=== PATIENT | male | born 1970 | race Caucasian/White ===

== ENCOUNTER 2016-12-06 12:31 | Inpatient (IN) | payer BC, OTHER ==
[~2016-12-06] VITALS: Ht 170.2 cm; Wt 109.4 kg
[~2016-12-06 12:31] MED LIST: ALBUAER2 INH; BENICAR PO; CIPR-255 PO; HCT PO
[2016-12-06] MEDS ORDERED: KETOROLAC TROMETHAMINE 30 MG/ML VIAL IV STA (12:50)
[2016-12-06] MEDS ORDERED: SODIUM CHLORIDE 0.9% 1000ML 1,000 ML IV STA ×2 (12:52→13:27)
[2016-12-06] MEDS ORDERED: TELM1TAB11 PO (13:14)
[2016-12-06] MEDS ORDERED: IBUP-1050 PO (13:14)
[2016-12-06] MEDS ORDERED: ATOR10TA88 PO (13:14)
[2016-12-06] MEDS ORDERED: VNTHFA/IN INH (13:15)
--- NOTE | 2016-12-06 13:30 | DIAGNOSTIC IMAGING REPORT ---
ABDOMEN AND PELVIS CT WITHOUT CONTRAST CT DOSE: 1786.61 mGy.cm HISTORY: Flank pain L flank pain TECHNIQUE: Multiaxial CT images of the abdomen and pelvis were performed without the use of intravenous and oral contrast according to the standard department stone protocol. COMPARISON STUDY: None. FINDINGS: Lung bases are clear. Liver spleen and pancreas appear unremarkable. Gallbladder slightly distended. Images demonstrate several punctate nonobstructing calcifications bilaterally. There is a trace amount of perinephric infiltrative change unaltered from the prior study of 12/13/2014. Bowel pattern is remarkable for perforated acute mid sigmoid diverticulitis. There is considerable pericolonic infiltrative change throughout the bulk of the sigmoid with a moderate wall thickening of the proximal to mid sigmoid. At the level of the mid sigmoid posteriorly is a localized perforation extending to a 4 x 3 cm air/complex fluid collection and/or abscess. There are several smaller localized air contained perforations with no evidence for an associated abscess. There is considerable pericolonic infiltrative change extending into left lateral position the left iliopsoas complex. There are scattered foci of free air scattered throughout the abdomen as well as remaining components of the pelvis. No additional collection or abscess is identified. Mild small bowel reactive ileus. Small amount subdiaphragmatic free air. The colonic bowel pattern is nonobstructive. The appendix is normal. IMPRESSION: 1. Perforated sigmoid acute diverticulitis. There is extensive pericolonic and low pelvic infiltrative change. 2. posterior to the mid sigmoid colon, and posterior to the bladder dome is a 4 x 3 cm air/complex fluid collection/abscess. 3. Several additional pericolonic air bubbles are present with additional scattered free air pockets throughout the abdomen and pelvis. 4. No additional major or significant abscess is identified at this time. 5. Considerable infiltrative change extending to the left lateral pelvic sidewall and iliopsoas musculature. 6. Several punctate nonobstructing renal calcifications. 7. Mild reactive nonobstructive ileus. 8. This report was phoned to the emergency room Electronically signed by: Benja Villegas M.D. 12/06/2016 1:28 PM Dictated Date/Time: 12/06/2016 1:14 PM
[2016-12-06 13:38] LABS: BASO % 0.1 %; BASO ABS # 0.01 K/uL (0-0.2); COMPLETE YES; EOS % 0.6 %; HEMATOCRIT 42.3 % (42-52); IG% 0.2 %; LYMPH % 11.9 %; LYMPH ABS # 1.77 K/uL (1.2-3.4); MEAN CELL VOLUME 85.8 fL (80-100); MEAN CORPUSCULAR HEMOGLOBIN 29.8 pg (25-34); MEAN CORPUSCULAR HGB CONC 34.8 g/dl (32-36); MEAN PLATELET VOLUME 10.7 fL (7.4-10.4); MONO % 8.8 %; NEUT % 78.4 %; PLATELET COUNT 255 K/uL (130-400); RED BLOOD COUNT 4.93 M/uL (4.7-6.1); WHITE BLOOD COUNT 14.84 K/uL (4.8-10.8)
[2016-12-06 13:46] LABS: BUN/CREATININE RATIO 18.2 (10-20); CALCIUM 8.5 mg/dl (8.5-10.1); CREATININE 0.87 mg/dl (0.60-1.40); POTASSIUM 3.9 mmol/L (3.5-5.1)
[2016-12-06] MEDS ORDERED: ALBUTEROL HFA 8 GM INHALER INH PRN (14:15)
[2016-12-06] MEDS ORDERED: LEVALBUTEROL/IPRATROPIUM NEB INH PRN (14:15)
[2016-12-06] MEDS ORDERED: ACETAMINOPHEN IV 100 ML IV PRN (14:15)
[2016-12-06] MEDS ORDERED: MoRPHine SULFATE 2 MG/ML CARP IV PRN (14:15)
[2016-12-06] MEDS ORDERED: DiphenhydrAMINE HCL 50 MG/ML VIAL IV PRN ×2 (14:15)
[2016-12-06] MEDS ORDERED: ONDANSETRON INJ 2 MG/ML 2 ML VIAL IV PRN (14:15)
[2016-12-06] MEDS ORDERED: LEVALBUTEROL 1.25MG/0.5ML NEB INH PRN (14:45)
[2016-12-06] MEDS ORDERED: IPRATROPIUM BROMIDE NEB SOLN 0.02% 2.5 ML VIAL INH PRN (14:45)
[2016-12-06 15:00] VITALS: BP 172/101; PULSE 90; TEMP 36.6; O2SAT 96; Ht 170.2 cm; Wt 109.4 kg
[2016-12-06] MEDS: MoRPHine SULFATE 4 MG/ML 1 ML CARP\\VIAL IV PRN ×5 (15:05→23:56)
[2016-12-06 15:06] LABS: URINE APPEARANCE CLOUDY (CLEAR); URINE BILIRUBIN NEG (NEG); URINE COLOR YELLOW; URINE NITRITE NEG (NEG); URINE SPECIFIC GRAVITY 1.014 (1.000-1.030); UROBILINOGEN NEG (NEG)
[2016-12-06 15:10] VITALS: BP 153/91; PULSE 90; TEMP 36.6; O2SAT 96
[2016-12-06 15:13] LABS: MANUAL MICROSCOPIC REQUIRED? NO; REVIEW REQ? NO
[2016-12-06] MEDS ORDERED: PIPERACILL/TAZOBAC IV 4.5 GM in DEXTROSE 5% 100ML 100 ML IV ONE (15:15)
[2016-12-06] MEDS ORDERED: PIPERACILL/TAZOBAC CONSULT ACTIVE PRN (15:15)
[2016-12-06] MEDS: NSS + 20MEQ KCL 1000ML 1,000 ML IV SCH (15:28)
[2016-12-06] MEDS ORDERED: PNEUMOCOCCAL ADMINISTRATION CHARGE ONE (17:00)
[2016-12-06] MEDS ORDERED: PNEUMOCOCCAL POLYSACCHARIDES 25 MCG/0.5 ML VIAL/SYR IM. ONE (17:00)
--- NOTE | 2016-12-06 18:39 | Surgery Consultation ---
Consultation Date of Consultation: Dec 06, 2016. Attending Physician: Alexi Burkett M.D. Reason for Consultation: diverticulitis History of Present Illness 46 y/o with prior hx of about 7-8 episodes of diverticulitis, never hospitalized for it though. has had a twinge of discomfort for about 2 weeks yesterday pain became severe...he thought it was a kidney stone. CT shows diverticulitis with perf/abcess Social History Smoking Status: Never Smoker Marital Status: Housing Status: lives with family Occupation Status: employed Allergies Coded Allergies: No Known Allergies (Verified , 12/06/16) Home Medications Scheduled Atorvastatin (Lipitor), 10 MG PO HS Telmisartan-Hydrochlorothiazid (Telmisartan/Hydrochloroth 80-25 mg), 1 TAB PO QAM Scheduled PRN Albuterol Hfa (Ventolin Hfa), 2 PUFFS INH QID PRN for SOB/Wheezing Ibuprofen (Advil), 600-800 MG PO Q6H PRN for Pain or Fever Current Inpatient Medications Current Inpatient Medications Medications (Trade) Dose Ordered Sig/Margaux Route Start Time Stop Time Status Last Admin Dose Admin Pantoprazole Sodium 40 mg/ Syringe 10 ml @ 5 mls/min DAILY@11 IV 12/07/16 11:00 01/06/17 10:59 Acetaminophen 100 ml @ 400 mls/hr Q8H PRN IV 12/06/16 14:15 01/05/17 14:14 Potassium Chloride/Sodium Chloride (Nss + 20meq KCl 1000ml) 1,000 ml @ 100 mls/hr Q10H IV 12/06/16 15:15 01/05/17 15:14 12/06/16 15:28 100 MLS/HR Ondansetron HCl (Zofran Inj) 4 mg Q6H PRN IV 12/06/16 14:15 01/05/17 14:14 Diphenhydramine HCl (Benadryl Inj) 25 mg Q4H PRN IV 12/06/16 14:15 01/05/17 14:14 Albuterol 2 puffs 2 puffs QID PRN INH 12/06/16 14:15 01/05/17 14:14 Piperacillin Sod/ Tazobactam Sod/ Dextrose (Zosyn Iv/D5 100ml) 120 ml @ 28.75 mls/ hr Q8H IV 12/06/16 22:00 12/16/16 21:59 Morphine Sulfate (MoRPHine SULFATE INJ) 2 mg Q2H PRN IV 12/06/16 14:15 12/20/16 14:14 Morphine Sulfate (MoRPHine SULFATE INJ) 4 mg Q2H PRN IV 12/06/16 14:15 12/20/16 14:14 12/06/16 17:26 4 MG Ipratropium [place] (Atrovent 0.02% 0.5MG/2.5ML Neb) 0.5 mg Q2R PRN INH 12/06/16 14:45 01/05/17 14:44 Levalbuterol (Xopenex 1.25MG/ 0.5ML Neb) 1.25 mg Q2R PRN INH 12/06/16 14:45 01/05/17 14:44 Piperacillin Sod/ Tazobactam Sod (Consult) 1 ea UD PRN N/A 12/06/16 15:15 12/16/16 15:14 Review of Systems Constitutional: + fever Abdomen: + nausea, + pain Genitourinary - Male: + dysuria, + urinary frequency Physical Exam Date Time Temp Pulse Resp B/P Pulse Ox O2 Delivery O2 Flow Rate FiO2 12/06/16 15:10 36.6 90 18 153/91 96 Room Air 12/06/16 15:00 36.6 90 18 172/101 96 Room Air 12/06/16 14:51 90 20 154/84 100 12/06/16 13:55 91 144/78 97 Room Air 12/06/16 12:35 36.9 101 18 175/96 95 Room Air General Appearance: no apparent distress Head: normocephalic, atraumatic Eyes: EOMI ENT: hearing grossly normal Neck: supple, no JVD Respiratory/Chest: no respiratory distress, no accessory muscle use Cardiovascular: no edema, no JVD Abdomen/GI: + tenderness, + distended, + pertinent finding (distended. no guarding/rebound. ttp in LLQ and suprapubic region) Extremities/Musculoskelatal: no pedal edema, normal range of motion Neurologic/Psych: alert, normal mood/affect, oriented x 3 Skin: normal color, warm/dry Laboratory Results Last 24 Hours Test 12/06/16 12:43 12/06/16 14:25 White Blood Count 14.84 K/uL Red Blood Count 4.93 M/uL Hemoglobin 14.7 g/dL Hematocrit 42.3 % Mean Corpuscular Volume 85.8 fL Mean Corpuscular Hemoglobin 29.8 pg Mean Corpuscular Hemoglobin Concent 34.8 g/dl Platelet Count 255 K/uL Mean Platelet Volume 10.7 fL Neutrophils (%) (Auto) 78.4 % Lymphocytes (%) (Auto) 11.9 % Monocytes (%) (Auto) 8.8 % Eosinophils (%) (Auto) 0.6 % Basophils (%) (Auto) 0.1 % Neutrophils # (Auto) 11.63 K/uL Lymphocytes # (Auto) 1.77 K/uL Monocytes # (Auto) 1.31 K/uL Eosinophils # (Auto) 0.09 K/uL Basophils # (Auto) 0.01 K/uL RDW Standard Deviation 40.9 fL RDW Coefficient of Variation 13.0 % Immature Granulocyte % (Auto) 0.2 % Immature Granulocyte # (Auto) 0.03 K/uL Sodium Level 137 mmol/L Potassium Level 3.9 mmol/L Chloride Level 102 mmol/L Carbon Dioxide Level 23 mmol/L Anion Gap 12.0 mmol/L Blood Urea Nitrogen 16 mg/dl Creatinine 0.87 mg/dl Est Creatinine Clear Calc Drug Dose 122.5 ml/min Estimated GFR () 118.3 Estimated GFR (Non- 102.1 BUN/Creatinine Ratio 18.2 Random Glucose 106 mg/dl Calcium Level 8.5 mg/dl Total Bilirubin 0.8 mg/dl Aspartate Amino Transf (AST/SGOT) 39 U/L Alanine Aminotransferase (ALT/SGPT) 64 U/L Alkaline Phosphatase 98 U/L Total Protein 7.5 gm/dl Albumin 3.7 gm/dl Globulin 3.8 gm/dl Albumin/Globulin Ratio 1.0 Urine Color YELLOW Urine Appearance CLOUDY Urine pH 6.0 Urine Specific [place] 1.014 Urine Protein NEG Urine Glucose (UA) NEG Urine Ketones NEG Urine Occult Blood NEG Urine Nitrite NEG Urine Bilirubin NEG Urine Urobilinogen NEG Urine Leukocyte Esterase NEG Urine WBC (Auto) 1-5 /hpf Urine RBC (Auto) 0-4 /hpf Urine Hyaline Casts (Auto) 1-5 /lpf Urine Epithelial Cells (Auto) 5-10 /lpf Urine Bacteria (Auto) NEG Assessment & Plan acute diverticulitis with perforation/abcess clinically looks better than his ct scan will see how he does with conservative tx for now npo/ivf/antibiotics/symptom control if clinically worsens may need to send out for IR drain if we can get him better conservatively, will rec/discuss elective lap colon resection. pt agreeable/questions answered.
[2016-12-06 20:01] VITALS: TEMP 36.4
--- NOTE | 2016-12-06 20:36 | History and Physical ---
History & Physical Date & Time of Service: Dec 06, 2016 at 20:25 Chief Complaint: Perforated Sigmoid Colon, Pericolonic Abscess Primary Care Physician: Charly Marcano M.D. History of Present Illness Source: patient, spouse The patient is a 46-year-old male who presents emergency department with report of 2 weeks of intermittent pressure in the left lower quadrant, with the sudden development of severe pain last evening to cost him to double over. The pain persisted overnight, and thus he presents emergency department for assessment. Prior to the past few weeks, he's had no incidences of this type of discomfort, and has had no recent changes in dietary habits. He denies any nausea or vomiting, and has not had any blood in stool. Social History Smoking Status: Never Smoker Smokeless Tobacco Use: No Alcohol Use: none Drug Use: none Marital Status: Housing status: lives with family Occupational Status: employed Immunizations History of Influenza Vaccine: N/A History of Tetanus Vaccine?: Yes History of Pneumococcal: No History of Hepatitis B Vaccine: Yes Multi-Drug Resistant Organisms History of MDRO: No Allergies Coded Allergies: No Known Allergies (Verified , 12/06/16) Home Medications Scheduled Atorvastatin (Lipitor), 10 MG PO HS Telmisartan-Hydrochlorothiazid (Telmisartan/Hydrochloroth 80-25 mg), 1 TAB PO QAM Scheduled PRN Albuterol Hfa (Ventolin Hfa), 2 PUFFS INH QID PRN for SOB/Wheezing Ibuprofen (Advil), 600-800 MG PO Q6H PRN for Pain or Fever Review of Systems The patient denies chest pain, palpitations, shortness of breath, cough, lower extremity swelling, vision change, hearing change, sore throat, fevers, chills, sweats, weight change, vomiting, blood in urine or stool, dysuria, urinary frequency or urgency, lightheadedness, dizziness, headache, memory loss, rash, abnormal bruising or bleeding, imbalance, focal or generalized weakness, numbness or tingling in arms or legs, arthralgias or myalgias, back or neck pain , night sweats, or allergy symptoms. The review of systems is otherwise negative other than for that already noted above, and at least 10 systems have been reviewed. Physical Exam Vital Signs Date Time Temp Pulse Resp B/P Pulse Ox O2 Delivery O2 Flow Rate FiO2 12/06/16 20:01 36.4 12/06/16 15:10 36.6 90 18 153/91 96 Room Air 12/06/16 15:00 36.6 90 18 172/101 96 Room Air 12/06/16 14:51 90 20 154/84 100 12/06/16 13:55 91 144/78 97 Room Air 12/06/16 12:35 36.9 101 18 175/96 95 Room Air The patient is awake, well-developed and adequately nourished, alert and oriented 3, normocephalic and atraumatic, lying in bed and in no acute distress. HEENT--PERRL, EOMI, mucous membranes and oropharynx dry. Neck--supple, no JVD or bruits, thyroid normal, trachea midline, no adenopathy. Heart--normal S1 and S2, no extra beats, no murmurs, rubs or gallops. Lungs--clear bilaterally with good air movement, no respiratory distress, no accessory muscle use. Abdomen--decreased bowel sounds, soft, mildly distended, with left lower quadrant pain. Extremities--no cyanosis, clubbing or edema. There are good distal pulses b/l. Dermatologic--normal skin turgor, normal color, warm and dry, no abnormal lymph nodes, no rash. Neurologic--cranial nerves II through XII grossly intact, motor and sensory examination normal. Rheumatologic--normal range of motion, nontender, muscles and joints. Psychiatric--normal affect. Diagnostics Laboratory Results Results Past 24 Hours Test 12/06/16 12:43 12/06/16 14:25 Range/Units White Blood Count 14.84 4.8-10.8 K/uL Red Blood Count 4.93 4.7-6.1 M/uL Hemoglobin 14.7 14.0-18.0 g/dL Hematocrit 42.3 42-52 % Mean Corpuscular Volume 85.8 80-100 fL Mean Corpuscular Hemoglobin 29.8 25-34 pg Mean Corpuscular Hemoglobin Concent 34.8 32-36 g/dl Platelet Count 255 130-400 K/uL Mean Platelet Volume 10.7 7.4-10.4 fL Neutrophils (%) (Auto) 78.4 % Lymphocytes (%) (Auto) 11.9 % Monocytes (%) (Auto) 8.8 % Eosinophils (%) (Auto) 0.6 % Basophils (%) (Auto) 0.1 % Neutrophils # (Auto) 11.63 1.4-6.5 K/uL Lymphocytes # (Auto) 1.77 1.2-3.4 K/uL Monocytes # (Auto) 1.31 0.11-0.59 K/uL Eosinophils # (Auto) 0.09 0-0.5 K/uL Basophils # (Auto) 0.01 0-0.2 K/uL RDW Standard Deviation 40.9 36.4-46.3 fL RDW Coefficient of Variation 13.0 11.5-14.5 % Immature Granulocyte % (Auto) 0.2 % Immature Granulocyte # (Auto) 0.03 0.00-0.02 K/uL Sodium Level 137 136-145 mmol/L Potassium Level 3.9 3.5-5.1 mmol/L Chloride Level 102 98-107 mmol/L Carbon Dioxide Level 23 21-32 mmol/L Anion Gap 12.0 3-11 mmol/L Blood Urea Nitrogen 16 7-18 mg/dl Creatinine 0.87 0.60-1.40 mg/dl Est Creatinine Clear Calc Drug Dose 122.5 ml/min Estimated GFR () 118.3 Estimated GFR (Non- 102.1 BUN/Creatinine Ratio 18.2 10-20 Random Glucose 106 70-99 mg/dl Calcium Level 8.5 8.5-10.1 mg/dl Total Bilirubin 0.8 0.2-1 mg/dl Aspartate Amino Transf (AST/SGOT) 39 15-37 U/L Alanine Aminotransferase (ALT/SGPT) 64 12-78 U/L Alkaline Phosphatase 98 45-117 U/L Total Protein 7.5 6.4-8.2 gm/dl Albumin 3.7 3.4-5.0 gm/dl Globulin 3.8 2.5-4.0 gm/dl Albumin/Globulin Ratio 1.0 0.9-2 Urine Color YELLOW Urine Appearance CLOUDY CLEAR Urine pH 6.0 4.5-7.5 Urine Specific [place] 1.014 1.000-1.030 Urine Protein NEG NEG Urine Glucose (UA) NEG NEG Urine Ketones NEG NEG Urine Occult Blood NEG NEG Urine Nitrite NEG NEG Urine Bilirubin NEG NEG Urine Urobilinogen NEG NEG Urine Leukocyte Esterase NEG NEG Urine WBC (Auto) 1-5 0-5 /hpf Urine RBC (Auto) 0-4 0-4 /hpf Urine Hyaline Casts (Auto) 1-5 0-5 /lpf Urine Epithelial Cells (Auto) 5-10 0-5 /lpf Urine Bacteria (Auto) NEG NEG Diagnostic Radiology Patient Name: JOSE CRUZ CHEN Unit Number: [id number] Dictated: 12/06/161313 Transcribed: 12/06/161313 MS Printed Date/Time: [~ rep prt dt]/[~ rep prt tm] [~ rep ct labl] - [~ rep ct ivnm] [facility] Radiology [place] [address] Dictated: 12/06/161313 Transcribed: 12/06/161313 MS Printed Date/Time: [~ rep prt dt]/[~ rep prt tm] [~ rep ct labl] - [~ rep ct ivnm] [~ rep ct add3]] ABDOMEN AND PELVIS CT WITHOUT CONTRAST CT DOSE: 1786.61 mGy.cm HISTORY: Flank pain L flank pain TECHNIQUE: Multiaxial CT images of the abdomen and pelvis were performed without the use of intravenous and oral contrast according to the standard department stone protocol. COMPARISON STUDY: None. FINDINGS: Lung bases are clear. Liver spleen and pancreas appear unremarkable. Gallbladder slightly distended. Images demonstrate several punctate nonobstructing calcifications bilaterally. There is a trace amount of perinephric infiltrative change unaltered from the prior study of 12/13/2014. Bowel pattern is remarkable for perforated acute mid sigmoid diverticulitis. There is considerable pericolonic infiltrative change throughout the bulk of the sigmoid with a moderate wall thickening of the proximal to mid sigmoid. At the level of the mid sigmoid posteriorly is a localized perforation extending to a 4 x 3 cm air/complex fluid collection and/or abscess. There are several smaller localized air contained perforations with no evidence for an associated abscess. There is considerable pericolonic infiltrative change extending into left lateral position the left iliopsoas complex. There are scattered foci of free air scattered throughout the abdomen as well as remaining components of the pelvis. No additional collection or abscess is identified. Mild small bowel reactive ileus. Small amount subdiaphragmatic free air. The colonic bowel pattern is nonobstructive. The appendix is normal. IMPRESSION: 1. Perforated sigmoid acute diverticulitis. There is extensive pericolonic and low pelvic infiltrative change. 2. posterior to the mid sigmoid colon, and posterior to the bladder dome is a 4 x 3 cm air/complex fluid collection/abscess. 3. Several additional pericolonic air bubbles are present with additional scattered free air pockets throughout the abdomen and pelvis. 4. No additional major or significant abscess is identified at this time. 5. Considerable infiltrative change extending to the left lateral pelvic sidewall and iliopsoas musculature. 6. Several punctate nonobstructing renal calcifications. 7. Mild reactive nonobstructive ileus. 8. This report was phoned to the emergency room Electronically signed by: Benja Villegas M.D. 12/06/2016 1:28 PM Dictated Date/Time: 12/06/2016 1:14 PM The status of this report is Signed. Draft = Not yet reviewed or approved by Radiologist. Signed = Reviewed and approved by Radiologist. <AttendingPhy></AttendingPhy> <FamilyPhy>Charly Marcano M.D.</FamilyPhy > <PrimaryPhy>Charly Marcano M.D.</PrimaryPhy> <UnitNumber>[id number]</ UnitNumber> <VisitNumber>[id number]</VisitNumber> <PatientName>JOSE CRUZ CHEN</ PatientName> <DateOfBirth>1970</DateOfBirth> <Location>[facility]</Location> < ServiceDate>12/06/16</ServiceDate> <MNE>ESINDI</MNE> <OrderingPhy>Cavazos Cory D PA-C</OrderingPhy> <OrderingPhyMNE>f rep ord dr nicole</OrderingPhyMNE> < DictatingPhyMNE>f rep dict dr nicole</DictatingPhyMNE> <CCListMNE>f rep ct anthonye</ CCListMNE> <AdmittingPhyMNE>f pt admit dr nicole</AdmittingPhyMNE> <AttendingPhyMNE >f pt attend dr nicole</AttendingPhyMNE> <ConsultingPhyMNE>f pt consult dr nicole</ConsultingPhyMNE> <FamilyPhyMNE>f pt fam dr nicole</FamilyPhyMNE> <OtherPhyMNE>f pt other dr nicole</OtherPhyMNE> < PrimaryPhyMNE>f pt prim care dr nicole</PrimaryPhyMNE> <ReferringPhyMNE>f pt referring dr nicole</ReferringPhyMNE> Impression Assessment and Plan Perforated sigmoid acute diverticulitis with extensive pericolonic and low pelvic infiltrative change, with a 4 x 3 cm air/complex fluid collection/ abscess posterior to the mid sigmoid colon. There are several additional pericolonic air bubbles present with additional scattered free air pockets throughout the abdomen and pelvis. There is considerable infiltrative change extending to the left lateral pelvic sidewall and iliopsoas musculature. Mild reactive nonobstructive ileus. The patient is being admitted to the medical surgical floor. He'll be kept nothing by mouth. He'll be placed on Zosyn 3.375 mg IV every 6 hours, NSS with KCl 20 mEq at 100 mils per hour, Zofran 4 mg IV every 6 hours when necessary, and pantoprazole 40 mg IV daily. We'll follow serial CBC with differential, chemistry profile and magnesium level. Surgery been consulted and will see the patient. Hypertension--while patient is nothing by mouth, we will hold telmisartan/HCTZ, and will have available hydralazine 10 mg IV every 4 hours when necessary systolic blood pressure greater than 150. Hypercholesterolemia--hold atorvastatin 10 mg by mouth at bedtime while patient is nothing by mouth. Asthma--will continue Ventolin HFA 2 puffs 4 times a day when necessary available, and add Xopenex with Atrovent nebulizers to use every 2 hours when necessary. Level of Care Med/Surg Advanced Directives Existing Advance Directive: No Existing Living Will: No Existing Power of Emergency Response Officer: No Resuscitation Status FULL RESUSCITATION VTE Prophylaxis VTE Risk Assessment Done? Y/N: Yes Risk Level: Moderate Given or contraindicated: SCD's Social Service Consult None Apply
[2016-12-06] MEDS: PIPERACILL/TAZOBAC IV 4.5 GM in DEXTROSE 5% 100ML 100 ML IV SCH (21:30)
[2016-12-06 21:56] VITALS: BP 122/60; PULSE 102; TEMP 37.3; O2SAT 97
[2016-12-06] MEDS ORDERED: SODIUM CHLORIDE 0.9% 1000ML 1,000 ML IV ONE (22:15)
--- NOTE | 2016-12-06 23:28 | Progress Note ---
Progress Note I was paged at approximately 22:04. Nurse wanted to notify that heart rate had been steadily climbing. No fevers. was in the room and noted to nursing that she was nervous that blood cultures have not been obtained. I give the following instructions prior to my arrival: Obtain full set of vital signs and I would be up to see the patient I arrived at the to the bedside to assess the patient. By the time I arrived, patient's had gone home: SUBJECTIVE: Patient notes that the pain is stable, morphine helps control it. Currently a 3 out of 10. Abdomen has felt distended since admission, but does not feel like distention is increasing at this time. OBJECTIVE: Vital signs: Temp 37.3; BP 122/60; ; HR 102; RR 18; oxygen saturation 97% RA Gen. inspection: Patient in no apparent distress, does note some abdominal pain but stable, no evidence of respiratory distress, no evidence of diaphoresis Exam cardiac: S1 and S2 with no added sounds or murmurs Abdominal: Abdomen mildly distended, diffuse tenderness to light palpation, reduced bowel sounds, no guarding or rigidity ASSESSMENT/PLAN: 46-year-old male, presenting with perforated sigmoid diverticulum, currently being managed medically. At this time the patient appears stable from the time of admission, and does not appear to be worsening clinically. However I will continue to monitor him through the night. He is very slightly tachycardic with a heart rate of 102, and it is noticed from CBC that he has a mild leukocytosis at 14. He does currently have an intra -abdominal infection for which was started on Pipracil/Tazobactam IV. Patient will be meeting criteria at this point of sepsis, however broad spectrum IV antibiotics already been started and may interfere with culture result. As a result at this time I would hold off on obtaining blood cultures, unless the patient becomes febrile during the night. Slight tachycardia may indeed reflect the degree of dehydration for which I will do a fluid challenge of 1 L given over 2 hours (500 ml/hr), at which point I will reassess. 02:30 I went back upstairs to the patient's room to reassess. Patient was noted by nurse to be sleeping comfortably, got a dose of scheduled morphine approximately 1 hour ago, no complaints since then. Reviewed vital signs drawn at 01:50: Temp 37.4; HR 102; RR 18; BP 142/74; 95% room air At this time the patient appears stable. I suspect this time that the very low- grade tachycardia is most likely due to pain. Hemodynamically he is otherwise stable . The patient has antibiotics on board, therefore I would not draw blood cultures unless he spikes a temperature overnight. Otherwise, we'll continue with current plan of Piperacillin/Tazobactam. No further action at this time, unless patient's clinical condition changes. Otherwise, I will sign out the case the day team.
[2016-12-07] MEDS: NSS + 20MEQ KCL 1000ML 1,000 ML IV SCH ×2 (01:48→11:17)
[2016-12-07] MEDS: MoRPHine SULFATE 4 MG/ML 1 ML CARP\\VIAL IV PRN ×4 (01:48→09:21)
[2016-12-07 01:50] VITALS: BP 142/74; PULSE 102; TEMP 37.4; O2SAT 95
[2016-12-07] MEDS: PIPERACILL/TAZOBAC IV 4.5 GM in DEXTROSE 5% 100ML 100 ML IV SCH ×2 (05:38→14:00)
[2016-12-07 07:25] VITALS: BP 121/74; PULSE 91; TEMP 37; O2SAT 96
[2016-12-07 07:25] LABS: BASO % 0.1 %; BASO ABS # 0.01 K/uL (0-0.2); COMPLETE YES; EOS % 0.3 %; HEMATOCRIT 38.5 % (42-52); IG% 0.2 %; LYMPH % 11.7 %; LYMPH ABS # 1.54 K/uL (1.2-3.4); MEAN CELL VOLUME 87.1 fL (80-100); MEAN CORPUSCULAR HEMOGLOBIN 29.6 pg (25-34); MEAN PLATELET VOLUME 10.7 fL (7.4-10.4); MONO % 10.8 %; NEUT % 76.9 %; PLATELET COUNT 231 K/uL (130-400); RED BLOOD COUNT 4.42 M/uL (4.7-6.1)
[2016-12-07] MEDS ORDERED: HYDROmorphone INJ 0.5 MG/0.5 ML SYR IV STA (07:36)
[2016-12-07] MEDS ORDERED: HYDROmorphone INJ 1 MG/ML SYR IV PRN (07:45)
[2016-12-07] MEDS ORDERED: HYDROmorphone INJ 0.5 MG/0.5 ML SYR IV PRN ×2 (07:45→11:00)
--- NOTE | 2016-12-07 08:06 | Surgery Progress Note ---
Surgery Progress Note Date of Service Dec 07, 2016. Subjective having more pelvic pain and rectal spasm Objective Vital Signs: Date Time Temp Pulse Resp B/P Pulse Ox O2 Delivery O2 Flow Rate FiO2 12/07/16 07:30 Room Air 12/07/16 07:25 37.0 91 19 121/74 96 Room Air 12/07/16 01:50 37.4 102 18 142/74 95 Room Air 12/06/16 21:56 37.3 102 18 122/60 97 Room Air 12/06/16 20:01 36.4 12/06/16 19:45 Room Air 12/06/16 15:10 36.6 90 18 153/91 96 Room Air 12/06/16 15:00 36.6 90 18 172/101 96 Room Air 12/06/16 14:51 90 20 154/84 100 12/06/16 13:55 91 144/78 97 Room Air 12/06/16 12:35 36.9 101 18 175/96 95 Room Air General Appearance: + mild distress Respiratory/Chest: no respiratory distress Abdomen: + distended, + tenderness (pain is in pelvis Lt>>Rt) Laboratory Results: Results Past 24 Hours Test 12/06/16 12:43 12/06/16 14:25 12/07/16 06:36 Range/Units White Blood Count 14.84 13.20 4.8-10.8 K/uL Red Blood Count 4.93 4.42 4.7-6.1 M/uL Hemoglobin 14.7 13.1 14.0-18.0 g/dL Hematocrit 42.3 38.5 42-52 % Mean Corpuscular Volume 85.8 87.1 80-100 fL Mean Corpuscular Hemoglobin 29.8 29.6 25-34 pg Mean Corpuscular Hemoglobin Concent 34.8 34.0 32-36 g/dl Platelet Count 255 231 130-400 K/uL Mean Platelet Volume 10.7 10.7 7.4-10.4 fL Neutrophils (%) (Auto) 78.4 76.9 % Lymphocytes (%) (Auto) 11.9 11.7 % Monocytes (%) (Auto) 8.8 10.8 % Eosinophils (%) (Auto) 0.6 0.3 % Basophils (%) (Auto) 0.1 0.1 % Neutrophils # (Auto) 11.63 10.16 1.4-6.5 K/uL Lymphocytes # (Auto) 1.77 1.54 1.2-3.4 K/uL Monocytes # (Auto) 1.31 1.42 0.11-0.59 K/uL Eosinophils # (Auto) 0.09 0.04 0-0.5 K/uL Basophils # (Auto) 0.01 0.01 0-0.2 K/uL RDW Standard Deviation 40.9 42.2 36.4-46.3 fL RDW Coefficient of Variation 13.0 13.1 11.5-14.5 % Immature Granulocyte % (Auto) 0.2 0.2 % Immature Granulocyte # (Auto) 0.03 0.03 0.00-0.02 K/uL Sodium Level 137 136-145 mmol/L Potassium Level 3.9 3.5-5.1 mmol/L Chloride Level 102 98-107 mmol/L Carbon Dioxide Level 23 21-32 mmol/L Anion Gap 12.0 3-11 mmol/L Blood Urea Nitrogen 16 7-18 mg/dl Creatinine 0.87 0.60-1.40 mg/dl Est Creatinine Clear Calc Drug Dose 122.5 ml/min Estimated GFR () 118.3 Estimated GFR (Non- 102.1 BUN/Creatinine Ratio 18.2 10-20 Random Glucose 106 70-99 mg/dl Calcium Level 8.5 8.5-10.1 mg/dl Total Bilirubin 0.8 0.2-1 mg/dl Aspartate Amino Transf (AST/SGOT) 39 15-37 U/L Alanine Aminotransferase (ALT/SGPT) 64 12-78 U/L Alkaline Phosphatase 98 45-117 U/L Total Protein 7.5 6.4-8.2 gm/dl Albumin 3.7 3.4-5.0 gm/dl Globulin 3.8 2.5-4.0 gm/dl Albumin/Globulin Ratio 1.0 0.9-2 Urine Color YELLOW Urine Appearance CLOUDY CLEAR Urine pH 6.0 4.5-7.5 Urine Specific [place] 1.014 1.000-1.030 Urine Protein NEG NEG Urine Glucose (UA) NEG NEG Urine Ketones NEG NEG Urine Occult Blood NEG NEG Urine Nitrite NEG NEG Urine Bilirubin NEG NEG Urine Urobilinogen NEG NEG Urine Leukocyte Esterase NEG NEG Urine WBC (Auto) 1-5 0-5 /hpf Urine RBC (Auto) 0-4 0-4 /hpf Urine Hyaline Casts (Auto) 1-5 0-5 /lpf Urine Epithelial Cells (Auto) 5-10 0-5 /lpf Urine Bacteria (Auto) NEG NEG Assessment & Plan 12/07/16- adm with perforated diverticulitis- pelvic abscess- now with more pain To try to avoid a temporary colostomy, would be best if pt could have drain placed by IR- hopefully this could be done at [facility] or [facility]. Pt has seen Dr Bowling in past , has had no prior operation
[2016-12-07 08:09] LABS: ALKALINE PHOSPHATASE 87 U/L (45-117); ALT/SGPT 58 U/L (12-78); AST/SGOT 30 U/L (15-37); BLOOD UREA NITROGEN 9 mg/dl (7-18); BUN/CREATININE RATIO 11.4 (10-20); CALCIUM 8.2 mg/dl (8.5-10.1); CARBON DIOXIDE 24 mmol/L (21-32); CHLORIDE 101 mmol/L (98-107); GLUCOSE 85 mg/dl (70-99); MAGNESIUM 1.9 mg/dl (1.8-2.4); POTASSIUM 3.8 mmol/L (3.5-5.1); SODIUM 136 mmol/L (136-145)
--- NOTE | 2016-12-07 09:32 | DIAGNOSTIC IMAGING REPORT ---
ABDOMEN 2VIEW W/PA CHEST RTN CLINICAL HISTORY: Pericolonic abscess. Sigmoid diverticulitis. COMPARISON STUDY: CT scan dated 12/06/2016 FINDINGS: The erect chest reveals no free air. There is no focal pulmonary consolidation. Erect and supine views the abdomen reveal a borderline dilated left mid abdominal small bowel loop, possibly representing a focal ileus. There are no transition zones indicate a high-grade bowel obstruction. IMPRESSION: 1. No conventional radiographic evidence of bowel obstruction 2. No free air is visualized Electronically signed by: Branden Flores M.D. 12/07/2016 9:31 AM Dictated Date/Time: 12/07/2016 9:27 AM
[2016-12-07] MEDS ORDERED: METRONIDAZOLE / NSS 500 MG in PREMIXED NSS 100 ML IV SCH (10:00)
[2016-12-07] MEDS ORDERED: dilaudid IV (10:04)
[2016-12-07] MEDS ORDERED: ZSYI45 IV (10:04)
--- NOTE | 2016-12-07 10:05 | Discharge Instructions ---
Discharge Instructions Admission Reason for Admission: Perforated Sigmoid Colon, Pericolonic Abscess Discharge Discharge Diagnosis / Problem: intra abdominal abscess Discharge Goals Goal(s): Diagnostic testing Activity Recommendations Activity Limitations: as noted below . Current Hospital Diet Patient's current hospital diet: Discharge Diet Recommended Diet: N/A Pending Studies Studies pending at discharge: yes List of pending studies: blood cultures Medical Emergencies . Who to Call and When: Medical Emergencies: If at any time you feel your situation is an emergency, please call 911 immediately. . Non-Emergent Contact Non-Emergency issues call your: Surgeon . . "Provider Documentation" section prepared by Eze Fraah. VTE Core Measure Inpt VTE Proph given/why not?: SCD's
[2016-12-07] MEDS ORDERED: ACETAMINOPHEN IV 650 MG in EMPTY BAG 0 ML IV PRN (10:15)
[2016-12-07] MEDS ORDERED: KETOROLAC TROMETHAMINE 30 MG/ML VIAL IV ONE (10:30)
[2016-12-07] MEDS ORDERED: PANTOprazole INJ 40 MG in SYRINGE 0 ML IV SCH (11:00)
[2016-12-07] MEDS: HYDROmorphone INJ 1 MG/ML SYR IV PRN ×4 (11:32→15:23)
[2016-12-07 15:04] VITALS: BP 120/60; PULSE 95; TEMP 36.8; O2SAT 96
[2016-12-07 16:12] VITALS: BP 120/60; PULSE 95; TEMP 36.8; O2SAT 96
--- NOTE | 2016-12-08 07:20 | Progress Note ---
Subjective Date of Service: Dec 07, 2016. Objective Vital Signs Date Time Temp Pulse Resp B/P Pulse Ox O2 Delivery O2 Flow Rate FiO2 12/07/16 07:25 37.0 91 19 121/74 96 Room Air 12/07/16 01:50 37.4 102 18 142/74 95 Room Air 12/06/16 21:56 37.3 102 18 122/60 97 Room Air 12/06/16 20:01 36.4 12/06/16 19:45 Room Air 12/06/16 15:10 36.6 90 18 153/91 96 Room Air 12/06/16 15:00 36.6 90 18 172/101 96 Room Air 12/06/16 14:51 90 20 154/84 100 12/06/16 13:55 91 144/78 97 Room Air 12/06/16 12:35 36.9 101 18 175/96 95 Room Air Laboratory Results Last 24 Hours Test 12/06/16 12:43 12/06/16 14:25 12/07/16 06:36 White Blood Count 14.84 K/uL 13.20 K/uL Red Blood Count 4.93 M/uL 4.42 M/uL Hemoglobin 14.7 g/dL 13.1 g/dL Hematocrit 42.3 % 38.5 % Mean Corpuscular Volume 85.8 fL 87.1 fL Mean Corpuscular Hemoglobin 29.8 pg 29.6 pg Mean Corpuscular Hemoglobin Concent 34.8 g/dl 34.0 g/dl Platelet Count 255 K/uL 231 K/uL Mean Platelet Volume 10.7 fL 10.7 fL Neutrophils (%) (Auto) 78.4 % 76.9 % Lymphocytes (%) (Auto) 11.9 % 11.7 % Monocytes (%) (Auto) 8.8 % 10.8 % Eosinophils (%) (Auto) 0.6 % 0.3 % Basophils (%) (Auto) 0.1 % 0.1 % Neutrophils # (Auto) 11.63 K/uL 10.16 K/uL Lymphocytes # (Auto) 1.77 K/uL 1.54 K/uL Monocytes # (Auto) 1.31 K/uL 1.42 K/uL Eosinophils # (Auto) 0.09 K/uL 0.04 K/uL Basophils # (Auto) 0.01 K/uL 0.01 K/uL RDW Standard Deviation 40.9 fL 42.2 fL RDW Coefficient of Variation 13.0 % 13.1 % Immature Granulocyte % (Auto) 0.2 % 0.2 % Immature Granulocyte # (Auto) 0.03 K/uL 0.03 K/uL Sodium Level 137 mmol/L Potassium Level 3.9 mmol/L Chloride Level 102 mmol/L Carbon Dioxide Level 23 mmol/L Anion Gap 12.0 mmol/L Blood Urea Nitrogen 16 mg/dl Creatinine 0.87 mg/dl Est Creatinine Clear Calc Drug Dose 122.5 ml/min Estimated GFR () 118.3 Estimated GFR (Non- 102.1 BUN/Creatinine Ratio 18.2 Random Glucose 106 mg/dl Calcium Level 8.5 mg/dl Total Bilirubin 0.8 mg/dl Aspartate Amino Transf (AST/SGOT) 39 U/L Alanine Aminotransferase (ALT/SGPT) 64 U/L Alkaline Phosphatase 98 U/L Total Protein 7.5 gm/dl Albumin 3.7 gm/dl Globulin 3.8 gm/dl Albumin/Globulin Ratio 1.0 Urine Color YELLOW Urine Appearance CLOUDY Urine pH 6.0 Urine Specific [place] 1.014 Urine Protein NEG Urine Glucose (UA) NEG Urine Ketones NEG Urine Occult Blood NEG Urine Nitrite NEG Urine Bilirubin NEG Urine Urobilinogen NEG Urine Leukocyte Esterase NEG Urine WBC (Auto) 1-5 /hpf Urine RBC (Auto) 0-4 /hpf Urine Hyaline Casts (Auto) 1-5 /lpf Urine Epithelial Cells (Auto) 5-10 /lpf Urine Bacteria (Auto) NEG Assessment and Plan 46 M with Perforated sigmoid acute diverticulitis with extensive pericolonic and low pelvic infiltrative change, with a 4 x 3 cm air/complex fluid collection /abscess posterior to the mid sigmoid colon. Diverticulosis, perforation, surgical consult, Zosyn 3.375 mg IV every 6 hours , NSS with KCl 20 mEq at 100 mils per hour, Zofran 4 mg IV every 6 hours when necessary, and pantoprazole 40 mg IV daily. Hypertension-- hold telmisartan/HCTZ, and hydralazine 10 mg IV every 4 hours when necessary systolic blood pressure greater than 150. Hypercholesterolemia--hold atorvastatin 10 Asthma-prn inhalers
--- NOTE | 2016-12-08 07:25 | Discharge Summary ---
Discharge Summary Admission Date: Dec 06, 2016 at 14:14 Discharge Date: Dec 07, 2016 Discharge Disposition: Acute care facility Principal Diagnosis: SIGMOID DIVERTICULITIS WITH PERFORATION Immunizations: Have You Had Influenza Vaccine: N/A History of Tetanus Vaccine?: Yes History of Pneumococcal: No History of Hepatitis B Vaccine: Yes Medication Reconciliation New Medications: Piperacillin/Tazobactam Sod (Zosyn 4-0.5 gm) 4.5 Gm/20 Ml Inj 4.5 GM IV Q6, #40 DOSE [dilaudid] () 1 MG IV Q1H PRN for Pain Continued Medications: Albuterol Hfa (Ventolin Hfa) 200 Puffs/18542 Mcg Aers 2 PUFFS INH QID PRN for SOB/Wheezing, #1 INHALER Discontinued Medications: Atorvastatin (Lipitor) 10 Mg Tab 10 MG PO HS, TAB Ibuprofen (Advil) 200 Mg Tab 600-800 MG PO Q6H PRN for Pain or Fever, TAB Telmisartan-Hydrochlorothiazid (Telmisartan/Hydrochloroth 80-25 mg) 1 Tab Tab 1 TAB PO QAM Discharge Exam Review of Systems: Constitutional: No chills, No fever Respiratory: No cough, No sputum Cardiovascular: No chest pain, No orthopnea Abdomen: + pain, No nausea Musculoskeletal: No joint pain, No muscle pain Genitourinary - Male: No dysuria, No hematuria Physical Exam: General Appearance: WD/WN, + moderate distress Neck: supple, no JVD Respiratory/Chest: chest non-tender, lungs clear, normal breath sounds Cardiovascular: regular rate, rhythm, no murmur Abdomen / GI: soft, + tenderness, + guarding Extremities: no pedal edema, normal range of motion Neurologic/Psychiatric: alert, oriented x 3 Hospital Course 46 M with Perforated sigmoid acute diverticulitis with extensive pericolonic and low pelvic infiltrative change, with a 4 x 3 cm air/complex fluid collection /abscess posterior to the mid sigmoid colon. Diverticulosis, perforation, surgical consult feels this may be best approached conservatively recommended to see IR at [place], Zosyn 3.375 mg IV every 6 hours, NSS with KCl 20 mEq at 100 mils per hour, Zofran 4 mg IV every 6 hours when necessary, and pantoprazole 40 mg IV daily. I called [facility] they connected me to colorectal surgery as pt has seen them in the past, Dr Harmon accepted the patient in transfer once an abdominal xray confirmed no gross free air. Pt was transferred in the evening with fair pain control Hypertension-- hold telmisartan/HCTZ, and hydralazine 10 mg IV every 4 hours when necessary systolic blood pressure greater than 150. Hypercholesterolemia--hold atorvastatin 10 Asthma-prn inhalers Total Time Spent: Greater than 30 minutes This includes examination of the patient, discharge planning, medication reconciliation, and communication with other providers. Discharge Instructions Please refer to the electronic Patient Visit Report (Discharge Instructions) for additional information. Additional Copies To Cayetano Moore M.D.
--- NOTE | 2016-12-13 17:51 | EMERGENCY ROOM VISIT NOTE ---
ED Visit Note First contact with patient: 12:50 CHIEF COMPLAINT: Left Flank and abdominal pain HISTORY OF PRESENT ILLNESS: This 46-year-old white male patient had gradual onset of pain in the left flank and left lower quadrant of the abdomen over the last 2 weeks. It became significant worse over the last 12 hours. It started last night. He thought it might go away but it did not and persisted overnight. There is nausea but no vomiting. The patient has not noticed any blood in urine or had any increased frequency or pain with urination recently. There is a positive history of kidney stones. The pain is steady and severe. He denies any blood in stool. His accompanies him today. REVIEW OF SYSTEM: HEENT: No dizziness, visual problems, hearing loss, or tinnitus. There is no difficulty swallowing and no oral lesions are present. LYMPH: No adenopathy. PULMONARY: No cough, shortness of breath, sputum production or hemoptysis. CARDIOVASCULAR: No chest pain, palpitations, shortness of breath or peripheral edema. GASTROINTESTINAL: No diarrhea, constipation, nausea, vomiting, or abdominal pain. GENITOURINARY: No dysuria, frequency, urgency or nocturia. NEUROLOGIC: No weakness, muscle tenderness, epilepsy or history of neurological problems. MUSCULOSKELETAL: No history of joint tenderness/swelling. No history of arthritis or arthralgias. SKIN: No rashes or lesions. PSYCHIATRIC: No history of depression or mental illness. ENDOCRINE: No history of diabetes, thyroid disorders, or abnormal hair growth. PMH: Supplemental sheet was reviewed and signed. Previous surgeries: None Medical history: Significant for history of kidney stones, hypertension, and elevated lipids Current medications: Albuterol when necessary, ibuprofen, Lipitor, HCTZ Allergies: NKDA Family history: Noncontributory SOCIAL HISTORY: Patient lives at home with his family. Non-smoker, no alcohol use. 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 PHYSICAL EXAM: Vital Signs: Afebrile. Pulse 101, BP 175/96, respirations 18. General: Well-developed, well-nourished, middle-aged white male, in obvious discomfort. He is laying on the bed. Alert and oriented. The patient is restless. Skin: Warm and dry with good turgor. No rashes or lesions. No ecchymosis or erythema. The patient is not diaphoretic. No abrasions. HEART: Regular rate and rhythm without murmurs, ectopy, gallops, or rubs. Peripheral pulses are 2+. LUNGS: Clear to auscultation and breath sounds equal. No wheezes , rales, or rhonchi. Good air movement. ABDOMEN: Obese. Soft, left lower quadrant discomfort to palpation. no hepato-splenomegaly, or masses. There is no CVA tenderness. Musculoskeletal: Gross motor function of the upper and lower extremities is intact and unremarkable. NEUROLOGIC: Sensory and motor functions grossly intact. EMERGENCY DEPARTMENT COURSE: Urinalysis shows no blood, ketones, nitrites, or leukocyte esterase. Minimal epithelial cells and no bacteria. CBC and chem panel were also obtained. Elevated WBCs at 14.8. CT scan of the abdomen and pelvis without contrast shows perforated sigmoid acute diverticulitis. Extensive pericolonic and low pelvic infiltrative changes. There is a 4 cm x 3 cm complex fluid collection/abscess posterior to the bladder dome. Scattered free air pockets throughout the abdomen and pelvis. Considerable infiltrative change extending to the left lateral pelvic sidewall and iliopsoas musculature. No ureterolithiasis. The patient was given Toradol for the pain. The pain had almost disappeared by the time of discharge. DIAGNOSIS: Perforated sigmoid diverticulitis with large complex fluid collection/abscess DISCHARGE INSTRUCTIONS AND TREATMENT: The patient was educated regarding today' s findings. Conservative care measures were discussed. IV was established. Labs were obtained. He was initially given Toradol 30 mg IV and hydrated with 1 L normal sterile saline IV bolus. Pain was tolerable. He did not wish to have any additional pain medication IV. CT scan imaging was obtained and I was called by the radiologist with the report. I did speak with both general surgery and the hospitalist service. Patient will be admitted by medicine. Surgery will be consulted. Please see Dr. Burkett's dictation for final management and outcome. Patient remained stable while in the ED. Possibility of diverticulosis, diverticulitis, perforated bowel, ureterolithiasis, nephrolithiasis, and UTI were considered. Current/Historical Medications Scheduled Piperacillin/Tazobactam Sod (Zosyn 4-0.5 gm), 4.5 GM IV Q6 Scheduled PRN Albuterol Hfa (Ventolin Hfa), 2 PUFFS INH QID PRN for SOB/Wheezing [dilaudid], 1 MG IV Q1H PRN for Pain Allergies Coded Allergies: No Known Allergies (Verified , 2/19/17) Vital Signs Date Time Temp Pulse Resp B/P Pulse Ox O2 Delivery O2 Flow Rate FiO2 12/06/16 13:55 91 144/78 97 Room Air 12/06/16 12:35 36.9 101 18 175/96 95 Room Air Laboratory Results Test 12/06/16 12:43 Globulin 3.8 gm/dl (2.5-4.0) Albumin/Globulin Ratio 1.0 (0.9-2) Medications Administered Medications (Trade) Dose Ordered Sig/Margaux Route Start Time Stop Time Status Last Admin Dose Admin Ketorolac Tromethamine 30 mg 30 mg NOW STAT IV 12/06/16 12:50 12/06/16 12:51 DC 12/06/16 12:58 30 MG Sodium Chloride (Nss 1000ml) 1,000 ml @ 999 mls/hr Q1H1M STAT IV 12/06/16 12:52 12/06/16 13:52 DC 12/06/16 12:52 999 MLS/HR Departure Information Dispostion Still a Patient Condition GOOD Prescriptions [dilaudid] No Conflict Check 1 MG IV Q1H Y for Pain Prov: Eze Farah M.D. 12/07/16 Piperacillin/Tazobactam Sod (Zosyn 4-0.5 gm) 4.5 Gm/20 Ml Inj 4.5 GM IV Q6, #40 DOSE Prov: Eze Farah M.D. 12/07/16 Referrals Charly Marcano M.D. (PCP) Forms HOME CARE DOCUMENTATION FORM, IMPORTANT VISIT INFORMATION Patient Instructions [facility]
[2017-01-21] MEDS ORDERED: TELM1TAB11 PO (16:06)
[2017-01-21] MEDS ORDERED: LANS30CA12 PO (16:06)
[2017-01-21] MEDS ORDERED: ATOR10TA88 PO (16:06)
[2017-05-03] MEDS ORDERED: OXYC1TAB3 PO (11:51)
== END 2016-12-07 16:53 | disposition short-term general hospital (02) | DRG 392 ==
LOC: ENRESERVTM → ENRESERVDT → C.EDB 12:31 → C.3E 14:14
PROVIDERS: ADMIT Hospitalist; ATTEND Internal Medicine
DX: K57.20 Diverticulitis of large intestine with perforation and abscess without bleeding (principal); I10 Essential (primary) hypertension; E78.00 Pure hypercholesterolemia, unspecified; J45.909 Unspecified asthma, uncomplicated; Z79.899 Other long term (current) drug therapy

== ENCOUNTER → 2016-12-17 | Outpatient (CLI) | payer OTHER ==
[~2016-12-17] MED LIST changes: -ALBUAER2 INH; +ATOR10TA88 PO; -BENICAR PO; -CIPR-255 PO; -HCT PO; +HYDR-5688 PO; +LANS30CA12 PO; +METH4PAK PO; +OPTIRAY 320 IV PRN; +OXYC1TAB3 PO; +TELM1TAB11 PO; +VNTHFA/IN INH; +ZSYI45 IV; +dilaudid IV
--- NOTE | 2016-12-17 12:37 | DIAGNOSTIC IMAGING REPORT ---
CT OF THE ABDOMEN AND PELVIS WITH CONTRAST CLINICAL HISTORY: Follow up diverticulitis with perforation and abscess. COMPARISON STUDY: CT of the abdomen and pelvis December 06, 2016. TECHNIQUE: Approximately 10 cc of dilute Optiray was injected through the patient's left lower quadrant percutaneous drain. Due to pain during injection, no additional contrast could be administered. Following IV administration of 118 mL of Optiray-320, axial images of the abdomen and pelvis were obtained from the lung bases to the proximal femurs. Images were reviewed in the axial, sagittal, and coronal planes. IV contrast was administered without complication. Oral contrast was administered. CT DOSE: 1075.64 mGy.cm FINDINGS: Note is made of a 1.4 cm right hepatic lobe cyst. The spleen, adrenal glands and pancreas are unremarkable. There is a 1.1 cm cyst within the midpole of the right kidney. Punctate bilateral renal calculi are noted. There are no ureteral calculi. There is no hydronephrosis. There has been interval placement of a pelvic drain from a left lower quadrant approach. The drain is within the previously described diverticular abscess shown on CT of December 06, 2016. The collection has markedly decreased in size with no significant residual collection. Adjacent infiltration has significantly improved. The amount of free air has markedly diminished. There are only a few locules of extraluminal gas which extend superiorly toward the colon. Of note, there is contrast within the sigmoid colon which indicates a communication between the drain and the colon. The appendix is normal. Skeletal structures are unremarkable. IMPRESSION: Interval placement of a left lower quadrant percutaneous catheter. Catheter tip within the diverticular abscess. Marked decrease in size of the collection with no significant residual collection. Interval improvement in associated inflammation and near complete resolution of extraluminal gas. A few tiny locules of extraluminal gas which extend toward the sigmoid colon. Opacification of the sigmoid colon with contrast indicates a communication between the drain and the sigmoid colon. Electronically signed by: Adryan Lynn M.D. 12/17/2016 12:36 PM Dictated Date/Time: 12/17/2016 12:21 PM
== END | disposition home or self-care (01) ==
LOC: C.CTS 10:59
PROVIDERS: ATTEND Colon & Rectal Surgery
DX: K57.80 Diverticulitis of intestine, part unspecified, with perforation and abscess without bleeding (principal)

== ENCOUNTER → 2017-02-03 | Day surgery (SDC) | payer OTHER ==
[2017-01-21 16:24] VITALS: Ht 170.2 cm; Wt 104.5 kg
[~2017-02-03] VITALS: Ht 170.2 cm; Wt 104.5 kg
[~2017-02-03] MED LIST changes: +ATOR10TA82 PO; -ATOR10TA88 PO; +LIDOCAINE HCL 2% 2 ML VIAL (20MG/ML) ONE; +MIDAZOLAM HCL 1 MG/ML 2ML VIAL ONE; +ONDANSETRON INJ 2 MG/ML 2 ML VIAL ONE; -OPTIRAY 320 IV PRN; +PROPOFOL IV EMULSION 10 MG/ML 20 ML VIAL IV ONE; +SODIUM CHLORIDE 0.9% 500ML 500 ML IV ONE; -ZSYI45 IV; -dilaudid IV
--- NOTE | 2017-02-03 10:47 | Endo History and Physical ---
History & Physical Date of Service: Feb 03, 2017. Chief Complaint: DIVERTICULITIS Referring Physician: DR. TIMOTHY SNOWDEN History of Present Illness 46 yo CM who presents for colonoscopy secondary to diverticulitis. Past Surgical History Hx Cardiac Surgery: No Hx Internal Defibrillator: No Hx Pacemaker: No Hx Abdominal Surgery: No Hx Post-Op Nausea and Vomiting: No Hx Cancer Surgery: No Hx Thoracic Surgery: No Hx Orthopedic: Yes (LEFT ELBOW RECONSTRUCTION 11-18-07;L-UCL,ULNA NERVE REATTACHMENT "2006", ) Hx Urinary Tract Surgery: No Family History None Social History Smoking Status: Never Smoker Hx Substance Use: No Hx Alcohol Use: No (RARE) Allergies Coded Allergies: No Known Allergies (Verified , 02/03/17) Current Medications Reported Home Medications Medications Dose Route/Sig Max Daily Dose Days Date Category Prevacid (Lansoprazole) 30 Mg Capcr 30 Mg PO QAM 01/21/17 Reported Lipitor (Atorvastatin Calcium) 10 Mg Tab 10 Mg PO HS 01/21/17 Reported Telmisartan/Hydrochloroth 80-25 mg (Telmisartan-Hydrochlorothiazid) 1 Tab Tab 1 Tab PO QAM 01/21/17 Reported Ventolin Hfa (Albuterol) 200 Puffs/12059 Mcg Aers 2 Puffs INH QID PRN 12/06/16 Reported Vital Signs Weight (Kilograms): 104.55 Height (Feet): 5 Height (Inches): 7 Date Time Temp Pulse Resp B/P Pulse Ox O2 Delivery O2 Flow Rate FiO2 02/03/17 10:15 36.7 87 20 179/88 97 Room Air Physical Exam General Appearance: WD/WN, no apparent distress Respiratory/Chest: Auscultation: breath sounds normal Cardiovascular: Heart Auscultation: RRR Abdomen: Bowel Sounds: normal Inspection & Palpation: soft, non-distended, no tenderness, guarding & rebound Assessment and Plan Assessment: 46 yo CM who presents for colonoscopy secondary to diverticulitis. Plan: Proceed with colonoscopy.
--- NOTE | 2017-02-03 11:40 | GI REPORT ---
Procedure Date: 02/03/2017 11:01 AM Procedure: Colonoscopy Indications: Follow-up of diverticulitis Medicines: Monitored Anesthesia Care Complications: No immediate complications. Estimated Blood Loss: Estimated blood loss: none. Procedure: Pre-Anesthesia Assessment: - Prior to the procedure, a History and Physical was performed, and patient medications and allergies were reviewed. The patient's tolerance of previous anesthesia was also reviewed. The risks and benefits of the procedure and the sedation options and risks were discussed with the patient. All questions were answered, and informed consent was obtained. Prior Anticoagulants: The patient has taken no previous anticoagulant or antiplatelet agents. ASA Grade Assessment: II - A patient with mild systemic disease. After reviewing the risks and benefits, the patient was deemed in satisfactory condition to undergo the procedure. After I obtained informed consent, the scope was passed under direct vision. Throughout the procedure, the patient's blood pressure, pulse, and oxygen saturations were monitored continuously. The Scope was introduced through the anus and advanced to the cecum, identified by appendiceal orifice and ileocecal valve. The colonoscopy was performed without difficulty. The patient tolerated the procedure well. The quality of the bowel preparation was good. The ileocecal valve, appendiceal orifice, and rectum were photographed. Findings: Multiple small-mouthed diverticula were found in the sigmoid colon. Non-bleeding internal hemorrhoids were found during retroflexion. The hemorrhoids were small. Impression: - Diverticulosis in the sigmoid colon. - Non-bleeding internal hemorrhoids. - No specimens collected. Recommendation: - Clear liquid diet today. - Continue present medications. - Repeat colonoscopy in 10 years for surveillance. - Return to primary care physician as previously scheduled. Van Farnsworth DO 02/03/2017 11:38:46 AM This report has been signed electronically. Note Initiated On: 02/03/2017 11:01 AM I attest to the content of the Intraoperative Record and orders documented therein, exceptions below
--- NOTE | 2017-02-03 11:52 | Discharge Instructions ---
Endoscopy Patient Instructions Date / Procedure(s) Performed Feb 03, 2017. Colonoscopy Allergy Information Coded Allergies: No Known Allergies (Verified , 02/03/17) Discharge Date / Findings Feb 03, 2017. Diverticulosis Internal hemorrhoids Medication Instructions OK to resume all medications today as prescribed Reported Home Medications Medications Dose Route/Sig Max Daily Dose Days Date Category Prevacid (Lansoprazole) 30 Mg Capcr 30 Mg PO QAM 01/21/17 Reported Lipitor (Atorvastatin Calcium) 10 Mg Tab 10 Mg PO HS 01/21/17 Reported Telmisartan/Hydrochloroth 80-25 mg (Telmisartan-Hydrochlorothiazid) 1 Tab Tab 1 Tab PO QAM 01/21/17 Reported Ventolin Hfa (Albuterol) 200 Puffs/29573 Mcg Aers 2 Puffs INH QID PRN 12/06/16 Reported Provider Instructions Activity Restrictions - No exercising or heavy lifting for 24 hours. - Do not drink alcohol the day of the procedure. - Do not drive a car or operate machinery until the day after the procedure. - Do not make any important decisions or sign important papers in 24 hours after the procedure. Following Day: - Return to full activity which may include returning to work/school. Diet Start your diet with liquids and light foods (jello, soup, juice, toast). Then eat your usual diet if not nauseated. Treatment For Common After Affects For mild abdominal pain, bloating, or excessive gas: - Rest - Eat lightly - Lie on right side Follow-Up Information Follow-up with DR. TIMOTHY SNOWDEN as scheduled Anesthesia Information What You Should Know You have had a procedure that required some medicine to reduce anxiety and discomfort. This treatment is called moderate sedation. After receiving the treatment, you may be sleepy, but you will be able to breathe on your own. The effects of the treatment may last for several hours. Follow these instructions along with Activity/Diet recommendations noted above: * Do NOT do anything where dizziness or clumsiness would be dangerous. * Rest quietly at home today, then you can be up and about tomorrow. * Have a responsible person stay with you the rest of today. * You may have had an I.V. today. If so, you may take the dressing off later today. Recommendations Call your doctor if: * Trouble breathing * Continuous vomiting for more than 24 hours * Temperature above 101 degrees * Severe abdominal pain or bloating * Pain not relieved by pain medicine ordered * There is increased drainage or redness from any incision * A large amount of rectal bleeding greater than 2-3 tablespoons. (If you had a polyp/s removed or have hemorrhoids, a small amount of blood - from the rectum is to be expected.) * You have any unanswered questions or concerns. IN THE EVENT OF A SERIOUS EMERGENCY, GO TO THE NEAREST EMERGENCY ROOM Your discharge instructions were prepared by provider Van Farnsworth. Patient Instructions Signature Page Eliezer Cunningham Patient (or Guardian) Signature/Date: I have read and understand the instructions given to me by my caregivers. Caregiver/RN/Doctor Signature/Date: The above-named patient and/or guardian has received patient instructions on this date. + Original Patient Signature Page (only) stays with chart. Please make copy for patient.
[2017-02-03 12:06] VITALS: BP 167/88; PULSE 84; O2SAT 98
--- NOTE | 2017-02-03 12:48 | Anesthesiology Progress Note ---
Anesthesia Post Op Note Date & Time Feb 03, 2017 at 12:47 Vital Signs Pain Intensity: 0 Vital Signs Past 12 Hours Date Time Temp Pulse Resp B/P Pulse Ox O2 Delivery O2 Flow Rate FiO2 02/03/17 12:06 84 20 167/88 98 Room Air 02/03/17 11:55 80 18 162/100 98 Room Air 02/03/17 11:40 84 16 167/82 98 Room Air 02/03/17 10:15 36.7 87 20 179/88 97 Room Air Notes Mental Status: alert / awake / arousable, participated in evaluation Pt Amnestic to Procedure: Yes Nausea / Vomiting: adequately controlled Pain: adequately controlled Airway Patency, RR, SpO2: stable & adequate BP & HR: stable & adequate Hydration State: stable & adequate Anesthetic Complications: no major complications apparent
== END | disposition home or self-care (01) ==
LOC: C.GI 09:43
PROVIDERS: ATTEND Internal Medicine
DX: K57.30 Diverticulosis of large intestine without perforation or abscess without bleeding (principal); K64.8 Other hemorrhoids; Z87.19 Personal history of other diseases of the digestive system; Z79.899 Other long term (current) drug therapy

== ENCOUNTER 2017-02-04 05:20 | Inpatient (IN) | payer OTHER ==
[2017-01-21 16:06] VITALS: BMI 36.0
[2017-02-04] VITALS (9 sets, daily range): BP systolic 139–181; BP diastolic 77–100; PULSE 16–92; TEMP 36.3–36.5; O2SAT 95–98; Ht 170.2 cm; Wt 104.5 kg
[~2017-02-04] VITALS: Ht 170.2 cm; Wt 104.5 kg
[~2017-02-04 05:20] MED LIST changes: -HYDR-5688 PO; -LIDOCAINE HCL 2% 2 ML VIAL (20MG/ML) ONE; -METH4PAK PO; -MIDAZOLAM HCL 1 MG/ML 2ML VIAL ONE; -ONDANSETRON INJ 2 MG/ML 2 ML VIAL ONE; -OXYC1TAB3 PO; -PROPOFOL IV EMULSION 10 MG/ML 20 ML VIAL IV ONE; -SODIUM CHLORIDE 0.9% 500ML 500 ML IV ONE
[2017-02-04] MEDS ORDERED: CEFAZOLIN 2000 MG/60 ML D5W IV SCH (06:00)
[2017-02-04] MEDS ORDERED: HEPARIN SOD 5000 UNIT/0.5 ML CARP SC SCH (06:00)
[2017-02-04] MEDS: LACTATED RINGER'S 1000ML 1,000 ML IV SCH ×4 (06:19→17:43)
--- NOTE | 2017-02-04 06:29 | History & Physical Bridge Note ---
H&P Re-Evaluation Bridge Note: I have examined the patient, reviewed the History & Physical and in the interval since the performance of the History & Physical I have noted the following changes of clinical significance: No changes noted
[2017-02-04] MEDS ORDERED: FENTANYL CITRATE INJ 50 MCG/1 ML 2 ML VIAL ONE (06:43)
[2017-02-04] MEDS ORDERED: LIDOCAINE HCL 2% 2 ML VIAL (20MG/ML) ONE (06:43)
[2017-02-04] MEDS ORDERED: DEXAMETHASONE SOD INJ 4 MG/ML VIAL ONE (06:43)
[2017-02-04] MEDS ORDERED: NEOSTIGMINE METHYLSULFATE 5 MG/5 ML SYR ONE (06:43)
[2017-02-04] MEDS ORDERED: PROPOFOL IV EMULSION 10 MG/ML 20 ML VIAL IV ONE (06:43)
[2017-02-04] MEDS ORDERED: ONDANSETRON INJ 2 MG/ML 2 ML VIAL ONE ×2 (06:43→09:41)
[2017-02-04] MEDS ORDERED: GLYCOPYRROLATE INJ 0.2 MG/ML VIAL ONE (06:43)
[2017-02-04] MEDS ORDERED: MIDAZOLAM HCL 1 MG/ML 2ML VIAL ONE (06:43)
[2017-02-04] MEDS ORDERED: ROCURONIUM BROMIDE 10 MG/ML 5 ML VIAL ONE ×3 (06:43→09:41)
[2017-02-04] MEDS ORDERED: BUPIVACAINE/EPINEPHRINE 0.5% MPF 1:200,000 30 ML VIAL ONE (07:09)
[2017-02-04] MEDS ORDERED: CEFAZOLIN SOD 1 GM VIAL ONE (07:09)
[2017-02-04] MEDS ORDERED: HYDROmorphone INJ 2 MG/ML SYR/VIAL ONE (08:27)
[2017-02-04] MEDS ORDERED: ATROPINE SULFATE 0.1 MG/ML 5ML SYR IV PRN (09:45)
[2017-02-04] MEDS ORDERED: ONDANSETRON INJ 2 MG/ML 2 ML VIAL IV PRN (09:45)
[2017-02-04] MEDS ORDERED: KETOROLAC TROMETHAMINE 30 MG/ML VIAL IV. PRN (09:45)
[2017-02-04] MEDS ORDERED: LABETALOL HCL IV 5 MG/ML 20ML IV PRN (09:45)
[2017-02-04] MEDS ORDERED: LABETALOL HCL IV 5 MG/ML 20ML IV ONE (10:05)
--- NOTE | 2017-02-04 10:34 | [facility] Operative Report ---
Operative Report Operative Date Feb 04, 2017. Pre-Operative Diagnosis Perforated Diverticulitis of colon; umbilical hernia Post-Operative Diagnosis same as above Procedure(s) Performed laparoscopic sigmoid colectomy repair of umbilical hernia Surgeon Dr. Emil Edge [employer] Surgeon(s) Jamie Taylor PA-C Estimated Blood Loss 100mL Findings sigmoid phegmon/perforation small umbilical hernia Specimens A: Sigmoid colon Drains fidel into pelvis Anesthesia get Disposition Recovery Room / PACU I attest to the content of the Intraoperative Record and any orders documented therein. Any exceptions are noted below.
[2017-02-04] MEDS: HYDROmorphone INJ 2 MG/ML SYR/VIAL IV PRN ×4 (11:05→11:35)
--- NOTE | 2017-02-04 11:48 | Anesthesiology Progress Note ---
Anesthesia Post Op Note Date & Time Feb 04, 2017 at 11:47 Vital Signs Vital Signs Past 12 Hours Date Time Temp Pulse Resp B/P Pulse Ox O2 Delivery O2 Flow Rate FiO2 02/04/17 11:35 82 16 158/83 95 Nasal Cannula 2 02/04/17 11:25 82 16 152/81 94 Nasal Cannula 2 02/04/17 11:15 36.8 70 16 169/90 93 Nasal Cannula 2 02/04/17 11:05 36.8 77 16 146/91 96 Nasal Cannula 2 02/04/17 10:55 36.8 76 16 115/99 96 Mask 10 02/04/17 10:45 36.8 78 16 162/82 97 Mask 10 02/04/17 10:39 36.8 78 16 156/80 98 Mask 10 02/04/17 05:44 36.5 92 20 161/100 96 Room Air Notes Mental Status: alert / awake / arousable, participated in evaluation Pt Amnestic to Procedure: Yes Nausea / Vomiting: adequately controlled Pain: adequately controlled Airway Patency, RR, SpO2: stable & adequate BP & HR: stable & adequate Hydration State: stable & adequate Anesthetic Complications: no major complications apparent
--- NOTE | 2017-02-04 12:15 | OPERATIVE REPORT ---
DATE OF OPERATION: 02/04/2017 PREOPERATIVE DIAGNOSES: History of perforated diverticulitis with abscess and umbilical hernia. POSTOPERATIVE DIAGNOSES: Same. PROCEDURE: 1. Laparoscopic sigmoid colectomy with primary anastomosis. 2. Repair of umbilical hernia. SURGEON: Dr. Edge. LIVING MANAGER: Tayo Taylor PA-C. ESTIMATED BLOOD LOSS: Approximately 100 mL COMPLICATION: No immediate. ANESTHESIA: General. The patient tolerated the procedure well. OPERATIVE NOTE: After informed consent was obtained, the patient was taken to the operating suite and placed in supine position. After successful intubation, a Da Silva catheter was placed and the abdomen was shaved. The patient was then placed in a low lithotomy position in the [facility] and a rectal prep was performed with Betadine solution. Once this was done, we then sterilely prepped the entire peritoneum as well as the abdominal wall. We began with a periumbilical incision with an 11 blade scalpel. We carried this down through the soft tissue and opened the hernia sac. We placed 0 Vicryl sutures on the fascia and advanced a 12 mm Amina trocar. We inflated the abdomen at 20 mmHg. Laparoscope was inserted and the abdomen was examined 360 degrees. We placed a right lower quadrant 12 mm port and a right mid abdominal 5 mm port and eventually we would place an additional left mid abdominal 5 mm port. The patient was placed in the Trendelenburg position, slightly airplaned to the right. We began by examining the sigmoid colon. I should state that prior to prepping, we did remove his previous drain. We were able to see the obvious area of inflammation and phlegmon. It was tightly adherent to the left lower quadrant sidewall. Colon proximal to this area and distal to this area was redundant, floppy, soft, and normal in appearance. We began by taking down the white line of Toldt using the Harmonic scalpel proximal to the area of inflammation. We continued this down distally past the area of inflammation. I then had to use some blunt dissection with a fair amount of force to peel the area of phlegmon off the abdominal sidewall. Once we did this, then it was readily mobile. 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 Once we mobilized the entire colon down to the peritoneal reflection, I then made a small window in the mesentery of the rectosigmoid region with Harmonic scalpel. I then used the ROSA purple cartridge linear stapler to transect the colon distal to the area of inflammation. We then used a Harmonic scalpel to take down the mesentery of the left colon for several inches proximal to the area to be resected. We then picked out a nice area of normal noninflamed colon and placed a blue ry so that we could identify it once we delivered the colon out of the abdominal cavity. Once we had this fully mobilized, we then grabbed the staple line and extended the left mid abdominal trocar site with an 11 blade scalpel and carried it down through the fascia using electrocautery. We then were able to deliver the colon to be resected out of this enlarged incision. We pulled it out until we got to our marking on the colon. We placed a bowel clamp over it and excised the colon and passed it off to be sent to pathology. We then used sizers to estimate the size of the EEA stapler to be 25 mm. We then used 2-[address] a pursestring stitch around it. We placed the anvil of the 25 mm stapler into the end of the colon and secured it with the pursestring. There was good blood flow to this area of the colon. We did dunk this back down into the abdominal cavity. We then closed the fascia of this port using 0 PDS in running fashion. We then changed our gloves out to fresh clean gloves. We then reinsufflated the abdomen at 20 mmHg and took a look around. The mobilized colon reached into the pelvis nicely without any tension. We were able to use sizers come in through the rectum into the rectal stump, followed by 25 mm circular stapler. We were able to deploy the spike just above the staple line. We then connected the anvil to the handle and secured them together and fired, creating an end-to-end circular anastomosis. There appeared to be good blood flow to the proximal colon as well as to the rectal stump. We did submerge the anastomosis in water. I clamped the proximal colon and we inflated the rectum with a rigid sigmoidoscope. It was airtight with no evidence of any anastomotic leak. We thoroughly suctioned out the pelvis. We did look around the abdomen, there was adequate hemostasis and no other gross abnormalities. We placed a 10 flat Robby-Ren drain into the pelvis, brought out through one of the port sites and secured to the skin using 2-0 silk. All the trocars were then removed and the abdomen was desufflated. We primarily closed the umbilical hernia by grasping the fascia and performed interrupted [id number] suture with 0 Vicryl. We irrigated all the wounds and closed them 4-0 Monocryl. Some Marcaine was injected around them for postoperative analgesia, followed by Dermabond glue. The patient was awakened, extubated, and transferred to recovery in stable condition. I attest to the content of the Intraoperative Record and any orders documented therein. Any exceptio ns are noted below.
[2017-02-04] MEDS: ACETAMINOPHEN IV 100 ML IV PRN ×2 (12:25→20:14)
[2017-02-04] MEDS: HYDROmorphone INJ 1 MG/ML SYR IV PRN ×3 (13:25→21:26)
[2017-02-04 14:38] LABS: PARTIAL THROMBOPLASTIN RATIO 1.1; PROTHROMBIN TIME (PATIENT) 10.6 SECONDS (9.0-12.0)
[2017-02-04] MEDS: CEFAZOLIN IV 1,000 MG in DEXTROSE 5% 50ML 50 ML IV SCH (16:00)
[2017-02-04] MEDS: ENOXAPARIN 40 MG/0.4 ML SYR SQ SCH (21:01)
[2017-02-05] MEDS: CEFAZOLIN IV 1,000 MG in DEXTROSE 5% 50ML 50 ML IV SCH ×2 (00:21→08:28)
[2017-02-05] MEDS: LACTATED RINGER'S 1000ML 1,000 ML IV SCH ×3 (00:21→16:03)
[2017-02-05] MEDS: HYDROmorphone INJ 1 MG/ML SYR IV PRN ×6 (00:22→21:10)
[2017-02-05 03:31] VITALS: BP 130/80; PULSE 75; TEMP 36.5; O2SAT 94
[2017-02-05] MEDS: ACETAMINOPHEN IV 100 ML IV PRN ×3 (04:40→21:10)
[2017-02-05 06:07] LABS: BASO % 0.1 %; BASO ABS # 0.01 K/uL (0-0.2); COMPLETE YES; EOS % 0.2 %; HEMATOCRIT 41.7 % (42-52); IG% 0.2 %; LYMPH % 15.3 %; LYMPH ABS # 1.88 K/uL (1.2-3.4); MEAN CELL VOLUME 87.2 fL (80-100); MEAN CORPUSCULAR HEMOGLOBIN 28.7 pg (25-34); MEAN CORPUSCULAR HGB CONC 32.9 g/dl (32-36); MEAN PLATELET VOLUME 9.7 fL (7.4-10.4); NEUT % 74.2 %; PLATELET COUNT 327 K/uL (130-400); RED BLOOD COUNT 4.78 M/uL (4.7-6.1); WHITE BLOOD COUNT 12.25 K/uL (4.8-10.8)
[2017-02-05 06:59] VITALS: BP 143/76; PULSE 83; TEMP 36.6; O2SAT 98
[2017-02-05 07:00] LABS: BUN/CREATININE RATIO 12.7 (10-20); CALCIUM 8.5 mg/dl (8.5-10.1); CREATININE 0.79 mg/dl (0.60-1.40); POTASSIUM 3.7 mmol/L (3.5-5.1)
--- NOTE | 2017-02-05 08:05 | Anesthesiology Progress Note ---
Anesthesia Post Op Note Date & Time Feb 05, 2017 at 08:04 Vital Signs Pain Intensity: 2.0 Vital Signs Past 12 Hours Date Time Temp Pulse Resp B/P Pulse Ox O2 Delivery O2 Flow Rate FiO2 02/05/17 07:26 Room Air 02/05/17 06:59 36.6 83 16 143/76 98 Room Air 02/05/17 03:31 36.5 75 18 130/80 94 Room Air 02/05/17 00:10 Room Air 02/04/17 23:57 36.5 77 16 141/78 98 Room Air Notes Mental Status: alert / awake / arousable, participated in evaluation Pt Amnestic to Procedure: Yes Nausea / Vomiting: adequately controlled Pain: improving with treatment Airway Patency, RR, SpO2: stable & adequate BP & HR: stable & adequate Hydration State: stable & adequate Anesthetic Complications: no major complications apparent
--- NOTE | 2017-02-05 08:32 | Surgery Progress Note ---
Surgery Progress Note Date of Service Feb 05, 2017. Subjective Post OP Day: 1 + diet (ice, sips), + pain controlled (fair with dilaudid and Ofirmev), No flatus, No nausea Objective Vital Signs: Date Time Temp Pulse Resp B/P Pulse Ox O2 Delivery O2 Flow Rate FiO2 02/05/17 07:26 Room Air 02/05/17 06:59 36.6 83 16 143/76 98 Room Air 02/05/17 03:31 36.5 75 18 130/80 94 Room Air 02/05/17 00:10 Room Air 02/04/17 23:57 36.5 77 16 141/78 98 Room Air 02/04/17 19:21 156/77 02/04/17 19:19 36.4 85 16 181/90 96 Room Air 02/04/17 15:30 Room Air 02/04/17 15:27 36.3 76 16 164/78 97 Nasal Cannula 2.0 02/04/17 14:15 62 16 139/82 95 2.0 02/04/17 13:10 36.4 76 16 165/80 95 Nasal Cannula 2.0 02/04/17 12:40 16 16 156/80 97 Nasal Cannula 2.0 02/04/17 12:10 Nasal Cannula 2.0 02/04/17 12:10 36.5 75 12 160/89 95 Nasal Cannula 2.0 02/04/17 12:10 Nasal Cannula 02/04/17 11:55 37.1 67 16 173/75 94 Nasal Cannula 2 02/04/17 11:45 37.1 82 16 150/67 95 Nasal Cannula 2 02/04/17 11:35 82 16 158/83 95 Nasal Cannula 2 02/04/17 11:25 82 16 152/81 94 Nasal Cannula 2 02/04/17 11:15 36.8 70 16 169/90 93 Nasal Cannula 2 02/04/17 11:05 36.8 77 16 146/91 96 Nasal Cannula 2 02/04/17 10:55 36.8 76 16 115/99 96 Mask 10 02/04/17 10:45 36.8 78 16 162/82 97 Mask 10 02/04/17 10:39 36.8 78 16 156/80 98 Mask 10 Physical Exam: WES drainage (40/10) Abdomen: + distended (slighlty) Incision(s): clean, dry (dressing) Laboratory Results: Results Past 24 Hours Test 02/04/17 13:49 02/05/17 05:41 Range/Units Prothrombin Time 10.6 9.0-12.0 SECONDS Prothromb Time International Ratio 1.0 0.9-1.1 Activated Partial Thromboplast Time 27.9 21.0-31.0 SECONDS Partial Thromboplastin Ratio 1.1 White Blood Count 12.25 4.8-10.8 K/uL Red Blood Count 4.78 4.7-6.1 M/uL Hemoglobin 13.7 14.0-18.0 g/dL Hematocrit 41.7 42-52 % Mean Corpuscular Volume 87.2 80-100 fL Mean Corpuscular Hemoglobin 28.7 25-34 pg Mean Corpuscular Hemoglobin Concent 32.9 32-36 g/dl Platelet Count 327 130-400 K/uL Mean Platelet Volume 9.7 7.4-10.4 fL Neutrophils (%) (Auto) 74.2 % Lymphocytes (%) (Auto) 15.3 % Monocytes (%) (Auto) 10.0 % Eosinophils (%) (Auto) 0.2 % Basophils (%) (Auto) 0.1 % Neutrophils # (Auto) 9.09 1.4-6.5 K/uL Lymphocytes # (Auto) 1.88 1.2-3.4 K/uL Monocytes # (Auto) 1.22 0.11-0.59 K/uL Eosinophils # (Auto) 0.02 0-0.5 K/uL Basophils # (Auto) 0.01 0-0.2 K/uL RDW Standard Deviation 43.0 36.4-46.3 fL RDW Coefficient of Variation 13.5 11.5-14.5 % Immature Granulocyte % (Auto) 0.2 % Immature Granulocyte # (Auto) 0.03 0.00-0.02 K/uL Sodium Level 137 136-145 mmol/L Potassium Level 3.7 3.5-5.1 mmol/L Chloride Level 101 98-107 mmol/L Carbon Dioxide Level 25 21-32 mmol/L Anion Gap 11.0 3-11 mmol/L Blood Urea Nitrogen 10 7-18 mg/dl Creatinine 0.79 0.60-1.40 mg/dl Est Creatinine Clear Calc Drug Dose 131.8 ml/min Estimated GFR () 123.1 Estimated GFR (Non- 106.2 BUN/Creatinine Ratio 12.7 10-20 Random Glucose 100 70-99 mg/dl Calcium Level 8.5 8.5-10.1 mg/dl Assessment & Plan POD 1 lap sigmoid for diverticulitis/abscess keep on sips for now d/c meredith today decrease IVF keep drain until bowels moving Lovenox
[2017-02-05] MEDS ORDERED: HYDR-5688 PO (10:15)
--- NOTE | 2017-02-05 10:17 | Discharge Instructions ---
Discharge Instructions Date of Service Feb 05, 2017. Admission Reason for Admission: Diverticulitis Discharge Discharge Diagnosis / Problem: laparoscopic sigmoid colectomy Discharge Goals Goal(s): Decrease discomfort Activity Recommendations Activity Limitations: as noted below Lifting Limitations: no more than 10 pounds Shower/Bathe: no limitations . Instructions / Follow-Up Instructions / Follow-Up Dr. Edge in 1-2 weeks, call [phone] Current Hospital Diet Patient's current hospital diet: Discharge Diet Recommended Diet: Regular Diet Procedures Procedures Performed: Laparoscopic-assisted Sigmoid Colectomy; Open Umbilical Hernia Repair Pending Studies Studies pending at discharge: no Medical Emergencies . Who to Call and When: Medical Emergencies: If at any time you feel your situation is an emergency, please call 911 immediately. . Non-Emergent Contact Non-Emergency issues call your: Surgeon Call Non-Emergent contact if: you have a fever, temperature is above 101.5, your pain is not controlled, wound has increased redness . "Provider Documentation" section prepared by Jamie Taylor. . VTE Core Measure Inpt VTE Proph given/why not?: Enoxaparin (Lovenox)SQ
[2017-02-05 12:14] VITALS: BP 164/84; PULSE 86; O2SAT 94
[2017-02-05] MEDS ORDERED: NURSING VERBAL MED ORDER ONE (12:30)
[2017-02-05] MEDS: PANTOprazole SOD 40 MG TAB PO SCH (13:04)
[2017-02-05] MEDS: HYDROCHLOROTHIAZIDE 25 MG TAB PO SCH (13:04)
[2017-02-05] MEDS: TELMISARTAN 40 MG TAB PO SCH (13:04)
[2017-02-05 14:51] VITALS: BP 152/82; PULSE 85; TEMP 36.6; O2SAT 93
[2017-02-05] MEDS: ENOXAPARIN 40 MG/0.4 ML SYR SQ SCH (21:10)
[2017-02-05] MEDS: ATORVASTATIN 10 MG TAB PO SCH (21:10)
[2017-02-05 22:46] VITALS: BP 142/85; PULSE 98; TEMP 36.7; O2SAT 94
[2017-02-06] VITALS (7 sets, daily range): BP systolic 122–161; BP diastolic 78–97; PULSE 90–101; TEMP 36.5–36.9; O2SAT 91–95
[2017-02-06] MEDS: HYDROmorphone INJ 1 MG/ML SYR IV PRN (00:05)
[2017-02-06] MEDS: LACTATED RINGER'S 1000ML 1,000 ML IV SCH (01:47)
[2017-02-06] MEDS: HYDROmorphone INJ 2 MG/ML SYR/VIAL IV PRN ×2 (03:05→07:14)
[2017-02-06 05:44] LABS: BASO % 0.3 %; BASO ABS # 0.03 K/uL (0-0.2); COMPLETE YES; EOS % 0.8 %; HEMATOCRIT 42.1 % (42-52); IG% 0.3 %; MEAN CELL VOLUME 87.2 fL (80-100); MEAN CORPUSCULAR HEMOGLOBIN 29.8 pg (25-34); MEAN CORPUSCULAR HGB CONC 34.2 g/dl (32-36); NEUT % 67.6 %; PLATELET COUNT 275 K/uL (130-400); RED BLOOD COUNT 4.83 M/uL (4.7-6.1); WHITE BLOOD COUNT 10.61 K/uL (4.8-10.8)
[2017-02-06 06:07] LABS: BUN/CREATININE RATIO 11.4 (10-20); CALCIUM 8.9 mg/dl (8.5-10.1); CREATININE 0.63 mg/dl (0.60-1.40); POTASSIUM 3.5 mmol/L (3.5-5.1)
[2017-02-06] MEDS: ONDANSETRON INJ 2 MG/ML 2 ML VIAL IV PRN ×2 (07:13→19:26)
[2017-02-06] MEDS: SODIUM CHLORIDE 0.9% 1000ML 1,000 ML IV SCH (08:11)
[2017-02-06] MEDS ORDERED: NALOXONE HCL 0.4 MG/1 ML VIAL/CARP IV PRN (08:15)
[2017-02-06] MEDS: TELMISARTAN 40 MG TAB PO SCH (08:56)
[2017-02-06] MEDS: HYDROCHLOROTHIAZIDE 25 MG TAB PO SCH (08:56)
[2017-02-06] MEDS: PANTOprazole SOD 40 MG TAB PO SCH (08:56)
[2017-02-06] MEDS: HYDROmorphone HCL 0.5MG/ML 50 ML CASSETTE IV PRN ×3 (08:58→22:52)
--- NOTE | 2017-02-06 09:04 | Surgery Progress Note ---
Surgery Progress Note Date of Service Feb 06, 2017. Subjective Post OP Day: 2 + nausea pt feeling pretty miserable. nausea. bloated. abdominal pain/cramping, worse in LLQ. no emesis. iv tylenol, zofran and dilaudid do help. Objective Vital Signs: Date Time Temp Pulse Resp B/P Pulse Ox O2 Delivery O2 Flow Rate FiO2 02/06/17 08:14 Room Air 02/06/17 06:58 36.8 100 18 154/89 95 Room Air 02/05/17 23:30 Room Air 02/05/17 22:46 36.7 98 16 142/85 94 Room Air 02/05/17 16:15 Room Air 02/05/17 14:51 36.6 85 17 152/82 93 Room Air 02/05/17 12:14 86 16 164/84 94 Room Air Physical Exam: WES drainage (serous) General Appearance: + mild distress Abdomen: + distended, + pertinent finding (expected tenderness) Incision(s): clean, dry, intact Laboratory Results: Results Past 24 Hours Test 02/06/17 05:20 Range/Units White Blood Count 10.61 4.8-10.8 K/uL Red Blood Count 4.83 4.7-6.1 M/uL Hemoglobin 14.4 14.0-18.0 g/dL Hematocrit 42.1 42-52 % Mean Corpuscular Volume 87.2 80-100 fL Mean Corpuscular Hemoglobin 29.8 25-34 pg Mean Corpuscular Hemoglobin Concent 34.2 32-36 g/dl Platelet Count 275 130-400 K/uL Mean Platelet Volume 10.0 7.4-10.4 fL Neutrophils (%) (Auto) 67.6 % Lymphocytes (%) (Auto) 17.0 % Monocytes (%) (Auto) 14.0 % Eosinophils (%) (Auto) 0.8 % Basophils (%) (Auto) 0.3 % Neutrophils # (Auto) 7.17 1.4-6.5 K/uL Lymphocytes # (Auto) 1.80 1.2-3.4 K/uL Monocytes # (Auto) 1.49 0.11-0.59 K/uL Eosinophils # (Auto) 0.09 0-0.5 K/uL Basophils # (Auto) 0.03 0-0.2 K/uL RDW Standard Deviation 43.0 36.4-46.3 fL RDW Coefficient of Variation 13.5 11.5-14.5 % Immature Granulocyte % (Auto) 0.3 % Immature Granulocyte # (Auto) 0.03 0.00-0.02 K/uL Sodium Level 134 136-145 mmol/L Potassium Level 3.5 3.5-5.1 mmol/L Chloride Level 98 98-107 mmol/L Carbon Dioxide Level 29 21-32 mmol/L Anion Gap 7.0 3-11 mmol/L Blood Urea Nitrogen 7 7-18 mg/dl Creatinine 0.63 0.60-1.40 mg/dl Est Creatinine Clear Calc Drug Dose 165.3 ml/min Estimated GFR () 135.1 Estimated GFR (Non- 116.5 BUN/Creatinine Ratio 11.4 10-20 Random Glucose 100 70-99 mg/dl Calcium Level 8.9 8.5-10.1 mg/dl Assessment & Plan 02/06/17 POD 2 will add POLISHING PAD MOUNTER to try and keep up with pain will also add ) 0.5 mg of ativan for cramping/spasms cont IV tylenol/zofran. labs reviewed-look OK increase activity. try and d/c meredith today WES serous awaiting return of bowel function.
--- NOTE | 2017-02-06 10:20 | Surgery Progress Note ---
Surgery Progress Note Date of Service Feb 06, 2017. Subjective Post OP Day: 1 + feeling well F/U S/P laparoscopic assisted sigmoid colectomy, pt is stable, good control incision pain, not pass gas yet, Objective Vital Signs: Date Time Temp Pulse Resp B/P Pulse Ox O2 Delivery O2 Flow Rate FiO2 02/06/17 10:01 96 19 139/84 94 Room Air 02/06/17 09:04 94 18 146/84 93 Room Air 02/06/17 08:14 Room Air 02/06/17 06:58 36.8 100 18 154/89 95 Room Air 02/05/17 23:30 Room Air 02/05/17 22:46 36.7 98 16 142/85 94 Room Air 02/05/17 16:15 Room Air 02/05/17 14:51 36.6 85 17 152/82 93 Room Air 02/05/17 12:14 86 16 164/84 94 Room Air General Appearance: WD/WN Head: normocephalic Neck: supple, no adenopathy Respiratory/Chest: chest non-tender, lungs clear Cardiovascular: regular rate, rhythm, no edema, no gallop Abdomen: normal bowel sounds, + distended Incision(s): clean, dry, intact Extremities: normal range of motion, non-tender, normal inspection Laboratory Results: Results Past 24 Hours Test 02/06/17 05:20 Range/Units White Blood Count 10.61 4.8-10.8 K/uL Red Blood Count 4.83 4.7-6.1 M/uL Hemoglobin 14.4 14.0-18.0 g/dL Hematocrit 42.1 42-52 % Mean Corpuscular Volume 87.2 80-100 fL Mean Corpuscular Hemoglobin 29.8 25-34 pg Mean Corpuscular Hemoglobin Concent 34.2 32-36 g/dl Platelet Count 275 130-400 K/uL Mean Platelet Volume 10.0 7.4-10.4 fL Neutrophils (%) (Auto) 67.6 % Lymphocytes (%) (Auto) 17.0 % Monocytes (%) (Auto) 14.0 % Eosinophils (%) (Auto) 0.8 % Basophils (%) (Auto) 0.3 % Neutrophils # (Auto) 7.17 1.4-6.5 K/uL Lymphocytes # (Auto) 1.80 1.2-3.4 K/uL Monocytes # (Auto) 1.49 0.11-0.59 K/uL Eosinophils # (Auto) 0.09 0-0.5 K/uL Basophils # (Auto) 0.03 0-0.2 K/uL RDW Standard Deviation 43.0 36.4-46.3 fL RDW Coefficient of Variation 13.5 11.5-14.5 % Immature Granulocyte % (Auto) 0.3 % Immature Granulocyte # (Auto) 0.03 0.00-0.02 K/uL Sodium Level 134 136-145 mmol/L Potassium Level 3.5 3.5-5.1 mmol/L Chloride Level 98 98-107 mmol/L Carbon Dioxide Level 29 21-32 mmol/L Anion Gap 7.0 3-11 mmol/L Blood Urea Nitrogen 7 7-18 mg/dl Creatinine 0.63 0.60-1.40 mg/dl Est Creatinine Clear Calc Drug Dose 165.3 ml/min Estimated GFR () 135.1 Estimated GFR (Non- 116.5 BUN/Creatinine Ratio 11.4 10-20 Random Glucose 100 70-99 mg/dl Calcium Level 8.9 8.5-10.1 mg/dl Assessment & Plan IMP: S/P laparoscopic assisted sigmoid colectomy, POD 1 pt is doing fine, D/C viri today npo repeat labs in AM will F/U
[2017-02-06] MEDS: D5W AND 1/2NSS + 30MEQ KCL 1,000 ML IV SCH ×2 (10:30→21:08)
[2017-02-06] MEDS ORDERED: NURSING VERBAL MED ORDER ONE ×2 (10:30→21:30)
[2017-02-06] MEDS: LORAZEPAM INJ 0.5 MG in SYRINGE 0.75 ML IV SCH ×2 (13:16→21:10)
[2017-02-06] MEDS: ENOXAPARIN 40 MG/0.4 ML SYR SQ SCH (21:09)
[2017-02-06] MEDS: ATORVASTATIN 10 MG TAB PO SCH (21:09)
[2017-02-07] VITALS (7 sets, daily range): BP systolic 130–159; BP diastolic 86–95; PULSE 92–105; TEMP 36.5–36.8; O2SAT 93–95
[2017-02-07 05:50] LABS: BASO % 0.1 %; BASO ABS # 0.01 K/uL (0-0.2); COMPLETE YES; EOS % 0.7 %; HEMATOCRIT 45.7 % (42-52); IG% 0.4 %; LYMPH % 8.7 %; LYMPH ABS # 1.28 K/uL (1.2-3.4); MEAN CELL VOLUME 85.6 fL (80-100); MEAN PLATELET VOLUME 10.3 fL (7.4-10.4); MONO % 13.3 %; NEUT % 76.8 %; PLATELET COUNT 359 K/uL (130-400); RED BLOOD COUNT 5.34 M/uL (4.7-6.1); WHITE BLOOD COUNT 14.66 K/uL (4.8-10.8)
[2017-02-07] MEDS: LORAZEPAM INJ 0.5 MG in SYRINGE 0.75 ML IV SCH ×3 (05:58→20:03)
[2017-02-07] MEDS: ONDANSETRON INJ 2 MG/ML 2 ML VIAL IV PRN ×3 (05:58→18:25)
[2017-02-07] MEDS: D5W AND 1/2NSS + 30MEQ KCL 1,000 ML IV SCH (05:58)
[2017-02-07 06:19] LABS: BUN/CREATININE RATIO 16.3 (10-20); CREATININE 0.97 mg/dl (0.60-1.40)
[2017-02-07 06:21] LABS: ALB/GLOB RATIO 0.8 (0.9-2)
[2017-02-07] MEDS: HYDROmorphone HCL 0.5MG/ML 50 ML CASSETTE IV PRN ×4 (07:10→22:54)
[2017-02-07] MEDS: SODIUM CHLORIDE 0.9% 1000ML 1,000 ML IV SCH (08:11)
--- NOTE | 2017-02-07 08:35 | Surgery Progress Note ---
Surgery Progress Note Date of Service Feb 07, 2017. Subjective Post OP Day: 3 pt is stable, not pass gas yet, pt has no nausea, no vomiting, WES minimal. Objective Vital Signs: Date Time Temp Pulse Resp B/P Pulse Ox O2 Delivery O2 Flow Rate FiO2 02/07/17 07:47 36.6 102 18 134/93 93 Room Air 02/07/17 06:33 36.6 101 15 135/91 94 Room Air 02/07/17 03:54 36.5 105 16 143/93 94 Room Air 02/06/17 23:27 Room Air 02/06/17 19:34 36.9 97 18 154/97 95 Room Air 02/06/17 15:34 36.6 100 16 143/85 95 Room Air 02/06/17 15:30 Room Air 02/06/17 12:00 36.8 90 16 122/78 93 Room Air 02/06/17 11:14 36.5 101 18 161/90 91 Room Air 02/06/17 10:01 96 19 139/84 94 Room Air 02/06/17 09:04 94 18 146/84 93 Room Air General Appearance: WD/WN Head: normocephalic Neck: supple Respiratory/Chest: chest non-tender, lungs clear Cardiovascular: regular rate, rhythm, no edema Abdomen: normal bowel sounds, + distended, + tenderness Incision(s): dry, intact Extremities: normal range of motion, non-tender, normal inspection Laboratory Results: Results Past 24 Hours Test 02/07/17 05:20 Range/Units White Blood Count 14.66 4.8-10.8 K/uL Red Blood Count 5.34 4.7-6.1 M/uL Hemoglobin 16.0 14.0-18.0 g/dL Hematocrit 45.7 42-52 % Mean Corpuscular Volume 85.6 80-100 fL Mean Corpuscular Hemoglobin 30.0 25-34 pg Mean Corpuscular Hemoglobin Concent 35.0 32-36 g/dl Platelet Count 359 130-400 K/uL Mean Platelet Volume 10.3 7.4-10.4 fL Neutrophils (%) (Auto) 76.8 % Lymphocytes (%) (Auto) 8.7 % Monocytes (%) (Auto) 13.3 % Eosinophils (%) (Auto) 0.7 % Basophils (%) (Auto) 0.1 % Neutrophils # (Auto) 11.26 1.4-6.5 K/uL Lymphocytes # (Auto) 1.28 1.2-3.4 K/uL Monocytes # (Auto) 1.95 0.11-0.59 K/uL Eosinophils # (Auto) 0.10 0-0.5 K/uL Basophils # (Auto) 0.01 0-0.2 K/uL RDW Standard Deviation 41.2 36.4-46.3 fL RDW Coefficient of Variation 13.1 11.5-14.5 % Immature Granulocyte % (Auto) 0.4 % Immature Granulocyte # (Auto) 0.06 0.00-0.02 K/uL Sodium Level 130 136-145 mmol/L Potassium Level 4.0 3.5-5.1 mmol/L Chloride Level 95 98-107 mmol/L Carbon Dioxide Level 26 21-32 mmol/L Anion Gap 9.0 3-11 mmol/L Blood Urea Nitrogen 16 7-18 mg/dl Creatinine 0.97 0.60-1.40 mg/dl Est Creatinine Clear Calc Drug Dose 107.3 ml/min Estimated GFR () 106.6 Estimated GFR (Non- 91.9 BUN/Creatinine Ratio 16.3 10-20 Random Glucose 150 70-99 mg/dl Calcium Level 9.0 8.5-10.1 mg/dl Total Bilirubin 0.4 0.2-1 mg/dl Aspartate Amino Transf (AST/SGOT) 15 15-37 U/L Alanine Aminotransferase (ALT/SGPT) 41 12-78 U/L Alkaline Phosphatase 91 45-117 U/L Total Protein 7.9 6.4-8.2 gm/dl Albumin 3.4 3.4-5.0 gm/dl Globulin 4.5 2.5-4.0 gm/dl Albumin/Globulin Ratio 0.8 0.9-2 Assessment & Plan IMP: S/P laparoscopic assisted sigmoid colectomy, POD 3 pt is stable, not pass gas yet, WBC [id number] OOB npo repeat labs in AM will F/U IMP: S/P laparoscopic assisted sigmoid colectomy, POD 1 pt is doing fine, D/C meredith today npo repeat labs in AM will F/U
[2017-02-07] MEDS: D5NSS + 20MEQ KCL 1,000 ML IV SCH ×2 (09:15→18:25)
[2017-02-07] MEDS: TELMISARTAN 40 MG TAB PO SCH (09:15)
[2017-02-07] MEDS: PANTOprazole SOD 40 MG TAB PO SCH (09:16)
[2017-02-07] MEDS: HYDROCHLOROTHIAZIDE 25 MG TAB PO SCH (09:17)
--- NOTE | 2017-02-07 10:08 | Surgery Progress Note ---
Surgery Progress Note Date of Service Feb 07, 2017. 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 no emesis. no flatus/ bm pt very distended. Objective Vital Signs: Date Time Temp Pulse Resp B/P Pulse Ox O2 Delivery O2 Flow Rate FiO2 02/07/17 07:47 36.6 102 18 134/93 93 Room Air 02/07/17 07:45 Room Air 02/07/17 06:33 36.6 101 15 135/91 94 Room Air 02/07/17 03:54 36.5 105 16 143/93 94 Room Air 02/06/17 23:27 Room Air 02/06/17 19:34 36.9 97 18 154/97 95 Room Air 02/06/17 15:34 36.6 100 16 143/85 95 Room Air 02/06/17 15:30 Room Air 02/06/17 12:00 36.8 90 16 122/78 93 Room Air 02/06/17 11:14 36.5 101 18 161/90 91 Room Air Physical Exam: WES drainage (serous) General Appearance: + mild distress Abdomen: + distended, + pertinent finding (mild cellulitis at old drain site. no purulent drainage. ) Incision(s): findings (intact...mild erythema at old drain site. no fluid. ) Laboratory Results: Results Past 24 Hours Test 02/07/17 05:20 Range/Units White Blood Count 14.66 4.8-10.8 K/uL Red Blood Count 5.34 4.7-6.1 M/uL Hemoglobin 16.0 14.0-18.0 g/dL Hematocrit 45.7 42-52 % Mean Corpuscular Volume 85.6 80-100 fL Mean Corpuscular Hemoglobin 30.0 25-34 pg Mean Corpuscular Hemoglobin Concent 35.0 32-36 g/dl Platelet Count 359 130-400 K/uL Mean Platelet Volume 10.3 7.4-10.4 fL Neutrophils (%) (Auto) 76.8 % Lymphocytes (%) (Auto) 8.7 % Monocytes (%) (Auto) 13.3 % Eosinophils (%) (Auto) 0.7 % Basophils (%) (Auto) 0.1 % Neutrophils # (Auto) 11.26 1.4-6.5 K/uL Lymphocytes # (Auto) 1.28 1.2-3.4 K/uL Monocytes # (Auto) 1.95 0.11-0.59 K/uL Eosinophils # (Auto) 0.10 0-0.5 K/uL Basophils # (Auto) 0.01 0-0.2 K/uL RDW Standard Deviation 41.2 36.4-46.3 fL RDW Coefficient of Variation 13.1 11.5-14.5 % Immature Granulocyte % (Auto) 0.4 % Immature Granulocyte # (Auto) 0.06 0.00-0.02 K/uL Sodium Level 130 136-145 mmol/L Potassium Level 4.0 3.5-5.1 mmol/L Chloride Level 95 98-107 mmol/L Carbon Dioxide Level 26 21-32 mmol/L Anion Gap 9.0 3-11 mmol/L Blood Urea Nitrogen 16 7-18 mg/dl Creatinine 0.97 0.60-1.40 mg/dl Est Creatinine Clear Calc Drug Dose 107.3 ml/min Estimated GFR () 106.6 Estimated GFR (Non- 91.9 BUN/Creatinine Ratio 16.3 10-20 Random Glucose 150 70-99 mg/dl Calcium Level 9.0 8.5-10.1 mg/dl Total Bilirubin 0.4 0.2-1 mg/dl Aspartate Amino Transf (AST/SGOT) 15 15-37 U/L Alanine Aminotransferase (ALT/SGPT) 41 12-78 U/L Alkaline Phosphatase 91 45-117 U/L Total Protein 7.9 6.4-8.2 gm/dl Albumin 3.4 3.4-5.0 gm/dl Globulin 4.5 2.5-4.0 gm/dl Albumin/Globulin Ratio 0.8 0.9-2 Assessment & Plan 02/07/17 POD 3 post op ileus leukocytosis with shift and mild cellulitis- will start zosyn ambulate/minimize narcotics if possible pt may chew gum may need ngt if vomits awaiting bowel fx 02/06/17 POD 2 will add [employer]AK [employer]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 labs reviewed-look OK increase activity. try and d/c meredith today WES serous awaiting return of bowel function. 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 labs reviewed-look OK increase activity. try and d/c meredith today WES serous awaiting return of bowel function.
[2017-02-07] MEDS ORDERED: PIPERACILL/TAZOBAC IV 3.375 GM in DEXTROSE 5% 100ML 100 ML IV ONE (10:30)
[2017-02-07] MEDS ORDERED: PIPERACILL/TAZOBAC CONSULT ACTIVE PRN (10:30)
[2017-02-07] MEDS: PIPERACILL/TAZOBAC IV 3.375 GM in DEXTROSE 5% 100ML IV SCH ×2 (16:23→23:13)
--- NOTE | 2017-02-07 20:17 | DIAGNOSTIC IMAGING REPORT ---
KUB HISTORY: Short of breath. Abdominal distention. COMPARISON: Abdomen and pelvis CT 12/17/2016. FINDINGS: Multiple distended gas-filled loops of large and small bowel seen throughout the abdomen. The small bowel is distended up to 5 cm in diameter. The cecum is distended up to 11 cm. Small amount of gas within the rectum. There is a left-sided surgical drain. There may also be a right lower quadrant catheter. However, this is not well visualized on this study. No renal calculi. No ureteral calculi. No pneumoperitoneum or pneumatosis. IMPRESSION: Multiple distended gas-filled loops of large and small bowel seen throughout the abdomen. This favors an ileus at this time. Continued follow-up is recommended. Electronically signed by: Stewart Grey M.D. 02/07/2017 8:15 PM Dictated Date/Time: 02/07/2017 8:12 PM
--- NOTE | 2017-02-07 20:37 | Surgery Progress Note ---
Surgery Progress Note Date of Service Feb 07, 2017. Subjective + complaints I got a call from nurse who said pt has not passed any flatus yet, the abdomen is more distended, but pt denies fever, no vomiting, Objective Vital Signs: Date Time Temp Pulse Resp B/P Pulse Ox O2 Delivery O2 Flow Rate FiO2 02/07/17 18:38 36.6 96 18 159/86 94 02/07/17 15:15 36.8 92 16 136/91 94 Room Air 02/07/17 11:11 36.5 98 17 130/87 95 02/07/17 07:47 36.6 102 18 134/93 93 Room Air 02/07/17 07:45 Room Air 02/07/17 06:33 36.6 101 15 135/91 94 Room Air 02/07/17 03:54 36.5 105 16 143/93 94 Room Air 02/06/17 23:27 Room Air General Appearance: WD/WN, + mild distress Head: normocephalic Neck: supple, no JVD Respiratory/Chest: chest non-tender, lungs clear, normal breath sounds Cardiovascular: regular rate, rhythm, no edema, no gallop, no JVD Abdomen: + distended (all incisions are day, some redness just below umbilical incision, BS is negative, no rebound pain, ) Incision(s): clean, dry, intact, erythema Extremities: normal range of motion, non-tender, normal inspection Laboratory Results: Results Past 24 Hours Test 02/07/17 05:20 Range/Units White Blood Count 14.66 4.8-10.8 K/uL Red Blood Count 5.34 4.7-6.1 M/uL Hemoglobin 16.0 14.0-18.0 g/dL Hematocrit 45.7 42-52 % Mean Corpuscular Volume 85.6 80-100 fL Mean Corpuscular Hemoglobin 30.0 25-34 pg Mean Corpuscular Hemoglobin Concent 35.0 32-36 g/dl Platelet Count 359 130-400 K/uL Mean Platelet Volume 10.3 7.4-10.4 fL Neutrophils (%) (Auto) 76.8 % Lymphocytes (%) (Auto) 8.7 % Monocytes (%) (Auto) 13.3 % Eosinophils (%) (Auto) 0.7 % Basophils (%) (Auto) 0.1 % Neutrophils # (Auto) 11.26 1.4-6.5 K/uL Lymphocytes # (Auto) 1.28 1.2-3.4 K/uL Monocytes # (Auto) 1.95 0.11-0.59 K/uL Eosinophils # (Auto) 0.10 0-0.5 K/uL Basophils # (Auto) 0.01 0-0.2 K/uL RDW Standard Deviation 41.2 36.4-46.3 fL RDW Coefficient of Variation 13.1 11.5-14.5 % Immature Granulocyte % (Auto) 0.4 % Immature Granulocyte # (Auto) 0.06 0.00-0.02 K/uL Sodium Level 130 136-145 mmol/L Potassium Level 4.0 3.5-5.1 mmol/L Chloride Level 95 98-107 mmol/L Carbon Dioxide Level 26 21-32 mmol/L Anion Gap 9.0 3-11 mmol/L Blood Urea Nitrogen 16 7-18 mg/dl Creatinine 0.97 0.60-1.40 mg/dl Est Creatinine Clear Calc Drug Dose 107.3 ml/min Estimated GFR () 106.6 Estimated GFR (Non- 91.9 BUN/Creatinine Ratio 16.3 10-20 Random Glucose 150 70-99 mg/dl Calcium Level 9.0 8.5-10.1 mg/dl Total Bilirubin 0.4 0.2-1 mg/dl Aspartate Amino Transf (AST/SGOT) 15 15-37 U/L Alanine Aminotransferase (ALT/SGPT) 41 12-78 U/L Alkaline Phosphatase 91 45-117 U/L Total Protein 7.9 6.4-8.2 gm/dl Albumin 3.4 3.4-5.0 gm/dl Globulin 4.5 2.5-4.0 gm/dl Albumin/Globulin Ratio 0.8 0.9-2 Assessment & Plan IMP: S/P laparoscopic assisted sigmoid colectomy, POD 3 pt is stable, not pass gas yet, WBC [id number] OOB npo repeat labs in AM will F/U IMP: S/P laparoscopic assisted sigmoid colectomy, POD 3, possible ileus, or bowel obstruction? pt is stable, not pass gas yet, WBC [id number] OOB npo NG tube insertion, CBC, CMP, UA, lactic acid, KUB, CXR will F/U I update information to pt and pt's family member, they understood, I answered all questions,
[2017-02-07] MEDS: ATORVASTATIN 10 MG TAB PO SCH (20:48)
[2017-02-07] MEDS: ENOXAPARIN 40 MG/0.4 ML SYR SQ SCH (20:48)
[2017-02-07 21:19] LABS: BASO % 0.1 %; BASO ABS # 0.01 K/uL (0-0.2); EOS % 0.7 %; HEMATOCRIT 43.6 % (42-52); IG% 0.4 %; LYMPH % 9.3 %; LYMPH ABS # 1.45 K/uL (1.2-3.4); MEAN CELL VOLUME 84.8 fL (80-100); MEAN CORPUSCULAR HEMOGLOBIN 29.6 pg (25-34); MEAN PLATELET VOLUME 9.7 fL (7.4-10.4); MONO % 9.7 %; NEUT % 79.8 %; PLATELET COUNT 349 K/uL (130-400); RED BLOOD COUNT 5.14 M/uL (4.7-6.1)
[2017-02-07 21:40] LABS: ALB/GLOB RATIO 0.7 (0.9-2); BUN/CREATININE RATIO 18.1 (10-20); CREATININE 1.4 mg/dl (0.60-1.40)
[2017-02-07 21:53] LABS: COMPLETE YES; MEAN CORPUSCULAR HGB CONC 34.9 g/dl (32-36)
[2017-02-07 22:04] LABS: CALCIUM 8.9 mg/dl (8.5-10.1)
--- NOTE | 2017-02-07 22:05 | DIAGNOSTIC IMAGING REPORT ---
CHEST ONE VIEW PORTABLE HISTORY: Abdominal distention. Short of breath. COMPARISON: Chest 12/07/2016. FINDINGS: There are low lung volumes. Bibasilar linear densities favor atelectasis. No pneumothorax. No pleural effusions. Cervical spinal fusion hardware. The upper lung zones are clear. The heart is normal in size. Nasogastric tube is curled within the stomach. IMPRESSION: 1. Nasogastric tube terminates in the stomach. 2. Low lung volumes with bibasilar linear densities which favor subsegmental atelectasis. Electronically signed by: Stewart Grey M.D. 02/07/2017 10:03 PM Dictated Date/Time: 02/07/2017 10:02 PM
[2017-02-07] MEDS ORDERED: NURSING VERBAL MED ORDER STA (22:19)
[2017-02-07] MEDS ORDERED: CHLORASEPTIC 1.4% SOLN 180 ML BTL MT PRN ×2 (22:30)
[2017-02-07] MEDS ORDERED: METRONIDAZOLE / NSS 500 MG in PREMIXED NSS 100 ML IV SCH (22:45)
[2017-02-08] VITALS (7 sets, daily range): BP systolic 125–157; BP diastolic 80–94; PULSE 84–114; TEMP 36.4–37; O2SAT 94–97
[2017-02-08 03:30] LABS: URINE APPEARANCE CLOUDY (CLEAR); URINE BILIRUBIN NEG (NEG); URINE COLOR YELLOW; URINE EPITHELIAL CELL AUTO 20-30 /lpf (0-5); URINE NITRITE NEG (NEG); URINE PH 5.5 (4.5-7.5); URINE SPECIFIC GRAVITY 1.022 (1.000-1.030); UROBILINOGEN NEG (NEG)
[2017-02-08] MEDS: D5NSS + 20MEQ KCL 1,000 ML IV SCH ×3 (03:30→19:07)
[2017-02-08 03:31] LABS: MANUAL MICROSCOPIC REQUIRED? NO; REVIEW REQ? NO
[2017-02-08] MEDS: LORAZEPAM INJ 0.5 MG in SYRINGE 0.75 ML IV SCH ×3 (05:39→21:29)
[2017-02-08 05:44] LABS: BASO % 0.1 %; BASO ABS # 0.01 K/uL (0-0.2); COMPLETE YES; EOS % 0.7 %; HEMATOCRIT 42.9 % (42-52); IG% 0.3 %; LYMPH % 6.8 %; LYMPH ABS # 1.03 K/uL (1.2-3.4); MEAN CELL VOLUME 85.1 fL (80-100); MEAN CORPUSCULAR HEMOGLOBIN 29.4 pg (25-34); MEAN CORPUSCULAR HGB CONC 34.5 g/dl (32-36); MEAN PLATELET VOLUME 9.9 fL (7.4-10.4); MONO % 11.1 %; PLATELET COUNT 371 K/uL (130-400); RED BLOOD COUNT 5.04 M/uL (4.7-6.1); WHITE BLOOD COUNT 15.05 K/uL (4.8-10.8)
[2017-02-08 06:25] LABS: BUN/CREATININE RATIO 19.9 (10-20); CALCIUM 8.7 mg/dl (8.5-10.1); CREATININE 1.4 mg/dl (0.60-1.40); POTASSIUM 3.8 mmol/L (3.5-5.1)
[2017-02-08 06:28] LABS: ALB/GLOB RATIO 0.7 (0.9-2)
[2017-02-08] MEDS: HYDROmorphone HCL 0.5MG/ML 50 ML CASSETTE IV PRN ×3 (07:09→22:56)
[2017-02-08] MEDS: PIPERACILL/TAZOBAC IV 3.375 GM in DEXTROSE 5% 100ML IV SCH (07:38)
--- NOTE | 2017-02-08 08:21 | Surgery Progress Note ---
Surgery Progress Note Date of Service Feb 08, 2017. Subjective Post OP Day: 4 + ambulating, + bowel movement, + flatus Prior to going in to see patient, spoke with patient's nurse, Marina, who reports that patient removed his NG tube this AM- "could not stand it anymore." In to see patient- Patient reports that he is improved from yesterday, still not feeling great. Reports that abdomen is less distended. Pain is 3/10. Patient is passing gas, reports liquid BM this AM. Denies nausea or vomiting. Not feeling hungry yet. Objective Vital Signs: Date Time Temp Pulse Resp B/P Pulse Ox O2 Delivery O2 Flow Rate FiO2 02/08/17 03:30 37.0 107 14 136/94 95 Room Air 02/07/17 23:23 Room Air 02/07/17 23:02 36.6 104 14 149/95 95 Room Air 02/07/17 18:38 36.6 96 18 159/86 94 02/07/17 16:30 Room Air 02/07/17 15:15 36.8 92 16 136/91 94 Room Air 02/07/17 11:11 36.5 98 17 130/87 95 02/07/17 07:47 36.6 102 18 134/93 93 Room Air 02/07/17 07:45 Room Air Physical Exam: WES drainage (serous) Abdomen: + distended, + pertinent finding (mild abdominal tenderness) Incision(s): intact, no drainage, erythema (mild) Laboratory Results: Results Past 24 Hours Test 02/07/17 21:08 02/08/17 02:30 02/08/17 05:18 Range/Units White Blood Count 15.60 15.05 4.8-10.8 K/uL Red Blood Count 5.14 5.04 4.7-6.1 M/uL Hemoglobin 15.2 14.8 14.0-18.0 g/dL Hematocrit 43.6 42.9 42-52 % Mean Corpuscular Volume 84.8 85.1 80-100 fL Mean Corpuscular Hemoglobin 29.6 29.4 25-34 pg Mean Corpuscular Hemoglobin Concent 34.9 34.5 32-36 g/dl Platelet Count 349 371 130-400 K/uL Mean Platelet Volume 9.7 9.9 7.4-10.4 fL Neutrophils (%) (Auto) 79.8 81.0 % Lymphocytes (%) (Auto) 9.3 6.8 % Monocytes (%) (Auto) 9.7 11.1 % Eosinophils (%) (Auto) 0.7 0.7 % Basophils (%) (Auto) 0.1 0.1 % Neutrophils # (Auto) 12.44 12.19 1.4-6.5 K/uL Lymphocytes # (Auto) 1.45 1.03 1.2-3.4 K/uL Monocytes # (Auto) 1.52 1.67 0.11-0.59 K/uL Eosinophils # (Auto) 0.11 0.10 0-0.5 K/uL Basophils # (Auto) 0.01 0.01 0-0.2 K/uL RDW Standard Deviation 40.5 40.8 36.4-46.3 fL RDW Coefficient of Variation 13.0 13.2 11.5-14.5 % Immature Granulocyte % (Auto) 0.4 0.3 % Immature Granulocyte # (Auto) 0.07 0.05 0.00-0.02 K/uL Sodium Level 130 131 136-145 mmol/L Potassium Level 4.0 3.8 3.5-5.1 mmol/L Chloride Level 95 97 98-107 mmol/L Carbon Dioxide Level 24 24 21-32 mmol/L Anion Gap 11.0 10.0 3-11 mmol/L Blood Urea Nitrogen 25 28 7-18 mg/dl Creatinine 1.40 1.40 0.60-1.40 mg/dl Est Creatinine Clear Calc Drug Dose 74.4 74.4 ml/min Estimated GFR () 68.4 68.4 Estimated GFR (Non- 59.0 59.0 BUN/Creatinine Ratio 18.1 19.9 10-20 Random Glucose 169 165 70-99 mg/dl Lactic Acid Level 0.9 0.4-2.0 mmol/L Calcium Level 8.9 8.7 8.5-10.1 mg/dl Total Bilirubin 0.5 0.5 0.2-1 mg/dl Aspartate Amino Transf (AST/SGOT) 18 11 15-37 U/L Alanine Aminotransferase (ALT/SGPT) 37 36 12-78 U/L Alkaline Phosphatase 84 81 45-117 U/L Total Protein 7.5 7.5 6.4-8.2 gm/dl Albumin 3.2 3.1 3.4-5.0 gm/dl Globulin 4.3 4.4 2.5-4.0 gm/dl Albumin/Globulin Ratio 0.7 0.7 0.9-2 Urine Color YELLOW Urine Appearance CLOUDY CLEAR Urine pH 5.5 4.5-7.5 Urine Specific [place] 1.022 1.000-1.030 Urine Protein TRACE NEG Urine Glucose (UA) NEG NEG Urine Ketones TRACE NEG Urine Occult Blood NEG NEG Urine Nitrite NEG NEG Urine Bilirubin NEG NEG Urine Urobilinogen NEG NEG Urine Leukocyte Esterase NEG NEG Urine WBC (Auto) 1-5 0-5 /hpf Urine RBC (Auto) 0-4 0-4 /hpf Urine Hyaline Casts (Auto) 5-10 0-5 /lpf Urine Epithelial Cells (Auto) 20-30 0-5 /lpf Urine Bacteria (Auto) NEG NEG Assessment & Plan POD #4 s/p Laparoscopic-Assisted Sigmoid Colectomy Post-Op ileus. Dr. Edge in to see patient- Reviewed labs- Lactic acid 0.9. Will follow labs closely. Patient removed NG tube this AM. Reports that he feels better than yesterday. + Flatus +BM Pain controlled. Patient NPO, except meds.Will restart clear liquids. Currently double coverage for antibiotics- will DC Zosyn.
[2017-02-08] MEDS: SODIUM CHLORIDE 0.9% 1000ML 1,000 ML IV SCH (08:41)
[2017-02-08] MEDS: PANTOprazole SOD 40 MG TAB PO SCH (08:44)
[2017-02-08] MEDS: HYDROCHLOROTHIAZIDE 25 MG TAB PO SCH (08:45)
[2017-02-08] MEDS: TELMISARTAN 40 MG TAB PO SCH (08:45)
[2017-02-08] MEDS ORDERED: CIPROFLOXACIN / D5W 400 MG in PREMIXED IN D5W 200 ML IV SCH (09:00)
[2017-02-08] MEDS: CIPROFLOXACIN / D5W 400 MG in PREMIXED IN D5W 200 ML IV SCH ×2 (09:33→21:29)
[2017-02-08] MEDS: ONDANSETRON INJ 2 MG/ML 2 ML VIAL IV PRN (13:18)
[2017-02-08] MEDS ORDERED: NURSING VERBAL MED ORDER ONE (18:30)
[2017-02-08] MEDS ORDERED: ALUMINUM/MAGNESIUM SUSP 30 ML UDC PO PRN (19:00)
[2017-02-08] MEDS: ATORVASTATIN 10 MG TAB PO SCH (21:29)
[2017-02-08] MEDS: ENOXAPARIN 40 MG/0.4 ML SYR SQ SCH (21:29)
[2017-02-09 03:14] VITALS: BP 156/89; PULSE 97; TEMP 36.5; O2SAT 99
[2017-02-09] MEDS: D5NSS + 20MEQ KCL 1,000 ML IV SCH ×3 (04:05→10:55)
[2017-02-09] MEDS: LORAZEPAM INJ 0.5 MG in SYRINGE 0.75 ML IV SCH ×4 (05:54→22:00)
[2017-02-09 06:06] LABS: BASO % 0.1 %; BASO ABS # 0.01 K/uL (0-0.2); COMPLETE YES; EOS % 2.1 %; HEMATOCRIT 38.8 % (42-52); IG% 0.1 %; LYMPH % 20.6 %; LYMPH ABS # 1.65 K/uL (1.2-3.4); MEAN CELL VOLUME 85.3 fL (80-100); MEAN CORPUSCULAR HEMOGLOBIN 29.5 pg (25-34); MEAN CORPUSCULAR HGB CONC 34.5 g/dl (32-36); MEAN PLATELET VOLUME 9.7 fL (7.4-10.4); MONO % 17.1 %; PLATELET COUNT 292 K/uL (130-400); RED BLOOD COUNT 4.55 M/uL (4.7-6.1)
[2017-02-09] MEDS: HYDROmorphone HCL 0.5MG/ML 50 ML CASSETTE IV PRN (06:55)
[2017-02-09] MEDS: SODIUM CHLORIDE 0.9% 1000ML 1,000 ML IV SCH (08:05)
[2017-02-09] MEDS: PANTOprazole SOD 40 MG TAB PO SCH (08:41)
[2017-02-09] MEDS: HYDROCHLOROTHIAZIDE 25 MG TAB PO SCH (08:42)
[2017-02-09] MEDS: TELMISARTAN 40 MG TAB PO SCH (08:42)
--- NOTE | 2017-02-09 10:29 | Surgery Progress Note ---
Surgery Progress Note Date of Service Feb 09, 2017. Subjective Post OP Day: 5 improving, BM x2 this AM, tolerating clears Objective Vital Signs: Date Time Temp Pulse Resp B/P Pulse Ox O2 Delivery O2 Flow Rate FiO2 02/09/17 08:00 Room Air 02/09/17 03:14 36.5 97 18 156/89 99 Room Air 02/08/17 23:52 36.5 86 16 125/85 94 Room Air 02/08/17 23:15 Room Air 02/08/17 18:55 36.5 84 18 132/86 97 Room Air 02/08/17 15:15 Room Air 02/08/17 15:08 36.8 86 16 157/88 96 Room Air 02/08/17 11:09 36.6 96 16 155/80 97 Room Air Abdomen: soft, + distended (minial) Incision(s): clean, dry, no erythema Laboratory Results: Results Past 24 Hours Test 02/09/17 05:35 Range/Units White Blood Count 8.00 4.8-10.8 K/uL Red Blood Count 4.55 4.7-6.1 M/uL Hemoglobin 13.4 14.0-18.0 g/dL Hematocrit 38.8 42-52 % Mean Corpuscular Volume 85.3 80-100 fL Mean Corpuscular Hemoglobin 29.5 25-34 pg Mean Corpuscular Hemoglobin Concent 34.5 32-36 g/dl Platelet Count 292 130-400 K/uL Mean Platelet Volume 9.7 7.4-10.4 fL Neutrophils (%) (Auto) 60.0 % Lymphocytes (%) (Auto) 20.6 % Monocytes (%) (Auto) 17.1 % Eosinophils (%) (Auto) 2.1 % Basophils (%) (Auto) 0.1 % Neutrophils # (Auto) 4.79 1.4-6.5 K/uL Lymphocytes # (Auto) 1.65 1.2-3.4 K/uL Monocytes # (Auto) 1.37 0.11-0.59 K/uL Eosinophils # (Auto) 0.17 0-0.5 K/uL Basophils # (Auto) 0.01 0-0.2 K/uL RDW Standard Deviation 40.2 36.4-46.3 fL RDW Coefficient of Variation 13.0 11.5-14.5 % Immature Granulocyte % (Auto) 0.1 % Immature Granulocyte # (Auto) 0.01 0.00-0.02 K/uL Assessment & Plan lap sigmoid for diverticulitis/abscess ileus resolving wants to try full liquids will d/c 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
[2017-02-09] MEDS ORDERED: HYDROmorphone INJ 0.5 MG/0.5 ML SYR IV PRN (10:30)
[2017-02-09] MEDS ORDERED: OXYCODONE/ACETAMINOPHEN 5-325 TAB PO PRN (14:00)
[2017-02-09 16:03] VITALS: BP 133/80; PULSE 88; TEMP 36.4; O2SAT 95
[2017-02-09] MEDS: HYDROmorphone INJ 1 MG/ML SYR IV PRN (17:10)
[2017-02-09] MEDS: ENOXAPARIN 40 MG/0.4 ML SYR SQ SCH (21:07)
[2017-02-09] MEDS: OXYCODONE/ACETAMINOPHEN 5-325 TAB PO PRN (21:07)
[2017-02-09] MEDS: ATORVASTATIN 10 MG TAB PO SCH (21:08)
[2017-02-09 22:49] VITALS: BP 147/75; PULSE 84; TEMP 36.6; O2SAT 97
[2017-02-10] MEDS: D5NSS + 20MEQ KCL 1,000 ML IV SCH (00:02)
[2017-02-10] MEDS: OXYCODONE/ACETAMINOPHEN 5-325 TAB PO PRN (03:06)
[2017-02-10 05:33] LABS: HEMATOCRIT 39.1 % (42-52); MEAN CELL VOLUME 85.2 fL (80-100); MEAN CORPUSCULAR HEMOGLOBIN 29.4 pg (25-34); MEAN CORPUSCULAR HGB CONC 34.5 g/dl (32-36); MEAN PLATELET VOLUME 9.5 fL (7.4-10.4); PLATELET COUNT 305 K/uL (130-400); RED BLOOD COUNT 4.59 M/uL (4.7-6.1); WHITE BLOOD COUNT 8.52 K/uL (4.8-10.8)
[2017-02-10] MEDS: LORAZEPAM INJ 0.5 MG in SYRINGE 0.75 ML IV SCH (05:33)
[2017-02-10 06:18] LABS: CREATININE 0.88 mg/dl (0.60-1.40)
[2017-02-10 06:54] VITALS: BP 144/83; PULSE 76; TEMP 36.5; O2SAT 97
[2017-02-10] MEDS: TELMISARTAN 40 MG TAB PO SCH (08:51)
[2017-02-10] MEDS: HYDROCHLOROTHIAZIDE 25 MG TAB PO SCH (08:51)
[2017-02-10] MEDS: PANTOprazole SOD 40 MG TAB PO SCH (08:51)
[2017-02-10 09:55] VITALS: BP 144/83; PULSE 76; TEMP 36.5; O2SAT 97
--- NOTE | 2017-02-11 08:07 | EDITING REQUIRED CODING QUERY ---
Dr. Edge, Your help is needed for correct coding of this account; please clarify if the patients post-operative Ileus was: ( X ) expected out of the surgery ( ) unexpected complication from the surgery ( ) other please specify Also, please clarify if the finding of cellulitis was: ( ) postoperative complication (infection) ( ) not a postoperative complication ( X ) other, please explain: area of prior drain/fistula. Not unexpected. Location of cellulitis: LLQ abdominal wall Thank you for your time, BHUPINDER Eagle, [employer] WORK[employer]
--- NOTE | 2017-02-12 08:55 | DISCHARGE SUMMARY ---
PRIMARY DISCHARGE DIAGNOSES: 1. Complicated diverticulitis. 2. Umbilical hernia. 3. Postoperative ileus. SECONDARY DISCHARGE DIAGNOSES: 1. Hypertension. 2. Hyperlipidemia. 3. Asthma. PROCEDURES PERFORMED: Laparoscopic sigmoid colectomy with primary anastomosis and repair of umbilical hernia. HOSPITAL COURSE: The patient is a 46-year-old male with a history of perforated diverticulitis and abscess now admitted through same day and taken to the operating room for laparoscopic sigmoid resection. The procedure was well tolerated. He was transferred to the surgical floor. A Dilaudid ICU NURSE and Ofirmev were used for postoperative analgesia. Perioperative Ancef was continued and Lovenox along with SCDs used for DVT prophylaxis. He began getting bloated, having nausea on postoperative day 2. This increased over day 3, he had not had any returning bowel function. Nasogastric tube was placed that evening. He had also been started back on Zosyn for white count 14,000 and some mild erythema around the drain site. By day 4, he was passing flatus and beginning to have bowel movements. The nasogastric tube was removed. He was started on clear liquids. By day 5, he had multiple bowel movements. His diet was advanced. By day 6, he was tolerating a low fat diet. WES drain was removed from the pelvis. His white count had normalized and the skin erythema had resolved. His pain was managed with oral analgesics. He was stable for discharge. DISCHARGE INSTRUCTIONS: Discharge home. Follow up with Dr. Edge in 1 week. DISCHARGE MEDICATIONS: [place] 1-2 tablets every 4 hours as needed. Resume home medications albuterol HFA 2 puffs 4 times daily as needed, Lipitor 10 mg daily, Prevacid 30 mg daily, Micardis 80 mg daily.
[2017-05-03] MEDS ORDERED: OXYC1TAB3 PO (11:51)
== END 2017-02-10 11:00 | disposition home or self-care (01) | DRG 330 ==
LOC: ENRESERVTM → ENRESERVDT → C.ACU 05:20 → C.3E 10:47
PROVIDERS: ADMIT Surgery; ATTEND Surgery
PROC: 0WQF0ZZ Repair Abdominal Wall, Open Approach (ICD-10-PCS; principal; 2017-02-04 07:15)
PROC: 0DBN4ZZ Excision of Sigmoid Colon, Percutaneous Endoscopic Approach (ICD-10-PCS; principal; 2017-02-04 07:15)
DX: K57.20 Diverticulitis of large intestine with perforation and abscess without bleeding (principal); K63.2 Fistula of intestine; K56.7 Ileus, unspecified; L03.311 Cellulitis of abdominal wall; K42.9 Umbilical hernia without obstruction or gangrene; J45.909 Unspecified asthma, uncomplicated; I10 Essential (primary) hypertension; E78.5 Hyperlipidemia, unspecified; K21.9 Gastro-esophageal reflux disease without esophagitis; E66.9 Obesity, unspecified; Z68.36 Body mass index [BMI] 36.0-36.9, adult

== ENCOUNTER 2017-05-01 13:37 | Emergency (ER) | payer OTHER ==
[~2017-05-01] VITALS: Ht 170.2 cm; Wt 103.0 kg
[~2017-05-01 13:37] MED LIST changes: -ATOR10TA82 PO; +ATOR10TA88 PO; +HYDR-5688 PO
[2017-05-01 13:41] VITALS: TEMP 36.6; Ht 170.2 cm; Wt 103.0 kg
[2017-05-01] MEDS ORDERED: KETOROLAC TROMETHAMINE 30 MG/ML VIAL IV STA (13:58)
[2017-05-01 14:30] LABS: BASO % 0.2 %; BASO ABS # 0.02 K/uL (0-0.2); COMPLETE YES; EOS % 0.6 %; HEMATOCRIT 43.8 % (42-52); IG% 0.2 %; LYMPH ABS # 1.42 K/uL (1.2-3.4); MEAN CELL VOLUME 86.1 fL (80-100); MEAN CORPUSCULAR HEMOGLOBIN 29.5 pg (25-34); MEAN CORPUSCULAR HGB CONC 34.2 g/dl (32-36); MONO % 6.7 %; NEUT % 77.3 %; PLATELET COUNT 271 K/uL (130-400); RED BLOOD COUNT 5.09 M/uL (4.7-6.1); WHITE BLOOD COUNT 9.47 K/uL (4.8-10.8)
[2017-05-01] MEDS ORDERED: HYDROmorphone INJ 0.5 MG/0.5 ML SYR ONE (14:39)
[2017-05-01] MEDS ORDERED: NURSING VERBAL MED ORDER ONE (14:45)
[2017-05-01 14:51] LABS: CALCIUM 9.1 mg/dl (8.5-10.1); CREATININE 1.1 mg/dl (0.60-1.40); POTASSIUM 4.3 mmol/L (3.5-5.1)
--- NOTE | 2017-05-01 15:20 | DIAGNOSTIC IMAGING REPORT ---
CERVICAL WITHOUT CONTRAST HISTORY: Pain. Neuropathy. right arm numbness eval for spinal cord injury TECHNIQUE: Multiplanar multisequence MRI of the cervical spine was performed without the use of contrast. COMPARISON STUDY: None FINDINGS: Moderate motion artifact throughout. Findings of an anterior fusion at C6-C7. Posterior disc herniation C5-C6. No bone marrow replacing process. Signal characteristics of the cervical cord are unremarkable. C2-C3: No significant central canal or neural foraminal narrowing. C3-C4: No significant central canal or neural foraminal narrowing. C4-C5: No significant central canal or neural foraminal narrowing. C5-C6: Moderate broad-based disc herniation with a some more prominent right lateral component. Moderate to rather significant narrowing right neuroforamina minimal narrowing left neuroforamina. No impact upon the cervical cord. C6-C7: Anterior fusion. C7-T1: No significant central canal or neural foraminal narrowing. IMPRESSION: 1. Broad-based disc herniation C5-C6 with a significant right lateral component. 2. This shows moderate to significant narrowing of the right neuroforamina with minimal narrowing of the left 3. Operative changes consistent with an anterior fusion at C6-C7. The above report was generated using voice recognition software. It may contain grammatical, syntax or spelling errors. Electronically signed by: Benja Villegas M.D. 05/01/2017 3:19 PM Dictated Date/Time: 05/01/2017 3:15 PM
[2017-05-01 15:29] VITALS: BP 190/128; PULSE 102; O2SAT 96
[2017-05-01] MEDS ORDERED: OXYC1TAB3 PO (15:43)
[2017-05-01] MEDS ORDERED: METH4PAK PO (15:43)
--- NOTE | 2017-05-01 17:24 | EMERGENCY ROOM VISIT NOTE ---
History Report prepared by Joyce: Kenya Waite Under the Supervision of: Dr. Eze Mckeon M.D. First contact with patient: 13:47 Chief Complaint: NECK PAIN Stated Complaint: HERNIATED DISC IN NECK History of Present Illness The patient is a 46 year old male who presents to the Emergency Room with complaints of intermittent neck pain that began three months ago, but worsened this morning. He currently rates his discomfort as a 7/10 in severity. The patient states that he has a history of a herniated disc in his lower back. He states that he has been having intermittent neck pain over the last few months, but states today he developed right arm heaviness, right arm weakness, and right thumb and 1st finger numbness. The patient states that he never had pain radiate down his arm in the past. He denies any abnormal heavy lifting. He does, however, weight lift regularly and has been doing some work at home. The patient denies any fall or injury. He denies any fever, shortness of breath, chest pain, vomiting, abdominal pain, diarrhea, or urinary or bowel incontinence. Source of History: patient Onset: three months ago Position: neck Symptom Intensity: 7/10 Timing: intermittent Associated Symptoms: + weakness (right arm), + numbness (right thumb and 1st finger), No fevers, No chest pain, No SOB, No vomiting, No abdominal pain, No diarrhea Note: Associated symptoms: right arm heaviness. Review of Systems See HPI for pertinent positives & negatives. A total of 10 systems reviewed and were otherwise negative. Past Medical & Surgical Medical Problems: (1) Perforated sigmoid colon (2) Pericolonic abscess due to diverticulitis Family History Patient reports no known family medical history. Social History Smoking Status: Never Smoker Drug Use: none Marital Status: Housing Status: lives with family Occupation Status: employed Current/Historical Medications Scheduled Atorvastatin (Lipitor), 10 MG PO HS Lansoprazole (Prevacid), 30 MG PO QAM Methylprednisolone (Medrol Dosepak), 1 PKT PO UD Telmisartan-Hydrochlorothiazid (Telmisartan/Hydrochloroth 80-25 mg), 1 TAB PO QAM Scheduled PRN Albuterol Hfa (Ventolin Hfa), 2 PUFFS INH QID PRN for SOB/Wheezing Oxycodone Ir (Roxicodone Ir), 5 MG PO Q4H PRN for Pain Allergies Coded Allergies: No Known Allergies (Verified , 02/04/17) Physical Exam Vital Signs Date Time Temp Pulse Resp B/P (MAP) Pulse Ox O2 Delivery O2 Flow Rate FiO2 05/01/17 15:29 102 22 190/128 96 Room Air 05/01/17 13:41 36.6 105 20 189/101 95 Room Air Physical Exam Constitutional: Vital signs reviewed. Eyes: Pupils are equal round reactive to light. Conjunctiva are noninjected. ENT: Pharynx is clear without erythema or exudate. Mucous membranes are moist. Neck supple without meningeal signs. Respiratory: Clear to auscultation bilaterally. Breath sounds are equal bilaterally. Cardiovascular: Regular rate and rhythm. No rubs or gallops. GI: Soft, nondistended and nontender. Bowel sounds are present. Musculoskeletal: No midline tenderness to the cervical, thoracic, or lumbosacral spine. No peripheral edema. Integumentary: No cyanosis. Neurological: The patient is awake and alert. Diminished sensation to the right hand and forearm over the radial aspect. No loss of strength in the right upper extremity. Psychiatric: Normal affect. Medical Decision & Procedures ER Provider Diagnostic Interpretation: Radiology results as stated below per my review and the radiologist's interpretation: CERVICAL WITHOUT CONTRAST HISTORY: Pain. Neuropathy. right arm numbness eval for spinal cord injury TECHNIQUE: Multiplanar multisequence MRI of the cervical spine was performed without the use of contrast. COMPARISON STUDY: None FINDINGS: Moderate motion artifact throughout. Findings of an anterior fusion at C6-C7. Posterior disc herniation C5-C6. No bone marrow replacing process. Signal characteristics of the cervical cord are unremarkable. C2-C3: No significant central canal or neural foraminal narrowing. C3-C4: No significant central canal or neural foraminal narrowing. C4-C5: No significant central canal or neural foraminal narrowing. C5-C6: Moderate broad-based disc herniation with a some more prominent right lateral component. Moderate to rather significant narrowing right neuroforamina minimal narrowing left neuroforamina. No impact upon the cervical cord. C6-C7: Anterior fusion. C7-T1: No significant central canal or neural foraminal narrowing. IMPRESSION: 1. Broad-based disc herniation C5-C6 with a significant right lateral component. 2. This shows moderate to significant narrowing of the right neuroforamina with minimal narrowing of the left 3. Operative changes consistent with an anterior fusion at C6-C7. The above report was generated using voice recognition software. It may contain grammatical, syntax or spelling errors. Electronically signed by: Benja Villegas M.D. 05/01/2017 3:19 PM Dictated Date/Time: 05/01/2017 3:15 PM Laboratory Results 05/01/17 14:10 Red Blood Count 5.09, Mean Corpuscular Volume 86.1, Mean Corpuscular Hemoglobin 29.5, Mean Corpuscular Hemoglobin Concent 34.2, Mean Platelet Volume 10.0, Neutrophils (%) (Auto) 77.3, Lymphocytes (%) (Auto) 15.0, Monocytes (%) (Auto) 6.7, Eosinophils (%) (Auto) 0.6, Basophils (%) (Auto) 0.2, Neutrophils # (Auto) 7.32, Lymphocytes # (Auto) 1.42, Monocytes # (Auto) 0.63, Eosinophils # (Auto) 0.06, Basophils # (Auto) 0.02 05/01/17 14:10 Test 05/01/17 14:10 White Blood Count 9.47 K/uL (4.8-10.8) Red Blood Count 5.09 M/uL (4.7-6.1) Hemoglobin 15.0 g/dL (14.0-18.0) Hematocrit 43.8 % (42-52) Mean Corpuscular Volume 86.1 fL (80-100) Mean Corpuscular Hemoglobin 29.5 pg (25-34) Mean Corpuscular Hemoglobin Concent 34.2 g/dl (32-36) Platelet Count 271 K/uL (130-400) Mean Platelet Volume 10.0 fL (7.4-10.4) Neutrophils (%) (Auto) 77.3 % Lymphocytes (%) (Auto) 15.0 % Monocytes (%) (Auto) 6.7 % Eosinophils (%) (Auto) 0.6 % Basophils (%) (Auto) 0.2 % Neutrophils # (Auto) 7.32 K/uL (1.4-6.5) Lymphocytes # (Auto) 1.42 K/uL (1.2-3.4) Monocytes # (Auto) 0.63 K/uL (0.11-0.59) Eosinophils # (Auto) 0.06 K/uL (0-0.5) Basophils # (Auto) 0.02 K/uL (0-0.2) RDW Standard Deviation 42.8 fL (36.4-46.3) RDW Coefficient of Variation 13.5 % (11.5-14.5) Immature Granulocyte % (Auto) 0.2 % Immature Granulocyte # (Auto) 0.02 K/uL (0.00-0.02) Anion Gap 6.0 mmol/L (3-11) Est Creatinine Clear Calc Drug Dose 93.9 ml/min Estimated GFR () 91.5 Estimated GFR (Non- 79.0 BUN/Creatinine Ratio 21.0 (10-20) Calcium Level 9.1 mg/dl (8.5-10.1) Chemistry Specimen Hemolysis Laboratory results as reviewed by me. Medications Administered Medications (Trade) Dose Ordered Sig/Margaux Route Start Time Stop Time Status Last Admin Dose Admin Ketorolac Tromethamine (Toradol Inj) 30 mg NOW STAT IV 05/01/17 13:58 05/01/17 14:00 DC 05/01/17 14:06 30 MG Hydromorphone HCl (Dilaudid Inj) 0.5 mg STK-MED ONCE .ROUTE 05/01/17 14:39 05/01/17 14:40 DC 05/01/17 14:43 0.5 MG ECG Indication: other (neck pain) Rate (beats per minute): 99 Rhythm: normal sinus Findings: no acute ischemic change, no ectopy ED Course 1352: The patient was evaluated in room C4. A complete history and physical exam was performed. 1358: Ordered Toradol Inj 30 mg IV. 1439: Ordered Dilaudid Inj 0.5 mg .route. 1540: I reevaluated the patient and I discussed the test results with him. I discussed the treatment plan with him and he verbalized complete understanding and agreement. he states that he gave himself a shot of Depo Medrol this morning. I attempted to get in touch with Dr. Morel, but he was not available. The patient is ready to go home. Medical Decision This is a 46-year-old male presents with neck pain radiating down his arm with numbness. Differential diagnosis includes cervical disc disease, radiculopathy , pathologic fracture, tumor, strain. I did perform a limited focused review of portions of the patient's old chart on the electronic medical record. The patient has had no recent pertinent visits to this hospital. Blood Pressure Screening: Patient was found to have an elevated blood pressure and was referred to their primary doctor for recheck and further treatment. Medication Reconciliation: I attest that I have personally reviewed the patient' s current medication list. I did evaluate the patient as noted above. The patient is presenting with neck pain rating down his right arm with some focal deficits. His symptoms are consistent with radicular pain. IV access was established. I did treat the patient with Toradol IV. Initially did not wish to have narcotics but he could not lay still for the MRI and so was given Dilaudid 0.5 mg IV. I did order and review the patient's blood work as noted in the electronic medical record. I did order an MRI of the cervical spine. I did review the images myself as well as the radiology report as described above. The patient does have a disc herniation at C5-C6 consistent with his symptoms. I did discuss the test results with the patient and his . He is feeling better but still has pain. He did state that he took steroids this morning and that steroids generally have help for him in the past. I did attempt to call his orthopedic doctor, Dr. Morel, but he was unavailable. He will try to make an appointment with him on Wednesday. He was discharged with a prescription for OxyIR and given precautions regarding this medication. He was also given a prescription for a Medrol Dosepak. [place] Drug Monitoring Program Search Results: patient reviewed within database, no issues identified Impression Primary Impression: Cervical disc herniation Scribe Attestation The scribe's documentation has been prepared under my direct and personally reviewed by me in its entirety. I confirm that the note above accurately reflects all work, treatment, procedures, and medical decision making performed by me. Departure Information Dispostion Home / Self-Care Prescriptions Methylprednisolone (MEDROL DOSEPAK) 4 Mg Ravindra 1 PKT PO UD for 6 Days, #1 PKT Prov: Eze Mckeon M.D. 05/01/17 Oxycodone Ir (Roxicodone Ir) 5 Mg Tab 5 MG PO Q4H Y for Pain, #25 TAB Prov: Eze Mckeon M.D. 05/01/17 Referrals Cahrly Marcano M.D. (PCP) Forms HOME CARE DOCUMENTATION FORM, IMPORTANT VISIT INFORMATION, WORK / SCHOOL INSTRUCTIONS Patient Instructions My [facility] Additional Instructions You have been examined and treated today on an emergency basis only. This is not a substitute for, or an effort to provide, complete comprehensive medical care. It is impossible to recognize and treat all injuries or illnesses in a single emergency department visit. It is therefore important that you follow up closely with Dr. Morel. Call as soon as possible for an appointment. Return for worsening symptoms or if you develop fever, vomiting, loss of control of your bowel or bladder, new numbness or weakness to your arms or legs, numbness to your private area, difficulty urinating, or any other concerning symptoms.
[2017-05-03] MEDS ORDERED: OXYC1TAB3 PO (11:51)
== END 2017-05-01 15:55 | disposition home or self-care (01) ==
LOC: C.EDB 13:39 → C.EDC 15:55
DX: M50.222 Other cervical disc displacement at C5-C6 level (principal); K57.32 Diverticulitis of large intestine without perforation or abscess without bleeding; Z79.899 Other long term (current) drug therapy

== ENCOUNTER 2017-05-02 15:08 | Observation (INO) | payer OTHER ==
[~2017-05-02] VITALS: Ht 170.2 cm; Wt 104.5 kg
[~2017-05-02 15:08] MED LIST changes: -HYDR-5688 PO; +METH4PAK PO; +OXYC1TAB3 PO
[2017-05-02 15:30] VITALS: BP 191/99; PULSE 97; TEMP 36.9; O2SAT 95; Ht 170.2 cm; Wt 104.5 kg
[2017-05-02] MEDS ORDERED: SODIUM CHLORIDE 0.9% 1000ML 1,000 ML IV SCH (15:50)
[2017-05-02] MEDS ORDERED: NALOXONE HCL 0.4 MG/1 ML VIAL/CARP IV PRN (16:00)
[2017-05-02] MEDS ORDERED: ONDANSETRON INJ 2 MG/ML 2 ML VIAL IV PRN (16:00)
[2017-05-02] MEDS ORDERED: ACETAMINOPHEN 325 MG TAB PO PRN (16:00)
[2017-05-02] MEDS ORDERED: CYCLOBENZAPRINE HCL 10 MG TAB PO PRN (16:00)
[2017-05-02] MEDS ORDERED: ALBUTEROL HFA 8 GM INHALER INH PRN (16:00)
[2017-05-02] MEDS ORDERED: LORAZEPAM 1 MG TAB PO PRN (16:00)
[2017-05-02] MEDS ORDERED: LORAZEPAM INJ 1 MG in SYRINGE 0.5 ML IV PRN (16:00)
[2017-05-02] MEDS ORDERED: OXYCODONE/ACETAMINOPHEN 5-325 TAB PO PRN (16:00)
--- NOTE | 2017-05-02 16:09 | History and Physical ---
History & Physical Date May 02, 2017. Chief Complaint Neck and right arm pain with weakness History of Present Illness The patient is a 46 year old male with complaints of significant right upper from the pain is began Wednesday. He noted approximately 2 months of cervical pain out of the ordinary. He woke Wednesday with the onset of severe right arm pain he was seen in emergency room obtained an MRI. MRI demonstrates evidence of a massive disc herniation C5 6 on the right side with neural foraminal occlusion on the right. The cord appears to be healthy. He is a fusion at the 67 levels. He is noting weakness in her extremity and marked limitations with inability to use his right arm secondary to pain. Oral pain medications are not controlling his pain. Oral steroids are not controlling his pain. Past Medical/Surgical History Medical Problems: (1) Perforated sigmoid colon (2) Pericolonic abscess due to diverticulitis Additional History Hepatic Disease: No Endocrine Disorder: No Kidney Disease: No Hypertension: Yes Heart Disease: No Bleeding Tendencies: No Infectious Diseases: No Allergies Coded Allergies: No Known Allergies (Verified , 02/04/17) Home Medications Scheduled Atorvastatin (Lipitor), 10 MG PO HS Lansoprazole (Prevacid), 30 MG PO QAM Methylprednisolone (Medrol Dosepak), 1 PKT PO UD Telmisartan-Hydrochlorothiazid (Telmisartan/Hydrochloroth 80-25 mg), 1 TAB PO QAM Scheduled PRN Albuterol Hfa (Ventolin Hfa), 2 PUFFS INH QID PRN for SOB/Wheezing Oxycodone Ir (Roxicodone Ir), 5 MG PO Q4H PRN for Pain Physical Examination Skin: warm/dry, no rash Eyes: normal inspection, EOMI, sclerae normal ENT: normal ENT inspection, pharynx normal Head: normocephalic, atraumatic Neck: supple, no adenopathy, trachea midline Respiratory/Chest: lungs clear, normal breath sounds, no respiratory distress Cardiovascular: regular rate, rhythm, no edema, no murmur Abdomen / GI: normal bowel sounds, non tender Back: normal inspection Extremities: normal inspection, normal range of motion, + pertinent finding Neurologic/Psych: no motor/sensory deficits, alert, normal reflexes, oriented x 3 Addiitonal Comments: Patient exhibits +5 over 5 bilateral finger intrinsics biceps deltoids triceps. His significant weakness to the right wrist extensors compared to 5 over 5 on the left. He exhibits marked sensory deficits to the right forearm compared to the left. He exhibits a significantly positive Spurling sign with any cervical extension affecting the right upper extremity. He's holding himself in a classic shoulder abduction sign position. He is in obvious distress throughout exam. Diagnosis Herniated nucleus pulposus C56 with cervical radiculopathy and neural deficits. Plan of Treatment Plan this time patient is in significant distress with development of weakness in severe pain. He would like to pursue surgical intervention. It would require an anterior cervical discectomy and fusion C5 6. Would also include removal of instrumentation at C6 7. Risks benefits pros cons and alternatives were outlined in detail. Risk include but not limited to from anesthesia upon a stroke paralysis nerve damage blood loss chronic transfusion infection requiring reoperation dysphonia and dysphagia benefits of hopefully marked improvement of his radicular pain.
[2017-05-02] MEDS ORDERED: PATIENT'S HEIGHT AND/OR WEIGHT NEEDED SCH (16:15)
[2017-05-02] MEDS ORDERED: IV FLUIDS COMPLETED PRN (16:30)
[2017-05-02] MEDS: LACTATED RINGER'S 1000ML 1,000 ML IV SCH (16:46)
[2017-05-02] MEDS: HYDROmorphone HCL 0.5MG/ML 50 ML CASSETTE IV PRN ×3 (16:48→22:56)
[2017-05-02 16:50] VITALS: BP 161/91; PULSE 91; O2SAT 96
[2017-05-02] MEDS: TELMISARTAN 40 MG TAB PO SCH (17:30)
--- NOTE | 2017-05-02 17:37 | Medical Consult ---
History General Date of Service: May 02, 2017. Stated Complaint: Cervical Stenosis W/Neuro Deficit HPI The patient is a 46 year old male who presents to [facility] with complaints of Cervical Stenosis W/Neuro Deficit. The patient's primary care provider is Charly Marcano M.D..\ This patient presents with intractable neck and right arm radicular pain with her confirmed sees 5-6 posterior lateral herniated disc. Patient previously has had a C6 7 fusion by anterior approach by Dr. Morel. 2 days ago the patient is denying excessive amounts of yardwork, one day ago he awoke with intense pain radiating down his arm to his hand. The patient attempted to relieve the pain and ibuprofen this is unsuccessful he reported to the ER where he was giving a Medrol Dosepak and oxycodone. This was also unsuccessful and he contacted Dr. Morel who arranged a direct admission. Dr. Morel reviewed his neck imaging studies and feels these appropriate to proceed to decompression fusion of this at C5 6. The patient due to pain and not having his antihypertensive medications at home was unable to take any of these over the last few days subsequently he is markedly hypertensive. He however has had no other problems and has undergone a bowel resection and reanastomosis in January 2017 without any postoperative or our hospital related problems. Ex He is accompanied by his at bedside and she was updated Review of Systems ROS: well nourished well developed No double vision blurry vision No problems with speech or swallowing No palpitations, chest pain or pressure No Wheezing or breathing issues No abdominal pain nausea vomiting diarrhea changes in appetite or weight No burning urine urine frequency or changes in color Patient has posterior neck pain and pain radiating down his arm to his hand mostly on the thumb side No skin rashes or oral lesions No unusual bruising or bleeding No overt numbness or loss of strength No changes in memory or confusion Past Medical History Past Medical History: asthma, diverticulitis, diverticulosis, high cholesterol , hypertension Past Surgical History: spinal surgery (C6 7 fusion) Family History Patient reports no known family medical history. He has a family history positive for hypertension and dyslipidemia Social History Hx Tobacco Use In Past Year?: No Smoking Status: Never Smoker Alcohol: socially Drug Use: none Marital status: Housing status: lives with family Occupational Status: employed Immunizations History of Influenza Vaccine: N/A History of Tetanus Vaccine?: Yes History of Pneumococcal: No History of Hepatitis B Vaccine: Yes History of MDRO History of MDRO: No Allergies Coded Allergies: No Known Allergies (Verified , 02/04/17) Current Medications Reported Home Medications Medications Dose Route/Sig Max Daily Dose Days Date Category Medrol Dosepak (Methylprednisolone) 4 Mg Ravindra 1 Pkt PO UD 6 05/01/17 Rx Roxicodone Ir (Oxycodone HCl) 5 Mg Tab 5 Mg PO Q4H PRN 05/01/17 Rx Prevacid (Lansoprazole) 30 Mg Capcr 30 Mg PO QAM 01/21/17 Reported Lipitor (Atorvastatin Calcium) 10 Mg Tab 10 Mg PO HS 01/21/17 Reported Telmisartan/Hydrochloroth 80-25 mg (Telmisartan-Hydrochlorothiazid) 1 Tab Tab 1 Tab PO QAM 01/21/17 Reported Ventolin Hfa (Albuterol) 200 Puffs/52712 Mcg Aers 2 Puffs INH QID PRN 12/06/16 Reported Physical Physical Exam Vital Signs: Date Time Temp Pulse Resp B/P (MAP) Pulse Ox O2 Delivery O2 Flow Rate FiO2 05/02/17 16:50 91 16 161/91 (114) 96 Room Air 05/02/17 15:30 95 Room Air 05/02/17 15:30 Room Air 05/02/17 15:30 36.9 97 16 191/99 (129) 95 Room Air General Appearance: WELL-APPEARING, uncomfortable, moderate distress Head: NORMOCEPHALIC, ATRAUMATIC Eyes: PERRLA, EOMI, SCLERAE NORMAL Neck: other (patient has posterior neck tenderness muscular tenderness to touch ) Respiratory: BREATH SOUNDS NORMAL, CLEAR TO AUSCULTATION, CLEAR TO PERCUSSION, NO RESPIRATORY DISTRESS Cardiovasular: REGULAR RATE/RHYTHM, NORMAL S1S2 Abdomen: NON TENDER, NORMAL BOWEL SOUNDS, NO REBOUND, NO MASSES Back: NORMAL INSPECTION, NO CVA TENDERNESS, muscle spasm Upper Extremities: NO EDEMA, NO DEFORMITY, other (right arm range of motion is limited by pain he prefers to have his hand resting on top of his head for pain relief) Lower Extremities: NO EDEMA, NO DEFORMITY Pulses: radial (R) (2+), radial (L) (2+) Neuro: ALERT, ORIENTED x 3, NORMAL MOTOR EXAM, NORMAL SENSATION, NORMAL CEREBELLAR EXAM Psychiatric: NORMAL AFFECT, NO SUICIDAL IDEATION, CONTRACTS FOR SAFETY Diagnostics Diagnostic Radiology Review of EKG from one day prior chest x-ray from previous hospitalization show no signs of concern. despite his hypertension this is likely pain and then related Impression Assessment and Plan 38-year-old male with acute herniated cervical disc with radicular symptoms and intractable pain is His preoperative risk is low he is optimized by restarting his antihypertensive medication and as needed hydralazine. We will hold his diuretic due to concerns for intraoperative fluid losses. His asthma has not been an issue for him, he has not needed to use his inhaler for some time this will only be used if needed needed His pain control needs to be optimized we will adjust his RISK MANAGEMENT CONSULTANT dosing DVT prevention is SCDs Admit To Med/Surg Code Status Level 1 - Full Code DVT Prophylaxis T.E.D. stockings, SCDs
[2017-05-02 17:50] VITALS: BP 162/70; PULSE 83; O2SAT 95
--- NOTE | 2017-05-02 18:39 | Anesthesiology Progress Note ---
Anesthesia Progress Note Date of Service May 02, 2017. Progress Notes Patient to have ACDF tomorrow. History of HTN and mild asthma. No contraindications to having surgery tomorrow.
[2017-05-02 18:49] VITALS: BP 142/78; PULSE 87; TEMP 36.6; O2SAT 97
[2017-05-02 19:50] VITALS: BP 145/71; PULSE 85; TEMP 36.6; O2SAT 96
[2017-05-02] MEDS: ATORVASTATIN 10 MG TAB PO SCH (21:35)
[2017-05-02] MEDS: DOCUSATE SODIUM 100 MG CAP PO SCH (21:35)
[2017-05-02 23:47] VITALS: BP 151/81; PULSE 80; TEMP 36.7; O2SAT 98
[2017-05-03] VITALS (16 sets, daily range): BP systolic 140–168; BP diastolic 75–92; PULSE 62–113; TEMP 36.4–37.1; O2SAT 93–99
[2017-05-03] MEDS: LACTATED RINGER'S 1000ML 1,000 ML IV SCH ×2 (04:06→18:15)
[2017-05-03] MEDS ORDERED: CEFAZOLIN IV 1,000 MG in DEXTROSE 5% 50ML 50 ML IV SCH (06:00)
[2017-05-03] MEDS ORDERED: CEFAZOLIN 2000 MG/60 ML D5W IV SCH (06:00)
[2017-05-03] MEDS: HYDROmorphone HCL 0.5MG/ML 50 ML CASSETTE IV PRN (07:09)
[2017-05-03] MEDS ORDERED: PROPOFOL IV EMULSION 10 MG/ML 20 ML VIAL IV ONE (08:19)
[2017-05-03] MEDS ORDERED: DEXAMETHASONE SOD INJ 4 MG/ML VIAL ONE (08:19)
[2017-05-03] MEDS ORDERED: FENTANYL CITRATE INJ 50 MCG/1 ML 2 ML VIAL ONE ×2 (08:19→09:47)
[2017-05-03] MEDS ORDERED: LIDOCAINE HCL 2% 2 ML VIAL (20MG/ML) ONE (08:19)
[2017-05-03] MEDS ORDERED: ONDANSETRON INJ 2 MG/ML 2 ML VIAL ONE (08:19)
[2017-05-03] MEDS ORDERED: GLYCOPYRROLATE INJ 0.2 MG/ML VIAL ONE (08:19)
[2017-05-03] MEDS ORDERED: ROCURONIUM BROMIDE 10 MG/ML 5 ML VIAL ONE ×2 (08:19→10:25)
[2017-05-03] MEDS ORDERED: MIDAZOLAM HCL 1 MG/ML 2ML VIAL ONE (08:19)
[2017-05-03] MEDS ORDERED: NEOSTIGMINE METHYLSULFATE 1 MG/ML 10ML VIAL ONE (08:19)
[2017-05-03] MEDS ORDERED: HYDROmorphone INJ 1 MG/ML SYR IV PRN (08:30)
[2017-05-03] MEDS ORDERED: ONDANSETRON INJ 2 MG/ML 2 ML VIAL IV PRN ×2 (08:30→11:00)
[2017-05-03] MEDS ORDERED: FENTANYL CITRATE INJ 50 MCG/1 ML 2 ML VIAL IV PRN (08:30)
[2017-05-03] MEDS ORDERED: ATROPINE SULFATE 0.1 MG/ML 5ML SYR IV PRN (08:30)
[2017-05-03] MEDS ORDERED: EpHEDrine SULFATE INJ 50 MG/ML AMP IV PRN (08:30)
[2017-05-03] MEDS: PANTOprazole SOD 40 MG TAB PO SCH (08:33)
[2017-05-03] MEDS: DOCUSATE SODIUM 100 MG CAP PO SCH ×2 (08:33→21:28)
[2017-05-03] MEDS: TELMISARTAN 40 MG TAB PO SCH ×2 (08:33→13:41)
[2017-05-03] MEDS ORDERED: BACITRACIN 50000 UNIT VIAL ONE (08:50)
[2017-05-03] MEDS ORDERED: TELMISARTAN 40 MG TAB PO SCH (09:00)
[2017-05-03] MEDS ORDERED: HYDROCHLOROTHIAZIDE 25 MG TAB PO SCH (09:00)
[2017-05-03] MEDS ORDERED: HYDROmorphone INJ 2 MG/ML SYR/VIAL ONE ×2 (09:34→10:21)
[2017-05-03] MEDS ORDERED: ESMOLOL HCL 10 MG/ML 10 ML VIAL ONE (10:05)
[2017-05-03] MEDS ORDERED: SODIUM CHLORIDE 0.9% 1000ML 1,000 ML IV SCH (10:54)
[2017-05-03] MEDS ORDERED: NALOXONE HCL 0.4 MG/1 ML VIAL/CARP IV PRN (11:00)
[2017-05-03] MEDS ORDERED: ACETAMINOPHEN IV 100 ML IV PRN (11:00)
[2017-05-03] MEDS ORDERED: MAGNESIUM HYDROXIDE SUSP 30 ML UDC PO PRN (11:00)
[2017-05-03] MEDS ORDERED: RACEPINEPHRINE 2.25% NEBU SOLN 0.5 ML VIAL INH PRN (11:00)
[2017-05-03] MEDS ORDERED: LORAZEPAM INJ 0.5 MG in SYRINGE 0.75 ML IV PRN (11:00)
[2017-05-03] MEDS ORDERED: LORAZEPAM 0.5 MG TAB PO PRN (11:00)
[2017-05-03] MEDS ORDERED: DEXAMETHASONE INJ 8 MG in SYRINGE 0 ML IV PRN (11:00)
[2017-05-03] MEDS ORDERED: DO NOT ADMINISTER PNEUMOCOCCAL VACCINE PRN ×2 (11:00)
[2017-05-03] MEDS ORDERED: HYDROmorphone INJ 0.5 MG/0.5 ML SYR IV PRN (11:00)
[2017-05-03] MEDS ORDERED: OXYCODONE HCL IR 5 MG TAB (IMMEDIATE RELEASE) PO PRN (11:00)
[2017-05-03] MEDS ORDERED: DO NOT ADMINISTER FLU VACCINE PRN ×3 (11:00)
[2017-05-03] MEDS ORDERED: DiphenhydrAMINE HCL 50 MG/ML VIAL IV PRN (11:00)
[2017-05-03] MEDS ORDERED: FLOSEAL HEMOSTATIC MATRIX 5ML TOP ONE (11:03)
--- NOTE | 2017-05-03 11:03 | [facility] Operative Report ---
Operative Report Operative Date May 03, 2017. Pre-Operative Diagnosis Herniated nucleus pulposus C56 with cervical radiculopathy and neural deficits. Post-Operative Diagnosis Same as preoperative Procedure(s) Performed #1 removal of anterior cervical instrumentation C6 7. #2 expiration of fusion C6 7. #3 anterior cervical discectomy bilateral foraminotomies C5 6. #4 anterior cervical arthrodesis C5 6. #5 placement of cortical allograft 10 mm in height with Protonix C5 6. #6 application of rodríguez plate and screws across C5 6. Surgeon Dr. Xander Morel [employer] Insulation Supervisor Surgeon(s) Shamika Leon PA-C Estimated Blood Loss 25ml Findings Herniated nucleus pulposus C5 6. Specimens A.) Explanted Hardware C6-C7 Description of Procedure Patient was met with preoperatively case discussed all questions are dressed. Upon patient was taken back to the operative suite and after undergoing successful intubation was placed in supine position the Robby table head in the [place] headholder. All promises well-padded eyes inspected to ensure there is no external pressure placed upon them. Anterior cervical spine was prepped and draped in the normal fashion with the assistance of fluoroscopy identified the see 560 space. A transverse incision was placed along the right anterior aspect of cervical spine. Sharp dissection with the assistance of bipolar cautery was performed onto an exposing the anterior cervical disc at C5 6 as well as the pleaded C6 7. Then proceeded to remove the hardware C6 7 without difficulty. Explored the fusion mass noted to be intact. Then performed a complete discectomy of C5 6 out to the uncovertebral joints bilaterally. [place] distracting pins were utilized to assist us no visualization. The remove all posterior inner fibrous longitudinal ligament identified mess months of disc material in the right neural foramen. After complete decompression endplates were burred to subcortical bleeding bone and a 10 mm cortical R graft filled with Protonix tapped in position. Distracting apparatus was removed the rodríguez plate and screws applied with assistance of fluoroscopy. Incision was in copious irrigated explored to ensure there is no damage fronting structures remaining bleeding 10 round WES drain inserted and incision closed with 2 Vicryl in the fascia for Monocryl for final skin closure. Sterile dressing sterile was placed patient awakened taken to PACU stable condition. Please note Shamika Funez was present throughout the entire procedure involved in patient positioning complicated portions of the procedure and final skin closure. I attest to the content of the Intraoperative Record and any orders documented therein. Any exceptions are noted below.
[2017-05-03] MEDS ORDERED: NALOXONE HCL 0.4 MG/1 ML VIAL/CARP ONE (11:21)
--- NOTE | 2017-05-03 11:30 | DIAGNOSTIC IMAGING REPORT ---
INTRAOPERATIVE CERVICAL SPINE 2 VIEWS CLINICAL HISTORY: C5-C6 discectomy COMPARISON STUDY: No previous studies for comparison. FINDINGS: 11 seconds of fluoroscopic time was utilized. 2 intraoperative fluoroscopic spot images are provided for interpretation. There are postsurgical changes of an anterior cervical discectomy and interbody fusion at the C5-6 level. There is interbody bone graft present. There is an anterior metallic plate with screws. IMPRESSION: Postsurgical changes the C5-6 level. Electronically signed by: Branden Flores M.D. 05/03/2017 11:28 AM Dictated Date/Time: 05/03/2017 11:27 AM
[2017-05-03] MEDS ORDERED: LABETALOL HCL IV 5 MG/ML 20ML IV ONE (11:33)
[2017-05-03] MEDS ORDERED: NURSING VERBAL MED ORDER ONE (11:45)
[2017-05-03] MEDS ORDERED: OXYC1TAB3 PO (11:51)
--- NOTE | 2017-05-03 11:52 | Discharge Instructions ---
Discharge Instructions Date of Service May 03, 2017. Admission Reason for Admission: Cervical Stenosis W/Neuro Deficit Discharge Discharge Diagnosis / Problem: cervical stenosis Discharge Goals Goal(s): Improve function Activity Recommendations Activity Limitations: per Instructions/Follow-up section . Instructions / Follow-Up Instructions / Follow-Up ACTIVITY RECOMMENDATIONS: SELF CARE INSTRUCTIONS AFTER CERVICAL FUSIONS 1. No smoking. Smoking drastically decreases the chance of a solid fusion. 2. No bending, lifting more than 5 pounds, or twisting (roll like a log when turning in bed). 3. You may shower 3 days after surgery. Thoroughly dry wound. Do not soak in the tub. 4. Cervical collar: Must be worn at all times including sleeping. You may remove the brace only to bath, eat and if you are sitting in a recliner. 5. Please walk as much as you can for exercise. Gradually increase the distance that you walk as your endurance increases. SPECIAL CARE INSTRUCTIONS: VERY IMPORTANT TO READ AND REVIEW A. Do not take any anti-inflammatory medications (i.e. Indocin, Advil, Aspirin, Naprosyn, Aleve, Motrin, etc.) as these may inhibit the chance of a solid fusion. Tylenol is okay to take. B. Your surgical incision has been closed with a cosmetic suture under the skin that will dissolve in about 6 weeks. In 14 days, you can use a pair of clean scissors and cut the suture that is left outside of the skin at the ends of your incision. C. Complications are uncommon, but please contact us if you have any signs or symptoms of: 1. wound infection (fever higher than 102.5 degrees F, redness, separation of wound, drainage, or increasing pain from the incision) 2. blood clots in legs (pain, swelling, redness and warmth in legs) 3. urinary tract infection (fever higher than 102.5 degrees, burning upon urination or increased frequency of urination) 4. nerve problems (inability to walk on your toes or heels, numbness, loss of bowel or bladder control) 5. any other symptoms that concern you. D. Please call the office at if you have any concerns or questions about your operation or recovery. MANAGING PAIN AFTER SPINAL SURGERY 1. Narcotic medication is intended for short-term use and will be provided for surgical pain. Surgical pain usually lasts for a period of 4-6 weeks. Narcotic medication includes Percocet, Vicodin, Darvocet, Tylenol #3 or Lortab. 2. Longer-term pain is more appropriately treated with non-narcotic medication such as Tylenol ES. 3. Muscle spasm is not appropriately treated with narcotics. Muscle relaxers such as Soma, Flexeril or Skelaxin can be used along with Tylenol ES. 4. Remember that we all live with some "aches and pains". This is not unusual or uncommon after an injury or as we get older. 5. We will provide appropriate medication within the normal guidelines of their prescribed use. We will also be very cautious and aware of potential abuse and extended duration of patients' medication needs. 6. Please allow 2-3 days to process refills. Prescriptions will not be mailed but must be picked up at the office. FOLLOW UP VISIT: Keep your scheduled follow-up appointment. Any questions, please call the office at . Current Hospital Diet Patient's current hospital diet: Clear Liquid Diet Discharge Diet Recommended Diet: Regular Diet Procedures Procedures Performed: #1 removal of anterior cervical instrumentation C6 7. #2 expiration of fusion C6 7. #3 anterior cervical discectomy bilateral foraminotomies C5 6. #4 anterior cervical arthrodesis C5 6. #5 placement of cortical allograft 10 mm in height with Protonix C5 6. #6 application of rodríguez plate and screws across C5 6. Pending Studies Studies pending at discharge: no Medical Emergencies . Who to Call and When: Medical Emergencies: If at any time you feel your situation is an emergency, please call 911 immediately. . Non-Emergent Contact Non-Emergency issues call your: Primary Care Provider . "Provider Documentation" section prepared by Xander Morel. . VTE Core Measure Inpt VTE Proph given/why not?: Osorio Evans, SCD's
[2017-05-03] MEDS: HydrALAZINE HCL 20 MG/ML VIAL IV PRN ×2 (11:55→17:48)
--- NOTE | 2017-05-03 12:16 | Anesthesiology Progress Note ---
Anesthesia Post Op Note Date & Time May 03, 2017 at 12:16 Vital Signs Pain Intensity: 0 Vital Signs Past 12 Hours Date Time Temp Pulse Resp B/P (MAP) Pulse Ox O2 Delivery O2 Flow Rate FiO2 05/03/17 12:09 36.4 89 16 143/74 (88) 99 Nasal Cannula 2 05/03/17 11:58 66 8 99 05/03/17 11:58 65 8 05/03/17 11:57 173/118 05/03/17 11:55 149/105 05/03/17 11:53 72 7 05/03/17 11:53 76 7 99 05/03/17 11:52 143/92 05/03/17 11:50 77 13 98 05/03/17 11:50 73 13 05/03/17 11:47 169/104 05/03/17 11:45 65 13 05/03/17 11:45 66 13 98 05/03/17 11:44 165/91 05/03/17 11:43 67 7 05/03/17 11:43 67 7 98 05/03/17 11:42 176/105 05/03/17 11:38 65 6 05/03/17 11:38 65 6 99 05/03/17 11:37 171/108 05/03/17 11:35 83 11 99 05/03/17 11:35 83 11 05/03/17 11:32 181/108 05/03/17 11:30 70 9 99 05/03/17 11:30 36.2 78 16 197/98 (131) 100 Mask 10 05/03/17 11:30 70 9 05/03/17 11:29 189/104 05/03/17 11:26 175/115 05/03/17 11:25 74 10 05/03/17 11:25 74 10 99 05/03/17 11:23 207/103 05/03/17 11:22 179/101 05/03/17 11:20 78 13 100 05/03/17 11:20 79 13 05/03/17 11:16 197/98 05/03/17 11:15 84 05/03/17 11:15 85 99 05/03/17 08:30 36.6 85 16 138/84 (102) 96 Room Air 05/03/17 07:35 36.6 62 16 151/85 (107) 95 Room Air 05/03/17 07:30 Room Air 05/03/17 04:00 36.6 90 16 147/88 (107) 96 Room Air Notes Mental Status: alert / awake / arousable, participated in evaluation Pt Amnestic to Procedure: Yes Nausea / Vomiting: adequately controlled Pain: adequately controlled Airway Patency, RR, SpO2: stable & adequate BP & HR: stable & adequate Hydration State: stable & adequate Anesthetic Complications: no major complications apparent
--- NOTE | 2017-05-03 12:24 | Hospitalist Progress Note ---
Hospitalist Progress Note Date of Service May 03, 2017. (Aleyda Steele ., PA-C) Subjective Pt evaluation today including: conversation w/ patient, physical exam, chart review, lab review, review of inpatient medication list Voiding: no voiding problems, no incontinence Feeling well postop. Sitting up at side of the bed. Ate without any complications. No N/V. Denies any current pain or radicular symptoms. HTN: Patient has not taken BP medications over the last 4 days because he did not get his prescription filled. Is normally compliant with medication. Check BPs regularly at home. SBP normally in the 130s. Patient denies any fever, chills, sweats, lightheadedness, dizziness, vision changes, CP, palpitations, edema, SOB, wheezing, cough, abdominal pain, nausea, vomiting, diarrhea, urinary symptoms, melena, numbness/tingling, weakness, muscle/joint pain, anxiety/depression, active bleeding, or new skin discoloration/changes. (Aleyda Steele ., PA-C) Medications Current Inpatient Medications Medications (Trade) Dose Ordered Sig/Margaux Route Start Time Stop Time Status Last Admin Dose Admin Lactated Ringer's 1,000 ml @ 75 mls/hr [id number] IV 05/02/17 15:50 06/01/17 15:49 05/03/17 04:06 75 MLS/HR Acetaminophen (Tylenol Tab) 650 mg Q6H PRN PO 05/02/17 16:00 06/01/17 15:59 Cyclobenzaprine HCl (Flexeril Tab) 10 mg Q8H PRN PO 05/02/17 16:00 06/01/17 15:59 05/03/17 00:50 10 MG Albuterol (Ventolin Hfa Inhaler) 2 puffs QID PRN INH 05/02/17 16:00 06/01/17 15:59 Atorvastatin Calcium (Lipitor Tab) 10 mg HS PO 05/02/17 21:00 06/01/17 20:59 05/02/17 21:35 10 MG Pantoprazole Sodium (Protonix Tab) 40 mg QAM PO 05/03/17 09:00 06/02/17 08:59 Cefazolin Sodium 60 ml @ 100 mls/hr PREOP IV 05/03/17 06:00 05/03/17 18:00 Miscellaneous (Iv Fluids Completed) 1 ea PRN PRN N/A 05/02/17 16:30 05/02/18 16:29 Telmisartan (Micardis Tab) 80 mg QAM PO 05/02/17 17:13 06/02/17 08:59 05/03/17 13:41 80 MG Hydralazine HCl (HydrALAZINE INJ) 10 mg Q4H PRN IV 05/02/17 17:15 06/01/17 17:14 05/03/17 11:55 10 MG Racepinephrine (Raccemic Epinephrine 2.25% 0.5ML Neb) 0.5 ml ONE PRN INH 05/03/17 11:00 06/02/17 10:59 Acetaminophen 100 ml @ 400 mls/hr Q8H PRN IV 05/03/17 11:00 06/02/17 10:59 Hydromorphone HCl (Dilaudid Inj) 0.5 mg Q3H PRN IV 05/03/17 11:00 05/17/17 10:59 Magnesium Hydroxide (Milk Of Magnesia Susp) 30 ml DAILY PRN PO 05/03/17 11:00 06/02/17 10:59 Docusate Sodium (coLACE CAP) 100 mg BID PO 05/03/17 21:00 06/02/17 20:59 Ondansetron HCl (Zofran Inj) 4 mg Q6 PRN IV 05/03/17 11:00 06/02/17 10:59 Scopolamine (Transderm-Scop Patch) 1.5 mg Q3D@0900 TD 05/03/17 13:00 06/02/17 12:59 Cefazolin Sodium 2000 mg/Dextrose 60 ml @ 100 mls/hr Q8H IV 05/03/17 16:00 05/04/17 08:35 Lorazepam (Ativan Tab) 0.5 mg Q8H PRN PO 05/03/17 11:00 06/02/17 10:59 Lorazepam 0.5 mg/ Syringe 1 ml @ 1 mls/min Q8H PRN IV 05/03/17 11:00 06/02/17 10:59 Diphenhydramine HCl (Benadryl Inj) 25 mg Q6H PRN IV 05/03/17 11:00 06/02/17 10:59 Dexamethasone Sodium Phosphate 6 mg/Syringe 1.5 ml @ 1 mls/min Q8H IV 05/03/17 16:00 05/04/17 08:02 Pneumococcal Polysaccharide Vaccine 1 ea PRN PRN N/A 05/03/17 11:00 06/02/17 10:59 Influenza Virus Vacc Triv Types A&B 1 ea PRN PRN N/A 05/03/17 11:00 06/02/17 10:59 Oxycodone HCl (Roxicodone Immediate Rel Tab) 5mg for pain scale 4-6 1... Q4H PRN PO 05/03/17 11:00 05/17/17 10:59 Polyethylene (Miralax Powder Packet) 17 gm DAILY PO 05/05/17 09:00 06/04/17 08:59 Bisacodyl (Dulcolax Tab) 5 mg DAILY PRN PO 05/05/17 06:00 06/04/17 05:59 Bisacodyl (Dulcolax Supp) 10 mg DAILY PRN IA 05/05/17 06:00 06/04/17 05:59 Dexamethasone Sodium Phosphate 8 mg/Syringe 2 ml @ 1 mls/min ONE PRN IV 05/03/17 11:00 06/02/17 10:59 Naloxone HCl (Narcan Inj) 0.1 mg Q5M PRN IV 05/03/17 11:00 06/02/17 10:59 Miscellaneous (Remove Transderm-Scop Patch) 1 ea Q3D@0859 N/A 05/06/17 08:59 06/05/17 08:58 Miscellaneous Information (Check Scopolamine Patch Placement) 1 ea QS N/A 05/03/17 16:00 06/02/17 15:59 Miscellaneous (Iv Fluids Completed) 1 ea PRN PRN N/A 05/03/17 12:30 05/03/18 12:29 Hydromorphone HCl (Dilaudid Inj) 1 mg Q3H PRN IV 05/03/17 13:00 05/17/17 12:59 (Aleyda Steele, JUJUC) Objective Vital Signs Date Time Temp Pulse Resp B/P (MAP) Pulse Ox O2 Delivery O2 Flow Rate FiO2 05/03/17 11:58 66 8 99 05/03/17 11:58 65 8 05/03/17 11:57 173/118 05/03/17 11:55 149/105 05/03/17 11:53 72 7 05/03/17 11:53 76 7 99 05/03/17 11:52 143/92 05/03/17 11:50 77 13 98 05/03/17 11:50 73 13 05/03/17 11:47 169/104 05/03/17 11:45 65 13 05/03/17 11:45 66 13 98 05/03/17 11:44 165/91 05/03/17 11:43 67 7 05/03/17 11:43 67 7 98 05/03/17 11:42 176/105 05/03/17 11:38 65 6 05/03/17 11:38 65 6 99 05/03/17 11:37 171/108 05/03/17 11:35 83 11 99 05/03/17 11:35 83 11 05/03/17 11:32 181/108 05/03/17 11:30 70 9 99 05/03/17 11:30 36.2 78 16 197/98 (131) 100 Mask 10 05/03/17 11:30 70 9 05/03/17 11:29 189/104 05/03/17 11:26 175/115 05/03/17 11:25 74 10 05/03/17 11:25 74 10 99 05/03/17 11:23 207/103 05/03/17 11:22 179/101 05/03/17 11:20 78 13 100 05/03/17 11:20 79 13 05/03/17 11:16 197/98 05/03/17 11:15 84 05/03/17 11:15 85 99 05/03/17 08:30 36.6 85 16 138/84 (102) 96 Room Air 05/03/17 07:35 36.6 62 16 151/85 (107) 95 Room Air 05/03/17 07:30 Room Air 05/03/17 04:00 36.6 90 16 147/88 (107) 96 Room Air 05/03/17 00:15 Room Air 05/02/17 23:47 36.7 80 16 151/81 (104) 98 Room Air 7/16/17 19:50 36.6 85 16 145/71 (95) 96 Room Air 05/02/17 18:49 36.6 87 16 142/78 (99) 97 Room Air 05/02/17 17:50 83 16 162/70 (100) 95 Room Air 05/02/17 16:50 91 16 161/91 (114) 96 Room Air 05/02/17 15:30 95 Room Air 05/02/17 15:30 Room Air 05/02/17 15:30 36.9 97 16 191/99 (129) 95 Room Air (Aleyda Steele ., PA-C) Physical Exam General Appearance: no apparent distress, + pertinent finding (4L O2 NC ) Eyes: normal inspection, PERRL ENT: hearing grossly normal Neck: supple Respiratory/Chest: lungs clear, no respiratory distress, no accessory muscle use Cardiovascular: regular rate, rhythm Abdomen: normal bowel sounds, non tender, soft Extremities: normal range of motion, no pedal edema, no calf tenderness Neurologic/Psychiatric: no motor/sensory deficits, alert, normal mood/affect, oriented x 3 Skin: normal color, warm/dry, no rash (Aleyda Steele ., PA-C) Assessment and Plan 38-year-old male with acute herniated cervical disc with radicular symptoms and intractable pain. Herniated disc C5-6 s/p anterior cervical discectomy + fusion and removal of C6- [address] Morel on 05/03: - Admitted to med/surg - Surgical management, pain management, DVT Prophylaxis, and PT/OT per primary team -- IV Tylenol, Dilaudid, Roxicodone PRN, and Flexeril 10 mg q8 hrs PRN -- IV Dexamethasone x3 bags -- IV Ativan PRN anxiety -- MiraLAX daily, Colace BID, and Dulcolax PRN -- IV Ancef postop x3 doses - Follow routine postop labs HTN- UNCONTROLLED: - IV Hydralazine PRN SBP >180 or DBP >95 - Telmisartan/HCTZ 1 tab daily- HCTZ held pending postop volume status - IV Labetalol 5 mg x1 given postop due to hypertension Dyslipidemia: Lipitor 10 mg HS Asthma: Continue Albuterol inhaler PRN s/p bowel resection w/ reanastomosis in January 2017- noted GI Prophylaxis: Protonix daily DVT Prophylaxis: Per primary team Dispo: Discharge as per primary team (Aleyda Steele ., PA-C) Attending Attestation: Pt seen/examined, chart reviewed, care plan d/w TAYLOR Steele. I agree w/ the lopez components of her documentation. I saw the patient post-op on the ortho floor. 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 Denied cp or sob. VSS, mildly tachy o2 sats acceptable gen - nad neck - dressing in place anteriorly, minimal swelling anterior neck heart - tachy, s1, s2, 1/6 jermain LSB lungs - CTA b/l abd - soft, NT ext - no edema A/P: C5-C6 herniated disc with severe radicular symptoms on right - s/p diskectomy, removal of old hardware, etc. Radicular sx's much better post-op. HTN - resume home meds. BMP, CBC in am. Bowel regimen. Will follow. Tone Diamond MD (Tone Diamond MD)
[2017-05-03] MEDS ORDERED: IV FLUIDS COMPLETED PRN (12:30)
[2017-05-03] MEDS ORDERED: SCOPOLAMINE 1.5 MG TDSY TD SCH (13:00)
[2017-05-03] MEDS: DEXAMETHASONE INJ 6 MG in SYRINGE 0 ML IV SCH ×2 (15:38→23:30)
[2017-05-03] MEDS: CEFAZOLIN IV 2,000 MG in DEXTROSE 5% 50ML 50 ML IV SCH ×2 (15:42→23:30)
[2017-05-03] MEDS: CHECK SCOPOLAMINE PATCH PLACEMENT SCH ×2 (15:46→23:30)
[2017-05-03] MEDS: HYDROmorphone INJ 1 MG/ML SYR IV PRN ×2 (19:21→22:35)
[2017-05-03] MEDS: ATORVASTATIN 10 MG TAB PO SCH (21:28)
[2017-05-04] VITALS (9 sets, daily range): BP systolic 138–162; BP diastolic 79–90; PULSE 72–92; TEMP 36.3–36.6; O2SAT 94–97
[2017-05-04 06:33] LABS: HEMATOCRIT 43.1 % (42-52); MEAN CELL VOLUME 88.3 fL (80-100); MEAN CORPUSCULAR HEMOGLOBIN 29.5 pg (25-34); MEAN CORPUSCULAR HGB CONC 33.4 g/dl (32-36); MEAN PLATELET VOLUME 10.7 fL (7.4-10.4); PLATELET COUNT 280 K/uL (130-400); RED BLOOD COUNT 4.88 M/uL (4.7-6.1); WHITE BLOOD COUNT 9.39 K/uL (4.8-10.8)
[2017-05-04 07:01] LABS: BUN/CREATININE RATIO 21.9 (10-20); CALCIUM 8.7 mg/dl (8.5-10.1); CREATININE 0.73 mg/dl (0.60-1.40); POTASSIUM 3.8 mmol/L (3.5-5.1)
[2017-05-04] MEDS: CHECK SCOPOLAMINE PATCH PLACEMENT SCH (07:31)
[2017-05-04] MEDS: DEXAMETHASONE INJ 6 MG in SYRINGE 0 ML IV SCH (07:33)
[2017-05-04] MEDS: CEFAZOLIN IV 2,000 MG in DEXTROSE 5% 50ML 50 ML IV SCH (07:33)
[2017-05-04] MEDS ORDERED: NURSING VERBAL MED ORDER ONE (07:45)
--- NOTE | 2017-05-04 08:01 | Discharge Summary ---
Orthopedic Discharge Summary Admission Date/Reason May 02, 2017 at 15:08 Cervical Stenosis W/Neuro Deficit. Discharge Date/Disposition May 04, 2017 Home Diagnosis Principal Diagnosis: Cervical herniated nucleus pulposus Admission Physical Exam As per Admitting History & Physical. Hospital Course Patient was admitted with severe pain underwent decompression fusion the following a.m. Tolerated this well. He has no hoarseness nausea vomiting or changes in his voice. Arm symptoms markedly improved. Subsequently discharged home. Discharge Instructions Please refer to the electronic Patient Visit Report (Discharge Instructions) for additional information.
--- NOTE | 2017-05-04 08:26 | Anesthesiology Progress Note ---
Anesthesia Post Op Note Date & Time May 04, 2017 at 08:26 Vital Signs Pain Intensity: 2.0 Vital Signs Past 12 Hours Date Time Temp Pulse Resp B/P (MAP) Pulse Ox O2 Delivery O2 Flow Rate FiO2 05/04/17 07:06 92 16 96 Room Air 05/04/17 05:31 36.6 78 16 138/79 94 Room Air 05/04/17 03:30 79 14 97 Room Air 05/04/17 03:29 36.3 87 16 162/82 96 Room Air 05/04/17 03:29 36.3 87 16 162/82 (108) 96 Room Air 05/04/17 01:33 36.5 72 16 156/84 96 Room Air 05/04/17 01:33 36.5 72 16 156/84 (108) 96 Room Air 05/03/17 23:34 Room Air 05/03/17 23:34 36.6 82 16 150/75 (103) 93 Room Air 05/03/17 23:28 36.6 82 16 150/75 (100) 93 Room Air 05/03/17 23:10 102 14 97 Room Air 05/03/17 21:30 36.5 101 16 157/85 95 Room Air Notes Mental Status: alert / awake / arousable, participated in evaluation Pt Amnestic to Procedure: Yes Nausea / Vomiting: adequately controlled Pain: adequately controlled Airway Patency, RR, SpO2: stable & adequate BP & HR: stable & adequate Hydration State: stable & adequate Anesthetic Complications: no major complications apparent
[2017-05-04] MEDS: DOCUSATE SODIUM 100 MG CAP PO SCH (09:00)
[2017-05-04] MEDS: PANTOprazole SOD 40 MG TAB PO SCH (09:24)
[2017-05-04] MEDS: TELMISARTAN 40 MG TAB PO SCH (09:24)
[2017-05-05] MEDS ORDERED: BISACODYL 5 MG TABEC PO PRN (06:00)
[2017-05-05] MEDS ORDERED: BISACODYL 10 MG SUPP PR PRN (06:00)
[2017-05-05] MEDS ORDERED: POLYETHYLENE (MIRALAX) 17 GM PACK PO SCH (09:00)
== END 2017-05-04 10:29 | disposition home or self-care (01) ==
LOC: C.3E 15:08 → INTOOBSV 15:08 → C.3E 05-03 12:34
PROVIDERS: ADMIT Orthopaedic Surgery Orthopaedic Surgery of the Spine; ATTEND Orthopaedic Surgery Orthopaedic Surgery of the Spine
DX: M50.122 Cervical disc disorder at C5-C6 level with radiculopathy (principal); Z79.899 Other long term (current) drug therapy

== ENCOUNTER 2019-01-31 22:19 | Inpatient (IN) ==
[2019-01-31] MEDS ORDERED: HYDROmorphone INJ 1 MG/ML SYRINGE IV STA (22:44)
[2019-01-31 23:17] LABS: Basophils # (auto) 0.02 K/uL (0-0.2); Basophils % (auto) 0.2 %; Eosinophils # (auto) 0.35 K/uL (0-0.5); Hematocrit (blood only) 43.7 % (42-52); Hemoglobin 15.5 g/dL (14.0-18.0); Immature Granulocytes # (auto) 0.02 K/uL (0.00-0.02); Immature Granulocytes % (auto) 0.2 %; Lymphocytes # (auto) 2.81 K/uL (1.2-3.4); Lymphocytes % (auto) 32.2 %; Mean Corpuscular Hgb Conc 35.5 g/dL (32-36); Mean Corpuscular Volume 88.8 fL (80-100); Mean Platelet Volume 10.3 fL (7.4-10.4); Monocytes # (auto) 0.88 K/uL (0.11-0.59); Monocytes % (auto) 10.1 %; Neutrophils # (auto) 4.66 K/uL (1.4-6.5); Neutrophils % (auto) 53.3 %; Platelet Count 245 K/uL (130-400); RDW Coefficient of Variation 12.8 % (11.5-14.5); RDW Standard Deviation 41.2 fL (36.4-46.3); Red Blood Count 4.92 M/uL (4.7-6.1); White Blood Count 8.74 K/uL (4.8-10.8)
[2019-01-31 23:36] LABS: Albumin Level 3.8 gm/dl (3.4-5.0); BUN Creatinine Ratio 22.7 (10-20); Calcium 8.9 mg/dl (8.5-10.1); Est GFR (Non-African American) 96.6; Potassium 4.1 mmol/L (3.5-5.1)
[2019-01-31 23:39] LABS: Bilirubin,Total 0.2 mg/dl (0.2-1); Globulin 3.9 gm/dl (2.5-4.0); Total Protein 7.7 gm/dl (6.4-8.2)
--- NOTE | 2019-02-01 00:28 | Emergency Department Note ---
History of Present Illness General Chief complaint: Back Injury/Pain Stated complaint: LOWER BACK PAIN,LEGS FEELING NUMB Time Seen by Provider: 01/31/19 22:35 History of Present Illness Maximum Pain Intensity: 8 This is a 48-year-old male that presents to the emergency department via private vehicle with complaints of "lower back pain, legs feeling numb". The patient notes that he has been experiencing low back pain for some time and notes that this evening he was walking to the bathroom, was feeling okay and then turned and then felt an odd sensation in his back. He subsequently has had tremendous amounts of pain in the back and left leg since that time. He notes his leg feels partially numb. He also notes some weakness in the lower extremities but denies any bowel or bladder incontinence or numbness or tingling in genital region. He had Advil prior to arrival with minimal relief. He rates the pain numerically currently as a 9/10. No abdominal pain. No fevers or chills. No chest pain or shortness of breath. Home Medications Home Medications Medication Instructions Recorded Confirmed Type albuterol sulfate 2 puff INHALATION Q6H PRN 02/01/19 02/01/19 History amlodipine 5 mg PO DAILY 02/01/19 02/01/19 History atorvastatin 40 mg PO HS 02/01/19 02/01/19 History dextroamphetamine-amphetamine 20 mg PO DAILY PRN 02/01/19 02/01/19 History lansoprazole [Prevacid] 30 mg PO DAILY 02/01/19 02/01/19 History telmisartan-hydrochlorothiazid 1 tab PO DAILY 02/01/19 02/01/19 History Allergies Allergy/AdvReac Type Severity Reaction Status Date / Time No Known Allergies Allergy Unknown Verified 02/01/19 02:04 Past Med/Surg History Medical History Chronic back pain Diverticular disease Surgical History Fusion of spine Social History Preferred Language: Croatian Communication Ability: Effective 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 Beliefs That Will Affect Care: None Current Living Situation: Spouse Other Information That Helps Us Care for You: No Feels Safe at Home: Yes Safety Concerns: Feels Safe At This Time Smoking Status: Never smoker Hx Alcohol Use: Yes Hx Substance Use: No Review of Systems A total of 10 systems reviewed and were otherwise negative Physical Exam Vital Signs Vital Signs - 24 hr 01/31/19 22:21 02/01/19 00:15 02/01/19 01:14 Temperature 36.8 C Temperature Source Oral Sepsis Recent Fever Within 48 Hours No Sepsis Action Taken by Nursing No Action Required Pulse Rate 112 H Pulse Rate [Finger] 93 H 94 H Pulse Rhythm [Finger] Pulse Strength [Finger] Respiratory Rate 20 16 16 Respiratory Effort / Characteristics Non-Labored Spontaneous Non-Labored Spontaneous Non-Labored Respiratory Depth Normal Normal Normal Respiratory Pattern Blood Pressure 208/115 H Blood Pressure [Left Arm] 166/88 H 139/88 Blood Pressure Mean 146 Blood Pressure Mean [Left Arm] 114 105 Blood Pressure Position Sitting Blood Pressure Position [Left Arm] Pulse Oximetry 97 94 96 Oxygen Delivery Method Room Air Room Air Room Air 02/01/19 03:10 02/01/19 03:51 Temperature 36.5 C Temperature Source Oral Sepsis Recent Fever Within 48 Hours Sepsis Action Taken by Nursing Pulse Rate Pulse Rate [Finger] 88 88 Pulse Rhythm [Finger] Regular Pulse Strength [Finger] Normal Respiratory Rate 16 18 Respiratory Effort / Characteristics Non-Labored Spontaneous Respiratory Depth Normal Respiratory Pattern Regular Blood Pressure Blood Pressure [Left Arm] 186/97 H 158/90 H Blood Pressure Mean Blood Pressure Mean [Left Arm] 126 112 Blood Pressure Position Blood Pressure Position [Left Arm] Lying Pulse Oximetry 96 95 Oxygen Delivery Method Room Air Room Air VITAL SIGNS - Vital signs and nursing notes were reviewed. Stable. GENERAL - 48-year-old male appearing his stated age who is in no acute distress but appears to be in pain and uncomfortable. Communicates well with provider and answers questions appropriately. SKIN - Without rashes. HEAD - NC/AT. EYES - PERRL with EOMI bilaterally. Sclera anicteric. EARS - No deformities of external structures noted on gross examination bilaterally. NOSE - Midline and without cyanosis. No epistaxis or purulent drainage noted. MOUTH/OROPHARYNX - Without perioral cyanosis. NECK - Neck with FROM. No nuchal rigidity. LUNGS - Chest wall symmetric without accessory muscle use, intercostals retractions, or central cyanosis. Normal vesicular breath sounds CTA B/L. No wheezes, rales, or rhonchi appreciated. CARDIAC - RRR with S1/S2. No murmur, rubs, or gallops appreciated. ABDOMEN - Abdominal contour normal without pulsations or visible masses. BS normoactive all four quadrants. No tenderness, palpable masses, hepatos plenomegaly, or ascites noted. EXTREMITIES - No clubbing or peripheral cyanosis. No pretibial edema present. +5/5 strength noted in UE/LE bilaterally. MUSCULOSKELETAL: The patient is able to extend the left and right legs at the location of the hip with strength being within normal limits on the right and slightly decreased on the left. Patellar reflexes are unable to be elicited. NEUROLOGIC - Cranial nerves II through XII grossly intact. Sensory intact to light touch throughout. PSYCH - A&O, and cooperates fully with examiner. Pt is very pleasant and interacts well with examiner. Course Administered Medications Hydromorphone HCl (Dilaudid) 1 mg IV Q3H PRN PRN Reason: Severe Pain Stop: 02/15/19 04:01 Last Admin: 02/01/19 05:00 Dose: 1 mg Documented by: [id number] Potassium Chloride/Sodium Chloride (Normal Saline W/20 Meq Kcl) 20 meq in 1,000 mls @ 100 mls/hr IV .Q10H CODEY Stop: 03/03/19 03:29 Last Admin: 02/01/19 04:05 Dose: 100 mls/hr Documented by: [id number] Discontinued Medications Dexamethasone Sodium Phosphate (Decadron Pf) Confirm Administered Dose 10 mg .ROUTE .STK-MED ONE Stop: 02/01/19 02:57 Last Admin: 02/01/19 03:03 Dose: 10 mg Documented by: [id number] Hydromorphone HCl (Dilaudid) 1 mg IV NOW STA Stop: 01/31/19 22:45 Last Admin: 01/31/19 23:03 Dose: 1 mg Documented by: [id number] Hydromorphone HCl (Dilaudid) 0.5 mg IV NOW STA Stop: 02/01/19 01:46 Last Admin: 02/01/19 01:54 Dose: 0.5 mg Documented by: [id number] Dexamethasone Sodium Phosphate (10 mg/ Syringe) 2.5 mls @ 1 mls/min IV ONCE ONE Stop: 02/01/19 03:02 Last Admin: 02/01/19 03:03 Dose: Not Given Documented by: [id number] Medical Decision Making Laboratory Data Result diagrams: 01/31/19 23:04 01/31/19 23:04 Lab Results 01/31/19 01/31/19 02/01/19 Range/Units 23:04 23:04 06:00 WBC 8.74 (4.8-10.8) K/uL RBC 4.92 (4.7-6.1) M/uL Hgb 15.5 (14.0-18.0) g/dL Hct 43.7 (42-52) % MCV 88.8 (80-100) fL MCH 31.5 (25-34) pg MCHC 35.5 (32-36) g/dL RDW Std Deviation 41.2 (36.4-46.3) fL RDW Coeff of Erich 12.8 (11.5-14.5) % Plt Count 245 (130-400) K/uL MPV 10.3 (7.4-10.4) fL Immature Gran % (Auto) 0.2 % Neut % (Auto) 53.3 % Lymph % (Auto) 32.2 % Garvin % (Auto) 10.1 % Eos % (Auto) 4.0 % Baso % (Auto) 0.2 % Immature Gran # (Auto) 0.02 (0.00-0.02) K/uL Neut # (Auto) 4.66 (1.4-6.5) K/uL Lymph # (Auto) 2.81 (1.2-3.4) K/uL Garvin # (Auto) 0.88 H (0.11-0.59) K/uL Eos # (Auto) 0.35 (0-0.5) K/uL Baso # (Auto) 0.02 (0-0.2) K/uL Sodium 135 L (136-145) mmol/L Potassium 4.1 (3.5-5.1) mmol/L Chloride 106 (98-107) mmol/L Carbon Dioxide 21 (21-32) mmol/L Anion Gap 8.0 (3-11) BUN 21 H (7-18) mg/dl Creatinine 0.92 (0.6-1.4) mg/dl Est Cr Clr Drug Dosing 112.0 ml/min Est GFR ( Amer) 112.0 Est GFR (Non-Af Amer) 96.6 BUN/Creatinine Ratio 22.7 H (10-20) Glucose 144 H (70-99) mg/dl POC Glucose 127 H (70-99) Calcium 8.9 (8.5-10.1) mg/dl Total Bilirubin 0.2 (0.2-1) mg/dl AST 47 H (15-37) U/L ALT 89 H (12-78) U/L Alkaline Phosphatase 92 (45-117) U/L Total Protein 7.7 (6.4-8.2) gm/dl Albumin 3.8 (3.4-5.0) gm/dl Globulin 3.9 (2.5-4.0) gm/dl Albumin/Globulin Ratio 1.0 (0.9-2) Imaging Data Radiologist's Impression: MRI L SPINE : Compared to CT 12/17/16. Multilevel degenerative changes and disc protrusions with caudal migration at L4-5 and associated severe central canal stenosis. Neuroforaminal stenosis is most prominent at L5-S1. Bone marrow edema noted at the L3-4 level. Vertebral body heights are maintained. Radiologist: Mala James M.D. Study ready at 00:11 and initial results transmitted at 00:34 Critical Value Communications Clear Time Type Notes 02/01/19 00:41 Verify Receipt Verified receipt with [employer] Hawley on 02/01 00:41 (-04:00) MDM Narrative Patient was seen and evaluated as above in room B05. Review was performed of nursing notes and vital signs. After obtaining a thorough history and physical examination the above work up was performed. He presents to us today with low back pain. He appears to be in a tremendous amount of pain. IV access was established. He was given Dilaudid for pain. This helped the pain but certainly did not fully alleviate and he still appear to be quite uncomfortable. MRI was obtained secondary to inability to elicit patellar reflexes and his level of pain. Results as above. There are abnormal findings. Patient has an established spine surgeon for his neck previously which is Dr. Morel. Attempts were made to reach out to the physician assistant prosecuting attorney signal constructor. Unfortunately there was no reply and after 2 hours decision was made to attempt to contact Dr. Morel. I was able to speak with him directly and the patient will be admitted to the medicine service for intractable pain and Dr. Morel notes his team will see the patient in the morning hours. I believe this is reasonable. Decadron will also be added in addition to the Dilaudid. Patient was happy with plan of care. Case discussed with hospitalist who came to evaluate the patient. Please refer to further documentation regarding his stay. I will note there was no evidence of cauda equina syndrome. Case was discussed with the attending physician. I attest that I have personally reviewed the patient medication list. I attest that I have reviewed the patient's blood pressure and it was found to be elevated likely secondary to presentation. GCS: 15 In the evaluation and treatment of this patient the following differential diagnosis entertained: Fracture, dislocation, subluxation, cauda equina syndrome, AAA, diverticulitis, appendicitis, torsion, osteomyelitis, piriformis syndrome, strain, sprain, among others. Impression & Plan Intractable low back pain, Acute left lumbar radiculopathy, Neuroforaminal stenosis of lumbar spine, Bone marrow edema, Central stenosis of spinal canal Discharge Plan Visit Data *Final* Discharge Date/Time: 02/01/19 03:58 Chief Complaint: Back Injury/Pain Stated Complaint: LOWER BACK PAIN,LEGS FEELING NUMB ED Provider: Geoff Carballo ED Midlevel Provider: Jovon Hawley Discharge Problem: Intractable low back pain, Acute left lumbar radiculopathy, Neuroforaminal stenosis of lumbar spine, Bone marrow edema, Central stenosis of spinal canal Patient Disposition: Admitted As Inpatient Condition: Good Discharge Instructions Interventions: ED Discharge Assessment Last Done: 02/01/19 03:38
[2019-02-01] MEDS ORDERED: HYDROmorphone INJ 0.5 MG/0.5 ML SYR IV STA (01:45)
[2019-02-01] MEDS ORDERED: DEXAMETHASONE **PF** INJ 10 MG/ML VIAL ONE (02:56)
[2019-02-01] MEDS ORDERED: DEXAMETHASONE SOD PHOSPHATE 10 MG in SYRINGE 0 ML IV ONE (03:00)
[2019-02-01] MEDS ORDERED: HydrALAZINE HCL 20 MG/ML VIAL IV PRN (03:12)
--- NOTE | 2019-02-01 03:16 | History & Physical Report ---
Date of Service February 01, 2019 Assessment & Plan (1) Spinal stenosis of lumbar region with radiculopathy: MRI with severe central canal stenosis, especially at L4-5/neuroforaminal stenosis L5-S1/bone marrow edema at L3-4/intractable low back pain with declining left leg functioning-- Admit to medical surgical floor. N.p.o. except medications after midnight. Give Decadron 10 mg IV now then 6 mg IV every 6 hours. Acetaminophen 1 g IV every 8 hours as needed mild pain or temperature. Dilaudid 1 mg IV every 3 hours as needed for severe pain. Zofran 4 mg IV every 6 hours as needed NSS + KCl 20 mEq at 100 mils per hour. Consult orthopedic spine surgery Dr. Morel. Present on Admission?: Yes (2) Intractable low back pain: As above. Present on Admission?: Yes (3) Hypertension: Can continue amlodipine 5 mg p.o. daily and telmisartan 80/12.5 p.o. daily while taking p.o. Hydralazine 10 mg IV every 4 hours as needed systolic blood pressure greater than 160. Present on Admission?: Yes (4) Hyperlipidemia: Can continue atorvastatin 40 mg p.o. bedtime as long as taking p.o. Present on Admission?: Yes (5) GERD (gastroesophageal reflux disease): Continue Prevacid 30 mg p.o. daily. Convert to Pepcid 20 mg IV every 12 hours when becomes n.p.o. Present on Admission?: Yes History of Present Illness Chief Complaint: The patient presents to the emergency department with acute worsening of low back pain, now with worsening numbness and decreased motor strength of left lower extremity. Primary Care Provider: Charly Marcano MD The patient is a 48-year-old male with a past medical history including hypertension, hyperlipidemia, GERD and severe lumbar degenerative disc disease, who developed acute worsening of lumbar pain, and decreased strength and sen sation of left lower extremity. Allergies Allergy/AdvReac Type Severity Reaction Status Date / Time No Known Allergies Allergy Unknown Verified 02/01/19 02:04 Home Medications Home Medications Medication Instructions Recorded Confirmed Type albuterol sulfate 2 puff INHALATION Q6H PRN 02/01/19 02/01/19 History amlodipine 5 mg PO DAILY 02/01/19 02/01/19 History atorvastatin 40 mg PO HS 02/01/19 02/01/19 History dextroamphetamine-amphetamine 20 mg PO DAILY PRN 02/01/19 02/01/19 History lansoprazole [Prevacid] 30 mg PO DAILY 02/01/19 02/01/19 History telmisartan-hydrochlorothiazid 1 tab PO DAILY 02/01/19 02/01/19 History Past Med/Surg History Social History Preferred Language: Burkinan Feels Safe at Home: Yes Smoking Status: Never smoker Review of Systems The patient denies chest pain, palpitations, shortness of breath, dyspnea on exertion, cough, lower extremity swelling, sore throat, fevers, chills, sweats, weight change, fatigue, nausea, vomiting, diarrhea , constipation, abdominal pain, pelvic pain, blood in urine or stool, dysuria, urinary frequency or urgency, lightheadedness, dizziness, headache, memory loss, loss of consciousness, rash, abnormal bruising or bleeding, generalized weakness, numbness or tingling in arms or right leg, generalized arthralgias or myalgias, neck pain, or night sweats. The review of systems is otherwise negative other than for that already noted above, and at least 10 systems have been reviewed. Physical Exam Vital Signs (Past 24 Hours): Last Vital Signs Temp 36.8 C 01/31/19 22:21 Pulse 94 H 02/01/19 01:14 Resp 16 02/01/19 01:14 BP 139/88 02/01/19 01:14 Pulse Ox 96 02/01/19 01:14 Physical Exam: The patient is awake, alert and oriented 3, well developed and well nourished, normocephalic and atraumatic, lying in bed and in no acute distress after pain medication. HEENT--PERRL, EOMI, mucous membranes and oropharynx normal. Neck--supple. No JVD. No bruits. Thyroid normal, trachea midline, no adenopathy. Heart--normal S1 and S2. No murmurs, rubs or gallops. Lungs--clear bilaterally, no respiratory distress, no accessory muscle use. Abdomen--normal bowel sounds and soft. Nontender. Nondistended, no hernias or masses, no organomegaly. Extremities--no cyanosis or clubbing. No edema. There are good distal pulses b/l. Dermatologic--normal skin turgor, normal color, no abnormal lymph nodes, no rash. Neurologic--cranial nerves II through XII grossly intact. Rheumatologic--exam limited due to pain. Left lower extremity muscle atrophy, with decreased ability to dorsiflex. Psychiatric--normal affect. Results & Data Laboratory Results Laboratory Results WBC 8.74 K/uL (4.8-10.8) 01/31/19 23:04 RBC 4.92 M/uL (4.7-6.1) 01/31/19 23:04 Hgb 15.5 g/dL (14.0-18.0) 01/31/19 23:04 Hct 43.7 % (42-52) 01/31/19 23:04 MCV 88.8 fL (80-100) 01/31/19 23:04 MCH 31.5 pg (25-34) 01/31/19 23:04 MCHC 35.5 g/dL (32-36) 01/31/19 23:04 RDW Std Deviation 41.2 fL (36.4-46.3) 01/31/19 23:04 RDW Coeff of Erich 12.8 % (11.5-14.5) 01/31/19 23:04 Plt Count 245 K/uL (130-400) 01/31/19 23:04 MPV 10.3 fL (7.4-10.4) 01/31/19 23:04 Immature Gran % (Auto) 0.2 % 01/31/19 23:04 Neut % (Auto) 53.3 % 01/31/19 23:04 Lymph % (Auto) 32.2 % 01/31/19 23:04 Curry % (Auto) 10.1 % 01/31/19 23:04 Eos % (Auto) 4.0 % 01/31/19 23:04 Baso % (Auto) 0.2 % 01/31/19 23:04 Immature Gran # (Auto) 0.02 K/uL (0.00-0.02) 01/31/19 23:04 Neut # (Auto) 4.66 K/uL (1.4-6.5) 01/31/19 23:04 Lymph # (Auto) 2.81 K/uL (1.2-3.4) 01/31/19 23:04 Curry # (Auto) 0.88 K/uL (0.11-0.59) H 01/31/19 23:04 Eos # (Auto) 0.35 K/uL (0-0.5) 01/31/19 23:04 Baso # (Auto) 0.02 K/uL (0-0.2) 01/31/19 23:04 Sodium 135 mmol/L (136-145) L 01/31/19 23:04 Potassium 4.1 mmol/L (3.5-5.1) 01/31/19 23:04 Chloride 106 mmol/L (98-107) 01/31/19 23:04 Carbon Dioxide 21 mmol/L (21-32) 01/31/19 23:04 Anion Gap 8.0 (3-11) 01/31/19 23:04 BUN 21 mg/dl (7-18) H 01/31/19 23:04 Creatinine 0.92 mg/dl (0.6-1.4) 01/31/19 23:04 Est Cr Clr Drug Dosing 112.0 ml/min 01/31/19 23:04 Est GFR ( Amer) 112.0 01/31/19 23:04 Est GFR (Non-Af Amer) 96.6 01/31/19 23:04 BUN/Creatinine Ratio 22.7 (10-20) H 01/31/19 23:04 Glucose 144 mg/dl (70-99) H 01/31/19 23:04 Calcium 8.9 mg/dl (8.5-10.1) 01/31/19 23:04 Total Bilirubin 0.2 mg/dl (0.2-1) 01/31/19 23:04 AST 47 U/L (15-37) H 01/31/19 23:04 ALT 89 U/L (12-78) H 01/31/19 23:04 Alkaline Phosphatase 92 U/L (45-117) 01/31/19 23:04 Total Protein 7.7 gm/dl (6.4-8.2) 01/31/19 23:04 Albumin 3.8 gm/dl (3.4-5.0) 01/31/19 23:04 Globulin 3.9 gm/dl (2.5-4.0) 01/31/19 23:04 Albumin/Globulin Ratio 1.0 (0.9-2) 01/31/19 23:04 Code Status & VTE Plan Code Status Full code VTE Prophylaxis Plan VTE Prophylaxis will be ordered: Yes
[2019-02-01] MEDS ORDERED: DEXTROSE 50% 50 ML SYRINGE IV PRN (04:02)
[2019-02-01] MEDS ORDERED: GLUCOSE 10 TABS/TUBE PO PRN (04:02)
[2019-02-01] MEDS ORDERED: ONDANSETRON INJ 2 MG/ML 2 ML VIAL IV PRN ×3 (04:02→17:15)
[2019-02-01] MEDS ORDERED: GLUCOSE 40% GEL 15 GM TUBE PO PRN (04:02)
[2019-02-01] MEDS ORDERED: ACETAMINOPHEN 1,000 MG/100 ML VIAL IV PRN (04:02)
[2019-02-01] MEDS ORDERED: CARBOHYDRATES FOR HYPOGLYCEMIA PO PRN (04:02)
[2019-02-01] MEDS ORDERED: GLUCAGON FOR INJ 1 MG VIAL SQ PRN (04:02)
[2019-02-01] MEDS: NSS + 20MEQ KCL 20 MEQ/1,000 ML BAG IV SCH ×2 (04:05→13:01)
[2019-02-01] MEDS: HYDROmorphone INJ 1 MG/ML SYRINGE IV PRN ×3 (05:00→12:24)
[2019-02-01] MEDS ORDERED: PNEUMOCOCCAL ADMINISTRATION CHARGE ONE (06:00)
[2019-02-01] MEDS ORDERED: PNEUMOCOCCAL POLYSACCHARIDES 25 MCG/0.5 ML VIAL/SYR IM ONE (06:00)
[2019-02-01] MEDS: INSULIN ASPART 100 UNITS/ML 3 ML PEN SC SCH ×2 (06:11→13:00)
--- NOTE | 2019-02-01 06:45 | Magnetic Resonance Report ---
MR lumbar spine wo con CLINICAL HISTORY: Low back pain with left leg radiculopathy. Foot numbness. TECHNIQUE: Sagittal and axial T1, T2 and STIR images were obtained. COMPARISON STUDY: No previous studies for comparison. OBSERVATIONS: The vertebral bodies and posterior elements appear intact. There is no abnormal bony signal present t o suggest a marrow replacement process. L1-2: No disc protrusions or extrusions. No evidence of spinal canal or neural foraminal compromise. L2-3: There is a circumferential disc bulge. There is mild spinal stenosis. There is no significant f oraminal narrowing. L3-4: There is a moderate central disc protrusion. There is moderate spinal canal narrowing. There is mild bilateral foraminal narrowing L4-5: There is a central disc extrusion. Disc material extends skilled nursing down the L5 vertebra. Disc mat erial is slightly eccentric to the left, and comes in close continuity with the left L4 nerve root. T here is secondary spinal canal narrowing with mass effect on the thecal sac. L5-S1: There is a circumferential disc bulge.. There is no significant spinal stenosis. There is bila teral foraminal narrowing. The conus medullaris and cauda equina appear normal. IMPRESSION: 1. Multilevel spondylitic changes. 2. Moderate extruded disc at the L4-5 level with secondary spinal canal narrowing, and thecal sac def ormity. The disc comes in close continuity with the left L4 nerve root. 3. L3-4 central disc protrusion with moderate spinal stenosis 4. L2-3 disc bulge with mild spinal stenosis 5. L5-S1 disc bulge. Bilateral L5-S1 foraminal narrowing Electronically signed by: Branden Flores M.D. 02/01/2019 6:43 AM
[2019-02-01] MEDS ORDERED: INSULIN ASPART 100 UNITS/ML 3 ML PEN SC SCH (07:30)
[2019-02-01 07:39] LABS: Appearance Urine Clear (Clear); Bilirubin Urine Negative (Negative); Blood Urine Negative (Negative); Color Urine Yellow; Glucose Urine UA Negative (Negative); Ketones Urine Negative (Negative); Leukocyte Esterase Urine Negative (Negative); Nitrite Urine Negative (Negative); Protein Urine Negative (Negative); Specific Gravity Urine 1.028 (1.000-1.030); Urobilinogen Urine Negative (Negative)
--- NOTE | 2019-02-01 08:40 | Hospitalist Progress Note ---
Date of Service February 01, 2019 Assessment & Plan (1) Spinal stenosis of lumbar region with radiculopathy: MRI with severe central canal stenosis, especially at L4-5/neuroforaminal stenosis L5-S1/bone marrow edema at L3-4/intractable low back pain with declining left leg functioning-- Admitting team initiated Decadron 10 mg IV now then 6 mg IV every 6 hours. Acetaminophen 1 g IV every 8 hours as needed mild pain or temperature. Dilaudid 1 mg IV every 3 hours as needed for severe pain. Zofran 4 mg IV every 6 hours as needed Consult orthopedic spine surgery Dr. Morel. Evaluate the patient to the patient to the operating room on 02/01 (2) Intractable low back pain: As above. (3) Hypertension: Can continue amlodipine 5 mg p.o. daily and telmisartan 80/12.5 p.o. daily while taking p.o. Hydralazine 10 mg IV every 4 hours as needed systolic blood pressure greater than 160. (4) Hyperlipidemia: Can continue atorvastatin 40 mg p.o. bedtime as long as taking p.o. (5) GERD (gastroesophageal reflux disease): Continue Prevacid 30 mg p.o. daily. Convert to Pepcid 20 mg IV every 12 hours when becomes n.p.o. Subjective Review of Systems ROS: well nourished well developed. No double vision blurry vision No problems with speech or swallowing No palpitations, chest pain or pressure has had no recent dyspnea on exertion or orthopnea No Wheezing or breathing issues No abdominal pain nausea vomiting diarrhea changes in appetite or weight Clinically he has no urinary retention or incontinence Focal back pain with left leg radiation No skin rashes or oral lesions No unusual bruising or bleeding No focused back pain or numbness or loss of strength No changes in memory or confusion Patient had acute onset of radicular leg and back pain with marked leg weakness 1 day prior to admission was confirmed to have a significant L4-5 L5-S1 neural impingement on imaging is slated for urgent orthospine surgery today. His medical risks are few he does have pre-surgical hypertension taking amlodipine and telmisartan hydrochlorothiazide which will be continued and dyslipidemia Physical Exam Vital Signs (Past 24 Hours): Last Vital Signs Temp 36.9 C 02/01/19 07:10 Pulse 89 02/01/19 07:47 Resp 18 02/01/19 07:10 BP 164/84 H 02/01/19 07:47 Pulse Ox 97 02/01/19 07:10 The patient appeared well nourished and normally developed. Vital signs as documented. Head exam is unremarkable. normocephalic, atraumatic Neck is without jugular venous distension, thyromegaly, or lymphademopathy Lungs are clear to auscultation and percussion. Cardiac exam reveals Rhythm is regular. First and second heart sounds normal. Psychologically seems neither anxious or depressed Skin is warm Dry without bruises or lesions
[2019-02-01] MEDS ORDERED: FAMOTIDINE 20 MG in SYRINGE 3 ML IV SCH (09:00)
[2019-02-01] MEDS: DEXAMETHASONE SOD PHOSPHATE 6 MG in SYRINGE 0 ML IV SCH ×2 (09:13→17:41)
--- NOTE | 2019-02-01 09:31 | Orthopedic Consultation ---
Date of Consultation February 01, 2019 Assessment & Plan (1) Acute left lumbar radiculopathy: I long discussion with this patient reviewing his clinical presentation and MRI findings. He does have evidence of at least moderate spinal stenosis L3-4 massive disc herniation L4-5 with caudal migration favoring the left side with significant neural compression. Has evidence of disc space collapse neural foraminal disease at 5 1 on the left. At this time he is markedly uncomfortable with neurologic decline pain being controlled with IV Dilaudid on a every hour basis. We did discuss many options would like to pursue surgery. We would require a lumbar laminotomy at L4-5 on the left to excise the herniated free fragment. We will do acknowledged the adjacent level disease but feel the majority of symptom complex is clearly from the L4-5 level. Risk benefits pros cons and alternatives were outlined in detail. Try to pursue surgery as soon as possible secondary to patient's neurologic decline and severe pain. Present on Admission?: Yes History of Present Illness Reason for Consultation: Severe left leg pain Attending Physician: Eze Farah MD History of Present Illness This is a 48-year-old male well-known to me that presents to the ER last evening with severe left leg pain and inability to ambulate. He states the symptoms began a day ago. He did have a prodrome of approximate 1 week of axial back pain. He denies any specific trauma fall or event. He does note some numbness in the right lower extremity. He is noting significant weakness and inability to ambulate with the left lower extremity secondary to the pain. He does have a history of herniated was pulposis L5-S1 many years ago and is undergone cervical spine decompression fusions in the past. 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 Allergies Allergy/AdvReac Type Severity Reaction Status Date / Time No Known Allergies Allergy Unknown Verified 02/01/19 02:04 Home Medications Home Medications Medication Instructions Recorded Confirmed Type albuterol sulfate 2 puff INHALATION Q6H PRN 02/01/19 02/01/19 History amlodipine 5 mg PO DAILY 02/01/19 02/01/19 History atorvastatin 40 mg PO HS 02/01/19 02/01/19 History dextroamphetamine-amphetamine 20 mg PO DAILY PRN 02/01/19 02/01/19 History lansoprazole [Prevacid] 30 mg PO DAILY 02/01/19 02/01/19 History telmisartan-hydrochlorothiazid 1 tab PO DAILY 02/01/19 02/01/19 History Patient History Medical History Chronic back pain Diverticular disease Surgical History Fusion of spine Social History Smoking Status: Never smoker Physical Exam Vital Signs (Past 24 Hours): Last Vital Signs Temp 36.9 C 02/01/19 07:10 Pulse 89 02/01/19 07:47 Resp 18 02/01/19 07:10 BP 164/84 H 02/01/19 07:47 Pulse Ox 97 02/01/19 07:10 Physical Exam: On physical exam patient is in obvious distress. He is marked tension signs with straight leg raising bilaterally. He has 4/5 left extensor hallux longus and dorsiflexion compared to 5/5 on the right. Quadriceps are intact. Sensory is diminished and he has hyper esthesia to touch over the dorsum of his left foot.
[2019-02-01] MEDS ORDERED: HYDROmorphone INJ 1 MG/ML SYRINGE IV PRN ×3 (09:56→17:15)
[2019-02-01] MEDS ORDERED: hydroCHLOROthiazide 25 MG TAB PO SCH (11:00)
[2019-02-01] MEDS: TELMISARTAN 40 MG TAB PO SCH (11:36)
[2019-02-01] MEDS: AMLODIPINE BESYLATE 5 MG TAB PO SCH (11:40)
[2019-02-01] MEDS: PANTOprazole 40 MG TAB PO SCH (11:40)
[2019-02-01] MEDS ORDERED: ROCURONIUM BROMIDE 10 MG/ML 5 ML VIAL ONE (14:12)
[2019-02-01] MEDS ORDERED: LIDOCAINE HCL 2% 2 ML VIAL/AMP(20MG/ML) INFIL ONE (14:12)
[2019-02-01] MEDS ORDERED: PROPOFOL IV EMULSION 10 MG/ML 20 ML VIAL IV ONE (14:12)
[2019-02-01] MEDS ORDERED: ONDANSETRON INJ 2 MG/ML 2 ML VIAL ONE (14:12)
[2019-02-01] MEDS ORDERED: fentaNYL citrate 100 MCG/2 ML VIAL ONE ×2 (14:13)
[2019-02-01] MEDS ORDERED: MIDAZOLAM HCL 1 MG/ML 2ML VIAL ONE (14:13)
[2019-02-01] MEDS ORDERED: BACITRACIN INJ 50,000 UNIT VIAL ONE (14:24)
[2019-02-01] MEDS ORDERED: BUPIVACAINE/EPINEPHRINE 0.5% MPF 1:200,000 30 ML VIAL ONE (14:24)
[2019-02-01] MEDS ORDERED: CEFAZOLIN 2000MG 2,000 MG/15 ML SYR IV ONE (14:43)
--- NOTE | 2019-02-01 14:46 | Anesthesiology Consultation ---
Date of Service February 01, 2019 Assessment & Plan (1) Encounter for pre-operative examination: Chart Review Chart Review: Acceptable Risk for Surgery and Patient NOT seen in Pre Admission Testing Consults Requested none NPO Date Last Intake of Fluids: 01/31/19 Time Last Intake of Fluids: 23:55 Date Last Intake of Solids: 01/31/19 Time Last Intake of Solids: 09:15 History Surgery Operation Date: 02/01/19 07:00 Proposed Procedures p L4-L5 Left Laminectomy - Xander Morel DO Height/Weight Height: 5 ft 7 in Weight: 105.7 kg Allergies Allergy/AdvReac Type Severity Reaction Status Date / Time No Known Allergies Allergy Unknown Verified 02/01/19 02:04 Medications Home Medications Medication Instructions Recorded Confirmed Last Taken albuterol sulfate 2 puff INHALATION Q6H PRN 02/01/19 02/01/19 Unknown amlodipine 5 mg PO DAILY 02/01/19 02/01/19 Unknown atorvastatin 40 mg PO HS 02/01/19 02/01/19 Unknown dextroamphetamine-amphetamine 20 mg PO DAILY PRN 02/01/19 02/01/19 Unknown lansoprazole [Prevacid] 30 mg PO DAILY 02/01/19 02/01/19 Unknown telmisartan-hydrochlorothiazid 1 tab PO DAILY 02/01/19 02/01/19 Unknown Active Medications Generic Name Dose Route Start Last Admin Trade Name Freq PRN Reason Stop Dose Admin Amlodipine Besylate 5 mg 02/01/19 11:00 02/01/19 11:40 Norvasc PO 03/03/19 10:59 5 mg DAILY CODEY Administration Hydralazine HCl 10 mg 02/01/19 03:12 02/01/19 07:20 Hydralazine Hcl IV 03/03/19 03:11 10 mg Q4H PRN Administration Blood Pressure - High Hydrochlorothiazide 25 mg 02/01/19 11:00 02/01/19 11:36 Hctz PO 03/03/19 10:59 25 mg DAILY CODEY Administration Hydromorphone HCl 1 mg 02/01/19 04:02 02/01/19 12:24 Dilaudid IV 02/15/19 04:01 1 mg Q3H PRN Administration Severe Pain Potassium Chloride/Sodium Chloride 20 meq in 1,000 mls @ 100 mls/hr 02/01/19 03:30 02/01/19 13:01 Normal Saline W/20 Meq Kcl IV 03/03/19 03:29 100 mls/hr .Q10H CODEY Administration Famotidine 20 mg/ Syringe 5 mls @ 2.5 mls/min 02/01/19 09:00 02/01/19 09:13 IV 03/03/19 08:59 2.5 mls/min BID CODEY Administration Acetaminophen 1,000 mg in 100 mls @ 400 mls/hr 02/01/19 04:02 02/01/19 07:02 Ofirmev IV 03/03/19 04:01 400 mls/hr Q8H PRN Administration Pain or Fever Dexamethasone Sodium Phosphate 1.5 mls @ 1 mls/min 02/01/19 09:00 02/01/19 09 :13 6 mg/ Syringe IV 03/03/19 08:59 1 mls/min Q6H CODEY Administration Insulin Aspart 0 units 02/01/19 06:00 02/01/19 13:00 Novolog Flexpen SC 03/03/19 05:59 Not Given Q6 CODEY Pantoprazole Sodium 40 mg 02/01/19 11:00 02/01/19 11:40 Protonix PO 03/03/19 10:59 40 mg DAILY CODEY Administration Telmisartan 80 mg 02/01/19 11:00 02/01/19 11:36 Micardis PO 03/03/19 10:59 80 mg DAILY CODEY Administration Past Medical History Medical History Asthma Chronic back pain Diverticular disease Dyslipidemia GERD (gastroesophageal reflux disease) HTN (hypertension) Past Surgical History Surgical History Fusion of spine Hx of elbow surgery Social History Smoking Status: Never smoker Hx Alcohol Use: Yes Alcohol type: hard liquor alcohol intake frequency: 0-2 drinks per day Hx Substance Use: No Physical Exam Vital Signs Last Vital Signs Temp 36.6 C 02/01/19 10:50 Pulse 101 H 02/01/19 10:50 Resp 18 02/01/19 10:50 BP 182/99 H 02/01/19 14:28 Pulse Ox 96 02/01/19 10:50 Testing Electrocardiogram Date: 02/01/19 Findings: + NSR @ (87) Laboratory Results 01/31/19 23:04 01/31/19 23:04 Urine Color Yellow 02/01/19 07:30 Urine Appearance Clear (Clear) 02/01/19 07:30 Urine pH 6.0 (4.5-7.5) 02/01/19 07:30 Ur Specific [place] 1.028 (1.000-1.030) 02/01/19 07:30 Urine Protein Negative (Negative) 02/01/19 07:30 Urine Glucose (UA) Negative (Negative) 02/01/19 07:30 Urine Ketones Negative (Negative) 02/01/19 07:30 Urine Nitrite Negative (Negative) 02/01/19 07:30 Ur Leukocyte Esterase Negative (Negative) 02/01/19 07:30 02/01/19 02/01/19 02/01/19 12:11 08:15 06:00 POC Glucose 144 H 159 H 127 H
[2019-02-01] MEDS ORDERED: MEPERIDINE HCL 25 MG/ML CARP IV PRN (14:48)
[2019-02-01] MEDS ORDERED: ePHEDrine sulfate 50 MG/ML AMP IV PRN (14:48)
[2019-02-01] MEDS ORDERED: fentaNYL citrate 100 MCG/2 ML VIAL IV PRN (14:48)
[2019-02-01] MEDS: CEFAZOLIN 2,000 MG/15 ML IV PUSH IV ONE ×2 (14:48→17:39)
[2019-02-01] MEDS ORDERED: LABETALOL HCL IV 5 MG/ML 20ML IV PRN (14:48)
[2019-02-01] MEDS ORDERED: ATROPINE SULFATE 0.1 MG/ML 10ML SYR IV PRN (14:48)
[2019-02-01] MEDS ORDERED: PHENYLEPHRINE 100MCG/ML 5ML SYR IV PRN (14:48)
[2019-02-01] MEDS ORDERED: ESMOLOL HCL INJ 10 MG/ML 10ML VIAL IV ONE (14:58)
[2019-02-01] MEDS ORDERED: DEXAMETHASONE SOD INJ 4 MG/ML VIAL ONE (15:00)
[2019-02-01] MEDS ORDERED: LABETALOL HCL IV 5 MG/ML 20ML IV ONE (15:21)
[2019-02-01] MEDS ORDERED: FLOSEAL HEMOSTATIC MATRIX 10ML TOP ONE (15:40)
[2019-02-01] MEDS ORDERED: NEOSTIGMINE METHYLSULFATE 1 MG/ML 10ML VIAL ONE (15:41)
[2019-02-01] MEDS ORDERED: GLYCOPYRROLATE 0.2 MG/ML VIAL ONE (15:41)
--- NOTE | 2019-02-01 15:43 | Operative Report ---
Post Operative Report Pre & Post Diagnosis Operation Date: 02/01/19 07:00 Pre-Op Diagnosis: INTRACTABLE BACK PAIN, LEFT LOWER EXTREMITIY RADICULOPATHY Post-Op Diagnosis: INTRACTABLE BACK PAIN, LEFT LOWER EXTREMITIY RADICULOPATHY Procedure Operation Date: 02/01/19 07:00 Actual Procedures Laminotomy L4-5 on the left with excision of herniated free fragment from L4-5. Surgeon Xander Morel, Small Parts Shaper Operator Shamika Funez Estimated Blood Loss 10 Findings Consistent with Post-Op Diagnosis Specimens None Description of Procedure Patient was met with preoperatively case discussed all questions addressed. After informed consent obtained patient was taken to the operative suite underwent intubation placed in a prone position on the Robby table on top of the Yoni frame. All bony prominences well-padded eyes inspected to ensure no external pressure placed upon but this point the lumbar spine was prepped and draped in normal sterile fashion. The assistance of fluoroscopy identified L4-5 disc space. A midline incision was created overlying this region. Sharp dissection with the assistance of Bovie cautery was performed down to and exposing the intralaminar space at L4-5 on the left. Self-retaining retractor was placed. Then performed a small laminotomy excising the lateral portion of the ligamentum flavum in the medial aspect of the facet as well as a sub-portion of the superior border of L5 to adequately expose the traversing L5 nerve root. Severe compression was noted. The root was able to mobilize medially and several massive fragments of disc material including components of endplate cartilage identified and removed pretty significant decompression of the root. There was explored several times to ensure all loose fragments were addressed. Was then copious irrigated and closed with 1 Vicryl in the fascia 2-0 Vicryl subtenons in 4 Monocryl for final skin closure. Steri-Strip sterile dressings placed. Patient will continue to PACU stable disc. Please note Shamika Funez present throughout the entire procedure involved in patient positioning complex portions of the surgery and final skin closure. I attest to the content of the Intraoperative Record and any orders documented therein. Any exceptions are noted below.
--- NOTE | 2019-02-01 15:58 | Fluoroscopy Report ---
FL spine 1V any level HISTORY: Laminectomy. FLUOROSCOPY TIME: 4 seconds. FINDINGS: Intraoperative fluoroscopy was provided for the lumbar spine. 2 fluoroscopic spot images we re obtained. IMPRESSION: Fluoroscopy provided for a L5 laminectomy.. The above report was generated using voice recognition software. It may contain grammatical, syntax or spelling errors. Electronically signed by: Benja Villegas M.D. 02/01/2019 3:57 PM
[2019-02-01] MEDS ORDERED: METOPROLOL TARTRATE 1 MG/ML VIAL IV STA (16:33)
[2019-02-01] MEDS ORDERED: METOPROLOL TARTRATE 1 MG/ML VIAL IV ONE (16:35)
[2019-02-01] MEDS ORDERED: LORazepam 1 MG/2 ML VIAL IV PRN (17:15)
[2019-02-01] MEDS ORDERED: LORazepam 1 MG TAB PO PRN (17:15)
[2019-02-01] MEDS ORDERED: DO NOT ADMINISTER PNEUMOCOCCAL VACCINE PRN (17:15)
[2019-02-01] MEDS ORDERED: KETOROLAC 30 MG/ML VIAL IV PRN (17:15)
[2019-02-01] MEDS ORDERED: ACETAMINOPHEN 325 MG TAB PO PRN (17:15)
[2019-02-01] MEDS ORDERED: DO NOT ADMINISTER FLU VACCINE PRN (17:15)
[2019-02-01] MEDS ORDERED: MAGNESIUM HYDROXIDE SUSP 30 ML UDC PO PRN (17:15)
[2019-02-01] MEDS ORDERED: OXYCODONE HCL IR 5 MG TAB (IMMEDIATE RELEASE) PO PRN (17:15)
--- NOTE | 2019-02-01 17:15 | Anesthesiology Progress Note ---
Date of Service February 01, 2019 Anesthesia Post Procedure Vital Signs Vital Signs: Temp Pulse Pulse Pulse Resp BP BP 02/01/19 16:50 95 H 18 131/83 02/01/19 16:40 97 H 18 136/88 02/01/19 16:37 105 H 136/88 02/01/19 16:30 100 H 19 122/79 02/01/19 16:20 100 H 22 154/93 H 02/01/19 16:10 101 H 18 136/82 02/01/19 16:00 36.5 C 103 H 17 179/100 H 02/01/19 14:28 182/99 H 02/01/19 10:50 36.6 C 101 H 18 188/105 H 02/01/19 07:47 89 164/84 H 02/01/19 07:10 36.9 C 87 18 190/100 H 02/01/19 03:51 36.5 C 88 18 158/90 H 02/01/19 03:10 88 16 186/97 H 02/01/19 01:14 94 H 16 139/88 02/01/19 00:15 93 H 16 166/88 H 01/31/19 22:21 36.8 C 112 H 20 208/115 H Pulse Ox 02/01/19 16:50 94 02/01/19 16:40 94 02/01/19 16:37 02/01/19 16:30 93 02/01/19 16:20 96 02/01/19 16:10 98 02/01/19 16:00 97 02/01/19 14:28 02/01/19 10:50 96 02/01/19 07:47 02/01/19 07:10 97 02/01/19 03:51 95 02/01/19 03:10 96 02/01/19 01:14 96 02/01/19 00:15 94 01/31/19 22:21 97 Pain Intensity Back: Pain Intensity: 0 Left Leg: Pain Intensity: 9 Notes Mental Status: alert / awake / arousable Patient Amnestic to Procedure: Yes Nausea / Vomiting: adequately controlled Pain: adequately controlled Airway Patency, RR, SpO2: stable & adequate BP & HR: stable & adequate Hydration State: stable & adequate Anesthetic Complications: no major complications apparent
[2019-02-01] MEDS: DOCUSATE SODIUM 100 MG CAP PO SCH (20:41)
[2019-02-02] MEDS ORDERED: LACTATED RINGER'S 1,000 ML IV SCH
[2019-02-02] MEDS: CEFAZOLIN 2000MG 2,000 MG/15 ML SYR IV SCH ×2 (00:11→08:55)
[2019-02-02 07:44] LABS: Basophils # (auto) 0.01 K/uL (0-0.2); Basophils % (auto) 0.1 %; Hematocrit (blood only) 44.1 % (42-52); Hemoglobin 15.7 g/dL (14.0-18.0); Immature Granulocytes # (auto) 0.07 K/uL (0.00-0.02); Immature Granulocytes % (auto) 0.4 %; Lymphocytes # (auto) 1.25 K/uL (1.2-3.4); Mean Corpuscular Hgb Conc 35.6 g/dL (32-36); Mean Corpuscular Volume 87.8 fL (80-100); Mean Platelet Volume 10.3 fL (7.4-10.4); Monocytes # (auto) 1.29 K/uL (0.11-0.59); Monocytes % (auto) 8.3 %; Neutrophils # (auto) 12.95 K/uL (1.4-6.5); Neutrophils % (auto) 83.2 %; Platelet Count 274 K/uL (130-400); RDW Standard Deviation 41.6 fL (36.4-46.3); Red Blood Count 5.02 M/uL (4.7-6.1); White Blood Count 15.57 K/uL (4.8-10.8)
[2019-02-02 08:03] LABS: BUN Creatinine Ratio 27.7 (10-20); Calcium 9.3 mg/dl (8.5-10.1); Creatinine Clr Calc Pharmacy 115.1 ml/min; Est GFR (African American) 115.6; Est GFR (Non-African American) 99.7
--- NOTE | 2019-02-02 08:24 | Orthopedic Progress Note ---
Date of Service February 02, 2019 Assessment & Plan (1) Acute left lumbar radiculopathy: Patient status post lumbar laminotomy doing quite well and will be discharged today. Present on Admission?: Yes Subjective Patient's leg pain is markedly improved. Taking no pain medication. Physical Exam Physical Exam: On exam his implant in the halls. Still has evidence of a foot drop left lower extremity. He is quite comfortable. Results & Data Vital Signs (Past 12 Hours) Vital Signs Temp Pulse Resp BP Pulse Ox 02/02/19 06:57 36.6 C 88 16 136/81 91 02/02/19 03:11 36.5 C 99 H 16 109/66 95 02/01/19 22:53 36.5 C 104 H 16 131/80 95
[2019-02-02] MEDS: DOCUSATE SODIUM 100 MG CAP PO SCH (08:56)
[2019-02-02] MEDS: AMLODIPINE BESYLATE 5 MG TAB PO SCH (08:56)
[2019-02-02] MEDS: PANTOprazole 40 MG TAB PO SCH (08:56)
[2019-02-02] MEDS: TELMISARTAN 40 MG TAB PO SCH (08:57)
[2019-02-02] MEDS ORDERED: TELMISARTAN HYDROCHLOROTHIAZID PO SCH (09:00)
--- NOTE | 2019-02-02 19:16 | Discharge Summary ---
Date of Service February 02, 2019 Admission HPI Per Admitting Provider The patient is a 48-year-old male with a past medical history including hypertension, hyperlipidemia, GERD and severe lumbar degenerative disc disease, who developed acute worsening of lumbar pain, and decreased strength and sensation of left lower extremity. Principal Diagnosis herniated lumbar disc with neuropathy s/p lumbar laminetomy Discharge Exam Constitutional well developed and average body habitus Eyes no conjunctival abnormality and no scleral abnormality Neck normal visual inspection and trachea midline Respiratory normal respiratory effort; no respiratory distress Auscultation: lungs clear to auscultation bilaterally Cardiovascular RRR, no murmur, no edema Gastrointestinal (Abdomen) normal bowel sounds, soft, nontender, no hepatosplenomegaly Discharge Data Allergies Allergy/AdvReac Type Severity Reaction Status Date / Time No Known Allergies Allergy Unknown Verified 02/01/19 02:04 Consultations 02/01/19 02:56 ED Decision to Admit Stat 02/01/19 04:02 Consult Case Management - Discharge Planning Routine 02/01/19 05:39 Consult Orthopedic Surgery Routine Procedures Performed Operation Date: 02/01/19 07:00 Actual Procedures p L4-L5 Left Laminectomy(Not Applicable) - Xander Morel, Ordered Studies 01/31/19 22:44 MR lumbar spine wo con Urgent 02/01/19 FL fluoroscopy <1hr Routine FL spine 1V any level Routine Hospital Course (1) Spinal stenosis of lumbar region with radiculopathy: MRI with severe central canal stenosis, especially at L4-5/neuroforaminal stenosis L5-S1/bone marrow edema at L3-4/intractable low back pain with declining left leg functioning-- Consult orthopedic spine surgery Dr. Morel. Evaluate the patient to the patient to the operating room on 02/01, pt has had great improvement with resolved pain and only minor residual foot drop (2) Intractable low back pain: As above. (3) Hypertension: Can continue amlodipine 5 mg p.o. daily and telmisartan 80/12.5 p.o. daily while taking p.o. Hydralazine 10 mg IV every 4 hours as needed systolic blood pressure greater than 160. (4) Hyperlipidemia: Can continue atorvastatin 40 mg p.o. bedtime as long as taking p.o. (5) GERD (gastroesophageal reflux disease): Continue Prevacid 30 mg p.o. daily. Convert to Pepcid 20 mg IV every 12 hours when becomes n.p.o. Total Time Total Time Spent Total Time Spent (In Minutes): greater than 30 minutes were required to prepare discharge Discharge Plan Discharge Items Patient Disposition: Home - Self-Care Reason For Visit: INTRACTABLE BACK PAIN, LLE RADICULOPATHY Discharge Diagnosis: lumbar radiculopathy from HNP s/p lumbar spine surgery Condition: Good Discharge Goals: Decrease discomfort and Improve disease control Activity: As commented below Activity Comment: please limit lifting and turning until you are released by Dr Morel Non-emergency contact: Primary Care Provider and Surgeon Call non-emergency contact if: you have any medication questions Follow-up/Referrals: Percy Marcano MD [Primary Care Provider] - Diet: Regular Addtl Provider Instructions: no submersion bathing no lifting please walk for rehab follow up with Dr Morel Prescriptions: Continued atorvastatin 40 mg tablet 40 mg PO HS RF: 0 amlodipine 5 mg tablet 5 mg PO DAILY RF: 0 dextroamphetamine-amphetamine 20 mg capsule,extended release 24hr 20 mg PO DAILY PRN (Reason: Unknown) RF: 0 lansoprazole [Prevacid] 30 mg Capsule,Delayed Release(Dr/Ec) 30 mg PO DAILY RF: 0 albuterol sulfate 90 mcg/actuation Hfa Aerosol Inhaler 2 puff INHALATION Q6H PRN (Reason: Shortness Of Breath Or Wheezing) RF: 0 telmisartan-hydrochlorothiazid 80-25 mg tablet 1 tab PO DAILY RF: 0 Stand-Alone Forms: [facility]Other Patient Handouts: Surgery Prevent DVT After Discharge Orders: Discharge Order (Routine); Ordered 02/02/19 Ordered By: Eze Farah Admission Data Admit Date/Time: 02/01/19 03:11 Attending Provider: Eze Farah Admit Provider: Alexi Burkett Primary Care Provider: Percy Marcano Other Providers: Alexi Burkett ; Xander Morel Service: Medical Other Interventions: Discharge Summary Assessment (RN) Last Done: 02/02/19 09:23 DC Date/Time DO NOT enter until pt leaves facility: 02/02/19 10:19
[2019-02-03] MEDS ORDERED: BISACODYL 5 MG TABEC PO PRN (06:00)
[2019-02-03] MEDS ORDERED: POLYETHYLENE (MIRALAX) 17 GM PACK PO SCH (09:00)
== END 2019-02-02 10:19 | disposition home or self-care (01) | DRG 520 ==
LOC: ED 22:19 → SUATTDRO 02-01 03:11 → 3E 02-01 03:11

== ENCOUNTER 2020-04-16 10:18 | Inpatient (IN) ==
--- NOTE | 2020-04-12 16:08 | Anesthesiology Consultation ---
Date of Service April 12, 2020 Assessment & Plan (1) Encounter for pre-operative examination: Chart Review Chart Review: Acceptable Risk for Surgery and Patient NOT seen in Pre Admission Testing Per nursing assessment 04/10/20, no recent travel. Pt did test Covid positive on 01/10/20- recovered well. Tested positive for Covid antibodies in January 2020. No current Covid related symtpoms or known Covid contacts. Plans to get Covid test pre operatively. Covid test 04/11/20= negative L4-L5 laminectomy 02/01/19= Done under [place]- Grade 2 view with MAC #3. No anesthesia issues noted History Surgery Operation Date: 04/16/20 12:05 Proposed Procedures p L5-S1 Decompression and Fusion, Spinal Cord Monitoring - Xander Morel DO Height/Weight Height: 5 ft 7 in Weight: 108.862 kg Allergies Allergy/AdvReac Type Severity Reaction Status Date / Time No Known Allergies Allergy Unknown Verified 04/10/20 10:45 Medications Home Medications Medication Instructions Recorded Confirmed Last Taken albuterol sulfate 2 puff INHALATION Q6H PRN 02/01/19 04/10/20 Unknown atorvastatin 40 mg PO QAM 02/01/19 04/10/20 Unknown lansoprazole [Prevacid] 30 mg PO QAM 02/01/19 04/10/20 Unknown amlodipine 5 mg PO QAM 04/10/20 04/10/20 Unknown dextroamphetamine-amphetamine 20 mg PO QAM 04/10/20 04/10/20 Unknown ibuprofen 600 mg PO BID PRN 04/10/20 04/10/20 Unknown tadalafil 5 mg PO QAM 04/10/20 04/10/20 Unknown telmisartan-hydrochlorothiazid 1 tab PO QAM 04/10/20 04/10/20 Unknown Past Medical History Medical History Asthma well controlled rare inh use Attention deficit disorder (ADD) BPH (benign prostatic hyperplasia) Chronic back pain Colon perforation hx Dyslipidemia GERD (gastroesophageal reflux disease) HTN (hypertension) Osteoarthritis Spinal stenosis Past Surgical History Surgical History Fusion of spine c5 c6 c7> rom WNL History of colonoscopy x2 History of partial colectomy History of tooth extraction Hx of elbow surgery left Hx of vasectomy Social History Smoking Status: Never smoker Do You Dip or Chew Tobacco: No Hx Alcohol Use: Yes Alcohol type: beer, wine and hard liquor alcohol intake frequency: a few times a week Hx Substance Use: No substance use type: does not use Testing Laboratory Results Laboratory Tests 04/11/20 04/11/20 04/11/20 08:50 08:50 08:50 WBC 5.49 Hgb 16.2 Hct 45.3 Plt Count 179 PT 10.8 INR 1.0 Sodium 136 Potassium 3.7 Chloride 105 Carbon Dioxide 22 BUN 24 H Creatinine 0.95 Glucose 117 H Electrocardiogram Date: 04/15/20 Sinus tachycardia with premature supraventricular complexes at 113 bpm. Compared to EKG from February 01, 2019, premature supraventricular complexes are now present, otherwise no significant change per cardio. Chest X-Ray Date: 04/15/20 Findings: + NAD
[~2020-04-16 10:18] MED LIST changes: +ACETAMINOPHEN 500 MG TAB PO SCH; -ATOR10TA88 PO; +CEFAZOLIN 2000MG 2,000 MG/15 ML SYR IV SCH; +CeleBREX 200 MG CAP PO SCH; +GABAPENTIN 900 MG DOSE PO SCH; -LANS30CA12 PO; +LR 15ML/HR IV SCH; -METH4PAK PO; -OXYC1TAB3 PO; -TELM1TAB11 PO; -VNTHFA/IN INH
[2020-04-16] MEDS ORDERED: fentaNYL citrate 100 MCG/2 ML VIAL ONE ×2 (11:54)
[2020-04-16] MEDS ORDERED: MIDAZOLAM HCL 1 MG/ML 2ML VIAL ONE (11:54)
[2020-04-16] MEDS ORDERED: HYDROmorphone INJ 2 MG/ML SYR/VIAL ONE (11:54)
[2020-04-16] MEDS ORDERED: ATROPINE SULFATE 0.1 MG/ML 10ML SYR IV PRN (12:25)
[2020-04-16] MEDS ORDERED: LABETALOL HCL IV 5 MG/ML 20ML IV PRN (12:25)
[2020-04-16] MEDS ORDERED: ONDANSETRON INJ 2 MG/ML 2 ML VIAL IV PRN ×2 (12:25→18:54)
--- NOTE | 2020-04-16 13:44 | History & Physical Bridge Note ---
Date of Service April 16, 2020 History & Physical Bridge Note I have examined the patient, reviewed the History & Physical and in the interval since the performance of the History & Physical I have noted the following changes of clinical significance: no changes noted
--- NOTE | 2020-04-16 13:44 | History & Physical Report ---
Date of Service April 16, 2020 Assessment & Plan (1) Neuroforaminal stenosis of lumbar spine: L5-S1 decompression fusion Present on Admission?: Yes History of Present Illness Chief Complaint: Back and right leg pain Primary Care Provider: Charly Marcano MD This is a 49-year-old male known to me the presents with chronic persistent back and right leg pain. After failing extensive course of nonoperative care is here for surgical intervention. Allergies Allergy/AdvReac Type Severity Reaction Status Date / Time No Known Allergies Allergy Unknown Verified 04/16/20 10:46 Home Medications Home Medications Medication Instructions Recorded Confirmed Type albuterol sulfate 2 puff INHALATION Q6H PRN 02/01/19 04/16/20 History atorvastatin 40 mg PO QAM 02/01/19 04/16/20 History lansoprazole [Prevacid] 30 mg PO QAM 02/01/19 04/16/20 History amlodipine 5 mg PO QAM 04/10/20 04/16/20 History dextroamphetamine-amphetamine 20 mg PO QAM 04/10/20 04/16/20 History ibuprofen 600 mg PO BID PRN 04/10/20 04/16/20 History tadalafil 5 mg PO QAM 04/10/20 04/16/20 History telmisartan-hydrochlorothiazid 1 tab PO QAM 04/10/20 04/16/20 History Past Med/Surg History Medical History Asthma well controlled rare inh use Attention deficit disorder (ADD) BPH (benign prostatic hyperplasia) Chronic back pain Colon perforation hx Dyslipidemia GERD (gastroesophageal reflux disease) HTN (hypertension) Osteoarthritis Spinal stenosis Surgical History Fusion of spine c5 c6 c7> rom WNL History of colonoscopy x2 History of partial colectomy History of tooth extraction Hx of elbow surgery left Hx of vasectomy Social History Preferred Language: Upper Sorbian Communication Ability: Effective [employer] Teacher Required: No Beliefs That Will Affect Care: None Current Living Situation: Spouse Other Information That Helps Us Care for You: No Feels Safe at Home: Yes Safety Concerns: Feels Safe At This Time Smoking Status: Never smoker Do You Dip or Chew Tobacco: No ; Second Hand Exposure: No ; Tobacco Cessation Education Requested by Patient: No Hx Alcohol Use: Yes Alcohol type: hard liquor Hx Substance Use: No Physical Exam Physical Exam: Patient is alert and oriented neurologically intact. Heart regular rate and rhythm. Lungs clear to auscultation. Results & Data Vital Signs (Past 12 Hours) Vital Signs Temp Pulse Resp BP Pulse Ox 04/16/20 11:09 36.6 C 109 H 20 175/97 H 94
[2020-04-16] MEDS ORDERED: BUPIVACAINE/EPINEPHRINE 0.25% 1:200,000 30 ML VIAL ONE (13:59)
[2020-04-16] MEDS ORDERED: BACITRACIN INJ 50,000 UNIT VIAL ONE (13:59)
[2020-04-16] MEDS ORDERED: ROCURONIUM BROMIDE 10 MG/ML 5 ML VIAL IV ONE (15:34)
[2020-04-16] MEDS ORDERED: NEOSTIGMINE METHYLSULFATE 1 MG/ML 10ML VIAL ONE (15:34)
[2020-04-16] MEDS ORDERED: GLYCOPYRROLATE 0.2 MG/ML VIAL ONE (15:34)
[2020-04-16] MEDS ORDERED: LIDOCAINE HCL 2% 2 ML VIAL/AMP(20MG/ML) INFIL ONE (15:34)
[2020-04-16] MEDS ORDERED: PROPOFOL IV EMULSION 10 MG/ML 20 ML VIAL IV ONE (15:34)
[2020-04-16] MEDS ORDERED: ONDANSETRON INJ 2 MG/ML 2 ML VIAL ONE ×2 (15:34)
[2020-04-16] MEDS ORDERED: DEXAMETHASONE SOD INJ 4 MG/ML VIAL ONE (15:34)
[2020-04-16] MEDS ORDERED: LARYING-O-JET KIT (LTA) ONE (15:34)
[2020-04-16] MEDS ORDERED: LABETALOL HCL IV 5 MG/ML 20ML IV ONE (15:42)
[2020-04-16] MEDS ORDERED: FLOSEAL HEMOSTATIC MATRIX 10ML TOP ONE (15:50)
--- NOTE | 2020-04-16 15:53 | Operative Report ---
Post Operative Report Pre & Post Diagnosis Operation Date: 04/16/20 12:05 Pre-Op Diagnosis: Lumbar spinal stenosis with radiculopathy Post-Op Diagnosis: Same I identified the patient and participated in the time-out.: Yes Procedure Operation Date: 04/16/20 12:05 Actual Procedures #1 lumbar decompression with bilateral medial facetectomies and foraminotomies L5-S1. #2 posterior spinal fusion L5-S1. #3 placement posterior instrumentation L5-S1 per #4 interbody fusion L5-S1. #5 placement peek cage 10 x 26 mm L5-S1. #6 placement locally harvested morselized autograft in the posterior gutters. #7 placement infuse collagen sponge and master graft in the posterior gutters and ostial amp interbody space. Surgeon Xander Morel, Prosthetic Aides Teacher Shamika Funez Estimated Blood Loss 100 Findings Consistent with Post-Op Diagnosis Specimens None Indications This is a 49-year-old male known to the presents with above-mentioned diagnosis after failing extensive course of nonoperative care is here for the above- mentioned procedure. Description of Procedure Patient was met with identified informed consent obtained. Patient was then taken to the operative suite underwent an patient placed in a prone position the Robby table on top Yoni frame. All bony prominences well-padded eyes inspected to ensure no external pressure placed upon them. This point the lumbar spine is prepped and draped in normal sterile fashion. Sharp dissection with the assistance of Bovie cautery was performed down to and exposing the lamina and transverse processes of L5 and the sacral ala bilaterally. From a caudal cephalad fashion complete laminectomy of L5 was performed including bilateral medial facetectomies and foraminotomies addressing severe spinal stenosis. Pedicle screws were then placed in L5 and S1 levels bilaterally with assistance of fluoroscopy and appropriate size kylie placed. By way a transforaminal approach on the right complete discectomy of L5-S1 was performed endplates curetted to subcortical bleeding bone and a 10 x 26 mm peek cage filled with osteo-bone graft tapped in position. The rods were then locked into final position bilaterally. The transverse processes of L5 and the sacral ala burred to subcortical bleeding bone. Infuse collagen sponge master graft local autograft was then placed in the posterior lateral gutters. 15 round WES inserted. Incision was then closed with 1 Vicryl in the fascia 2-0 Vicryl subcutaneously and 4 Monocryl for final skin closure. Steri-Strip sterile dressing placed. Patient will continue PACU stable initially please note spinal cord monitoring was utilized of the procedure no changes noted. Lastly Shamika Funez was present at the entire procedure involved the patient positioning complex portions of the surgery and fascial closure. I attest to the content of the Intraoperative Record and any orders documented therein. Any exceptions are noted below.
--- NOTE | 2020-04-16 16:27 | Fluoroscopy Report ---
LUMBAR SPINE, INTRAOPERATIVE FLUOROSCOPY HISTORY: L5-S1 decompression and fusion. FLUOROSCOPY TIME: 20 seconds. FINDINGS: Intraoperative fluoroscopy was provided for the lumbar spine. 2 fluoroscopic spot images we re obtained. Posterior decompression fusion at L5-S1 with pedicle screws and rods. The hardware appea rs intact. IMPRESSION: Fluoroscopy provided for a L5-S1 posterior decompression and fusion. ACT 112: Negative or not required by law. Electronically signed by: Stewart Grey M.D. 04/16/2020 4:25 PM
--- NOTE | 2020-04-16 16:40 | Anesthesiology Progress Note ---
Date of Service April 16, 2020 Anesthesia Post Procedure Vital Signs Vital Signs: Temp Pulse Pulse Resp BP BP Pulse Ox 04/16/20 16:35 87 14 144/86 H 95 04/16/20 16:25 84 13 127/91 96 04/16/20 16:15 88 14 148/85 H 96 04/16/20 16:08 36.4 C L 97 H 12 163/96 H 94 04/16/20 11:09 36.6 C 109 H 20 175/97 H 94 Pain Intensity Right Hip: Pain Intensity: 3 Transfer of Care Handoff Completed per policy Notes Mental Status: alert / awake / arousable and participated in evaluation Patient Amnestic to Procedure: Yes Nausea / Vomiting: adequately controlled Pain: adequately controlled Airway Patency, RR, SpO2: stable & adequate BP & HR: stable & adequate Hydration State: stable & adequate Anesthetic Complications: no major complications apparent and Pt Satisfied with anesthetic care
[2020-04-16] MEDS: HYDROmorphone INJ 1 MG/ML SYRINGE IV PRN ×2 (17:22→17:35)
[2020-04-16] MEDS ORDERED: PROMETHAZINE HCL 12.5 MG in SODIUM CHLORIDE 0.9% 50 ML IV PRN (18:54)
[2020-04-16] MEDS ORDERED: DO NOT ADMINISTER PNEUMOCOCCAL VACCINE PRN (18:54)
[2020-04-16] MEDS ORDERED: SOD PHOSPHATE/SOD BIPHOSPHATE ENEMA 132 ML BTL PR PRN (18:54)
[2020-04-16] MEDS ORDERED: HYDROmorphone INJ 0.5 MG/0.5 ML SYR IV PRN (18:54)
[2020-04-16] MEDS ORDERED: bisacodyL 10 MG SUPP PR PRN (18:54)
[2020-04-16] MEDS ORDERED: ONDANSETRON 4 MG OD TAB PO PRN (18:54)
[2020-04-16] MEDS ORDERED: ACETAMINOPHEN 1,000 MG/100 ML VIAL IV PRN (18:54)
[2020-04-16] MEDS ORDERED: LORazepam 0.5 MG/1 ML VIAL IV PRN (18:54)
[2020-04-16] MEDS ORDERED: ALUMINUM/MAGNESIUM SUSP 30 ML UDC PO PRN (18:54)
[2020-04-16] MEDS ORDERED: NALOXONE HCL 0.4 MG/1 ML VIAL/CARP IV PRN (18:54)
[2020-04-16] MEDS ORDERED: MAGNESIUM HYDROXIDE SUSP 30 ML UDC PO PRN (18:54)
[2020-04-16] MEDS ORDERED: METOCLOPRAMIDE HCL INJ 5 MG/ML 2 ML VIAL IV PRN (18:54)
[2020-04-16] MEDS ORDERED: TRAMADOL HCL 50 MG TABLET PO PRN (18:54)
[2020-04-16] MEDS ORDERED: FAMOTIDINE 20 MG TAB PO PRN (18:54)
[2020-04-16] MEDS ORDERED: DO NOT ADMINISTER FLU VACCINE PRN (18:54)
[2020-04-16] MEDS ORDERED: HYDROmorphone INJ 1 MG/ML SYRINGE IV PRN (18:54)
[2020-04-16] MEDS ORDERED: ALBUTEROL HFA 8 GM INHALER INH PRN (18:54)
[2020-04-16] MEDS ORDERED: LACTATED RINGER'S 1,000 ML IV SCH (18:54)
[2020-04-16] MEDS ORDERED: ACETAMINOPHEN 500 MG TAB PO PRN (18:54)
[2020-04-16] MEDS: KETOROLAC 30 MG/ML VIAL IV SCH (19:55)
[2020-04-16] MEDS: DOCUSATE SODIUM/SENNA 50/8.6MG TAB PO SCH (20:42)
[2020-04-16] MEDS: CEFAZOLIN 2000MG 2,000 MG/15 ML SYR IV SCH (20:43)
[2020-04-16] MEDS: OXYCODONE HCL IR 5 MG TAB (IMMEDIATE RELEASE) PO PRN (21:47)
[2020-04-16] MEDS ORDERED: HydrALAZINE HCL 20 MG/ML VIAL IV STA (22:23)
[2020-04-16] MEDS ORDERED: HydrALAZINE HCL 20 MG/ML VIAL ONE (22:26)
[2020-04-16] MEDS: LORazepam 0.5 MG TAB PO PRN (22:47)
[2020-04-16] MEDS ORDERED: HydrALAZINE HCL 20 MG/ML VIAL IV PRN (23:19)
[2020-04-17] MEDS ORDERED: Nursing to Pharmacy Communication SCH (00:15)
[2020-04-17] MEDS: KETOROLAC 30 MG/ML VIAL IV SCH ×3 (02:26→14:16)
[2020-04-17] MEDS: CEFAZOLIN 2000MG 2,000 MG/15 ML SYR IV SCH (06:01)
[2020-04-17] MEDS: POLYETHYLENE (MIRALAX) 17 GM PACK PO SCH ×4 (06:04→23:50)
[2020-04-17 07:13] LABS: Basophils # (auto) 0.01 K/uL (0-0.2); Basophils % (auto) 0.1 %; Hematocrit (blood only) 39.3 % (42-52); Hemoglobin 13.5 g/dL (14.0-18.0); Immature Granulocytes # (auto) 0.03 K/uL (0.00-0.02); Immature Granulocytes % (auto) 0.3 %; Lymphocytes # (auto) 0.94 K/uL (1.2-3.4); Lymphocytes % (auto) 8.2 %; Mean Corpuscular Hgb Conc 34.4 g/dL (32-36); Mean Corpuscular Volume 90.1 fL (80-100); Mean Platelet Volume 10.8 fL (7.4-10.4); Monocytes # (auto) 0.76 K/uL (0.11-0.59); Monocytes % (auto) 6.6 %; Neutrophils # (auto) 9.71 K/uL (1.4-6.5); Neutrophils % (auto) 84.8 %; Platelet Count 223 K/uL (130-400); RDW Coefficient of Variation 12.3 % (11.5-14.5); RDW Standard Deviation 40.5 fL (36.4-46.3); Red Blood Count 4.36 M/uL (4.7-6.1); White Blood Count 11.45 K/uL (4.8-10.8)
[2020-04-17 07:49] LABS: BUN Creatinine Ratio 20.9 (10-20); Calcium 8.4 mg/dl (8.5-10.1); Creatinine Clr Calc Pharmacy 110.8 ml/min; Est GFR (African American) 112.7; Est GFR (Non-African American) 97.2; Potassium 3.7 mmol/L (3.5-5.1)
--- NOTE | 2020-04-17 08:44 | Anesthesiology Progress Note ---
Date of Service April 17, 2020 Anesthesia Post Procedure Vital Signs Vital Signs: Temp Pulse Pulse Resp BP BP Pulse Ox 04/17/20 08:19 36.7 C 96 H 16 151/97 H 94 04/17/20 02:28 36.4 C L 106 H 20 134/68 20 L 04/16/20 23:52 114/69 04/16/20 23:08 36.6 C 109 H 20 206/69 H 96 04/16/20 22:07 36.5 C 103 H 20 183/96 H 94 04/16/20 20:53 36.5 C 92 H 18 156/93 H 96 04/16/20 20:00 36.4 C L 90 20 158/84 H 97 04/16/20 18:30 86 24 146/98 H 96 04/16/20 18:15 85 20 164/98 H 95 04/16/20 18:05 89 14 147/93 H 96 04/16/20 17:55 87 20 134/86 96 04/16/20 17:45 85 17 157/92 H 96 04/16/20 17:35 90 18 156/91 H 96 04/16/20 17:25 91 H 17 162/90 H 96 04/16/20 17:15 93 H 17 156/93 H 96 04/16/20 17:00 88 17 156/88 H 97 04/16/20 16:45 36.7 C 86 16 154/92 H 96 04/16/20 16:35 87 14 144/86 H 95 04/16/20 16:25 84 13 127/91 96 04/16/20 16:15 88 14 148/85 H 96 04/16/20 16:08 36.4 C L 97 H 12 163/96 H 94 04/16/20 11:09 36.6 C 109 H 20 175/97 H 94 Pain Intensity Right Hip: Pain Intensity: 3 Lower Back: Pain Intensity: 8 Notes Mental Status: alert / awake / arousable and participated in evaluation Patient Amnestic to Procedure: Yes Nausea / Vomiting: adequately controlled Pain: adequately controlled Airway Patency, RR, SpO2: stable & adequate BP & HR: stable & adequate Hydration State: stable & adequate Anesthetic Complications: no major complications apparent and Pt Satisfied with anesthetic care
[2020-04-17] MEDS: AMPHETAMINE ASP/SULF/DEXTRAMPH ER 20 MG CAP PO SCH (08:58)
[2020-04-17] MEDS: AMLODIPINE BESYLATE 5 MG TAB PO SCH (08:59)
[2020-04-17] MEDS: ATORVASTATIN 40 MG TAB PO SCH (08:59)
[2020-04-17] MEDS: PANTOprazole 40 MG TAB PO SCH (08:59)
[2020-04-17] MEDS: hydroCHLOROthiazide 25 MG TAB PO SCH (08:59)
[2020-04-17] MEDS: TELMISARTAN 40 MG TAB PO SCH (08:59)
--- NOTE | 2020-04-17 12:29 | Orthopedic Progress Note ---
Date of Service April 17, 2020 Assessment & Plan (1) Neuroforaminal stenosis of lumbar spine: This time continue physical therapy monitor his WES output anticipate discharge home tomorrow. Present on Admission?: Yes Admission and Anticipated Discharge Date Admission Date: April 16, 2020 Subjective Back pain controlled leg pain markedly improved. Physical Exam Physical Exam: On exam he is up and ambulating is eccentric to testing. Results & Data ([facility]) Vital Signs (Past 12 Hours) Vital Signs Temp Pulse Pulse Resp BP Pulse Ox 04/17/20 10:20 95 04/17/20 08:19 36.7 C 96 H 16 151/97 H 94 04/17/20 02:28 36.4 C L 106 H 20 134/68 20 L
[2020-04-17] MEDS: DOCUSATE SODIUM/SENNA 50/8.6MG TAB PO SCH (20:26)
[2020-04-17] MEDS: LORazepam 0.5 MG TAB PO PRN (22:09)
[2020-04-17] MEDS: OXYCODONE HCL IR 5 MG TAB (IMMEDIATE RELEASE) PO PRN (22:09)
[2020-04-18] MEDS: POLYETHYLENE (MIRALAX) 17 GM PACK PO SCH (05:30)
--- NOTE | 2020-04-18 08:22 | Discharge Summary ---
Date of Service April 18, 2020 Admission HPI Per Admitting Provider This is a 49-year-old male known to me the presents with chronic persistent back and right leg pain. After failing extensive course of nonoperative care is here for surgical intervention. Principal Diagnosis Lumbar spinal stenosis with radiculopathy Discharge Data Allergies Allergy/AdvReac Type Severity Reaction Status Date / Time No Known Allergies Allergy Unknown Verified 04/16/20 10:46 Consultations 04/16/20 18:54 Consult Case Management - Discharge Planning Routine Procedures Performed Operation Date: 04/16/20 12:05 Actual Procedures p L5-S1 Decompression and Fusion,cage at L5 with Spinal Cord Monitoring(Not Applicable) - Xander Morel DO Ordered Studies 04/16/20 12:05 FL fluoroscopy <1hr Routine FL lumbar spine 2-3V Routine Hospital Course (1) Spinal stenosis of lumbar region with radiculopathy: Patient underwent lumbar decompression fusion tolerated this well was taken to the orthopedic floor postoperative. Postop day 1 he was up ambulating progressed to postop day #2. WES drain decreasing probably. Excellent strength testing. Subsequently discharged home. Discharge orders and instructions from the chart for further view. 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 You may walk to your tolerance. It is good exercise for your legs and back. Expect some back and intermittent leg aches and pains. 2. You may perform "counter-top" level activities (make a sandwich, larissa with a project, etc.). 3. No bending or lifting of more than 10 pounds or back twisting of any nature (roll like a log when turning in bed). 4. You may ride in a car for 20-30 minutes at a time. No driving until after your first visit with your doctor. 5. Frequent changes of position and restricting sitting to 30 minutes at a time will help limit the amount of back spasms and stiffness you may experience. 6. You may discontinue the use of ambulatory aids (cane, crutches, etc.) once your strength and confidence allow. 7. You may head machinist the shower and let water strike your incision when you arrive home at least once daily. Do not take a tub bath, sit in a hot tub or go into a swimming pool until after your first recheck in the office. SPECIAL CARE INSTRUCTIONS: VERY IMPORTANT TO READ AND REVIEW A. Your surgical incision has been closed with a cosmetic suture under the skin that will dissolve in about 6 weeks. In 14 days, you can use a pair of clean scissors and cut the suture that is left outside of the skin at the ends of your incision. 1. The small skin tapes can be removed 7 days after surgery if they have not fallen off by that point. 2. You may keep the wound open to air as much as possible to promote healing after post-op day number 5 unless told otherwise by your doctor. 3. If you think the wound looks like it is becoming infected (redness or worsening drainage) and/or you are experiencing fever, chill or worsening back pain and muscle spasms, contact the office so that we may evaluate you as soon as possible. B. Complications are uncommon, but please contact us if you have any signs or symptoms of: 1. wound infection (fever higher than 102.5 degrees F, redness, separation of wound, drainage, or increasing pain from the incision) 2. blood clots in legs (pain, swelling, redness and warmth in legs) 3. urinary tract infection (fever higher than 102.5 degrees F, burning upon urination or increased frequency of urination) 4. nerve problems (inability to walk on your toes or heels, numbness, loss of bowel or bladder control) 5. any other symptoms that concern you C. Please call the office at if you have any concerns or questions about your operation or recovery. D. No smoking! Smoking drastically decreases the chance of a solid fusion. E. Do not take any anti-inflammatory medications (Indocin, Advil, Motrin, Aspirin, Naprosyn, etc.) as these may inhibit the chance of a solid fusion. Tylenol is okay to take for pain. MANAGING PAIN AFTER SPINAL SURGERY 1. Narcotic medication is intended for short-term use and will be provided for surgical pain. Surgical pain usually lasts for a period of 4-6 weeks. Narcotic medication includes Percocet, Vicodin, Darvocet, Tylenol #3 or Lortab. 2. Longer-term pain is more appropriately treated with non-narcotic medication such as Tylenol ES. 3. Muscle spasm is not appropriately treated with narcotics. Muscle relaxers such as Soma, Flexeril or Skelaxin can be used along with Tylenol ES. 4. Remember that we all live with some "aches and pains". This is not unusual or uncommon after an injury or as we get older. a. Back pain is expected and may include muscle spasms for 4 to 6 weeks after surgery. The pain should gradually improve. If the pain worsens for no apparent reason, please contact the office. b. Intermittent leg pain may also be experienced and should not be concerned about unless it worsens for no apparent reason. If so, please contact the office. 5. We will provide appropriate medication within the normal guidelines of their prescribed use. We will also be very cautious and aware of potential abuse and extended duration of patients' medication needs. a. Pain medications are for your comfort and to assist with sleep and rest so that the tissue can heal. They are not provided in order to return to normal activity and should not be used through the day. To do so or worsening pain at night can result from ongoing tissue damage and development of tolerance to the prescribed medicine. 6. Please allow 2-3 days to process refills. Prescriptions will not be mailed but must be picked up at the office. FOLLOW UP VISIT: Keep your scheduled follow-up appointment. Any questions, please call the office at . Pending Studies at Discharge: No Stand-Alone Forms: My [employer], Smoking Cessation Medications and DC Order Prescriptions: New tramadol 50 mg tablet 50 mg PO Q6H PRN (Reason: pain, moderate) Qty: 30 RF: 0 oxycodone 5 mg tablet 5 mg PO Q6H PRN (Reason: pain, severe) Qty: 30 RF: 0 Continued atorvastatin 40 mg tablet 40 mg PO QAM RF: 0 lansoprazole [Prevacid] 30 mg Capsule,Delayed Release(Dr/Ec) 30 mg PO QAM RF: 0 albuterol sulfate 90 mcg/actuation Hfa Aerosol Inhaler 2 puff INHALATION Q6H PRN (Reason: Shortness Of Breath Or Wheezing) RF: 0 amlodipine 5 mg tablet 5 mg PO QAM RF: 0 dextroamphetamine-amphetamine 20 mg capsule,extended release 24hr 20 mg PO QAM RF: 0 tadalafil 5 mg tablet 5 mg PO QAM RF: 0 telmisartan-hydrochlorothiazid 80-25 mg tablet 1 tab PO QAM RF: 0 Discontinued ibuprofen 600 mg Tablet 600 mg PO BID PRN (Reason: Pain) RF: 0 Discharge Orders: Discharge Order (Routine); Ordered 04/18/20 Ordered By: Xander Morel Admission Data Admit Date/Time: 04/16/20 16:30 Attending Provider: Xander Morel Admit Provider: Xander Morel Primary Care Provider: Percy Marcano
[2020-04-18] MEDS: AMPHETAMINE ASP/SULF/DEXTRAMPH ER 20 MG CAP PO SCH (08:32)
[2020-04-18] MEDS: TELMISARTAN 40 MG TAB PO SCH (08:33)
[2020-04-18] MEDS: hydroCHLOROthiazide 25 MG TAB PO SCH (08:33)
[2020-04-18] MEDS: PANTOprazole 40 MG TAB PO SCH (08:33)
[2020-04-18] MEDS: ATORVASTATIN 40 MG TAB PO SCH (08:33)
[2020-04-18] MEDS: AMLODIPINE BESYLATE 5 MG TAB PO SCH (08:33)
[2020-04-18] MEDS ORDERED: DEXAMETHASONE SOD PHOSPHATE 8 MG in SYRINGE 0 ML IV SCH (09:00)
== END 2020-04-18 11:08 | disposition home or self-care (01) | DRG 455 ==
LOC: ASU 10:18 → 3E 16:30 → 3N 19:11

== ENCOUNTER 2024-01-07 06:23 | Inpatient (IN) ==
--- NOTE | 2024-01-07 07:34 | Emergency Department Note ---
Impression & Plan Cellulitis of foot, left, Hypertension, Hyperglycemia ED Provider Note CHIEF COMPLAINT: Left foot pain, redness and swelling x 5 days HISTORY OF PRESENT ILLNESS: Patient is a 53-year-old male with past medical history significant for hypertension, GERD, dyslipidemia, lumbar spinal stenosis with peripheral neuropathy who presents to the emergency department for evaluation of left foot pain x 5 days. He states symptoms started acutely on Wednesday, without inciting incident or trauma. He states he went to get up off the couch and when he put pressure on the foot he noticed a deep, aching pain. He noticed a little bit of redness on Wednesday the following day, became suspicious he might be having a gout or pseudogout attack, despite no history of this. He had an injection of Solu-Medrol on Wednesday, then started a Medrol Dosepak. He has had 3 doses of the Medrol, but his symptoms are getting worse. In the last 24 hours he has developed fairly significant redness, warmth and increased swelling in the dorsum of the foot. He continues to note a an aching, throbbing pain at rest and with weightbearing, rated his discomfort an 8/10 in triage. He has been taking ibuprofen and Tylenol for discomfort. He now believes that he has cellulitis. He reports no skin injuries to the area. No history of cellulitis or skin infections or abscesses. He has not been on any antibiotics recently. He denies any calf or leg pain or swelling. He has checked his temperature and has not had a fever, does admit to some night sweats. REVIEW OF SYSTEMS: Review of systems as per HPI. All other systems reviewed were negative. 10 systems reviewed. PMH: External medical records are reviewed and summarized as above/below. See Problem List. SOCIAL HISTORY: Patient lives at home with family. 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 PHYSICAL EXAM: Vital Signs: Reviewed Nurse's notes. Noted to be hypertensive and mildly tachycardic. CONSTITUTIONAL: Pleasant 53-year-old male in no acute distress laying on the gurney. Noted to be hypertensive and tachycardic in triage. EYES: Pupils equal, round, reactive to light and accommodation. EOMs intact without nystagmus. Sclera are anicteric. CARDIOVASCULAR: Regular rate and rhythm. Peripheral pulses easily palpable. RESPIRATORY: Breath sounds equal and clear to auscultation. MUSCULOSKELETAL: Examination of the left foot note dorsal soft tissue swelling, with overlying erythema and increased warmth. The area is tender to palpation. No fluctuance. No pointing. No lymphangitic streaking. Left ankle is nontender to palpation. No calf tenderness or swelling. No palpable cords. INTEGUMENTARY: Left foot erythema and swelling noted, skin is otherwise intact any lesions or wounds. LYMPH: No lymphadenopathy. EMERGENCY DEPARTMENT COURSE: The patient was seen and assessed as above. External medical records were reviewed. He presents to the emergency department for evaluation of left foot pain, redness and swelling. He was initially treating himself with steroids for possible crystal arthropathy, with no improvement and worsening symptoms. IV lock was initiated and laboratory studies were collected. CBC with differential, BMP, C-reactive protein, ESR and uric acid were collected. Left foot x-rays were obtained. He was given ceftriaxone 2 g IV. Diagnostics, as interpreted by me: Laboratory studies: Mildly elevated white count 11,800 with left shift noted. ESR 79, CRP 3.79. Mild hyponatremia, sodium 130, potassium 4.6, chloride 101, carbon dioxide 17, BUN 28, creatinine 1.6. Marked hyperglycemia noted with nonfasting glucose of 510. Lactic acid is not indicative of sepsis. Uric acid is elevated at 8.8. Imaging studies: Left foot x-rays note dorsal soft tissue swelling, but no acute fracture or findings consistent with osteomyelitis. Patient history, presentation and ED workup are discussed with Dr. Sawant. Patient remained hypertensive throughout the emergency department stay, despite taking his home medications. He was given labetalol 10 mg IV, with persistently elevated blood pressures. Hyperglycemia also appears new for the patient, at least to this degree. He has had some mild hyperglycemia on labs in the past, but has not had any blood work here for several years. Borderline hemoglobin A1c several years ago as well. Certainly mild hyperglycemia could be attributed to the corticosteroid use, but suspect that this is more likely indicative of a true diabetes situation. Patient was hydrated with normal saline solution and given 10 units of insulin IV. Repeat PSG about an hour after insulin was in the 300s. All laboratory and diagnostic imaging studies were discussed with the patient at length. Given the persistent hypertension, hyperglycemia and findings that appear consistent with cellulitis of the left lower extremity, recommended admission/observation for further care in the hospital. Certainly considered gouty arthropathy, particularly given the elevated uric acid level. Patient was agreeable. Symptoms may be gout, with a superimposed cellulitis. Patient was discussed with the [facility] hospitalist service for further care and management. Differential diagnosis: Differential diagnoses considered included cellulitis, DVT, superficial thrombophlebitis, abscess, necrotizing fasciitis, gout/pseudogout, among others. Past Med/Surg History Medical History Spinal stenosis Osteoarthritis BPH (benign prostatic hyperplasia) Attention deficit disorder (ADD) Colon perforation hx Dyslipidemia GERD (gastroesophageal reflux disease) Asthma well controlled rare inh use HTN (hypertension) Chronic back pain Surgical History Hx of vasectomy History of colonoscopy x2 History of tooth extraction History of partial colectomy Hx of elbow surgery left Fusion of spine c5 c6 c7> rom WNL Social History Smoking Status: Never smoker Second Hand Exposure: No; Do You Dip or Chew Tobacco: No; Hx Alcohol Use: Yes Alcohol type: beer, wine and hard liquor Hx Substance Use: No Preferred Language: Croatian Communication Ability: Effective 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: No Beliefs That Will Affect Care: None marital status: Current Living Situation: Spouse Other Information That Helps Us Care for You: No Feels Safe at Home: No Is there a partner from a previous relationship who is making you feel unsafe now?: No Any Concerns about Your Family Situation: No Would You Like to Speak to Someone About Your Situation: No Safety Concerns: Feels Safe At This Time Assistive Devices: None Allergies Allergies Allergy/AdvReac Type Severity Reaction Status Date / Time No Known Allergies Allergy Unknown Verified 05/11/22 07:58 Home Meds Home Medications Medication Instructions Recorded Confirmed albuterol sulfate 90 mcg/actuation 2 puff inhalation Q6H PRN 02/01/19 01/07/24 aerosol inhaler Shortness Of Breath Or Wheezing amlodipine 5 mg tablet 5 mg PO DAILY 01/07/24 01/07/24 atorvastatin 40 mg tablet 40 mg PO QAM 01/07/24 01/07/24 Previous Rx's Medication Instructions Recorded tadalafil 5 mg tablet See Rx Instructions .Route 01/29/23 .COMPLEX #30 tabs pantoprazole 40 mg tablet,delayed 40 mg PO BID #180 tabs 03/10/23 release (Protonix) telmisartan 80 See Rx Instructions .Route 11/15/23 mg-hydrochlorothiazide 25 mg tablet .COMPLEX #90 tabs dextroamphetamine-amphetamine ER 20 mg PO QAM #45 caps 12/16/23 20 mg 24hr capsule,extend release methylprednisolone 4 mg tablets in 4 mg PO .COMPLEX #21 ea 01/05/24 a dose pack (Medrol (Ravindra)) Results & Data (ED) Vital Signs Vital Signs - 24 hr 01/07/24 06:23 01/07/24 06:26 01/07/24 07:06 Temperature 36.5 C Temperature Source Oral Pulse Rate 114 H Pulse Rate [Apical] 113 H Pulse Rhythm Regular Pulse Strength Normal Respiratory Rate 22 18 Respiratory Effort / Characteristics Non-Labored Non-Labored Spontaneous Respiratory Depth Normal Normal Respiratory Pattern Regular Blood Pressure 220/90 H Blood Pressure [Left Arm] 160/113 H Blood Pressure Mean 133 Blood Pressure Mean [Left Arm] 128 Blood Pressure Position Sitting Pulse Oximetry 96 98 Oxygen Delivery Method Room Air Sepsis Recent Fever Within 48 Hours No Sepsis New/Unexplained Change in Mental Status N/A Sepsis Action Taken by Nursing No Action Required 01/07/24 08:45 01/07/24 09:05 Temperature Temperature Source Pulse Rate 115 H Pulse Rate [Apical] 96 H Pulse Rhythm Pulse Strength Respiratory Rate 18 Respiratory Effort / Characteristics Respiratory Depth Respiratory Pattern Blood Pressure 198/103 H Blood Pressure [Left Arm] 198/103 H Blood Pressure Mean Blood Pressure Mean [Left Arm] 134 Blood Pressure Position Pulse Oximetry 96 Oxygen Delivery Method Sepsis Recent Fever Within 48 Hours Sepsis New/Unexplained Change in Mental Status Sepsis Action Taken by Skilled Nursing Medications Current Medication List: was personally reviewed by me Laboratory Data Attestation: I reviewed the patient's lab results. 01/07/24 07:15 01/07/24 07:15 Lab Results 01/07/24 01/07/24 Range/Units 07:15 08:55 WBC 11.84 H (4.8-10.8) K/ul RBC 3.61 L (4.70-6.10) M/uL Hgb 10.8 L (14.0-18.0) g/dl Hct 32.1 L (42.0-52.0) % MCV 88.9 (80.0-100.0) fL MCH 29.9 (25.0-34.0) pg MCHC 33.6 (32.0-36.0) g/dL RDW Std Deviation 41.4 (36.4-46.3) fL RDW Coeff of Erich 12.8 (11.5-14.5) % Plt Count 211 (130-400) K/uL MPV 10.2 (9.4-12.4) fL Immature Gran % (Auto) 0.8 % Neut % (Auto) 80.2 % Lymph % (Auto) 6.1 % [place] % (Auto) 12.8 % Eos % (Auto) 0.0 % Baso % (Auto) 0.1 % Neut # (Auto) 9.50 H (1.40-6.50) K/uL Lymph # (Auto) 0.72 L (1.20-3.40) K/uL [place] # (Auto) 1.52 H (0.11-0.59) K/uL Eos # (Auto) 0.00 (0.00-0.50) K/uL Baso # (Auto) 0.01 (0.00-0.20) K/uL Immature Gran # (Auto) 0.09 (0.01-0.20) K/uL ESR 79 H (0-20) mm/hr Sodium 130 L (136-145) mmol/L Potassium 4.6 (3.5-5.1) mmol/L Chloride 101 (98-107) mmol/L Carbon Dioxide 17 L (21-32) mmol/L Anion Gap 12 H (3-11) BUN 28 H (6-23) mg/dl Creatinine 1.16 (0.6-1.4) mg/dl Est Cr Clr Drug Dosing 80.0 ml/min Est GFR ( Amer) 81.7 ml/min Est GFR (Non-Af Amer) 70.5 ml/min BUN/Creatinine Ratio 24.1 H (10-20) Glucose 510 H* (70-99(Fasting)) mg/dl Estimat Average Glucose 177 mg/dl Hemoglobin A1c 7.8 H (4.5-5.6) % Lactate 1.6 (0.4-2.0) mmol/L Uric Acid 8.8 H (2.6-7.2) mg/dl Calcium 9.1 (8.6-10.3) mg/dl C-Reactive Protein 3.79 H (0-0.5) mg/dl Administered Medications Sodium Chloride (Nss) 500 mls @ 125 mls/hr IV .Q4H CODEY Stop: 02/06/24 08:59 Last Admin: 01/07/24 13:09 Dose: 125 mls/hr Documented By: Infusion: 01/07/24 13:09 Dose: Infused Documented By: Admin: 01/07/24 09:19 Dose: 125 mls/hr Documented By: PORTER Ketorolac Tromethamine (Ketorolac Tromethamine 15 Mg/Ml Vial) 15 mg IV Q6H PRN PRN Reason: Pain Stop: 01/12/24 12:35 Last Admin: 01/07/24 13:02 Dose: 15 mg Documented By: NEYDA Discontinued Medications Hydralazine HCl (Hydralazine Hcl 20 Mg/Ml Vial) 10 mg IV NOW STA Stop: 01/07/24 11:01 Last Admin: 01/07/24 11:21 Dose: 10 mg Documented By: CRISTINA Ceftriaxone Sodium (Rocephin) 2,000 mg in 50 mls @ 100 mls/hr IV NOW STA Stop: 01/07/24 07:54 Last Infusion: 01/07/24 08:09 Dose: Infused Documented By: Admin: 01/07/24 07:39 Dose: 100 mls/hr Documented By: PORTER Sodium Chloride (Nss) 1,000 mls @ 999 mls/hr IV .Q1H1M ONE Stop: 01/07/24 11:13 Last Infusion: 01/07/24 12:40 Dose: Infused Documented By: Admin: 01/07/24 11:28 Dose: 999 mls/hr Documented By: CRISTINA Acetaminophen (Ofirmev) 1,000 mg in 100 mls @ 400 mls/hr IV NOW STA Stop: 01/07/24 11:13 Last Infusion: 01/07/24 12:40 Dose: Infused Documented By: Admin: 01/07/24 11:21 Dose: 400 mls/hr Documented By: CRISTINA Insulin Human Regular (Novolin-R Insulin Per Unit Charge) 10 units IV NOW STA Stop: 01/07/24 08:55 Last Admin: 01/07/24 09:05 Dose: 10 units Documented By: PORTER Co-signed By: ROSEY Ketorolac Tromethamine (Ketorolac Tromethamine 15 Mg/Ml Vial) 15 mg IV NOW STA Stop: 01/07/24 11:00 Last Admin: 01/07/24 11:21 Dose: 15 mg Documented By: CRISTINA Labetalol HCl (Labetalol Hcl Iv 5 Mg/Ml 20ml) 10 mg IV NOW STA Stop: 01/07/24 08:53 Last Admin: 01/07/24 09:05 Dose: 10 mg Documented By: PORTER Co-signed By: ROSEY Imaging Data Attestation: I personally reviewed and interpreted this imaging study as follows: Radiologist's Impression: Foot X-Ray 01/07/24 07:25 XR foot LT min 3V routine CLINICAL HISTORY: Left foot cellulitis. COMPARISON: None FINDINGS: Alignment of the left foot is anatomic. Tarsometatarsal joints are intact. There is no fracture within the left foot. No bony erosion is identified. Dorsal foot soft tissue swelling is present. IMPRESSION: 1. No fractures within the left foot. No evidence for osteomyelitis. 2. Left foot dorsal soft tissue swelling. ACT 112: Negative or not required by law. Electronically signed by: Adryan Lynn M.D. 01/07/2024 7:57 AM Discharge Plan Visit Data Chief Complaint: Foot Injury/Pain Stated Complaint: LEFT FOOT SWOLLEN ED Provider: Reba Sawant ED Midlevel Provider: Starr Muller Discharge Problem: Cellulitis of foot, left, Hypertension, Hyperglycemia Patient Disposition: Being Evaluated by Hospitalist Discharge Instructions Interventions: ED Discharge Assessment Last Done: 01/07/24 11:49
[2024-01-07] MEDS: cefTRIAXone SODIUM 2,000 MG/50 ML BAG IV STA (07:39)
[2024-01-07 07:55] LABS: Basophils # (auto) 0.01 K/uL (0.00-0.20); Basophils % (auto) 0.1 %; Hematocrit (blood only) 32.1 % (42.0-52.0); Hemoglobin 10.8 g/dl (14.0-18.0); Immature Granulocytes # (auto) 0.09 K/uL (0.01-0.20); Immature Granulocytes % (auto) 0.8 %; Lymphocytes # (auto) 0.72 K/uL (1.20-3.40); Lymphocytes % (auto) 6.1 %; Mean Corpuscular Hemoglobin 29.9 pg (25.0-34.0); Mean Corpuscular Hgb Conc 33.6 g/dL (32.0-36.0); Mean Corpuscular Volume 88.9 fL (80.0-100.0); Mean Platelet Volume 10.2 fL (9.4-12.4); Monocytes # (auto) 1.52 K/uL (0.11-0.59); Monocytes % (auto) 12.8 %; Neutrophils % (auto) 80.2 %; Platelet Count 211 K/uL (130-400); RDW Coefficient of Variation 12.8 % (11.5-14.5); RDW Standard Deviation 41.4 fL (36.4-46.3); Red Blood Count 3.61 M/uL (4.70-6.10); White Blood Count 11.84 K/ul (4.8-10.8)
--- NOTE | 2024-01-07 07:58 | XRay Report ---
XR foot LT min 3V routine CLINICAL HISTORY: Left foot cellulitis. COMPARISON: None FINDINGS: Alignment of the left foot is anatomic. Tarsometatarsal joints are intact. There is no fra cture within the left foot. No bony erosion is identified. Dorsal foot soft tissue swelling is presen t. IMPRESSION: 1. No fractures within the left foot. No evidence for osteomyelitis. 2. Left foot dorsal soft tissue swelling. ACT 112: Negative or not required by law. Electronically signed by: Adryan Lynn M.D. 01/07/2024 7:57 AM
[2024-01-07 08:19] LABS: Calcium 9.1 mg/dl (8.6-10.3); Potassium 4.6 mmol/L (3.5-5.1)
[2024-01-07 08:31] LABS: BUN Creatinine Ratio 24.1 (10-20); C Reactive Protein 3.79 mg/dl (0-0.5); Est GFR (African American) 81.7 ml/min; Est GFR (Non-African American) 70.5 ml/min; Uric Acid 8.8 mg/dl (2.6-7.2)
[2024-01-07] MEDS: LABETALOL HCL IV 5 MG/ML 20ML IV STA (09:05)
[2024-01-07] MEDS: NovoLIN-R INSULIN PER UNIT CHARGE IV STA (09:05)
[2024-01-07] MEDS: SODIUM CHLORIDE 0.9% 500 ML IV SCH (09:19)
--- NOTE | 2024-01-07 10:27 | History & Physical Report ---
Date of Service January 07, 2024 Assessment & Plan (1) Cellulitis of foot, left: Plan: Area marked, comparison pictures in H&P Ceftriaxone 2g IV daily Elevate left lower extremity Follow up blood cultures MRSA nares pending however would favor holding off MRSA coverage and observation on ceftriaxone alone as despite meeting sepsis criteria appears generally well without fever (2) Sepsis: Plan: Technically meets SIRS criteria with heart rate and WBC Lactate WNL and not hypotensive therefore no need for 30cc/kg fluid bolus BUN increased and hyperglycemic therefore will give NSS 1L bolus now and encourage oral intake (3) Hyperglycemia: Plan: Steroid induced hyperglycemia, suspect with underlying undiagnosed diabetes Add HbA1C to decide on longer term treatment Novolog: --Goal BSG Range: Low 140 mg/dL, High 180 mg/dL --Correction Factor: 45 mg/dL/unit --Carbohydrate ratio = 15 g/unit --BSGs ACHS if eating, q6h if npo Pending serial POC glucose may need basal dosing (4) Hypertension: Plan: Continue amlodipine, telmisartan, HCTZ Suspect hypertensive urgency somewhat induced by steroids and stress therefore will add hydralazine 10mg as needed for sBP > 200 or dBP > 120 (5) Hyperlipidemia: Plan: Continue atorvastatin (6) GERD (gastroesophageal reflux disease): Plan: Continue pantoprazole 40mg PO BID (7) Hypertensive urgency: Plan VTE Prophylaxis - Lovenox 40mg SQ daily Diet - regular Disposition - admit to med/surg Admission and Anticipated Discharge Date Admission Date: January 07, 2024 History of Present Illness Chief Complaint: Left foot swelling Primary Care Provider: Charly Marcano MD Eliezer Cunningham is a 53 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 Symptoms started on Wednesday 5 days ago in his ankle with pain. Progressed to erythema and swelling and he felt he had gout/pseudogout therefore had a depo-medrol injection in the office on Wednesday followed by a Medrol Dosepak. His symptoms continued to get worse therefore decided to come to the ER today. No fever or chills. Allergies Allergy/AdvReac Type Severity Reaction Status Date / Time No Known Allergies Allergy Unknown Verified 05/11/22 07:58 Home Medications Medication Instructions Recorded Confirmed Type albuterol sulfate 90 mcg/actuation 2 puff inhalation Q6H PRN 02/01/19 01/07/24 History aerosol inhaler Shortness Of Breath Or Wheezing tadalafil 5 mg tablet See Rx Instructions .Route 01/29/23 01/07/24 Rx .COMPLEX #30 tabs pantoprazole 40 mg tablet,delayed 40 mg PO BID #180 tabs 03/10/23 01/07/24 Rx release (Protonix) telmisartan 80 See Rx Instructions .Route 11/15/23 01/07/24 Rx mg-hydrochlorothiazide 25 mg tablet .COMPLEX #90 tabs dextroamphetamine-amphetamine ER 20 mg PO QAM #45 caps 12/16/23 01/07/24 Rx 20 mg 24hr capsule,extend release methylprednisolone 4 mg tablets in 4 mg PO .COMPLEX #21 ea 01/05/24 01/07/24 Rx a dose pack (Medrol (Ravindra)) amlodipine 5 mg tablet 5 mg PO DAILY 01/07/24 01/07/24 History atorvastatin 40 mg tablet 40 mg PO QAM 01/07/24 01/07/24 History tirzepatide 2.5 mg/0.5 mL 2.5 mg (0.5 mL) subcut .COMPLEX #2 01/07/24 Rx subcutaneous pen injector mL (Mounjaro) Past Med/Surg History Medical History Spinal stenosis Osteoarthritis BPH (benign prostatic hyperplasia) Attention deficit disorder (ADD) Colon perforation hx Dyslipidemia GERD (gastroesophageal reflux disease) Asthma well controlled rare inh use HTN (hypertension) Chronic back pain Surgical History Hx of vasectomy History of colonoscopy x2 History of tooth extraction History of partial colectomy Hx of elbow surgery left Fusion of spine c5 c6 c7> rom WNL Social History Smoking Status: Never smoker Second Hand Exposure: No; Do You Dip or Chew Tobacco: No; Hx Alcohol Use: Yes Alcohol type: beer, wine and hard liquor Hx Substance Use: No Preferred Language: Croatian Communication Ability: Effective Sustainability Officer Required: No Beliefs That Will Affect Care: None marital status: Current Living Situation: Spouse Feels Safe at Home: No Is there a partner from a previous relationship who is making you feel unsafe now?: No Assistive Devices: None Review of Systems 2 Review of Systems: All systems reviewed & are unremarkable except as noted in HPI & below Physical Exam 2 Constitutional: WD/WN, vitals as above Eyes: + anicteric sclerae; normal pupil size ENMT: Mouth: oral mucous membranes not dry Respiratory: normal respiratory effort, lungs clear to auscultation Cardiovascular: RRR, no murmur, no edema Vessels: posterior tibial pulses present (left) and dorsalis pedis pulses present (left) Gastrointestinal (Abdomen): normal bowel sounds, soft, nontender, no hepatosplenomegaly Skin: Erythema and swelling of left lateral foot extending from ankle to toes as per picture above Neurologic: moves all extremities and awake; not confused Psychiatric: A+Ox3, euthymic affect Results & Data Results & Data Vital Signs (Past 12 Hours) Vital Signs Temp Pulse Pulse Resp BP BP Pulse Ox 01/07/24 09:05 115 H 198/103 H 01/07/24 08:45 96 H 18 198/103 H 96 01/07/24 07:06 113 H 18 160/113 H 98 01/07/24 06:26 36.5 C 114 H 22 220/90 H 96 O2 Del Method 01/07/24 09:05 01/07/24 08:45 01/07/24 07:06 01/07/24 06:26 Room Air Laboratory Results Abnormal lab results 01/07/24 01/07/24 Range/Units 07:15 10:30 WBC 11.84 H (4.8-10.8) K/ul RBC 3.61 L (4.70-6.10) M/uL Hgb 10.8 L (14.0-18.0) g/dl Hct 32.1 L (42.0-52.0) % Neut # (Auto) 9.50 H (1.40-6.50) K/uL Lymph # (Auto) 0.72 L (1.20-3.40) K/uL [place] # (Auto) 1.52 H (0.11-0.59) K/uL ESR 79 H (0-20) mm/hr Sodium 130 L (136-145) mmol/L Carbon Dioxide 17 L (21-32) mmol/L Anion Gap 12 H (3-11) BUN 28 H (6-23) mg/dl BUN/Creatinine Ratio 24.1 H (10-20) Glucose 510 H* (70-99(Fasting)) mg/dl POC Glucose 320 H* (70-99) mg/dl Uric Acid 8.8 H (2.6-7.2) mg/dl C-Reactive Protein 3.79 H (0-0.5) mg/dl Diagnostic Findings XR foot LT min 3V routine CLINICAL HISTORY: Left foot cellulitis. COMPARISON: None FINDINGS: Alignment of the left foot is anatomic. Tarsometatarsal joints are intact. There is no fracture within the left foot. No bony erosion is identified. Dorsal foot soft tissue swelling is present. IMPRESSION: 1. No fractures within the left foot. No evidence for osteomyelitis. 2. Left foot dorsal soft tissue swelling. Medications Administered ER Medications Given: Ceftriaxone 2000mg IV Labetalol 10mg IV Insulin 10 units IV Normal saline @ 125ml/hr ECG Additional Comments: pending at time of admission Code Status & VTE Plan Code Status Full VTE Prophylaxis Plan VTE Prophylaxis will be ordered: Yes PG Care Time/CCT Total # of Minutes Spent Total Time Spent with Patient: Total time spent is greater than 50% in coordination of care (as documented) at patient's floor/unit and/or counseling patient: Coding Level of Care Code 60282 INT INP/OBS CARE 375MIN Diagnoses Cellulitis of foot, left L03.116 Sepsis A41.9 Hyperglycemia R73.9 Hypertension I10 Hyperlipidemia E78.5 GERD (gastroesophageal reflux disease) K21.9 Hypertensive urgency I16.0
[2024-01-07 11:10] LABS: Estimated Average Glucose 177 mg/dl; Hemoglobin A1C 7.8 % (4.5-5.6)
[2024-01-07] MEDS: KETOROLAC TROMETHAMINE 15 MG/ML VIAL IV STA (11:21)
[2024-01-07] MEDS: hydrALAZINE HCL 20 MG/ML VIAL IV STA (11:21)
[2024-01-07] MEDS: ACETAMINOPHEN 1,000 MG/100 ML VIAL IV STA (11:21)
[2024-01-07] MEDS: SODIUM CHLORIDE 0.9% 1,000 ML IV ONE (11:28)
--- NOTE | 2024-01-07 12:11 | Electrocardiogram Report ---
Test Reason : Blood Pressure : / mmHG Vent. Rate : 098 BPM Atrial Rate : 098 BPM P-R Int : 140 ms QRS Dur : 096 ms QT Int : 344 ms P-R-T Axes : 046 049 048 degrees QTc Int : 439 ms Normal sinus rhythm Possible Left atrial enlargement Minimal voltage criteria for LVH, may be normal variant Borderline ECG When compared with ECG of 15-APR-2020 09:53, Premature supraventricular complexes are no longer Present Confirmed by Charly Reynoso ([id number]) on 01/07/2024 12:11:09 PM Referred By: Devyn Marcano Confirmed By:Devyn Reynoso
[2024-01-07] MEDS ORDERED: DEXTROSE 50% 50 ML SYRINGE IV PRN (12:36)
[2024-01-07] MEDS ORDERED: GLUCOSE 40% GEL 15 GM TUBE PO PRN (12:36)
[2024-01-07] MEDS ORDERED: CARBOHYDRATES FOR HYPOGLYCEMIA PO PRN (12:36)
[2024-01-07] MEDS ORDERED: hydrALAZINE HCL 20 MG/ML VIAL IV PRN (12:36)
[2024-01-07] MEDS ORDERED: GLUCAGON FOR INJ 1 MG VIAL SQ PRN (12:36)
[2024-01-07] MEDS ORDERED: GLUCOSE 10 TAB/TUBE PO PRN (12:36)
[2024-01-07] MEDS: KETOROLAC TROMETHAMINE 15 MG/ML VIAL IV PRN (13:02)
[2024-01-07] MEDS: INSULIN ASPART PER UNIT CHARGE SC SCH (13:44)
[2024-01-07] MEDS: LABETALOL HCL 100 MG TAB PO SCH (16:13)
[2024-01-07] MEDS: LANTUS PER UNIT CHARGE SQ ONE (17:09)
[2024-01-07] MEDS: ACETAMINOPHEN 325 MG TAB PO PRN (18:10)
[2024-01-07] MEDS: PANTOprazole 40 MG TAB PO SCH (21:05)
[2024-01-07] MEDS: ENOXAPARIN INJ 40 MG/0.4 ML SYR SQ SCH (21:05)
[2024-01-07] MEDS: oxyCODONE HCL IR 5 MG TAB (IMMEDIATE RELEASE) PO PRN (21:23)
[2024-01-08 05:56] LABS: Basophils # (auto) 0.02 K/uL (0.00-0.20); Basophils % (auto) 0.2 %; Eosinophils # (auto) 0.01 K/uL (0.00-0.50); Eosinophils % (auto) 0.1 %; Hematocrit (blood only) 31.4 % (42.0-52.0); Hemoglobin 10.5 g/dl (14.0-18.0); Immature Granulocytes # (auto) 0.08 K/uL (0.01-0.20); Immature Granulocytes % (auto) 0.8 %; Lymphocytes # (auto) 1.53 K/uL (1.20-3.40); Lymphocytes % (auto) 15.8 %; Mean Corpuscular Hemoglobin 29.8 pg (25.0-34.0); Mean Corpuscular Hgb Conc 33.4 g/dL (32.0-36.0); Mean Corpuscular Volume 89.2 fL (80.0-100.0); Mean Platelet Volume 10.1 fL (9.4-12.4); Monocytes # (auto) 1.21 K/uL (0.11-0.59); Monocytes % (auto) 12.5 %; Neutrophils # (auto) 6.83 K/uL (1.40-6.50); Neutrophils % (auto) 70.6 %; Platelet Count 207 K/uL (130-400); RDW Coefficient of Variation 12.7 % (11.5-14.5); RDW Standard Deviation 41.2 fL (36.4-46.3); Red Blood Count 3.52 M/uL (4.70-6.10); White Blood Count 9.68 K/ul (4.8-10.8)
[2024-01-08 06:05] LABS: BUN Creatinine Ratio 25.3 (10-20); Creatinine Clr Calc Pharmacy 110.3 ml/min; Est GFR (African American) 112.6 ml/min; Est GFR (Non-African American) 97.2 ml/min; Potassium 3.8 mmol/L (3.5-5.1)
[2024-01-08] MEDS: cefTRIAXone SODIUM 2,000 MG in DEXTROSE 5 % MINI-B 50 ML IV SCH (06:17)
--- NOTE | 2024-01-08 08:02 | Hospitalist Progress Note ---
Date of Service January 08, 2024 Assessment & Plan (1) Cellulitis of foot, left: Plan: 53yo male presented with LEFT foot/swelling/erythema, sx of ankle pain began Wednesday and felt possible gout/pseudogout and had depo-medrol injection in office on Wednesday followed by steroid dosepack w/ progression of symptoms and presentation to ER. Uric acid was elevated 8.8, CRP 3.79/ESR 79, procalcitonin 0.13 Area marked, comparison pictures in H&P Ceftriaxone 2g IV daily continued, consideration for MRSA coverage if not further improved on repeat exam. MRSA nares negative WBC trending down on repeat, monitor Blood cultures pending Pain control, elevation. Consideration for ortho consult if needed pending repeat exam/need for CT imaging if any worsened on repeat exam to evaluate for any abscess given recent steroid injection Monitor labs on repeat (2) Elevated uric acid in blood: Plan: concerns for initial presentation prior to steroid injection was gout however possible developed cellulitis following injection from trauma from injection in patient w/ underlying DM not on medications and hyperglycemia on admission No excessive red meat consumption, ?alcohol intake will have to inquire Is on HCTZ at baseline, will place on hold for AM as can worsen Avoid further steroids in setting of infection/cellulitis at this time Colchicine added given uric acid 8.8/concerns for underlying gout as initial presentation, possibly developed into cellulitis following injection given portal of entry and patient w/ underlying DM --> of note, patient not on medications at baseline for DM, prior A1c 5.8 in 2017 however recently 7.8 and to start Mounjaro per PCP Dr Marcano but has not yet started this medication Monitor response to colchicine Consideration for further imaging/ortho consult if needed as outlined above (3) Sepsis: Plan: w/ tachycardia/WBC on admission. No hypotension/lactic wnl need for sepsis resuscitation Was given 1L NSS bolus on admission for hyperglycemia, improved and monitoring WBC trending down, as above. f/u blood cultures (4) Hyperglycemia: Plan: Steroid induced hyperglycemia, suspect with underlying undiagnosed diabetes and A1c 7.8, consult placed for DM educator given not on treatment however recently discussion to start on MOunjaro to also assist with weight loss per pcp Dr Marcano per discussion but has not yet started this Likely benefit from adding metformin at dc and titration while starting treatment to obtain better control, especially given current infection Will tighten SSI while inpatient/avoid basal for now and monitor needs to prevent hypoglycemia given not on meds at home BSG 178, 184 most recently on POC, AM Glu 180 on chemistry (5) Hypertension: Plan: On amlodipine, telmisartan, HCTZ at baseline suspected HTN urgency induced by steroids and stress/pain, hydralazine added and started on labetalol Per supervising provider, changed labetalol to metoprolol 25mg PO BID and monitor response Already got AM amlodipine, HCTZ however placed amlodipine on hold given LE edema and HCTZ on hold as can worsen gout and will monitor Continue telmisartan/hospital formulary while inpatient BP 158/70, monitor (6) Hyperlipidemia: Plan: Continue atorvastatin (7) GERD (gastroesophageal reflux disease): Plan: Continue pantoprazole 40mg PO BID no increased sx reported (8) Hypertensive urgency: Plan: No CP/SOB reported at this time. --> labetalol changed to metoprolol, plan as outlined above Plan VTE Prophylaxis - Lovenox 40mg SQ daily while inpatient Diet - changed to DM II continued inpatient stay on IV abx/colchicine, if worse consider adding MRSA coverage/CT imaging to ensure no deeper infection Admission and Anticipated Discharge Date Admission Date: January 07, 2024 Supervising Physician Co-Signing Physician Notes The patient was not seen by me. The chart was reviewed. Case discussed with TAYLOR Thrasher. Agree with assessment and plan Subjective Evaluated this morning, resting in bed. Actually got some sleep last night for first night in a while with pain control, but still having discomfort w/ walking. His foot is still swollen/warm to the touch. Seen and discussed w/ supervising provider and will also cover for gout w/ colchicine. Discussed labetalol to switch to metoprolol for BP control but also could be in setting of pain and will monitor. Also discussed steroids being held off on due to hyperglycemia. He notes Dr Marcano starting him on Mounjaro and seeing how A1c does but that he has NOT started this yet. Discussed keeping on antibiotics but could consider discontinuing pending response to colchicine but do not feel overly convinced infection at this time but will monitor. No chest pain, shortness of breath, abdominal pain, nausea or vomiting. Questions/concerns addressed at this time. Physical Exam Physical Exam: General: 53yo male resting in bed, on the phone with upon entry, NAD, legs elevated in bed/pillow Head atraumatic, normocephalic, mmm, trachea midline Resp: even/unlabored, no w/c/r, on room air CV: RRR, no significant m/r/g, edema to LLE in region of cellulitis/gout, pulses present GI: +BS, slightly distended but nontender : no meredith MSK/Neuro/skin: LLE with erythema to his foot from medial ankle (site of steroid injection), slightly up from prior to his lower leg, splotchy in regions but not as erythematous as day prior based on pictures -still with significant warmth, +tendern ess to touch (quite tender but reports not as bad as it was/able to be touched) -no appreciable drainage/fluid collectio n at present time toes mobile, sensation intact Psych: AOx3, cooperative and pleasant with exam Results & Data Results & Data Vital Signs (Past 12 Hours) Vital Signs Temp Pulse Resp BP Pulse Ox O2 Del Method 01/07/24 23:54 36.8 C 103 H 18 160/78 H 97 Room Air 01/07/24 20:19 37.1 C 107 H 18 155/82 H 18 L Room Air Laboratory Results 01/08/24 01/08/24 01/08/24 Range/Units 11:47 07:40 05:23 WBC 9.68 (4.8-10.8) K/ul RBC 3.52 L (4.70-6.10) M/uL Hgb 10.5 L (14.0-18.0) g/dl Hct 31.4 L (42.0-52.0) % MCV 89.2 (80.0-100.0) fL MCH 29.8 (25.0-34.0) pg MCHC 33.4 (32.0-36.0) g/dL RDW Std Deviation 41.2 (36.4-46.3) fL RDW Coeff of Erich 12.7 (11.5-14.5) % Plt Count 207 (130-400) K/uL MPV 10.1 (9.4-12.4) fL Immature Gran % (Auto) 0.8 % Neut % (Auto) 70.6 % Lymph % (Auto) 15.8 % Pender % (Auto) 12.5 % Eos % (Auto) 0.1 % Baso % (Auto) 0.2 % Neut # (Auto) 6.83 H (1.40-6.50) K/uL Lymph # (Auto) 1.53 (1.20-3.40) K/uL Pender # (Auto) 1.21 H (0.11-0.59) K/uL Eos # (Auto) 0.01 (0.00-0.50) K/uL Baso # (Auto) 0.02 (0.00-0.20) K/uL Immature Gran # (Auto) 0.08 (0.01-0.20) K/uL Sodium 131 L (136-145) mmol/L Potassium 3.8 (3.5-5.1) mmol/L Chloride 100 (98-107) mmol/L Carbon Dioxide 20 L (21-32) mmol/L Anion Gap 11 (3-11) BUN 22 (6-23) mg/dl Creatinine 0.87 (0.6-1.4) mg/dl Est Cr Clr Drug Dosing 110.3 ml/min Est GFR ( Amer) 112.6 ml/min Est GFR (Non-Af Amer) 97.2 ml/min BUN/Creatinine Ratio 25.3 H (10-20) Glucose 180 H (70-99(Fasting)) mg/dl POC Glucose 178 H 184 H (70-99) mg/dl Calcium 9.0 (8.6-10.3) mg/dl Magnesium 1.8 (1.7-2.4) mg/dl TSH 0.843 (0.300-4.500) uIu/ml 01/07/24 01/07/24 Range/Units 20:54 16:37 WBC (4.8-10.8) K/ul RBC (4.70-6.10) M/uL Hgb (14.0-18.0) g/dl Hct (42.0-52.0) % MCV (80.0-100.0) fL MCH (25.0-34.0) pg MCHC (32.0-36.0) g/dL RDW Std Deviation (36.4-46.3) fL RDW Coeff of Erich (11.5-14.5) % Plt Count (130-400) K/uL MPV (9.4-12.4) fL Immature Gran % (Auto) % Neut % (Auto) % Lymph % (Auto) % Pender % (Auto) % Eos % (Auto) % Baso % (Auto) % Neut # (Auto) (1.40-6.50) K/uL Lymph # (Auto) (1.20-3.40) K/uL Pender # (Auto) (0.11-0.59) K/uL Eos # (Auto) (0.00-0.50) K/uL Baso # (Auto) (0.00-0.20) K/uL Immature Gran # (Auto) (0.01-0.20) K/uL Sodium (136-145) mmol/L Potassium (3.5-5.1) mmol/L Chloride (98-107) mmol/L Carbon Dioxide (21-32) mmol/L Anion Gap (3-11) BUN (6-23) mg/dl Creatinine (0.6-1.4) mg/dl Est Cr Clr Drug Dosing ml/min Est GFR ( Amer) ml/min Est GFR (Non-Af Amer) ml/min BUN/Creatinine Ratio (10-20) Glucose (70-99(Fasting)) mg/dl POC Glucose 171 H 241 H (70-99) mg/dl Calcium (8.6-10.3) mg/dl Magnesium (1.7-2.4) mg/dl TSH (0.300-4.500) uIu/ml PG Care Time/CCT Total # of Minutes Spent Total Time Spent with Patient: Total time spent is greater than 50% in coordination of care (as documented) at patient's floor/unit and/or counseling patient: Coding Level of Care Code 87775 SUB INP/OBS CARE 3/50MIN Diagnoses Cellulitis of foot, left L03.116 Elevated uric acid in blood E79.0 Sepsis A41.9 Hyperglycemia R73.9 Hypertension I10 Hyperlipidemia E78.5 GERD (gastroesophageal reflux disease) K21.9 Hypertensive urgency I16.0
[2024-01-08] MEDS: hydroCHLOROthiazide 25 MG TAB PO SCH (08:12)
[2024-01-08] MEDS: amLODIPine BESYLATE 5 MG TAB PO SCH (08:12)
[2024-01-08] MEDS: ATORVASTATIN 40 MG TAB PO SCH (08:12)
[2024-01-08] MEDS: LOSARTAN POTASSIUM 50 MG TAB PO SCH (08:12)
[2024-01-08 08:52] LABS: Magnesium 1.8 mg/dl (1.7-2.4)
[2024-01-08 09:07] LABS: Thyroid Stimulating Hormone 0.843 uIu/ml (0.300-4.500)
[2024-01-08] MEDS ORDERED: Nursing to Pharmacy Communication SCH (09:15)
[2024-01-08] MEDS: METOPROLOL TARTRATE 25 MG TAB PO SCH ×2 (09:16→20:47)
[2024-01-08] MEDS: COLCHICINE 0.6 MG TAB PO ONE (10:40)
[2024-01-08] MEDS: COLCHICINE 0.6 MG TAB PO SCH (14:04)
[2024-01-08] MEDS: OPTIRAY 320 100ml IV ONE (16:28)
--- NOTE | 2024-01-08 16:38 | Communication Note ---
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 Consult for ortho if needed. Will also consider switching Ceftriaxone to Cefepime given new dx DM/hypergl ycemia if needed but per discussion w/ supervising provider to hold off for now and monitor CT results
[2024-01-08] MEDS: DAPTOmycin 325 MG in SYRINGE 0 ML IV SCH (16:58)
--- NOTE | 2024-01-08 17:18 | CT Scan Report ---
CT ankle LT w con CLINICAL HISTORY: cellulitis, eval abscess/fluid, ?osteo COMPARISON STUDY: Left foot radiographs January 07, 2024. TECHNIQUE: Axial images of the left ankle were obtained following intravenous injection of 93 cc of O ptiray 320 IV. Sagittal and coronal reconstructions were viewed. Automated exposure control was utili zed for the study. A dose lowering technique was utilized adhering to the principles of ALARA. FINDINGS: Please note that the CT of the left foot will be important separately. Alignment of the lef t ankle is anatomic. There is no fracture within the left ankle. No bony erosions are identified. The re is extensive subcutaneous fluid of the left lower leg, ankle and foot. There is no soft tissue gas . No rim-enhancing fluid collection is identified to suggest an abscess. There are small tibiotalar a nd talonavicular joint effusions. There is associated synovial enhancement. No associated bony erosio n is present. IMPRESSION: 1. Extensive subcutaneous fluid of the left lower leg, ankle and foot. This favors cellulitis. No rim -enhancing fluid collection to suggest abscess. No soft tissue gas. 2. No bony erosions within the left ankle to suggest acute osteomyelitis. 3. Small tibiotalar and talonavicular joint effusions with synovial enhancement. Sterility of these e ffusions cannot be assessed by CT. ACT 112: Negative or not required by law. Electronically signed by: Adryan Lynn M.D. 01/08/2024 5:15 PM
[2024-01-08] MEDS ORDERED: hydrALAZINE HCL 20 MG/ML VIAL IV PRN (17:26)
--- NOTE | 2024-01-08 17:36 | CT Scan Report ---
LEFT FOOT CT WITH CONTRAST CLINICAL HISTORY: cellulitis, eval abscess/fluid, ?osteo COMPARISON STUDY: Left foot radiographs January 07, 2024. TECHNIQUE: Axial images of the left lower obtained following intravenous injection of 93 cc of Optira y 320 IV. Sagittal and coronal reconstructions were viewed. Automated exposure control was utilized f or the study. A dose lowering technique was utilized adhering to the principles of ALARA. FINDINGS: Alignment of the left foot is anatomic. There is no fracture within the left foot. No bony erosions are identified. Extensive dorsal left foot soft tissue swelling is noted. This involves the subcutaneous tissues and extensor tendons/musculature. No definite rim-enhancing fluid collection is identified. There is a 1.5 cm pocket of fluid within the subcutaneous tissues along the plantar aspec t of the left fifth metatarsal head on axial image 253 of 293. There is a small amount of fluid along the plantar aspect of the left fourth metatarsal head. Small tibiotalar and talonavicular joint effu sions with synovial enhancement are noted. No radiopaque foreign bodies are identified. IMPRESSION: 1. Extensive soft tissue swelling of the left foot, greater dorsally. This involves the subcutaneous tissues and the extensor tendon/musculature. This favors cellulitis. No soft tissue gas. 2. 1.5 cm pocket of fluid within the subcutaneous tissues along the plantar aspect of the left fifth metatarsal head. This may simply represent edema. However, phlegmon could appear similar. No definite rim-enhancing fluid collection to suggest abscess at this time. 3. Small tibiotalar and talonavicular joint effusions with synovial enhancement. Sterility cannot be assessed by CT. ACT 112: Negative or not required by law. Electronically signed by: Adryan Lynn M.D. 01/08/2024 5:33 PM
[2024-01-08] MEDS ORDERED: MoRPHine SULFATE 2 MG/ML CARP IV PRN (17:45)
[2024-01-08] MEDS: MoRPHine SULFATE 2 MG/ML CARP IV STA (18:03)
[2024-01-09 06:23] LABS: Basophils # (auto) 0.04 K/uL (0.00-0.20); Basophils % (auto) 0.4 %; Eosinophils # (auto) 0.04 K/uL (0.00-0.50); Eosinophils % (auto) 0.4 %; Hemoglobin 10.3 g/dl (14.0-18.0); Immature Granulocytes # (auto) 0.15 K/uL (0.01-0.20); Immature Granulocytes % (auto) 1.5 %; Lymphocytes # (auto) 1.64 K/uL (1.20-3.40); Lymphocytes % (auto) 16.6 %; Mean Corpuscular Hemoglobin 29.3 pg (25.0-34.0); Mean Corpuscular Hgb Conc 33.2 g/dL (32.0-36.0); Mean Corpuscular Volume 88.3 fL (80.0-100.0); Monocytes # (auto) 1.22 K/uL (0.11-0.59); Monocytes % (auto) 12.3 %; Neutrophils # (auto) 6.79 K/uL (1.40-6.50); Neutrophils % (auto) 68.8 %; Platelet Count 249 K/uL (130-400); RDW Coefficient of Variation 12.4 % (11.5-14.5); RDW Standard Deviation 39.7 fL (36.4-46.3); Red Blood Count 3.51 M/uL (4.70-6.10); White Blood Count 9.88 K/ul (4.8-10.8)
[2024-01-09 06:50] LABS: Albumin Globulin Ratio 0.9 (0.9-2); Albumin Level 3.6 gm/dl (3.4-5.0); BUN Creatinine Ratio 29.4 (10-20); Bilirubin,Total 0.5 mg/dl (0.2-1.0); Creatinine Clr Calc Pharmacy 94.1 ml/min; Est GFR (African American) 95.5 ml/min; Est GFR (Non-African American) 82.4 ml/min; Globulin 3.9 gm/dl (2.5-4.0); Magnesium 1.9 mg/dl (1.7-2.4); Potassium 3.6 mmol/L (3.5-5.1); Total Protein 7.5 gm/dl (6.0-8.3)
--- NOTE | 2024-01-09 07:49 | Hospitalist Progress Note ---
Date of Service January 09, 2024 Assessment & Plan (1) Cellulitis of foot, left: Plan: 53yo male presented with LEFT foot/swelling/erythema, sx of ankle pain began Wednesday and felt possible gout/pseudogout and had depo-medrol injection in office on Wednesday followed by steroid dosepack w/ progression of symptoms and presentation to ER. 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 MRSA nares negative WBC trending down on repeat, monitor Blood cultures pending Pain control, elevation. Consideration for ortho consult if needed pending repeat exam/need for CT imaging if any worsened on repeat exam to evaluate for any abscess given recent steroid injection 01/08 Imaging obtained for further evaluation given worsening erythema/pain/swelling up into his lower leg. Further investigation w/ patient w/ hx VRE in the past --> Daptomycin IV added, statin placed on hold. CK not elevated on check CT Foot/Ankle as below, no gas or magdy enhancing fluid collections however does note small effusion as well as possible phlegmon to his left fifth metatarsal head (edema vs phlegmon -- does have hx VRE/serratia in ) Ankle IMPRESSION: * 1. Extensive subcutaneous fluid of the left lower leg, ankle and foot. This favors cellulitis. No rim-enhancing fluid collection to suggest abscess. No soft tissue gas. * 2. No bony erosions within the left ankle to suggest acute osteomyelitis. * 3. Small tibiotalar and talonavicular joint effusions with synovial enhancement. Sterility of these effusions cannot be assessed by CT. Foot IMPRESSION: * 1. Extensive soft tissue swelling of the left foot, greater dorsally. This involves the subcutaneous tissues and the extensor tendon/musculature. This favors cellulitis. No soft tissue gas. * 2. 1.5 cm pocket of fluid within the subcutaneous tissues along the plantar aspect of the left fifth metatarsal head. This may simply represent edema. However, phlegmon could appear similar. No definite rim-enhancing fluid collection to suggest abscess at this time. * 3. Small tibiotalar and talonavicular joint effusions with synovial enhancement. Sterility cannot be assessed by CT. Orthopedics consulted, Dr Santa to see after his case today Continue Ceftriaxone/Daptomycin for now WBC wnl, afebrile Blood cultures NGTD Pain control, elevation RN to provide surgical shoe for comfort w/ ambulation w/ walker Continue colchicine for gout as well, defer on steroids at present time. Appreciate recs/assistance by orthopedics IVF x 1 L for anion gap, BSGs improved Continued inpatient stay, monitor labs in AM (2) Elevated uric acid in blood: Plan: concerns for initial presentation prior to steroid injection was gout however possible developed cellulitis following injection from trauma from injection in patient w/ underlying DM not on medications and hyperglycemia on admission -- HOWEVER, was IM injection to thigh, not to joint. No excessive red meat consumption, ?alcohol intake will have to inquire --> reports he does eat a lot of meat/high salt diet. Occasional spirit but not frequent. Will need to avoid for now Is on HCTZ at baseline -> placed on hold Holding off further steroids in setting infection/cellulitis/hyperglyecmia as below however ?if injection/aspiration for above w/ orthopedics. Can consider allopurinol outpt Colchicine started and continued for now (3) Sepsis: Plan: w/ tachycardia/WBC on admission. No hypotension/lactic wnl need for sepsis resuscitation Was given 1L NSS bolus on admission for hyperglycemia, improved and monitoring however anion gap today 13, bsgs improved. additional 1L IVF ordered and monitoring WBC trending down, as above. f/u blood cultures (4) Hyperglycemia: Plan: Steroid induced hyperglycemia, suspect with underlying undiagnosed diabetes and continued dose pack after injection A1c 7.8, consult placed for DM educator given not on treatment however recently discussion to start on MOunjaro to also assist with weight loss per pcp Dr Marcano per discussion but has not yet started this Likely benefit from adding metformin at dc and titration while starting treatment to obtain better control, especially given current infection Tightened SSI while inpatient/avoid basal for now and monitor needs to prevent hypoglycemia given not on meds at home BSGs improved/stable. AM glu improved 155 Consideration to start metformin at dc while beginning mounjaro, consider endo f/u if desired however wanting to hold off for now Is already on losartan for BP control as below Monitor (5) Hypertension: Plan: On amlodipine, telmisartan, HCTZ [employer] suspected HTN urgency induced by steroids and stress/pain, hydralazine added and started on labetalol Per supervising provider, changed labetalol to metoprolol 25mg PO BID and monitor response Discontinued amlodipine to prevent further LE edema, HCTZ placed on hold due to gout/can worsen hyperuricemia losartan substituted for telmisartan while inpatient Continue metoprolol 25mg PO BID, losartan 100mg. Hydralazine available as needed BP improved and stable 142/81 in setting of pain Low salt diet to be encouraged Monitor BP (6) Hyperlipidemia: Plan: Continued atorvastatin on admission however placed on hold while on Daptomycin for above CK wnl on check (7) GERD (gastroesophageal reflux disease): Plan: Continue pantoprazole 40mg PO BID no increased sx reported (8) Hypertensive urgency: Plan: No CP/SOB reported at this time. --> labetalol changed to metoprolol, plan as outlined above, BP improved/stable in setting of pain. No CP/SOB reported. Renal function stable Plan VTE Prophylaxis - Lovenox 40mg SQ daily while inpatient Diet - changed to DM II Continued inpatient stay Consideration for pseudomonal coverage if worsened however appears improved slightly on exam 01/08 Appreciate orthopedics consultation Admission and Anticipated Discharge Date Admission Date: January 07, 2024 Supervising Physician Co-Signing Physician Notes The patient was seen by me. The chart was reviewed. Case discussed with TAYLOR Thrasher. Agree with assessment and plan Subjective Evaluated this morning, believes the redness/swelling slightly improved. Less streaking/receding in markings since adding Daptomycin last evening given his history of VRE in the past. Still with significant pain with standing. Discussed will obtain surgical shoe for comfort with ambulation. He has been using the walker with assistance. Pain controlled with ordered medication. IVF x 1 bag, can stop after current bag. Discussed monitoring on current abx regimen but if any worsening need to consider adding coverage for pseudomonas given his DM. He believes the colchicine also helping, no significant diarrhea, passing lots of gas. Will continue such. Discussed last evening, who gave injection. He gave injection in the office to his upper thigh. Reports has done in the past with joint issues but does not do frequently. Not yet seen by Dr Santa but monitoring swelling to his lateral foot and joint.Does have some increased discomfort/most tenderness to his fifth metatarsal along lateral aspect of his foot. Continues with elevation. Discussed likely need to continue IV abx for another 24-48 hours and will await orthopedics consultation/evaluation. BPs much improved. No chest pain, shortness of breath, abd pain, nausea/vomiting. Wanting to hold off endocrinology f/u and discuss w/ Dr Marcano. Will consider, can be arranged at mt if agreeable. Questions/concerns addressed at this time. Physical Exam Physical Exam: General: 53yo male resting in bed, on the phone upon entry, appears more comfortable/NAD Head atraumatic, normocephalic, mmm, trachea midline Resp: even/unlabored, no w/c/r, on room air CV: RRR, no significant m/r/g, edema as below, no calf tenderness/pulses palpable GI: +BS throughout, +obese, slightly distended, but nontender : no meredith MSK/Neuro/skin: LLE erythema appears to be improved compared to day prior, within markings, less erythema up into his lower leg still with significant edema to lateral foot as well as ankle, no overt fluid collection but concerns on imaging +tenderness to touch, however able to remove socks with less discomfort for evaluation +edema, slightly improved but still ~2+ to foot/ankle toes mobile, sensation intact Psych: AOx3, cooperative and pleasant with exam Results & Data Results & Data Vital Signs (Past 12 Hours) Vital Signs Temp Pulse Resp BP Pulse Ox O2 Del Method 01/09/24 07:37 77 18 142/81 H 95 Room Air 01/08/24 20:45 37 C 94 H 18 159/92 H 96 Room Air Laboratory Results 01/09/24 01/09/24 01/09/24 Range/Units 11:32 07:34 05:39 WBC 9.88 (4.8-10.8) K/ul RBC 3.51 L (4.70-6.10) M/uL Hgb 10.3 L (14.0-18.0) g/dl Hct 31.0 L (42.0-52.0) % MCV 88.3 (80.0-100.0) fL MCH 29.3 (25.0-34.0) pg MCHC 33.2 (32.0-36.0) g/dL RDW Std Deviation 39.7 (36.4-46.3) fL RDW Coeff of Erich 12.4 (11.5-14.5) % Plt Count 249 (130-400) K/uL MPV 10.0 (9.4-12.4) fL Immature Gran % (Auto) 1.5 % Neut % (Auto) 68.8 % Lymph % (Auto) 16.6 % [place] % (Auto) 12.3 % Eos % (Auto) 0.4 % Baso % (Auto) 0.4 % Neut # (Auto) 6.79 H (1.40-6.50) K/uL Lymph # (Auto) 1.64 (1.20-3.40) K/uL [place] # (Auto) 1.22 H (0.11-0.59) K/uL Eos # (Auto) 0.04 (0.00-0.50) K/uL Baso # (Auto) 0.04 (0.00-0.20) K/uL Immature Gran # (Auto) 0.15 (0.01-0.20) K/uL Sodium 130 L (136-145) mmol/L Potassium 3.6 (3.5-5.1) mmol/L Chloride 99 (98-107) mmol/L Carbon Dioxide 19 L (21-32) mmol/L Anion Gap 12 H (3-11) BUN 30 H (6-23) mg/dl Creatinine 1.02 (0.6-1.4) mg/dl Est Cr Clr Drug Dosing 94.1 ml/min Est GFR ( Amer) 95.5 ml/min Est GFR (Non-Af Amer) 82.4 ml/min BUN/Creatinine Ratio 29.4 H (10-20) Glucose 155 H (70-99(Fasting)) mg/dl POC Glucose 161 H 157 H (70-99) mg/dl Calcium 9.0 (8.6-10.3) mg/dl Magnesium 1.9 (1.7-2.4) mg/dl Total Bilirubin 0.5 (0.2-1.0) mg/dl AST 46 H (13-39) U/L ALT 38 (7-52) U/L Alkaline Phosphatase 90 (34-104) U/L Total Creatine Kinase 54 (30-223) U/L Total Protein 7.5 (6.0-8.3) gm/dl Albumin 3.6 (3.4-5.0) gm/dl Globulin 3.9 (2.5-4.0) gm/dl Albumin/Globulin Ratio 0.9 (0.9-2) Prostate Specific Ag 0.193 (0-4) ng/ml 01/08/24 01/08/24 Range/Units 21:03 16:36 WBC (4.8-10.8) K/ul RBC (4.70-6.10) M/uL Hgb (14.0-18.0) g/dl Hct (42.0-52.0) % MCV (80.0-100.0) fL MCH (25.0-34.0) pg MCHC (32.0-36.0) g/dL RDW Std Deviation (36.4-46.3) fL RDW Coeff of Erich (11.5-14.5) % Plt Count (130-400) K/uL MPV (9.4-12.4) fL Immature Gran % (Auto) % Neut % (Auto) % Lymph % (Auto) % [place] % (Auto) % Eos % (Auto) % Baso % (Auto) % Neut # (Auto) (1.40-6.50) K/uL Lymph # (Auto) (1.20-3.40) K/uL [place] # (Auto) (0.11-0.59) K/uL Eos # (Auto) (0.00-0.50) K/uL Baso # (Auto) (0.00-0.20) K/uL Immature Gran # (Auto) (0.01-0.20) K/uL Sodium (136-145) mmol/L Potassium (3.5-5.1) mmol/L Chloride (98-107) mmol/L Carbon Dioxide (21-32) mmol/L Anion Gap (3-11) BUN (6-23) mg/dl Creatinine (0.6-1.4) mg/dl Est Cr Clr Drug Dosing ml/min Est GFR ( Amer) ml/min Est GFR (Non-Af Amer) ml/min BUN/Creatinine Ratio (10-20) Glucose (70-99(Fasting)) mg/dl POC Glucose 159 H 192 H (70-99) mg/dl Calcium (8.6-10.3) mg/dl Magnesium (1.7-2.4) mg/dl Total Bilirubin (0.2-1.0) mg/dl AST (13-39) U/L ALT (7-52) U/L Alkaline Phosphatase (34-104) U/L Total Creatine Kinase (30-223) U/L Total Protein (6.0-8.3) gm/dl Albumin (3.4-5.0) gm/dl Globulin (2.5-4.0) gm/dl Albumin/Globulin Ratio (0.9-2) Prostate Specific Ag (0-4) ng/ml Diagnostic Findings Ankle CT 01/08/24 16:02 CT ankle LT w con CLINICAL HISTORY: cellulitis, eval abscess/fluid, ?osteo COMPARISON STUDY: Left foot radiographs January 07, 2024. TECHNIQUE: Axial images of the left ankle were obtained following intravenous injection of 93 cc of Optiray 320 IV. Sagittal and coronal reconstructions were viewed. Automated exposure control was utilized for the study. A dose lowering technique was utilized adhering to the principles of ALARA. FINDINGS: Please note that the CT of the left foot will be important separately. Alignment of the left ankle is anatomic. There is no fracture within the left ankle. No bony erosions are identified. There is extensive subcutaneous fluid of the left lower leg, ankle and foot. There is no soft tissue gas. No rim- enhancing fluid collection is identified to suggest an abscess. There are small tibiotalar and talonavicular joint effusions. There is associated synovial enhancement. No associated bony erosion is present. IMPRESSION: 1. Extensive subcutaneous fluid of the left lower leg, ankle and foot. This favors cellulitis. No rim-enhancing fluid collection to suggest abscess. No soft tissue gas. 2. No bony erosions within the left ankle to suggest acute osteomyelitis. 3. Small tibiotalar and talonavicular joint effusions with synovial enhancement. Sterility of these effusions cannot be assessed by CT. ACT 112: Negative or not required by law. Electronically signed by: Adryan Lynn M.D. 01/08/2024 5:[address] 01/08/24 16:[address] WITH CONTRAST CLINICAL HISTORY: cellulitis, eval abscess/fluid, ?osteo COMPARISON STUDY: Left foot radiographs January 07, 2024. TECHNIQUE: Axial images of the left lower obtained following intravenous injection of 93 cc of Optiray 320 IV. Sagittal and coronal reconstructions were viewed. Automated exposure control was utilized for the study. A dose lowering technique was utilized adhering to the principles of ALARA. FINDINGS: Alignment of the left foot is anatomic. There is no fracture within the left foot. No bony erosions are identified. Extensive dorsal left foot soft tissue swelling is noted. This involves the subcutaneous tissues and extensor tendons/musculature. No definite rim-enhancing fluid collection is identified. There is a 1.5 cm pocket of fluid within the subcutaneous tissues along the plantar aspect of the left fifth metatarsal head on axial image 253 of 293. There is a small amount of fluid along the plantar aspect of the left fourth metatarsal head. Small tibiotalar and talonavicular joint effusions with synovial enhancement are noted. No radiopaque foreign bodies are identified. IMPRESSION: 1. Extensive soft tissue swelling of the left foot, greater dorsally. This involves the subcutaneous tissues and the extensor tendon/musculature. This favors cellulitis. No soft tissue gas. 2. 1.5 cm pocket of fluid within the subcutaneous tissues along the plantar aspect of the left fifth metatarsal head. This may simply represent edema. However, phlegmon could appear similar. No definite rim-enhancing fluid collection to suggest abscess at this time. 3. Small tibiotalar and talonavicular joint effusions with synovial enhancement. Sterility cannot be assessed by CT. ACT 112: Negative or not required by law. Electronically signed by: Adryan Lynn M.D. 01/08/2024 5:33 PM PG Care Time/CCT Total # of Minutes Spent Total Time Spent with Patient: Total time spent is greater than 50% in coordination of care (as documented) at patient's floor/unit and/or counseling patient: Coding Level of Care Code 92946 SUB INP/OBS CARE 3/50MIN Diagnoses Cellulitis of foot, left L03.116 Elevated uric acid in blood E79.0 Sepsis A41.9 Hyperglycemia R73.9 Hypertension I10 Hyperlipidemia E78.5 GERD (gastroesophageal reflux disease) K21.9 Hypertensive urgency I16.0
[2024-01-09] MEDS: SODIUM CHLORIDE 0.9% 500 ML IV SCH (08:14)
[2024-01-09] MEDS: MoRPHine SULFATE 2 MG/ML CARP IV PRN (08:15)
--- NOTE | 2024-01-09 12:47 | Orthopedic Consultation ---
Date of Consultation January 09, 2024 Assessment & Plan (1) Cellulitis of foot, left: Patient was seen in conjunction with Dr. Santa. Encouraged rest, ice if helpful and elevation. Will apply knee-high José Miguel stocking for compression. Encouraged toe and foot and ankle range of motion. He can weight-bear as tolerated without any assistive device. Will put a consult in for interventional radiology to consider an ultrasound-guided aspiration of multiple fluid areas. No evidence of abscess at this time and therefore no need for surgical intervention. Continue IV antibiotics. Continue colchicine. Will reevaluate in the a.m. Patient understands and agrees with the plan. All questions were answered today. Will continue to follow. Supervising Physician Co-Signing Physician Notes I, Dr. Santa, saw and examined the patient with my PA. I discussed the management with my PA. I reviewed my PAs note and agree with the documented findings and attest to completing the substantive portion of medical decision ma mee and plan of care I developed. History of Present Illness Reason for Consultation: Left foot redness, pain and swelling x 1 week Requesting Physician: Melba Santa MD Attending Physician: Cayetano Lewis MD History of Present Illness Patient is a pleasant 53-year-old male With a past medical history of hypertension, hyperglycemia, spinal stenosis, GERD, hyperlipidemia who was admitted to [facility] 2 days ago with increasing left foot pain, redness and swelling. He states on Wednesday he was folding laundry and doing his normal weekend chores with his . He was sitting in a chair and when he stood up he had immediate sharp pain in the left midfoot. He was able to ambulate but by the end of the day the pain became more uncomfortable. He was able to work on Wednesday and worked the entire week but throughout the week the foot become more painful, especially at the end of the day. On Wednesday he gave himself an IM injection of Depo-Medrol in the left calf. He states that he chose this area because he has a numb area there from previous back surgery and this is typically where he gives himself injections if necessary due to being less painful. He has never had a history of gout that he knows of. Denies any known injury. Denies any tick bite or bug bite of any kind. States that he has been afebrile but did experience some night sweats. He also started taking a Depo-Medrol pack midweek which did not significantly help with his discomfort. The foot continued to be more painful especially with weightbearing and at the end of his day. He did apply some ice which really did not seem to make a difference. He has been trying to keep it elevated. He presented to the hospital on Wednesday and was admitted. He is currently on ceftriaxone and daptomycin. Lab work showed an elevated white blood cell count, ESR, and CRP. He also had an elevated uric acid level. He was started on colchicine. He had a CT scan of his foot which showed cellulitis, no focal abscess, multiple fluid collections within the foot albeit small. At the base 1 at the base of the fifth metatarsal, the talar tibial joint and the talonavicular joint. Overall since his admission he does feel that it is less painful. The redness is slightly improved. He states is more tolerable to bear weight on. It still throbs through the night constantly and interrupts his sleep. Allergies Allergy/AdvReac Type Severity Reaction Status Date / Time No Known Allergies Allergy Unknown Verified 05/11/22 07:58 Home Medications Medication Instructions Recorded Confirmed Type albuterol sulfate 90 mcg/actuation 2 puff inhalation Q6H PRN 02/01/19 01/07/24 History aerosol inhaler Shortness Of Breath Or Wheezing tadalafil 5 mg tablet See Rx Instructions .Route 01/29/23 01/07/24 Rx .COMPLEX #30 tabs pantoprazole 40 mg tablet,delayed 40 mg PO BID #180 tabs 03/10/23 01/07/24 Rx release (Protonix) telmisartan 80 See Rx Instructions .Route 11/15/23 01/07/24 Rx mg-hydrochlorothiazide 25 mg tablet .COMPLEX #90 tabs dextroamphetamine-amphetamine ER 20 mg PO QAM #45 caps 12/16/23 01/07/24 Rx 20 mg 24hr capsule,extend release methylprednisolone 4 mg tablets in 4 mg PO .COMPLEX #21 ea 01/05/24 01/07/24 Rx a dose pack (Medrol (Ravindra)) amlodipine 5 mg tablet 5 mg PO DAILY 01/07/24 01/07/24 History atorvastatin 40 mg tablet 40 mg PO QAM 01/07/24 01/07/24 History tirzepatide 2.5 mg/0.5 mL 2.5 mg (0.5 mL) subcut .COMPLEX #2 01/07/24 Rx subcutaneous pen injector mL (Mounjaro) Patient History Medical History (Updated 01/08/24 @ 15:30 by Inge Vega PA-C) Spinal stenosis Osteoarthritis BPH (benign prostatic hyperplasia) Attention deficit disorder (ADD) Colon perforation hx Dyslipidemia GERD (gastroesophageal reflux disease) Asthma well controlled rare inh use HTN (hypertension) Chronic back pain Surgical History Hx of vasectomy History of colonoscopy x2 History of tooth extraction History of partial colectomy Hx of elbow surgery left Fusion of spine c5 c6 c7> rom WNL Social History Smoking Status: Never smoker Second Hand Exposure: No; Do You Dip or Chew Tobacco: No; Hx Alcohol Use: Yes Alcohol type: beer, wine and hard liquor Hx Substance Use: No Preferred Language: [place] Communication Ability: Effective Intensive Care Anaesthetist Required: No Beliefs That Will Affect Care: None marital status: Current Living Situation: Spouse Feels Safe at Home: No Is there a partner from a previous relationship who is making you feel unsafe now?: No Assistive Devices: None Review of Systems Review of Systems: As per HPI Physical Exam Musculoskeletal: Exam focused on his left lower extremity: There is erythema, warmth and edema of the left midfoot to toes. There is a outline of the erythema and the erythema has subsided about a centimeter circumferentially from the previous drawn line. Distal pulses are 1+. Tolerates full ankle range of motion. He has no ankle instability. Tenderness with palpation along the lateral aspect of the foot, the plantar surface of the fifth metatarsal and the midfoot. No skin blisters are present. No active drainage. The foot is warm. No evidence of fluctuance. No focal consolidations. Sensation of his left foot is normal except some diminished sensation with light touch on the lateral aspect of the foot. This apparently is chronic from previous back issues. Results & Data Vital Signs (Past 12 Hours) Vital Signs Pulse Resp BP Pulse Ox O2 Del Method 01/09/24 07:37 77 18 142/81 H 95 Room Air Laboratory Results 03/24/24 03/24/24 03/24/24 Range/Units 11:32 07:34 05:39 WBC 9.88 (4.8-10.8) K/ul RBC 3.51 L (4.70-6.10) M/uL Hgb 10.3 L (14.0-18.0) g/dl Hct 31.0 L (42.0-52.0) % MCV 88.3 (80.0-100.0) fL MCH 29.3 (25.0-34.0) pg MCHC 33.2 (32.0-36.0) g/dL RDW Std Deviation 39.7 (36.4-46.3) fL RDW Coeff of Erich 12.4 (11.5-14.5) % Plt Count 249 (130-400) K/uL MPV 10.0 (9.4-12.4) fL Immature Gran % (Auto) 1.5 % Neut % (Auto) 68.8 % Lymph % (Auto) 16.6 % [place] % (Auto) 12.3 % Eos % (Auto) 0.4 % Baso % (Auto) 0.4 % Neut # (Auto) 6.79 H (1.40-6.50) K/uL Lymph # (Auto) 1.64 (1.20-3.40) K/uL [place] # (Auto) 1.22 H (0.11-0.59) K/uL Eos # (Auto) 0.04 (0.00-0.50) K/uL Baso # (Auto) 0.04 (0.00-0.20) K/uL Immature Gran # (Auto) 0.15 (0.01-0.20) K/uL Sodium 130 L (136-145) mmol/L Potassium 3.6 (3.5-5.1) mmol/L Chloride 99 (98-107) mmol/L Carbon Dioxide 19 L (21-32) mmol/L Anion Gap 12 H (3-11) BUN 30 H (6-23) mg/dl Creatinine 1.02 (0.6-1.4) mg/dl Est Cr Clr Drug Dosing 94.1 ml/min Est GFR ( Amer) 95.5 ml/min Est GFR (Non-Af Amer) 82.4 ml/min BUN/Creatinine Ratio 29.4 H (10-20) Glucose 155 H (70-99(Fasting)) mg/dl POC Glucose 161 H 157 H (70-99) mg/dl Calcium 9.0 (8.6-10.3) mg/dl Magnesium 1.9 (1.7-2.4) mg/dl Total Bilirubin 0.5 (0.2-1.0) mg/dl AST 46 H (13-39) U/L ALT 38 (7-52) U/L Alkaline Phosphatase 90 (34-104) U/L Total Creatine Kinase 54 (30-223) U/L Total Protein 7.5 (6.0-8.3) gm/dl Albumin 3.6 (3.4-5.0) gm/dl Globulin 3.9 (2.5-4.0) gm/dl Albumin/Globulin Ratio 0.9 (0.9-2) Prostate Specific Ag 0.193 (0-4) ng/ml 01/08/24 01/08/24 Range/Units 21:03 16:36 WBC (4.8-10.8) K/ul RBC (4.70-6.10) M/uL Hgb (14.0-18.0) g/dl Hct (42.0-52.0) % MCV (80.0-100.0) fL MCH (25.0-34.0) pg MCHC (32.0-36.0) g/dL RDW Std Deviation (36.4-46.3) fL RDW Coeff of Erich (11.5-14.5) % Plt Count (130-400) K/uL MPV (9.4-12.4) fL Immature Gran % (Auto) % Neut % (Auto) % Lymph % (Auto) % [place] % (Auto) % Eos % (Auto) % Baso % (Auto) % Neut # (Auto) (1.40-6.50) K/uL Lymph # (Auto) (1.20-3.40) K/uL [place] # (Auto) (0.11-0.59) K/uL Eos # (Auto) (0.00-0.50) K/uL Baso # (Auto) (0.00-0.20) K/uL Immature Gran # (Auto) (0.01-0.20) K/uL Sodium (136-145) mmol/L Potassium (3.5-5.1) mmol/L Chloride (98-107) mmol/L Carbon Dioxide (21-32) mmol/L Anion Gap (3-11) BUN (6-23) mg/dl Creatinine (0.6-1.4) mg/dl Est Cr Clr Drug Dosing ml/min Est GFR ( Amer) ml/min Est GFR (Non-Af Amer) ml/min BUN/Creatinine Ratio (10-20) Glucose (70-99(Fasting)) mg/dl POC Glucose 159 H 192 H (70-99) mg/dl Calcium (8.6-10.3) mg/dl Magnesium (1.7-2.4) mg/dl Total Bilirubin (0.2-1.0) mg/dl AST (13-39) U/L ALT (7-52) U/L Alkaline Phosphatase (34-104) U/L Total Creatine Kinase (30-223) U/L Total Protein (6.0-8.3) gm/dl Albumin (3.4-5.0) gm/dl Globulin (2.5-4.0) gm/dl Albumin/Globulin Ratio (0.9-2) Prostate Specific Ag (0-4) ng/ml Microbiology 01/07/24 09:08 Aerobic Blood Culture - Preliminary Blood No growth in Aerobic bottle after 48 hours. Anaerobic Blood Culture - Preliminary No growth in Anaerobic bottle after 48 hours. 01/07/24 08:55 Aerobic Blood Culture - Preliminary Blood No growth in Aerobic bottle after 48 hours. Anaerobic Blood Culture - Preliminary No growth in Anaerobic bottle after 48 hours. Diagnostic Findings XR foot LT min 3V routine CLINICAL HISTORY: Left foot cellulitis. COMPARISON: None FINDINGS: Alignment of the left foot is anatomic. Tarsometatarsal joints are intact. There is no fracture within the left foot. No bony erosion is identified. Dorsal foot soft tissue swelling is present. IMPRESSION: 1. No fractures within the left foot. No evidence for osteomyelitis. 2. Left foot dorsal soft tissue swelling. CT ankle LT w con CLINICAL HISTORY: cellulitis, eval abscess/fluid, ?osteo COMPARISON STUDY: Left foot radiographs January 07, 2024. TECHNIQUE: Axial images of the left ankle were obtained following intravenous injection of 93 cc of Optiray 320 IV. Sagittal and coronal reconstructions were viewed. Automated exposure control was utilized for the study. A dose lowering technique was utilized adhering to the principles of ALARA. FINDINGS: Please note that the CT of the left foot will be important separately. Alignment of the left ankle is anatomic. There is no fracture within the left ankle. No bony erosions are identified. There is extensive subcutaneous fluid of the left lower leg, ankle and foot. There is no soft tissue gas. No rim- enhancing fluid collection is identified to suggest an abscess. There are small tibiotalar and talonavicular joint effusions. There is associated synovial enhancement. No associated bony erosion is present. IMPRESSION: 1. Extensive subcutaneous fluid of the left lower leg, ankle and foot. This favors cellulitis. No rim-enhancing fluid collection to suggest abscess. No soft tissue gas. 2. No bony erosions within the left ankle to suggest acute osteomyelitis. 3. Small tibiotalar and talonavicular joint effusions with synovial enhancement. Sterility of these effusions cannot be assessed by CT. LEFT FOOT CT WITH CONTRAST CLINICAL HISTORY: cellulitis, eval abscess/fluid, ?osteo COMPARISON STUDY: Left foot radiographs January 07, 2024. TECHNIQUE: Axial images of the left lower obtained following intravenous injection of 93 cc of Optiray 320 IV. Sagittal and coronal reconstructions were viewed. Automated exposure control was utilized for the study. A dose lowering technique was utilized adhering to the principles of ALARA. FINDINGS: Alignment of the left foot is anatomic. There is no fracture within the left foot. No bony erosions are identified. Extensive dorsal left foot soft tissue swelling is noted. This involves the subcutaneous tissues and extensor tendons/musculature. No definite rim-enhancing fluid collection is identified. There is a 1.5 cm pocket of fluid within the subcutaneous tissues along the plantar aspect of the left fifth metatarsal head on axial image 253 of [phone]. There is a small amount of fluid along the plantar aspect of the left fourth metatarsal head. Small tibiotalar and talonavicular joint effusions with synovial enhancement are noted. No radiopaque foreign bodies are identified. IMPRESSION: 1. Extensive soft tissue swelling of the left foot, greater dorsally. This involves the subcutaneous tissues and the extensor tendon/musculature. This favors cellulitis. No soft tissue gas. 2. 1.5 cm pocket of fluid within the subcutaneous tissues along the plantar aspect of the left fifth metatarsal head. This may simply represent edema. How ever, phlegmon could appear similar. No definite rim-enhancing fluid collection to suggest abscess at this time. 3. Small tibiotalar and talonavicular joint effusions with synovial enhancement. Sterility cannot be assessed by CT.
[2024-01-09] MEDS: GABAPENTIN 100 MG CAP PO ONE (17:07)
[2024-01-10 06:01] LABS: Basophils # (auto) 0.05 K/uL (0.00-0.20); Basophils % (auto) 0.5 %; Eosinophils # (auto) 0.15 K/uL (0.00-0.50); Eosinophils % (auto) 1.6 %; Hematocrit (blood only) 29.5 % (42.0-52.0); Hemoglobin 10.3 g/dl (14.0-18.0); Immature Granulocytes # (auto) 0.16 K/uL (0.01-0.20); Immature Granulocytes % (auto) 1.7 %; Lymphocytes # (auto) 1.56 K/uL (1.20-3.40); Lymphocytes % (auto) 16.2 %; Mean Corpuscular Hemoglobin 30.4 pg (25.0-34.0); Mean Corpuscular Hgb Conc 34.9 g/dL (32.0-36.0); Mean Platelet Volume 9.9 fL (9.4-12.4); Monocytes # (auto) 1.28 K/uL (0.11-0.59); Monocytes % (auto) 13.3 %; Neutrophils # (auto) 6.44 K/uL (1.40-6.50); Neutrophils % (auto) 66.7 %; Platelet Count 286 K/uL (130-400); RDW Coefficient of Variation 12.3 % (11.5-14.5); RDW Standard Deviation 39.6 fL (36.4-46.3); Red Blood Count 3.39 M/uL (4.70-6.10); White Blood Count 9.64 K/ul (4.8-10.8)
[2024-01-10 06:15] LABS: Albumin Globulin Ratio 0.9 (0.9-2); Albumin Level 3.6 gm/dl (3.4-5.0); BUN Creatinine Ratio 27.7 (10-20); Bilirubin,Total 0.4 mg/dl (0.2-1.0); C Reactive Protein 7.38 mg/dl (0-0.5); Calcium 9.1 mg/dl (8.6-10.3); Creatinine Clr Calc Pharmacy 102.1 ml/min; Est GFR (African American) 105.4 ml/min; Est GFR (Non-African American) 90.9 ml/min; Magnesium 1.9 mg/dl (1.7-2.4); Potassium 3.8 mmol/L (3.5-5.1); Total Protein 7.6 gm/dl (6.0-8.3)
--- NOTE | 2024-01-10 07:27 | Hospitalist Progress Note ---
Date of Service January 10, 2024 Assessment & Plan (1) Cellulitis of foot, left: Plan: 53yo male presented with LEFT foot/swelling/erythema, sx of ankle pain began Wednesday and felt possible gout/pseudogout and had depo-medrol injection in office on Wednesday followed by steroid dosepack w/ progression of symptoms and presentation to ER. 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 Sterility of these effusions cannot be assessed by CT. -1.5 cm pocket of fluid within the subcutaneous tissues along the plantar aspect of the left fifth metatarsal head. This may simply represent edema. However, phlegmon could appear similar. No definite rim-enhancing fluid collection to suggest abscess at this time. Ortho consulted, Dr Santa IR consulted for aspiration fluid collections 01/09 Improvement on exam however ESR unchanged, CRP worse 7.38 Pain control, ice, elevation s/p aspiration-- per discussion w/ provider, scant fluid aspirated. should be enough for cx and crystals. not simple fluid so hopefully will have more information Monitor labs/exam in AM (2) Elevated uric acid in blood: Plan: concerns for initial presentation prior to steroid injection was gout however possible developed cellulitis following injection from trauma from injection in patient w/ underlying DM not on medications and hyperglycemia on admission -- was IM injection to thigh, not to joint. Suspect some increased red meat consumption, should limit. -Also would avoid any alcohol although reports occasional spirit/no frequent intake. HCTZ at baseline placed on hold/discontinued for now Colchicine as above, continued. Monitor cxs from aspiration, orthopedics on consult Deferring any steroids given active cellulitis/hyperglycemia on admission Consideration for allopurinol as outpatient once over acute process (3) Sepsis: Plan: w/ tachycardia/WBC on admission. No hypotension/lactic wnl need for sepsis resuscitation protocol s/p 1L NSS bolus on admit for hyperglycemia and anion gap, resolved on repeat but slightly acidotic today and bicarb added as above and monitor Abx as outlined, blood cultures negative and s/p IR w/ aspiration fluid collections as above (4) Diabetes mellitus: Plan: A1c 7.8, new diagnosis was pre-DM in the past but had not had repeat labs/checked Hyperglycemic on admission 2nd to IM injection/steroid dose pack, Chuy in room delivered by DM educator Plans to start Vincenzo outpatient w/ Dr Marcano, also for weight loss BSG AC/HS, sliding scale insulin. much improved at present time and will monitor Is already on telmisartan at baseline for BP control which should be continued. B12 checked for neuropathy but reported from hx spinal stenosis. low normal b12 and PO supplementation started and would continue at dc (5) Hyperglycemia: Plan: hyperglycemic on admission in setting of recent IM steroid and continued medrol dose pack in patient not on medication at baseline. 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 No CP/SOB reported Changed labetalol to metoprolol 25mg BID, Discontinued further amlodipine/HCTZ due to LE edema and gout/hyperuricemia Losartan substituted for telmisartan while inpatient and continued given DM BPs improved/stable in setting of pain Hydralazine prn if needed Continue BB/ARB at dc, monitor for additional agent/adjustment as needed (7) Hyperlipidemia: Plan: Continued atorvastatin on admission however placed on hold while on Daptomycin for above CK wnl on check (8) GERD (gastroesophageal reflux disease): Plan: No increased sx reported Continue pantoprazole 40mg PO BID (9) Hypertensive urgency: Plan: No CP/SOB reported at this time. --> labetalol changed to metoprolol, plan as outlined above, BP improved/stable in setting of pain. No CP/SOB reported. Renal function stable (10) B12 deficiency: Plan: B12 265, low normal--> Will place on 1000mcg PO daily and would continue at dc Plan VTE Prophylaxis - Lovenox 40mg SQ daily while inpatient IR for aspiration as outlined, continue abx and monitor cultures. Orthopedics on consult and to follow. Admission and Anticipated Discharge Date Admission Date: January 07, 2024 Subjective Evaluated this morning, resting in bed. Ongoing pain to his foot but redness improved, slight improvement in edema but still present. Ongoing pain/throbbing and continuing current pain medications. Gabapentin ineffective. Continues abx. He had his R arm drained x 13 times at [place] in the past and will monitor w/ ortho to ensure no intervention. IR to perform aspiration this morning around 10:30 and will monitor cultures/adjustment of antibiotics as needed. He does note in the past he had been discharged on PO Linezolid for 6 weeks and could be considered if cultures showing VRE. 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 Moving his bowels but denies any significant diarrhea. Discussed bicarb to fluids given labs and monitoring of his blood sugars. Discussed last day on service and will ensure going to Dr Moser for tomorrow. No fever/chills, chest pain, shortness of breath. Continued inpatient stay. Physical Exam Physical Exam: General: 53yo male resting in bed, NAD, mild-moderate discomfort to his L foot however improved erythema, slightly improved edema Head atraumatic, normocephalic, mmm, trachea midline Resp: even/unlabored, no w/c/r, on room air CV: RRR, no significant m/r/g, edema as below, no calf tenderness/pulses palpable GI: +BS throughout, +obese, slightly distended, but nontender : no meredith MSK/Neuro/skin: LLE erythema appears to be improved compared to day prior, within markings, no further extension up his leg today -still with significant edema to lateral foot as well as ankle but decreased, no appreciable fluid collection but does have some increased swelling to his medial ankle today, less warmth, less tenderness 1-2+ pitting edema, pulses diminished du e to edema but present toes mobile, sensation intact but some baseline neuropathy reported from his hx lumbar stenosis baseline tremor (reported improved since beta justin therapy) Psych: AOx3, cooperative and pleasant with exam Results & Data Results & Data Vital Signs (Past 12 Hours) Vital Signs Temp Pulse Resp BP Pulse Ox O2 Del Method 01/10/24 07:29 36.8 C 82 16 146/78 H 97 Room Air 01/09/24 19:24 36.8 C 93 H 18 177/78 H 96 Room Air 01/09/24 15:42 36.5 C 92 H 18 173/84 H 97 Room Air Intake and Output 01/09/24 01/10/24 01/10/24 22:59 06:59 14:59 Intake Total 500 / 790 50 / 50 Balance 500 / 790 50 / 50 Intake: IV 500 / 550 50 / 50 Sodium Chloride 0.9% 500 ml @ 500 / 500 80 mls/hr IV .Q6H15M [facility] Rx#: [id number] cefTRIAXone SODIUM 2,000 mg In 50 / 50 Dextrose 5 % Mini-B 50 ml @ 100 mls/hr IV Q24H [facility] Rx#: [id number] Laboratory Results 01/10/24 01/10/24 01/10/24 Range/Units 11:56 07:31 05:25 WBC 9.64 (4.8-10.8) K/ul RBC 3.39 L (4.70-6.10) M/uL Hgb 10.3 L (14.0-18.0) g/dl Hct 29.5 L (42.0-52.0) % MCV 87.0 (80.0-100.0) fL MCH 30.4 (25.0-34.0) pg MCHC 34.9 (32.0-36.0) g/dL RDW Std Deviation 39.6 (36.4-46.3) fL RDW Coeff of Erich 12.3 (11.5-14.5) % Plt Count 286 (130-400) K/uL MPV 9.9 (9.4-12.4) fL Immature Gran % (Auto) 1.7 % Neut % (Auto) 66.7 % Lymph % (Auto) 16.2 % [place] % (Auto) 13.3 % Eos % (Auto) 1.6 % Baso % (Auto) 0.5 % Neut # (Auto) 6.44 (1.40-6.50) K/uL Lymph # (Auto) 1.56 (1.20-3.40) K/uL [place] # (Auto) 1.28 H (0.11-0.59) K/uL Eos # (Auto) 0.15 (0.00-0.50) K/uL Baso # (Auto) 0.05 (0.00-0.20) K/uL Immature Gran # (Auto) 0.16 (0.01-0.20) K/uL ESR 79 H (0-20) mm/hr Sodium 130 L (136-145) mmol/L Potassium 3.8 (3.5-5.1) mmol/L Chloride 101 (98-107) mmol/L Carbon Dioxide 17 L (21-32) mmol/L Anion Gap 12 H (3-11) BUN 26 H (6-23) mg/dl Creatinine 0.94 (0.6-1.4) mg/dl Est Cr Clr Drug Dosing 102.1 ml/min Est GFR ( Amer) 105.4 ml/min Est GFR (Non-Af Amer) 90.9 ml/min BUN/Creatinine Ratio 27.7 H (10-20) Glucose 155 H (70-99(Fasting)) mg/dl POC Glucose 146 H 155 H (70-99) mg/dl Calcium 9.1 (8.6-10.3) mg/dl Magnesium 1.9 (1.7-2.4) mg/dl Total Bilirubin 0.4 (0.2-1.0) mg/dl AST 50 H (13-39) U/L ALT 45 (7-52) U/L Alkaline Phosphatase 105 H (34-104) U/L C-Reactive Protein 7.38 H (0-0.5) mg/dl Total Protein 7.6 (6.0-8.3) gm/dl Albumin 3.6 (3.4-5.0) gm/dl Globulin 4.0 (2.5-4.0) gm/dl Albumin/Globulin Ratio 0.9 (0.9-2) Vitamin B12 265 (180-914) pg/ml 01/09/24 01/09/24 Range/Units 20:56 16:39 WBC (4.8-10.8) K/ul RBC (4.70-6.10) M/uL Hgb (14.0-18.0) g/dl Hct (42.0-52.0) % MCV (80.0-100.0) fL MCH (25.0-34.0) pg MCHC (32.0-36.0) g/dL RDW Std Deviation (36.4-46.3) fL RDW Coeff of Erich (11.5-14.5) % Plt Count (130-400) K/uL MPV (9.4-12.4) fL Immature Gran % (Auto) % Neut % (Auto) % Lymph % (Auto) % [place] % (Auto) % Eos % (Auto) % Baso % (Auto) % Neut # (Auto) (1.40-6.50) K/uL Lymph # (Auto) (1.20-3.40) K/uL [place] # (Auto) (0.11-0.59) K/uL Eos # (Auto) (0.00-0.50) K/uL Baso # (Auto) (0.00-0.20) K/uL Immature Gran # (Auto) (0.01-0.20) K/uL ESR (0-20) mm/hr Sodium (136-145) mmol/L Potassium (3.5-5.1) mmol/L Chloride (98-107) mmol/L Carbon Dioxide (21-32) mmol/L Anion Gap (3-11) BUN (6-23) mg/dl Creatinine (0.6-1.4) mg/dl Est Cr Clr Drug Dosing ml/min Est GFR ( Amer) ml/min Est GFR (Non-Af Amer) ml/min BUN/Creatinine Ratio (10-20) Glucose (70-99(Fasting)) mg/dl POC Glucose 154 H 151 H (70-99) mg/dl Calcium (8.6-10.3) mg/dl Magnesium (1.7-2.4) mg/dl Total Bilirubin (0.2-1.0) mg/dl AST (13-39) U/L ALT (7-52) U/L Alkaline Phosphatase (34-104) U/L C-Reactive Protein (0-0.5) mg/dl Total Protein (6.0-8.3) gm/dl Albumin (3.4-5.0) gm/dl Globulin (2.5-4.0) gm/dl Albumin/Globulin Ratio (0.9-2) Vitamin B12 (180-914) pg/ml PG Care Time/CCT Total # of Minutes Spent Total Time Spent with Patient: Total time spent is greater than 50% in coordination of care (as documented) at patient's floor/unit and/or counseling patient: Coding Level of Care Code 04746 SUB INP/OBS CARE 3/50MIN Diagnoses Cellulitis of foot, left L03.116 Elevated uric acid in blood E79.0 Sepsis A41.9 Diabetes mellitus E11.9 Hyperglycemia R73.9 Hypertension I10 Hyperlipidemia E78.5 GERD (gastroesophageal reflux disease) K21.9 Hypertensive urgency I16.0 B12 deficiency E53.8
[2024-01-10] MEDS ORDERED: SODIUM CHLORIDE 0.9% IV SCH (08:30)
[2024-01-10] MEDS ORDERED: SODIUM BICARBONATE IV SCH (08:30)
[2024-01-10] MEDS: SODIUM BICARBONATE 8.4% 150 MEQ in WATER, STERILE 1,000 ML IV SCH (09:03)
[2024-01-10] MEDS: CYANOCOBALAMIN (B-12) 500 MCG TABLET PO SCH (09:19)
--- NOTE | 2024-01-10 09:36 | Orthopedic Progress Note ---
Date of Service January 10, 2024 Assessment & Plan (1) Cellulitis of foot, left: Plan: Plan discussed with Dr. Santa. Continue with compression with José Miguel stocking, ice and elevation as needed. Pain control. Plan is for ultrasound-guided evaluation with possible aspiration of fluid pockets done by interventional radiology this morning. Will continue to follow those results. Continue with colchicine, antibiotics, DVT prophylaxis per medicine. WBAT Admission and Anticipated Discharge Date Admission Date: January 07, 2024 Subjective Patient seen and examined bedside this morning. He says that he is still having pain in his left foot/ankle. He believes the redness has slightly improved. He still has swelling. He says it is very painful to try to walk. Physical Exam Physical Exam: Erythema and swelling mostly unchanged from yesterday. Skin is warm. 2+ dorsal pedal pulses present. He is able to flex and extend all of his toes. He has limited range of motion with plantarflexion and dorsiflexion. Slight lateral diminished sensation which is at his baseline due to back issues. Results & Data Vital Signs (Past 12 Hours) Vital Signs Temp Pulse Resp BP Pulse Ox O2 Del Method 01/10/24 07:29 36.8 C 82 16 146/78 H 97 Room Air Laboratory Results 01/10/24 01/10/24 01/09/24 Range/Units 07:31 05:25 20:56 WBC 9.64 (4.8-10.8) K/ul RBC 3.39 L (4.70-6.10) M/uL Hgb 10.3 L (14.0-18.0) g/dl Hct 29.5 L (42.0-52.0) % MCV 87.0 (80.0-100.0) fL MCH 30.4 (25.0-34.0) pg MCHC 34.9 (32.0-36.0) g/dL RDW Std Deviation 39.6 (36.4-46.3) fL RDW Coeff of Erich 12.3 (11.5-14.5) % Plt Count 286 (130-400) K/uL MPV 9.9 (9.4-12.4) fL Immature Gran % (Auto) 1.7 % Neut % (Auto) 66.7 % Lymph % (Auto) 16.2 % [place] % (Auto) 13.3 % Eos % (Auto) 1.6 % Baso % (Auto) 0.5 % Neut # (Auto) 6.44 (1.40-6.50) K/uL Lymph # (Auto) 1.56 (1.20-3.40) K/uL [place] # (Auto) 1.28 H (0.11-0.59) K/uL Eos # (Auto) 0.15 (0.00-0.50) K/uL Baso # (Auto) 0.05 (0.00-0.20) K/uL Immature Gran # (Auto) 0.16 (0.01-0.20) K/uL ESR 79 H (0-20) mm/hr Sodium 130 L (136-145) mmol/L Potassium 3.8 (3.5-5.1) mmol/L Chloride 101 (98-107) mmol/L Carbon Dioxide 17 L (21-32) mmol/L Anion Gap 12 H (3-11) BUN 26 H (6-23) mg/dl Creatinine 0.94 (0.6-1.4) mg/dl Est Cr Clr Drug Dosing 102.1 ml/min Est GFR ( Amer) 105.4 ml/min Est GFR (Non-Af Amer) 90.9 ml/min BUN/Creatinine Ratio 27.7 H (10-20) Glucose 155 H (70-99(Fasting)) mg/dl POC Glucose 155 H 154 H (70-99) mg/dl Calcium 9.1 (8.6-10.3) mg/dl Magnesium 1.9 (1.7-2.4) mg/dl Total Bilirubin 0.4 (0.2-1.0) mg/dl AST 50 H (13-39) U/L ALT 45 (7-52) U/L Alkaline Phosphatase 105 H (34-104) U/L C-Reactive Protein 7.38 H (0-0.5) mg/dl Total Protein 7.6 (6.0-8.3) gm/dl Albumin 3.6 (3.4-5.0) gm/dl Globulin 4.0 (2.5-4.0) gm/dl Albumin/Globulin Ratio 0.9 (0.9-2) Vitamin B12 265 (180-914) pg/ml 01/09/24 01/09/24 Range/Units 16:39 11:32 WBC (4.8-10.8) K/ul RBC (4.70-6.10) M/uL Hgb (14.0-18.0) g/dl Hct (42.0-52.0) % MCV (80.0-100.0) fL MCH (25.0-34.0) pg MCHC (32.0-36.0) g/dL RDW Std Deviation (36.4-46.3) fL RDW Coeff of Erich (11.5-14.5) % Plt Count (130-400) K/uL MPV (9.4-12.4) fL Immature Gran % (Auto) % Neut % (Auto) % Lymph % (Auto) % [place] % (Auto) % Eos % (Auto) % Baso % (Auto) % Neut # (Auto) (1.40-6.50) K/uL Lymph # (Auto) (1.20-3.40) K/uL [place] # (Auto) (0.11-0.59) K/uL Eos # (Auto) (0.00-0.50) K/uL Baso # (Auto) (0.00-0.20) K/uL Immature Gran # (Auto) (0.01-0.20) K/uL ESR (0-20) mm/hr Sodium (136-145) mmol/L Potassium (3.5-5.1) mmol/L Chloride (98-107) mmol/L Carbon Dioxide (21-32) mmol/L Anion Gap (3-11) BUN (6-23) mg/dl Creatinine (0.6-1.4) mg/dl Est Cr Clr Drug Dosing ml/min Est GFR ( Amer) ml/min Est GFR (Non-Af Amer) ml/min BUN/Creatinine Ratio (10-20) Glucose (70-99(Fasting)) mg/dl POC Glucose 151 H 161 H (70-99) mg/dl Calcium (8.6-10.3) mg/dl Magnesium (1.7-2.4) mg/dl Total Bilirubin (0.2-1.0) mg/dl AST (13-39) U/L ALT (7-52) U/L Alkaline Phosphatase (34-104) U/L C-Reactive Protein (0-0.5) mg/dl Total Protein (6.0-8.3) gm/dl Albumin (3.4-5.0) gm/dl Globulin (2.5-4.0) gm/dl Albumin/Globulin Ratio (0.9-2) Vitamin B12 (180-914) pg/ml
--- NOTE | 2024-01-10 16:10 | Ultrasound Report ---
ULTRASOUND-GUIDED LEFT ANKLE FLUID COLLECTION ASPIRATION CLINICAL HISTORY: Left ankle fluid collection with overlying cellulitis changes; evaluate for infecti on PROCEDURE: Procedure and risks were explained. Informed consent was obtained. A final timeout was com pleted. The left ankle was prepped and draped in sterile fashion. 1% buffered lidocaine was utilized for skin anesthesia. Utilizing ultrasound guidance, a 22-gauge and 20-gauge spinal needle was advanced into the left ankle complex fluid collection. Ultrasound images were obtained. A scant amount of fluid was aspirated on both attempts and sent to lab for analysis. The needle was removed and Band-Aid applied. The patient tolerated the procedure well. Vital signs will be monitored postprocedure. IMPRESSION: Ultrasound-guided left ankle fluid collection aspiration as above. Performed, dictated, and signed by Emil Samson PA-C; to be co-signed by Dr. Rolando Aviles. Electronically signed by: Rolando Aviles M.D. 01/10/2024 5:11 PM
[2024-01-11 06:19] LABS: Basophils # (auto) 0.05 K/uL (0.00-0.20); Basophils % (auto) 0.6 %; Eosinophils # (auto) 0.22 K/uL (0.00-0.50); Eosinophils % (auto) 2.6 %; Hematocrit (blood only) 30.9 % (42.0-52.0); Hemoglobin 10.5 g/dl (14.0-18.0); Immature Granulocytes % (auto) 2.4 %; Lymphocytes # (auto) 1.75 K/uL (1.20-3.40); Lymphocytes % (auto) 20.8 %; Mean Corpuscular Hemoglobin 29.5 pg (25.0-34.0); Mean Corpuscular Volume 86.8 fL (80.0-100.0); Mean Platelet Volume 9.7 fL (9.4-12.4); Monocytes # (auto) 1.21 K/uL (0.11-0.59); Monocytes % (auto) 14.4 %; Neutrophils # (auto) 4.98 K/uL (1.40-6.50); Neutrophils % (auto) 59.2 %; Platelet Count 309 K/uL (130-400); RDW Coefficient of Variation 12.3 % (11.5-14.5); RDW Standard Deviation 39.3 fL (36.4-46.3); Red Blood Count 3.56 M/uL (4.70-6.10); White Blood Count 8.41 K/ul (4.8-10.8)
[2024-01-11 06:42] LABS: Albumin Globulin Ratio 0.9 (0.9-2); Albumin Level 3.6 gm/dl (3.4-5.0); BUN Creatinine Ratio 28.8 (10-20); Bilirubin,Total 0.3 mg/dl (0.2-1.0); Calcium 9.3 mg/dl (8.6-10.3); Creatinine Clr Calc Pharmacy 119.9 ml/min; Est GFR (African American) 116.6 ml/min; Est GFR (Non-African American) 100.6 ml/min; Globulin 3.9 gm/dl (2.5-4.0); Magnesium 1.9 mg/dl (1.7-2.4); Potassium 3.7 mmol/L (3.5-5.1); Total Protein 7.5 gm/dl (6.0-8.3)
[2024-01-11] MEDS: GABAPENTIN 100 MG CAP PO PRN (07:35)
--- NOTE | 2024-01-11 10:01 | Orthopedic Progress Note ---
Date of Service January 11, 2024 Assessment & Plan (1) Cellulitis of foot, left: Plan: Plan discussed with Dr. Santa. Continue with compression with José Miguel stocking, ice and elevation as needed. Pain control. Aspiration was performed by interventional radiology yesterday. Fluid grew Staph aureus. Sensitivities pending. Continue with colchicine, antibiotics (Rocephin and daptomycin), DVT prophylaxis per medicine. WBAT. Orders for right foot and ankle MRI placed today. May consider getting infectious disease involved if necessary. Admission and Anticipated Discharge Date Admission Date: January 07, 2024 Supervising Physician Co-Signing Physician Notes I, Dr. Santa, saw and examined the patient with my PA. I discussed the management with my PA. I reviewed my PAs note and agree with the documented findings and attest to completing the substantive portion of medical decision making and plan of care I developed. With no improvement in symptoms and noted effusions on MRI's in Tibiotalar, Talonavicular, and calcaneocuboid joints, recommend I&D Left foot and ankle. Patient is in agreement. Declined to go over the risks. Has been placed on the add-on list for tomorrow and has been made NPO after midnight. Will hold Lovenox after this evenings dose. Subjective This 53-year-old male seen for follow-up of left foot/ankle cellulitis. He is currently on IV Rocephin and daptomycin. He states that yesterday interventional radiology performed an aspiration of his fluid. Cultures grew Staph aureus. Sensitivities are pending. Patient states that the redness has faded a little bit but is has not receded from the marker lines. He states that he still has stiffness with moving his foot and toes. States that he also has achy type pain. He denies fever, chills, sweats or numbness or tingling in the left foot. Review of Systems Review of Systems: As per HPI Physical Exam Physical Exam: Left foot/ankle. Cellulitis is still noted to the marker lines circumferentially. There is edema and blanching with palpation. The aspiration site is covered with a small Band-Aid. Patient is able to actively dorsi and plantarflex his foot with discomfort. He has some slight weakness with applied resistance when flexing and extending at the IP and MCP joint of the great toe. He is able to detect light sensation to touch over the pads of all digits. Peripheral pulses are 2+. Capillary fill is less than 2 seconds. He is neurovascularly intact. Results & Data Vital Signs (Past 12 Hours) Vital Signs Temp Pulse Resp BP Pulse Ox O2 Del Method 01/11/24 07:29 36.4 C L 84 15 165/90 H 97 Room Air Diagnostic Findings Laboratory Results WBC 8.41 K/ul (4.8-10.8) 01/11/24 05:56 RBC 3.56 M/uL (4.70-6.10) L 01/11/24 05:56 Hgb 10.5 g/dl (14.0-18.0) L 01/11/24 05:56 Hct 30.9 % (42.0-52.0) L 01/11/24 05:56 MCV 86.8 fL (80.0-100.0) 01/11/24 05:56 MCH 29.5 pg (25.0-34.0) 01/11/24 05:56 MCHC 34.0 g/dL (32.0-36.0) 01/11/24 05:56 RDW Std Deviation 39.3 fL (36.4-46.3) 01/11/24 05:56 RDW Coeff of Erich 12.3 % (11.5-14.5) 01/11/24 05:56 Plt Count 309 K/uL (130-400) 01/11/24 05:56 MPV 9.7 fL (9.4-12.4) 01/11/24 05:56 Immature Gran % (Auto) 2.4 % 01/11/24 05:56 Neut % (Auto) 59.2 % 01/11/24 05:56 Lymph % (Auto) 20.8 % 01/11/24 05:56 [place] % (Auto) 14.4 % 01/11/24 05:56 Eos % (Auto) 2.6 % 01/11/24 05:56 Baso % (Auto) 0.6 % 01/11/24 05:56 Neut # (Auto) 4.98 K/uL (1.40-6.50) 01/11/24 05:56 Lymph # (Auto) 1.75 K/uL (1.20-3.40) 01/11/24 05:56 [place] # (Auto) 1.21 K/uL (0.11-0.59) H 01/11/24 05:56 Eos # (Auto) 0.22 K/uL (0.00-0.50) 01/11/24 05:56 Baso # (Auto) 0.05 K/uL (0.00-0.20) 01/11/24 05:56 Immature Gran # (Auto) 0.20 K/uL (0.01-0.20) 01/11/24 05:56 ESR 79 mm/hr (0-20) H 01/10/24 05:25 Sodium 132 mmol/L (136-145) L 01/11/24 05:56 Potassium 3.7 mmol/L (3.5-5.1) 01/11/24 05:56 Chloride 97 mmol/L (98-107) L 01/11/24 05:56 Carbon Dioxide 24 mmol/L (21-32) 01/11/24 05:56 Anion Gap 11 (3-11) 01/11/24 05:56 BUN 23 mg/dl (6-23) 01/11/24 05:56 Creatinine 0.80 mg/dl (0.6-1.4) 01/11/24 05:56 Est Cr Clr Drug Dosing 119.9 ml/min 01/11/24 05:56 Est GFR ( Amer) 116.6 ml/min 01/11/24 05:56 Est GFR (Non-Af Amer) 100.6 ml/min 01/11/24 05:56 BUN/Creatinine Ratio 28.8 (10-20) H 01/11/24 05:56 Glucose 151 mg/dl (70-99(Fasting)) H 01/11/24 05:56 POC Glucose 159 mg/dl (70-99) H 01/11/24 07:32 Estimat Average Glucose 177 mg/dl 01/07/24 07:15 Hemoglobin A1c 7.8 % (4.5-5.6) H 01/07/24 07:15 Lactate 1.6 mmol/L (0.4-2.0) 01/07/24 08:55 Uric Acid 8.8 mg/dl (2.6-7.2) H 01/07/24 07:15 Calcium 9.3 mg/dl (8.6-10.3) 01/11/24 05:56 Magnesium 1.9 mg/dl (1.7-2.4) 01/11/24 05:56 Total Bilirubin 0.3 mg/dl (0.2-1.0) 01/11/24 05:56 AST 45 U/L (13-39) H 01/11/24 05:56 ALT 46 U/L (7-52) 01/11/24 05:56 Alkaline Phosphatase 108 U/L (34-104) H 01/11/24 05:56 Total Creatine Kinase 54 U/L (30-223) 01/09/24 05:39 C-Reactive Protein 7.38 mg/dl (0-0.5) H 01/10/24 05:25 Total Protein 7.5 gm/dl (6.0-8.3) 01/11/24 05:56 Albumin 3.6 gm/dl (3.4-5.0) 01/11/24 05:56 Globulin 3.9 gm/dl (2.5-4.0) 01/11/24 05:56 Albumin/Globulin Ratio 0.9 (0.9-2) 01/11/24 05:56 Prostate Specific Ag 0.193 ng/ml (0-4) 01/09/24 05:39 Vitamin B12 265 pg/ml (180-914) 01/10/24 05:25 Procalcitonin 0.13 ng/ml (0-0.5) 01/07/24 07:15 TSH 0.843 uIu/ml (0.300-4.500) 01/08/24 05:23 Synovial Crystals 01/10/24 Unknown Nasal Screen MRSA (PCR) Negative (Negative) 01/07/24 11:51 Impressions Foot X-Ray 01/07/24 07:25 XR foot LT min 3V routine CLINICAL HISTORY: Left foot cellulitis. COMPARISON: None FINDINGS: Alignment of the left foot is anatomic. Tarsometatarsal joints are intact. There is no fracture within the left foot. No bony erosion is identified. Dorsal foot soft tissue swelling is present. IMPRESSION: 1. No fractures within the left foot. No evidence for osteomyelitis. 2. Left foot dorsal soft tissue swelling. ACT 112: Negative or not required by law. Electronically signed by: Adryan Lynn M.D. 01/07/2024 7:[address] 01/08/24 16:02 CT ankle LT w con CLINICAL HISTORY: cellulitis, eval abscess/fluid, ?osteo COMPARISON STUDY: Left foot radiographs January 07, 2024. TECHNIQUE: Axial images of the left ankle were obtained following intravenous injection of 93 cc of Optiray 320 IV. Sagittal and coronal reconstructions were viewed. Automated exposure control was utilized for the study. A dose lowering technique was utilized adhering to the principles of ALARA. FINDINGS: Please note that the CT of the left foot will be important separately. Alignment of the left ankle is anatomic. There is no fracture within the left ankle. No bony erosions are identified. There is extensive subcutaneous fluid of the left lower leg, ankle and foot. There is no soft tissue gas. No rim- enhancing fluid collection is identified to suggest an abscess. There are small tibiotalar and talonavicular joint effusions. There is associated synovial enhancement. No associated bony erosion is present. IMPRESSION: 1. Extensive subcutaneous fluid of the left lower leg, ankle and foot. This favors cellulitis. No rim-enhancing fluid collection to suggest abscess. No soft tissue gas. 2. No bony erosions within the left ankle to suggest acute osteomyelitis. 3. Small tibiotalar and talonavicular joint effusions with synovial enhancement. Sterility of these effusions cannot be assessed by CT. ACT 112: Negative or not required by law. Electronically signed by: Adryan Lynn M.D. 01/08/2024 5:[address] 01/08/24 16:[address] WITH CONTRAST CLINICAL HISTORY: cellulitis, eval abscess/fluid, ?osteo COMPARISON STUDY: Left foot radiographs January 07, 2024. TECHNIQUE: Axial images of the left lower obtained following intravenous injection of 93 cc of Optiray 320 IV. Sagittal and coronal reconstructions were viewed. Automated exposure control was utilized for the study. A dose lowering technique was utilized adhering to the principles of ALARA. FINDINGS: Alignment of the left foot is anatomic. There is no fracture within the left foot. No bony erosions are identified. Extensive dorsal left foot soft tissue swelling is noted. This involves the subcutaneous tissues and extensor tendons/musculature. No definite rim-enhancing fluid collection is identified. There is a 1.5 cm pocket of fluid within the subcutaneous tissues along the plantar aspect of the left fifth metatarsal head on axial image 253 of 293. There is a small amount of fluid along the plantar aspect of the left fourth me tatarsal head. Small tibiotalar and talonavicular joint effusions with synovial enhancement are noted. No radiopaque foreign bodies are identified. IMPRESSION: 1. Extensive soft tissue swelling of the left foot, greater dorsally. This involves the subcutaneous tissues and the extensor tendon/musculature. This favors cellulitis. No soft tissue gas. 2. 1.5 cm pocket of fluid within the subcutaneous tissues along the plantar aspect of the left fifth metatarsal head. This may simply represent edema. However, phlegmon could appear similar. No definite rim-enhancing fluid collection to suggest abscess at this time. 3. Small tibiotalar and talonavicular joint effusions with synovial enhancement. Sterility cannot be assessed by CT. ACT 112: Negative or not required by law. Electronically signed by: Adryan Lynn M.D. 01/08/2024 5:33 PM Joint Aspiration/Injection 01/10/24 10:30 ULTRASOUND-GUIDED LEFT ANKLE FLUID COLLECTION ASPIRATION CLINICAL HISTORY: Left ankle fluid collection with overlying cellulitis changes; evaluate for infection PROCEDURE: Procedure and risks were explained. Informed consent was obtained. A final timeout was completed. The left ankle was prepped and draped in sterile fashion. 1% buffered lidocaine was utilized for skin anesthesia. Utilizing ultrasound guidance, a 22-gauge and 20-gauge spinal needle was advanced into the left ankle complex fluid collection. Ultrasound images were obtained. A scant amount of fluid was aspirated on both attempts and sent to lab for analysis. The needle was removed and Band-Aid applied. The patient tolerated the procedure well. Vital signs will be monitored postprocedure. IMPRESSION: Ultrasound-guided left ankle fluid collection aspiration as above. Performed, dictated, and signed by Emil Samson PA-C; to be co-signed by Dr. Rolando Aviles. Electronically signed by: Rolando Aviles M.D. 01/10/2024 5:11 PM MRI OF THE LEFT FOOT WITHOUT CONTRAST CLINICAL HISTORY: MRSA infection. COMPARISON STUDY: Left foot CT January 08, 2024. Left foot radiographs January 07, 2024. TECHNIQUE: Utilizing a 1.5 Radha magnet and dedicated coil, multiplanar, multiecho imaging of the left midfoot and forefoot was performed without intravenous contrast. Please note that the MRI of the left ankle/hindfoot will be reported separately. FINDINGS: Alignment of the left midfoot and forefoot is anatomic. There is mild multifocal marrow edema within the midfoot. However, T1 signal is relatively preserved. No bony destruction is present. There are no acute fractures. Extensive left foot soft tissue edema is noted. This is greatest dorsally. No well-defined fluid collection is noted. However, there are T2 hyperintense foci within the extensor musculature at the level of the midfoot. These measure up to 1.4 cm. The findings favor edema or phlegmon. Mildly increased fluid within multiple extensor tendon sheaths is present. This is shown best on axial STIR sequence image 8 of 40. Note is made of small talonavicular and calcaneocuboid joint effusions. No associated bony erosions are present. A T1 and T2 hypointense abnormality along the plantar aspect of the left fifth metatarsal corresponds to the finding on prior CT. This is likely chronic. IMPRESSION: 1. No evidence for acute osteomyelitis within the left midfoot or forefoot. 2. Small talonavicular and calcaneocuboid joint effusions. Sterility cannot be assessed by MRI. 3. Extensive left foot soft tissue edema, greater dorsally. This favors cellulitis. No well-defined fluid collection on unenhanced exam to suggest abscess. Small T2 hyperintense foci within the adjacent extensor musculature favors muscular edema or infectious myositis. Phlegmon could appear similar. 4. Mildly increased fluid within multiple extensor tendon sheaths. This suggests tenosynovitis, likely infectious. ACT 112: Negative or not required by law. Electronically signed by: Adryan Lynn M.D. 01/11/2024 2:49 PM MRI OF THE LEFT ANKLE WITHOUT IV CONTRAST CLINICAL HISTORY: MRSA infection of the foot and ankle. Swelling and erythema. COMPARISON STUDY: CT scan of the left ankle dated 01/08/2024. The radiographs of the left foot dated 01/07/2024. TECHNIQUE: MRI of the left ankle is performed utilizing various T1 and T2- weighted sequences in the axial, sagittal, and coronal planes. IV contrast was n ot administered for this examination. FINDINGS: There is no MRI evidence of acute fracture. There is no marrow change to suggest osteomyelitis. The ankle mortise is intact. No osteochondral defect is seen in the talar dome. There is an ankle joint effusion. There are also joint effusions at the talonavicular joint and the calcaneocuboid articulation. The Achilles tendon is normal in morphology and signal intensity. The anterior, posterior, and peroneal tendons appear intact. There is fluid around several of the extensor tendons as well as the posterior tendons indicative of tenosynovitis. This may be infectious. There is marked soft tissue edema and subcutaneous fluid seen around the foot and ankle. No organized/drainable fluid collection is identified. Mild degenerative change is noted in the midfoot. The anterior tibiofibular and talofibular ligaments appear intact. The deltoid ligament is maintained. There is a nonspecific myositis of the regional musculature, greatest involving the extensor compartment. There is trace fluid in the retrocalcaneal bursa. The plantar fascia is normal as visualized. IMPRESSION: 1. There is no MRI evidence of acute bony abnormality such as fracture or osteomyelitis. 2. There is evidence of a severe cellulitis throughout the left lower extremity with no organized/drainable fluid collection to indicate abscess. 3. Ankle joint effusion, as well as intertarsal effusions in the midfoot and hindfoot. 4. There is a nonspecific myositis of the regional musculature, greatest involving the extensor compartment. 5. There is a nonspecific tenosynovitis within the anterior and posterior tendons. This may be infectious. Dictated: 01/11/2024 2:44 PM Transcribed: 01/11/2024 2:54 PM Narendra [id number] [email or web address] Electronically signed by: Osman Velasquez M.D. 01/11/2024 3:03 PM
--- NOTE | 2024-01-11 12:04 | Hospitalist Progress Note ---
Date of Service January 11, 2024 Assessment & Plan (1) Cellulitis of foot, left: Plan: 53yo male presented with LEFT foot/swelling/erythema that came on acutely and was quite painful. Initially thought to be gout and treated with steroids without improvement Uric acid was elevated 8.8, CRP 3.79/ESR 79, procalcitonin 0.13 on admission With leukocytosis, tachycardia on admission--> sepsis Started on ceftriaxone and Dapto given previous h/o MSSA,Serratia, and VRE CT foot/ankle --> no evidence for acute osteo or definitive abscess, no gas- Small tibiotalar and talonavicular joint effusions with synovial enhancement.1.5 cm pocket of fluid within the subcutaneous tissues along the plantar aspect of the left fifth metatarsal head. This may simply represent edema. However, phlegmon could appear similar. No definite rim-enhancing fluid collection to suggest abscess at this time. Ortho consulted, Dr Santa-IR consulted for aspiration fluid collection 01/09 --> wound cx now with Staph species, sensitivity pending Started on colchicine initially but will now discontinue as this is not gout Continue ceftriaxone and Dapto for now but if MSSA, can switch to cefazolin most likely Blood cultures remain NGTD WBC count normalized, remains afebrile, but foot pain, erythema, edema persists Check MRI foot/ankle Consult ID for recommendations for ongoing treatment Possible surgical washout with Ortho planned Follow CBC, CMP, CRP, ESR, CK while on Dapto (2) Tenosynovitis of left foot: Plan: as above (3) Sepsis: Plan: as above, now resolved metabolic acidosis more likely from dehydration with hyperglycemia and now resolved dc bicarb gtt (4) Diabetes mellitus: Plan: P/w glucose of 500 and mild acidosis with AG, had recently taken steroids for presumed gout HgbA1c 7.8%, previously known to be prediabetic Chuy delivered to patient by DM educator Plans to start Vincenzo outpatient w/ Dr Marcano, also for weight loss Continue BSG AC/HS, sliding scale insulin. Glucose now well controlled f/u PCP (5) Elevated uric acid in blood: Plan: Initial presentation thought to be gout due to acute onset without wound to foot. Uric acid elevated at 8.8 Steroids as outpt SPRAYER INSECTICIDE no improvement. Started colchicine here for several days- no improvement--> dc colchicine as this is a septic foot dcd HCTZ for concerns for causing gout (6) Hypertension: Plan: BPs quite high with hypertensive urgency on admission Now improving with starting metoprolol 25mg po bid, continues on ARB On amlodipine, telmisartan, HCTZ at home--> can resume amlodipine 5mg daily as it is not causing peripheral edema (the infection is causing the edema in foot) Dcd HCTZ Steroids and stress, pain also elevating BP. Continue to monitor (7) Hyperlipidemia: Plan: hold atorvastatin while on Dapto (8) GERD (gastroesophageal reflux disease): Plan: No increased sx reported Continue pantoprazole 40mg PO BID (9) B12 deficiency: Plan: B12 265, low normal--> started B12 1000mcg PO daily Plan VTE Prophylaxis - Lovenox 40mg SQ daily Dispo-continued stay discussed care with Ortho Admission and Anticipated Discharge Date Admission Date: January 07, 2024 Results & Data Results & Data Vital Signs (Past 12 Hours) Vital Signs Temp Pulse Resp BP Pulse Ox O2 Del Method 01/11/24 07:29 36.4 C L 84 15 165/90 H 97 Room Air PG Care Time/CCT Total # of Minutes Spent Total Time Spent with Patient: Total time spent is greater than 50% in coordination of care (as documented) at patient's floor/unit and/or counseling patient: Coding Level of Care Code 15742 SUB INP/OBS CARE 2/35MIN Diagnoses Cellulitis of foot, left L03.116 Tenosynovitis of left foot M65.9 Sepsis A41.9 Diabetes mellitus E11.9 Elevated uric acid in blood E79.0 Hypertension I10 Hyperlipidemia E78.5 GERD (gastroesophageal reflux disease) K21.9 B12 deficiency E53.8
[2024-01-11] MEDS: amLODIPine BESYLATE 5 MG TAB PO SCH (12:17)
--- NOTE | 2024-01-11 14:50 | Magnetic Resonance Report ---
MRI OF THE LEFT FOOT WITHOUT CONTRAST CLINICAL HISTORY: MRSA infection. COMPARISON STUDY: Left foot CT January 08, 2024. Left foot radiographs January 07, 2024. TECHNIQUE: Utilizing a 1.5 Radha magnet and dedicated coil, multiplanar, multiecho imaging of the lef t midfoot and forefoot was performed without intravenous contrast. Please note that the MRI of the le ft ankle/hindfoot will be reported separately. FINDINGS: Alignment of the left midfoot and forefoot is anatomic. There is mild multifocal marrow joanna ma within the midfoot. However, T1 signal is relatively preserved. No bony destruction is present. Th ere are no acute fractures. Extensive left foot soft tissue edema is noted. This is greatest dorsally . No well-defined fluid collection is noted. However, there are T2 hyperintense foci within the exten sor musculature at the level of the midfoot. These measure up to 1.4 cm. The findings favor edema or phlegmon. Mildly increased fluid within multiple extensor tendon sheaths is present. This is shown be st on axial STIR sequence image 8 of 40. Note is made of small talonavicular and calcaneocuboid joint effusions. No associated bony erosions are present. A T1 and T2 hypointense abnormality along the pl delmar aspect of the left fifth metatarsal corresponds to the finding on prior CT. 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 IMPRESSION: 1. No evidence for acute osteomyelitis within the left midfoot or forefoot. 2. Small talonavicular and calcaneocuboid joint effusions. Sterility cannot be assessed by MRI. 3. Extensive left foot soft tissue edema, greater dorsally. This favors cellulitis. No well-defined f luid collection on unenhanced exam to suggest abscess. Small T2 hyperintense foci within the adjacent extensor musculature favors muscular edema or infectious myositis. Phlegmon could appear similar. 4. Mildly increased fluid within multiple extensor tendon sheaths. This suggests tenosynovitis, likel y infectious. ACT 112: Negative or not required by law. Electronically signed by: Adryan Lynn M.D. 01/11/2024 2:49 PM
--- NOTE | 2024-01-11 15:05 | Magnetic Resonance Report ---
MRI OF THE LEFT ANKLE WITHOUT IV CONTRAST CLINICAL HISTORY: MRSA infection of the foot and ankle. Swelling and erythema. COMPARISON STUDY: CT scan of the left ankle dated 01/08/2024. The radiographs of the left foot dated . TECHNIQUE: MRI of the left ankle is performed utilizing various T1 and T2-weighted sequences in the a xial, sagittal, and coronal planes. IV contrast was not administered for this examination. FINDINGS: There is no MRI evidence of acute fracture. There is no marrow change to suggest osteomyeli tis. The ankle mortise is intact. No osteochondral defect is seen in the talar dome. There is an ankl e joint effusion. There are also joint effusions at the talonavicular joint and the calcaneocuboid ar ticulation. The Achilles tendon is normal in morphology and signal intensity. The anterior, posterior , and peroneal tendons appear intact. There is fluid around several of the extensor tendons as well a s the posterior tendons indicative of tenosynovitis. This may be infectious. There is marked soft tis lily edema and subcutaneous fluid seen around the foot and ankle. No organized/drainable fluid collect ion is identified. Mild degenerative change is noted in the midfoot. The anterior tibiofibular and ta lofibular ligaments appear intact. The deltoid ligament is maintained. There is a nonspecific myositi s of the regional musculature, greatest involving the extensor compartment. There is trace fluid in t he retrocalcaneal bursa. The plantar fascia is normal as visualized. IMPRESSION: 1. There is no MRI evidence of acute bony abnormality such as fracture or osteomyelitis. 2. There is evidence of a severe cellulitis throughout the left lower extremity with no organized/madhu inable fluid collection to indicate abscess. 3. Ankle joint effusion, as well as intertarsal effusions in the midfoot and hindfoot. 4. There is a nonspecific myositis of the regional musculature, greatest involving the extensor hattie rtment. 5. There is a nonspecific tenosynovitis within the anterior and posterior tendons. This may be infect ious. Dictated: 01/11/2024 2:44 PM Transcribed: 01/11/2024 2:54 PM Narendra [id number] [email or web address] Electronically signed by: Osman Velasquez M.D. 01/11/2024 3:03 PM
--- NOTE | 2024-01-11 16:18 | XCELERA ---
[id number] \\[id number]
--- NOTE | 2024-01-11 16:58 | Infectious Disease Consult ---
Date of Consultation January 11, 2024 Assessment & Plan (1) Tenosynovitis of left foot: (2) Septic arthritis of left ankle: (3) Cellulitis of foot, left: (4) Gout of left ankle: Plan Eliezer Cunningham is a 53-year old man with history of lumbar spinal hardware and cervical spinal hardware, HTN, who presents to [facility] on 01/07/24 with 5 days of L foot pain and redness. He suspected that he was having a gout flare and on 01/02 self-administered IM methylprednisolone into his L calf and took a Medrol dose-ravindra. However his pain continued to worsen. While at [facility], his L foot erythema increased significantly. CT on 01/07 revealed small tibiotalar and talonavicular joint effusions and with L 5th metatarsal head fluid pocket c/f abscess s/p L ankle US aspiration on 01/09 thus far Cx + Staph spp and with + monosodium urate crystals. 01/10 MRI L foot with talonavicular and calcaneocuboid joint effusions, extensive L foot edema with possible myositis vs. phlegmon of extensor muscles, and tenosynovitis of multiple extensor tendon sheaths. ID is consulted for L foot infection including possible septic arthritis, tenosynovitis, and myositis/SSTI. Pt with radiographic evidence of L foot infection including possible septic arthritis, tenosynovitis, and myositis. A L ankle fluid pocket was aspirated on 01/09 thus far with Cx growing Staph spp. Will need to follow Staph speciation to determine clinical significance. No cell count/diff was sent, if able would add this on. If will be going for washout with orthopedic surgery, please obtain gram stain and cultures. Infection is of unclear source. Without open wounds/cuts to suggest local spread. Considered hematogenous sources. 01/06 BCx negative (though were charted as being obtained slightly after ceftriaxone was started). 01/10 TTE LVEF normal, no significant valvular pathology. No valvular vegetations identified. Pt did inject IM methylpred into his L calf which could theoretically result in transient bacteremia especially if pt with a susceptible joint. Pts L ankle fluid also + monosodium urate crystals and thus does appear to be having a concurrent gout flare. Can continue IV daptomycin for now while awaiting speciation/sensis of Staph spp. ID Problem List: 1. L ankle and foot infection with possible septic arthritis, tenosynovitis, myositis, and SSTI, s/p L ankle aspiration 01/09 with Cx + Staph spp. 2. L ankle gout flare, fluid + monosodium urate crystals Recommendations: - Can continue IV daptomycin for now while awaiting Cx - F/u 01/09 ankle aspiration Cx including speciation/sensis of Staph - If able, would add on cell count/diff onto 01/09 aspiration fluid - If will be going for washout with orthopedic surgery, please obtain gram stain and cultures ID will continue to follow. Riddhi Cummings MD, S Infectious Diseases [facility] ID Connect direct line: [phone] Consultation Information Consultation was provided via telemedicine using two-way real-time interactive telecommunication between the patient and the telemedicine provider. For the duration of the visit, the provider was performing the assessment from a different facility than the patient. This includesuse of bluetooth stethoscope forauscultationperformed by the telepresenter that the telemedicine provider can hear if described in the physical exam. Air Conditioning Insulation Installer contact information: Please call [facility] Connect Call Center . (Phone Number For Physician Use Only) After establishing a telemedicine visit, patient was: Patient was verified with two unique identifiers, Patient/authorized rep acknowledged consent and understanding and Gave permission to continue telehealth session Time Spent with Patient: Initial => 75 min History of Present Illness Reason for Consultation: L foot infection including possible septic arthritis, tenosynovitis, and myositis Attending Physician: Christine Moser MD History of Present Illness Eliezer Cunningham is a 53-year old man with history of lumbar spinal hardware and cervical spinal hardware, HTN, who presents to [facility] on 01/07/24 with 5 days of L foot pain and redness. He suspected that he was having a gout flare and on Mon 01/02 self-administered IM methylprednisolone into his L calf and took a Medrol dose-ravindra. However his pain continued to worsen. While at [facility], his L foot erythema increased significantly. CT on 01/07 revealed small tibiotalar and talonavicular joint effusions and with L 5th metatarsal head fluid pocket c/f abscess s/p US aspiration on 01/09 thus far Cx + Staph spp and with + monosodium urate crystals. 01/10 MRI L foot with talonavicular and calcaneocuboid joint effusions, extensive L foot edema with possible myositis vs. phlegmon of extens or muscles, and tenosynovitis of multiple extensor tendon sheaths. ID is consulted for L foot infection including possible septic arthritis, tenosynovitis, and myositis. On Monday 01/01 the pt started to have pain in his L ankle. There was not much swelling or redness at the time. The pain increased and on 01/02 he self- administered IM methylprednisolone into his L buttock. On 01/03 he started a Medrol dose-ravindra. He does not have a history of prior gout or pseudogout flares. After 01/03 he begun to have night sweats. Does not think he had overt fevers. Denies any recent cuts/wounds. No bug bites. He has C-spine and L-spine hardware in place which he reports were surgeries for herniated discs. He also reports that in 2006 he had an elbow surgery where a cadaveric graft was placed but became infected (VRE, MSSA, Serratia) but reports that there is no current hardware in the L elbow. He also had a history of a colonic peroration in 2016 due to diverticulitis and reports having surgery and an intraabdominal drain for 8 weeks. In the ED, afebrile. WBC 11.8. ESR 79, CRP 3.79. CT on 01/07 revealed small tibiotalar and talonavicular joint effusions and with L 5th metatarsal head fl uid pocket c/f abscess s/p US aspiration on 01/09 thus far Cx + Staph spp and with + monosodium urate crystals. 01/10 MRI L foot with talonavicular and calcaneocuboid joint effusions, extensive L foot edema with possible myositis vs. phlegmon of extensor muscles, and tenosynovitis of multiple extensor tendon sheaths. He was initially placed on ceftriaxone, then daptomycin was added. Possible surgical washout with Ortho planned. At the time of evaluation, pt with continued pain in his L foot. No pain or symptoms elsewhere. Allergies Allergy/AdvReac Type Severity Reaction Status Date / Time No Known Allergies Allergy Unknown Verified 05/11/22 07:58 Home Medications Medication Instructions Recorded Confirmed Type albuterol sulfate 90 mcg/actuation 2 puff inhalation Q6H PRN 02/01/19 01/07/24 History aerosol inhaler Shortness Of Breath Or Wheezing tadalafil 5 mg tablet See Rx Instructions .Route 01/29/23 01/07/24 Rx .COMPLEX #30 tabs pantoprazole 40 mg tablet,delayed 40 mg PO BID #180 tabs 03/10/23 01/07/24 Rx release (Protonix) telmisartan 80 See Rx Instructions .Route 11/15/23 01/07/24 Rx mg-hydrochlorothiazide 25 mg tablet .COMPLEX #90 tabs dextroamphetamine-amphetamine ER 20 mg PO QAM #45 caps 12/16/23 01/07/24 Rx 20 mg 24hr capsule,extend release methylprednisolone 4 mg tablets in 4 mg PO .COMPLEX #21 ea 01/05/24 01/07/24 Rx a dose pack (Medrol (Ravindra)) amlodipine 5 mg tablet 5 mg PO DAILY 01/07/24 01/07/24 History atorvastatin 40 mg tablet 40 mg PO QAM 01/07/24 01/07/24 History tirzepatide 2.5 mg/0.5 mL 2.5 mg (0.5 mL) subcut .COMPLEX #2 01/07/24 Rx subcutaneous pen injector mL (Alliunzafarro) Patient History Medical History (Updated 01/11/24 @ 17:28 by Riddhi Cummings MD) Spinal stenosis Osteoarthritis BPH (benign prostatic hyperplasia) Attention deficit disorder (ADD) Colon perforation hx Dyslipidemia GERD (gastroesophageal reflux disease) Asthma well controlled rare inh use HTN (hypertension) Chronic back pain Surgical History Hx of vasectomy History of colonoscopy x2 History of tooth extraction History of partial colectomy Hx of elbow surgery left Fusion of spine c5 c6 c7> rom WNL Social History Smoking Status: Never smoker Second Hand Exposure: No; Do You Dip or Chew Tobacco: No; Hx Alcohol Use: Yes Alcohol type: beer, wine and hard liquor Hx Substance Use: No Preferred Language: Luxembourger Communication Ability: Effective Bicycle Rental Clerk Required: No Beliefs That Will Affect Care: None marital status: Current Living Situation: Spouse Feels Safe at Home: No Is there a partner from a previous relationship who is making you feel unsafe now?: No Assistive Devices: None Physical Exam Physical Exam: Exam obtained with aid of in-person telepresenter. General: Well-appearing, no acute distress HEENT: Conjunctivae non-injected, sclerae anicteric, MMM, OP clear. Resp: Respirations nonlabored. Abd: Soft, nontender, nondistended. Back: No tenderness to palpation along spine Ext: L foot with significant swelling and erythema on the dorsal aspect and ankle. ROM including dorsiflexion and plantarflexion limited by pain and stiffness. Skin: As above. No other rashes noted. Neuro: Alert & interactive. Grossly non-focal. Psych: Pleasant, appropriate. Results & Data Vital Signs (Past 12 Hours) Vital Signs Temp Pulse Pulse Resp BP Pulse Ox O2 Del Method 01/11/24 16:40 37.2 C 91 H 16 169/84 H 96 Room Air 01/11/24 07:29 36.4 C L 84 15 165/90 H 97 Room Air Diagnostic Findings Diagnostics: 01/10 TTE LVEF normal, no significant valvular pathology. No valvular vegetations identified. 01/10/25 L foot MRI 1. No evidence for acute osteomyelitis within the left midfoot or forefoot. 2. Small talonavicular and calcaneocuboid joint effusions. Sterility cannot be assessed by MRI. 3. Extensive left foot soft tissue edema, greater dorsally. This favors cellulitis. No well-defined fluid collection on unenhanced exam to suggest abscess. Small T2 hyperintense foci within the adjacent extensor musculature favors muscular edema or infectious myositis. Phlegmon could appear similar. 4. Mildly increased fluid within multiple extensor tendon sheaths. This suggests tenosynovitis, likely infectious. 01/10/24 US-guided aspiration of L ankle fluid collection PROCEDURE: Procedure and risks were explained. Informed consent was obtained. A final timeout was completed. The left ankle was prepped and draped in sterile fashion. 1% buffered lidocaine was utilized for skin anesthesia. Utilizing ultrasound guidance, a 22-gauge and 20-gauge spinal needle was advanced into the left ankle complex fluid collection. Ultrasound images were obtained. A scant amount of fluid was aspirated on both attempts and sent to lab for analysis. The needle was removed and Band-Aid applied. The patient tolerated the procedure well. Vital signs will be monitored postprocedure. IMPRESSION: Ultrasound-guided left ankle fluid collection aspiration as above. 01/08/24 Foot/ankle CT 1. Extensive soft tissue swelling of the left foot, greater dorsally. This involves the subcutaneous tissues and the extensor tendon/musculature. This favors cellulitis. No soft tissue gas. 2. 1.5 cm pocket of fluid within the subcutaneous tissues along the plantar aspect of the left fifth metatarsal head. This may simply represent edema. However, phlegmon could appear similar. No definite rim-enhancing fluid collection to suggest abscess at this time. 3. Small tibiotalar and talonavicular joint effusions with synovial enhancement. Sterility cannot be assessed by CT. Micro Summary: 01/09 Left foot aspiration: Cx: few Staph spp; g/s with moderate WBCs, no orgs synovial fluid crystals: monosodium urate c/f gout 01/06 BCx x2: NGTD 01/06 MRSA nares: neg Antibiotic Summary: daptomycin (01/07 present) prior ceftriaxone (01/06 01/07, 01/09-01/10)
[2024-01-12 06:47] LABS: Basophils # (auto) 0.05 K/uL (0.00-0.20); Basophils % (auto) 0.6 %; Eosinophils # (auto) 0.29 K/uL (0.00-0.50); Eosinophils % (auto) 3.5 %; Hematocrit (blood only) 30.3 % (42.0-52.0); Hemoglobin 10.7 g/dl (14.0-18.0); Immature Granulocytes # (auto) 0.21 K/uL (0.01-0.20); Immature Granulocytes % (auto) 2.5 %; Lymphocytes # (auto) 1.73 K/uL (1.20-3.40); Lymphocytes % (auto) 20.7 %; Mean Corpuscular Hemoglobin 30.1 pg (25.0-34.0); Mean Corpuscular Hgb Conc 35.3 g/dL (32.0-36.0); Mean Corpuscular Volume 85.4 fL (80.0-100.0); Mean Platelet Volume 9.5 fL (9.4-12.4); Monocytes # (auto) 1.18 K/uL (0.11-0.59); Monocytes % (auto) 14.1 %; Neutrophils # (auto) 4.88 K/uL (1.40-6.50); Neutrophils % (auto) 58.6 %; Platelet Count 347 K/uL (130-400); RDW Coefficient of Variation 12.2 % (11.5-14.5); RDW Standard Deviation 38.2 fL (36.4-46.3); Red Blood Count 3.55 M/uL (4.70-6.10); White Blood Count 8.34 K/ul (4.8-10.8)
[2024-01-12 07:13] LABS: Albumin Globulin Ratio 0.8 (0.9-2); Albumin Level 3.5 gm/dl (3.4-5.0); BUN Creatinine Ratio 28.2 (10-20); Bilirubin,Total 0.3 mg/dl (0.2-1.0); C Reactive Protein 3.74 mg/dl (0-0.5); Calcium 9.2 mg/dl (8.6-10.3); Creatinine Clr Calc Pharmacy 135.1 ml/min; Est GFR (African American) 122.4 ml/min; Est GFR (Non-African American) 105.6 ml/min; Globulin 4.2 gm/dl (2.5-4.0); Magnesium 1.9 mg/dl (1.7-2.4); Potassium 3.7 mmol/L (3.5-5.1); Total Protein 7.7 gm/dl (6.0-8.3)
[2024-01-12] MEDS: LACTATED RINGER'S 1,000 ML IV SCH ×2 (08:55→15:06)
[2024-01-12] MEDS: ceFAZolin 2000MG 2,000 MG/15 ML SYR IV SCH (08:55)
--- NOTE | 2024-01-12 09:08 | Anesthesiology Consultation ---
Date of Service January 12, 2024 Assessment & Plan Chart Review Chart Review: entry level marketing assistant initiated History Surgery Operation Date: 01/12/24 11:10 Proposed Procedures p Left Foot and Ankle Incision and Drainage - Sha Genaro Santa MD Height/Weight Height: 5 ft 7 in Weight: 104 kg Allergies Allergy/AdvReac Type Severity Reaction Status Date / Time No Known Allergies Allergy Unknown Verified 05/11/22 07:58 Medications Home Medications Medication Instructions Recorded Confirmed Last Taken albuterol sulfate 90 mcg/actuation 2 puff inhalation Q6H PRN 02/01/19 01/07/24 04/16/20 05:00 aerosol inhaler Shortness Of Breath Or Wheezing tadalafil 5 mg tablet See Rx Instructions .Route 01/29/23 01/07/24 Unknown .COMPLEX #30 tabs pantoprazole 40 mg tablet,delayed 40 mg PO BID #180 tabs 03/10/23 01/07/24 01/07/24 release (Protonix) telmisartan 80 See Rx Instructions .Route 11/15/23 01/07/24 01/07/24 mg-hydrochlorothiazide 25 mg tablet .COMPLEX #90 tabs dextroamphetamine-amphetamine ER 20 mg PO QAM #45 caps 12/16/23 01/07/24 01/07/24 20 mg 24hr capsule,extend release methylprednisolone 4 mg tablets in 4 mg PO .COMPLEX #21 ea 01/05/24 01/07/24 01/07/24 a dose pack (Medrol (Ravindra)) amlodipine 5 mg tablet 5 mg PO DAILY 01/07/24 01/07/24 01/07/24 atorvastatin 40 mg tablet 40 mg PO QAM 01/07/24 01/07/24 01/07/24 tirzepatide 2.5 mg/0.5 mL 2.5 mg (0.5 mL) subcut .COMPLEX #2 01/07/24 Unknown subcutaneous pen injector mL (Vincenzo) Active Medications Generic Name Dose Route Start Last Admin Trade Name Freq PRN Reason Stop Dose Admin Acetaminophen 650 mg 01/07/24 12:36 01/09/24 07:31 Acetaminophen 325 Mg Tab PO 02/06/24 12:35 650 mg Q4H PRN Administration Pain or Fever Amlodipine Besylate 5 mg 01/11/24 12:00 01/12/24 08:56 Amlodipine Besylate 5 Mg Tab PO 02/10/24 11:59 5 mg QAM CODEY Administration Atorvastatin Calcium 40 mg 01/08/24 09:00 01/08/24 08:12 Atorvastatin 40 Mg Tab PO 02/07/24 08:59 40 mg QAM CODEY Administration Cyanocobalamin 1,000 mcg 01/10/24 09:00 01/12/24 08:56 Cyanocobalamin (B-12) 500 Mcg Tablet PO 02/09/24 08:59 1,000 mcg QAM CODEY Administration Enoxaparin Sodium 40 mg 01/07/24 21:00 01/11/24 20:20 Enoxaparin Inj 40 Mg/0.4 Ml Syr SQ 02/06/24 20:59 40 mg QPM CODEY Administration Gabapentin 100 mg 01/09/24 16:25 01/11/24 07:35 Gabapentin 100 Mg Cap PO 02/08/24 20:59 100 mg TID PRN Administration Pain Cefazolin Sodium 2,000 mg in 15 mls @ 3.75 mls/min 01/12/24 08:00 01/12/24 08:55 Ancef 2000mg IV 02/23/24 07:59 3.75 mls/min Q8H CODEY Administration Lactated Ringer's 1,000 mls @ 80 mls/hr 01/12/24 08:45 01/12/24 08:55 Lr IV 02/11/24 08:44 80 mls/hr .[id number] CODEY Administration Insulin Aspart 0 units 01/07/24 12:36 01/12/24 08:46 Insulin Aspart Per Unit Charge SC 02/06/24 12:35 Not Given ACHS CODEY Ketorolac Tromethamine 15 mg 01/07/24 12:36 01/11/24 22:18 Ketorolac Tromethamine 15 Mg/Ml Vial IV 01/12/24 12:35 15 mg Q6H PRN Administration Pain Losartan Potassium 100 mg 01/08/24 09:00 01/12/24 08:56 Losartan Potassium 50 Mg Tab PO 02/07/24 08:59 100 mg DAILY CODEY Administration Metoprolol Tartrate 25 mg 01/08/24 21:00 01/12/24 08:56 Metoprolol Tartrate 25 Mg Tab PO 02/07/24 20:59 25 mg BID CODEY Administration Morphine Sulfate 2 mg 01/08/24 17:45 01/12/24 04:34 Morphine Sulfate 2 Mg/Ml Carp IV 01/22/24 17:44 2 mg Q4H PRN Administration Severe Pain (Scale 7, 8, 9,10) Oxycodone HCl 5 - 10 mg 01/07/24 21:04 01/12/24 08:54 Oxycodone Hcl Ir 5 Mg Tab (Immediate Release) PO 01/21/24 21:03 10 mg Q4H PRN Administration Pain Pantoprazole Sodium 40 mg 01/07/24 21:00 01/12/24 08:56 Pantoprazole 40 Mg Tab PO 02/06/24 20:59 40 mg BID CODEY Administration Past Medical History Medical History Spinal stenosis Osteoarthritis BPH (benign prostatic hyperplasia) Attention deficit disorder (ADD) Colon perforation hx Dyslipidemia GERD (gastroesophageal reflux disease) Asthma well controlled rare inh use HTN (hypertension) Chronic back pain Past Surgical History Surgical History Hx of vasectomy History of colonoscopy x2 History of tooth extraction History of partial colectomy Hx of elbow surgery left Fusion of spine c5 c6 c7> rom WNL Social History Smoking Status: Never smoker Do You Dip or Chew Tobacco: No Hx Alcohol Use: Yes Alcohol type: beer, wine and hard liquor alcohol intake frequency: holidays/special occasions only Hx Substance Use: No substance use type: does not use Physical Exam Vital Signs Last Vital Signs Temp 97.5 F L 01/12/24 07:12 Pulse 79 01/12/24 07:12 Resp 16 01/12/24 07:12 BP 145/83 H 01/12/24 07:12 Pulse Ox 98 01/12/24 07:12 O2 Del Method Room Air 01/12/24 07:12 Testing Laboratory Results 01/12/24 06:31 01/12/24 06:31 Hemoglobin A1c 7.8 % (4.5-5.6) H 01/07/24 07:15 01/10/24 Unknown Gram Stain - Final Foot,Left Aerobic and Anaerobic Culture - Preliminary Staphylococcus aureus 01/07/24 09:08 Aerobic Blood Culture - Preliminary Blood No growth in Aerobic bottle after 48 hours. Anaerobic Blood Culture - Preliminary No growth in Anaerobic bottle after 48 hours. 01/07/24 08:55 Aerobic Blood Culture - Preliminary Blood No growth in Aerobic bottle after 48 hours. Anaerobic Blood Culture - Preliminary No growth in Anaerobic bottle after 48 hours. 01/12/24 01/12/24 06:05 00:16 POC Glucose 141 H 143 H Electrocardiogram Date: 01/07/24 Normal sinus rhythm, rate 98 bpm Possible Left atrial enlargement Minimal voltage criteria for LVH, may be normal variant Borderline ECG When compared with ECG of 15-APR-2020 09:53, Premature supraventricular complexes are no longer Present Confirmed by Charly Reynoso ([id number]) on 01/07/2024 12:11:09 PM Echocardiogram Date: 01/11/24 LV systolic function is normal No regional wall motion abnormalities noted Borderline concentric LVH EF 60-65% No significant valvular pathology No valvular vegetation identified
--- NOTE | 2024-01-12 10:08 | Orthopedic Progress Note ---
Date of Service January 12, 2024 Assessment & Plan (1) Septic arthritis of left ankle: Plan: Plan for incision and drainage left foot and ankle today with Dr. Santa. Informed consent was obtained and on chart. Risks and benefits of the surgery were discussed with the patient. He understands and agrees to proceed. Continue IV antibiotics. He can weight-bear as tolerated and elevate as needed. Will continue to follow postoperatively. All questions were answered today. (2) Tenosynovitis of left foot: Plan: see above. For Incision and drainage left foot and ankle today. Admission and Anticipated Discharge Date Admission Date: January 07, 2024 Supervising Physician Co-Signing Physician Notes I, Dr. Santa, saw and examined the patient with my PA. I discussed the management with my PA. I reviewed my PAs note and agree with the documented findings and attest to completing the substantive portion of medical decision making and plan of care I developed. With no improvement in symptoms and noted effusions on MRI's in Tibiotalar, T alonavicular, and calcaneocuboid joints, recommend I&D Left foot and ankle. Patient is in agreement. Declined to go over the risks. Has been NPO after midnight. Subjective Patient resting in bed. Doing well. No complaints of significant pain at rest. He does have pain with movement and weightbearing. He had his infectious disease appointment. Cultures are growing out methicillin sensitive Staph aureus. He is scheduled for an incision and drainage of the left foot and ankle today with Dr. Santa. He is hopeful that the I&D will be very beneficial and relieve his discomfort and improve his mobility. Physical Exam Musculoskeletal: Exam the left foot and ankle: Tenderness and erythema across the dorsum and lateral aspect of the left foot. Able to actively move his toes and ankle with some discomfort. Foot is warm. No significant changes. No skin blisters or open wounds. Results & Data Vital Signs (Past 12 Hours) Vital Signs Temp Pulse Resp BP Pulse Ox O2 Del Method 01/12/24 07:12 36.4 C L 79 16 145/83 H 98 Room Air Laboratory Results 01/12/24 01/12/24 01/12/24 Range/Units 06:31 06:05 00:16 WBC 8.34 (4.8-10.8) K/ul RBC 3.55 L (4.70-6.10) M/uL Hgb 10.7 L (14.0-18.0) g/dl Hct 30.3 L (42.0-52.0) % MCV 85.4 (80.0-100.0) fL MCH 30.1 (25.0-34.0) pg MCHC 35.3 (32.0-36.0) g/dL RDW Std Deviation 38.2 (36.4-46.3) fL RDW Coeff of Erich 12.2 (11.5-14.5) % Plt Count 347 (130-400) K/uL MPV 9.5 (9.4-12.4) fL Immature Gran % (Auto) 2.5 % Neut % (Auto) 58.6 % Lymph % (Auto) 20.7 % [place] % (Auto) 14.1 % Eos % (Auto) 3.5 % Baso % (Auto) 0.6 % Neut # (Auto) 4.88 (1.40-6.50) K/uL Lymph # (Auto) 1.73 (1.20-3.40) K/uL [place] # (Auto) 1.18 H (0.11-0.59) K/uL Eos # (Auto) 0.29 (0.00-0.50) K/uL Baso # (Auto) 0.05 (0.00-0.20) K/uL Immature Gran # (Auto) 0.21 H (0.01-0.20) K/uL ESR 96 H (0-20) mm/hr Sodium 130 L (136-145) mmol/L Potassium 3.7 (3.5-5.1) mmol/L Chloride 96 L (98-107) mmol/L Carbon Dioxide 23 (21-32) mmol/L Anion Gap 11 (3-11) BUN 20 (6-23) mg/dl Creatinine 0.71 (0.6-1.4) mg/dl Est Cr Clr Drug Dosing 135.1 ml/min Est GFR ( Amer) 122.4 ml/min Est GFR (Non-Af Amer) 105.6 ml/min BUN/Creatinine Ratio 28.2 H (10-20) Glucose 143 H (70-99(Fasting)) mg/dl POC Glucose 141 H 143 H (70-99) mg/dl Calcium 9.2 (8.6-10.3) mg/dl Magnesium 1.9 (1.7-2.4) mg/dl Total Bilirubin 0.3 (0.2-1.0) mg/dl AST 49 H (13-39) U/L ALT 54 H (7-52) U/L Alkaline Phosphatase 115 H (34-104) U/L C-Reactive Protein 3.74 H (0-0.5) mg/dl Total Protein 7.7 (6.0-8.3) gm/dl Albumin 3.5 (3.4-5.0) gm/dl Globulin 4.2 H (2.5-4.0) gm/dl Albumin/Globulin Ratio 0.8 L (0.9-2) 01/11/24 01/11/24 01/11/24 Range/Units 20:54 16:38 11:38 WBC (4.8-10.8) K/ul RBC (4.70-6.10) M/uL Hgb (14.0-18.0) g/dl Hct (42.0-52.0) % MCV (80.0-100.0) fL MCH (25.0-34.0) pg MCHC (32.0-36.0) g/dL RDW Std Deviation (36.4-46.3) fL RDW Coeff of Erich (11.5-14.5) % Plt Count (130-400) K/uL MPV (9.4-12.4) fL Immature Gran % (Auto) % Neut % (Auto) % Lymph % (Auto) % [place] % (Auto) % Eos % (Auto) % Baso % (Auto) % Neut # (Auto) (1.40-6.50) K/uL Lymph # (Auto) (1.20-3.40) K/uL [place] # (Auto) (0.11-0.59) K/uL Eos # (Auto) (0.00-0.50) K/uL Baso # (Auto) (0.00-0.20) K/uL Immature Gran # (Auto) (0.01-0.20) K/uL ESR (0-20) mm/hr Sodium (136-145) mmol/L Potassium (3.5-5.1) mmol/L Chloride (98-107) mmol/L Carbon Dioxide (21-32) mmol/L Anion Gap (3-11) BUN (6-23) mg/dl Creatinine (0.6-1.4) mg/dl Est Cr Clr Drug Dosing ml/min Est GFR ( Amer) ml/min Est GFR (Non-Af Amer) ml/min BUN/Creatinine Ratio (10-20) Glucose (70-99(Fasting)) mg/dl POC Glucose 158 H 147 H 153 H (70-99) mg/dl Calcium (8.6-10.3) mg/dl Magnesium (1.7-2.4) mg/dl Total Bilirubin (0.2-1.0) mg/dl AST (13-39) U/L ALT (7-52) U/L Alkaline Phosphatase (34-104) U/L C-Reactive Protein (0-0.5) mg/dl Total Protein (6.0-8.3) gm/dl Albumin (3.4-5.0) gm/dl Globulin (2.5-4.0) gm/dl Albumin/Globulin Ratio (0.9-2) Microbiology 01/10/24 Unknown Gram Stain - Final Foot,Left Aerobic and Anaerobic Culture - Preliminary Staphylococcus aureus Diagnostic Findings MRI OF THE LEFT FOOT WITHOUT CONTRAST IMPRESSION: 1. No evidence for acute osteomyelitis within the left midfoot or forefoot. 2. Small talonavicular and calcaneocuboid joint effusions. Sterility cannot be assessed by MRI. 3. Extensive left foot soft tissue edema, greater dorsally. This favors cellulitis. No well-defined fluid collection on unenhanced exam to suggest abscess. Small T2 hyperintense foci within the adjacent extensor musculature favors muscular edema or infectious myositis. Phlegmon could appear similar. 4. Mildly increased fluid within multiple extensor tendon sheaths. This suggests tenosynovitis, likely infectious. MRI OF THE LEFT ANKLE WITHOUT IV CONTRAST IMPRESSION: 1. There is no MRI evidence of acute bony abnormality such as fracture or osteomyelitis. 2. There is evidence of a severe cellulitis throughout the left lower extremity with no organized/drainable fluid collection to indicate abscess. 3. Ankle joint effusion, as well as intertarsal effusions in the midfoot and hindfoot. 4. There is a nonspecific myositis of the regional musculature, greatest involving the extensor compartment. 5. There is a nonspecific tenosynovitis within the anterior and posterior tendons. This may be infectious. ULTRASOUND-GUIDED LEFT ANKLE FLUID COLLECTION ASPIRATION CLINICAL HISTORY: Left ankle fluid collection with overlying cellulitis changes; evaluate for infection PROCEDURE: Procedure and risks were explained. Informed consent was obtained. A final timeout was completed. The left ankle was prepped and draped in sterile fashion. 1% buffered lidocaine was utilized for skin anesthesia. Utilizing ultrasound guidance, a 22-gauge and 20-gauge spinal needle was advanced into the left ankle complex fluid collection. Ultrasound images were obtained. A scant amount of fluid was aspirated on both attempts and sent to lab for analysis. The needle was removed and Band-Aid applied. The patient tolerated the procedure well. Vital signs will be monitored postprocedure. IMPRESSION: Ultrasound-guided left ankle fluid collection aspiration as above.
--- NOTE | 2024-01-12 12:54 | Infectious Disease Progress Nt ---
Date of Service January 12, 2024 Assessment & Plan (1) Tenosynovitis of left foot: (2) Septic arthritis of left ankle: (3) Cellulitis of foot, left: (4) Gout of left ankle: Plan Eliezer Cunningham is a 53-year old man with history of lumbar spinal hardware and cervical spinal hardware, HTN, who presents to [facility] on 01/07/24 with 5 days of L foot pain and redness. He suspected that he was having a gout flare and on 01/02 self-administered IM methylprednisolone into his L calf and took a Medrol dose-kim. However his pain continued to worsen. While at [facility], his L foot erythema increased significantly. CT on 01/07 revealed small tibiotalar and talonavicular joint effusions and with L 5th metatarsal head fluid pocket c/f abscess s/p L ankle US aspiration on 01/09 thus far Cx + MSSA and with + monosodium urate crystals. 01/10 MRI L foot with talonavicular and calcaneocuboid joint effusions, extensive L foot edema with possible myositis vs. phlegmon of extensor muscles, and tenosynovitis of multiple extensor tendon sheaths. ID is consulted for L foot infection including possible septic arthritis, tenosynovitis, and myositis/SSTI. Awaiting I&D with ortho, planned for today 01/11. Pt with radiographic evidence of L foot infection including possible septic arthritis, tenosynovitis, and myositis. A L ankle fluid pocket was aspirated on 01/09 with Cx + MSSA. No cell count/diff was sent due to insufficient fluid. Awaiting I&D with ortho, planned for today 01/11. If will be going for washout with orthopedic surgery, please obtain gram stain and cultures. Infection is of unclear source. Pts L ankle fluid also + monosodium urate crystals and thus does appear to be having a concurrent gout flare. Without open wounds/cuts to suggest local spread. Considered hematogenous sources. Pt did inject IM methylpred into his L calf which could theoretically result in transie nt bacteremia seeding a susceptible joint (in the setting of ongoing gout flare and receiving steroids). Another possibility is that venipuncture while in the hospital led to transient MSSA bacteremia which seeded the joint, especially as his septic arthritis picture appeared to really blossom while inpatient. He also brushes his teeth with gum bleeding regularly, and shaves his chest, which are o ther potential causes of transient bacteremia. 01/06 BCx negative (though were charted as being obtained slightly after ceftriaxone was started). 01/10 TTE LVEF normal, no significant valvular patholog y. No valvular vegetations identified. Pt is not currently systemically ill, and has been afebrile with normal WBC count. Will change to cefazolin to best target MSSA. Currently anticipate a 4-week c ourse of abx after source control is obtained, likely mostly or all IV abx ID Problem List: 1. L ankle and foot infection with possible septic arthritis, tenosynovitis, myositis, and SSTI, s/p L ankle aspiration 01/09 with Cx + Staph spp. 2. L ankle gout flare, fluid + monosodium urate crystals Recommendations: - Change to cefazolin 2g IV q8h - Currently anticipate a 4-week course of abx after source control is obtained, likely mostly or all IV abx - Awaiting I&D with ortho, planned for today 01/11. Please obtain gram stain and cultures ID will continue to follow. Riddhi Cummings MD, MHS Infectious Diseases [facility] ID Connect direct line: [phone] Admission and Anticipated Discharge Date Admission Date: January 07, 2024 Subjective Subsequent visit was provided via telemedicine using two-way real-time interactive telecommunication between the patient and the telemedicine provider. For the duration of the visit, the provider was performing the assessment from a different facility than the patient. This includesuse of bluetooth stethoscope forauscultationperformed by the telepresenter that the telemedicine provider can hear if described in the physical exam. [employer] contact information: Please call [facility] Connect Call Center . (Phone Number For Physician Use Only) After establishing a telemedicine visit, patient was: Patient was verified with two unique identifiers, Patient/authorized rep acknowledged consent and understanding and Gave permission to continue telehealth session Time Spent with Patient: Subsequent => 35 min - Afebrile, WBC 8 - L ankle Cx from 01/09 growing MSSA - 01/11 ESR 96 CRP 3.74 - Still with significant L ankle/foot redness, pain, and swelling Physical Exam Physical Exam: Exam obtained with aid of in-person telepresenter. General: Well-appearing, no acute distress HEENT: Conjunctivae non-injected, sclerae anicteric, MMM, OP clear. Resp: Respirations nonlabored. Abd: Soft, nontender, nondistended. Back: No tenderness to palpation along spine Ext: L foot with significant swelling and erythema on the dorsal aspect and ankle. Purplish patches on sole of feet. ROM including dorsiflexion and plantarflexion limited by pain and stiffness. Skin: As above. No other rashes noted. Neuro: Alert & interactive. Grossly non-focal. Psych: Pleasant, appropriate. Results & Data Vital Signs (Past 12 Hours) Vital Signs Temp Pulse Resp BP Pulse Ox O2 Del Method 01/12/24 07:12 36.4 C L 79 16 145/83 H 98 Room Air Diagnostic Findings Diagnostics: 01/10 TTE LVEF normal, no significant valvular pathology. No valvular vegetations identified. 01/10/25 L foot MRI 1. No evidence for acute osteomyelitis within the left midfoot or forefoot. 2. Small talonavicular and calcaneocuboid joint effusions. Sterility cannot be assessed by MRI. 3. Extensive left foot soft tissue edema, greater dorsally. This favors cellulitis. No well-defined fluid collection on unenhanced exam to suggest abscess. Small T2 hyperintense foci within the adjacent extensor musculature favors muscular edema or infectious myositis. Phlegmon could appear similar. 4. Mildly increased fluid within multiple extensor tendon sheaths. This suggests tenosynovitis, likely infectious. 01/10/24 US-guided aspiration of L ankle fluid collection PROCEDURE: Procedure and risks were explained. Informed consent was obtained. A final timeout was completed. The left ankle was prepped and draped in sterile fashion. 1% buffered lidocaine was utilized for skin anesthesia. Utilizing ultrasound guidance, a 22-gauge and 20-gauge spinal needle was advanced into the left ankle complex fluid collection. Ultrasound images were obtained. A scant amount of fluid was aspirated on both attempts and sent to lab for analysis. The needle was removed and Band-Aid applied. The patient tolerated the procedure well. Vital signs will be monitored postprocedure. IMPRESSION: Ultrasound-guided left ankle fluid collection aspiration as above. 01/08/24 Foot/ankle CT 1. Extensive soft tissue swelling of the left foot, greater dorsally. This involves the subcutaneous tissues and the extensor tendon/musculature. This favors cellulitis. No soft tissue gas. 2. 1.5 cm pocket of fluid within the subcutaneous tissues along the plantar aspect of the left fifth metatarsal head. This may simply represent edema. However, phlegmon could appear similar. No definite rim-enhancing fluid collection to suggest abscess at this time. 3. Small tibiotalar and talonavicular joint effusions with synovial enhancement. Sterility cannot be assessed by CT. Micro Summary: 01/09 Left foot aspiration: Cx: few MSSA; g/s with moderate WBCs, no orgs synovial fluid crystals: monosodium urate c/f gout 01/06 BCx x2: NGTD 01/06 MRSA nares: neg Antibiotic Summary: cefazolin (01/11 present) prior daptomycin (01/07 01/10) ceftriaxone (01/06 01/07, 01/09-01/10)
[2024-01-12] MEDS ORDERED: MIDAZOLAM HCL 1 MG/ML 2ML VIAL ONE ×2 (14:21)
[2024-01-12] MEDS ORDERED: fentaNYL citrate PF 100 MCG/2 ML VIAL ONE ×3 (14:22→17:41)
[2024-01-12] MEDS ORDERED: LIDOCAINE 2% 2 ML VIAL/AMP(20MG/ML) INFIL ONE (14:22)
[2024-01-12] MEDS ORDERED: ONDANSETRON INJ 2 MG/ML 2 ML VIAL ONE ×2 (14:23→16:38)
[2024-01-12] MEDS ORDERED: PROPOFOL IV EMULSION 10 MG/ML 20 ML VIAL IV ONE (14:23)
--- NOTE | 2024-01-12 14:47 | Hospitalist Progress Note ---
Date of Service January 12, 2024 Assessment & Plan (1) Cellulitis of foot, left: Plan: 53yo male presented with LEFT foot/swelling/erythema that came on acutely and was quite painful. Initially thought to be gout and treated with steroids without improvement Uric acid was elevated 8.8, CRP 3.79/ESR 79, procalcitonin 0.13 on admission With leukocytosis, tachycardia on admission--> sepsis Started on ceftriaxone and Dapto given previous h/o MSSA,Serratia, and VRE CT foot/ankle --> no evidence for acute osteo or definitive abscess, no gas- Small tibiotalar and talonavicular joint effusions with synovial enhancement.1.5 cm pocket of fluid within the subcutaneous tissues along the plantar aspect of the left fifth metatarsal head. This may simply represent edema. However, phlegmon could appear similar. No definite rim-enhancing fluid collection to suggest abscess at this time. Ortho consulted, Dr Santa-IR consulted for aspiration fluid collection 01/09 --> wound cx now with pansensitive MSSA MRI foot and ankle with infectious myositis and tenosynovitis in multiple places, no distinct abscess Initially started on colchicine for gout for several days which has now been discontinued, however there are some gout crystals in the fluid aspiration ESR continues to trend upward to 96, CRP improving to 3 Blood cultures remain NGTD Transthoracic echocardiogram no valvular vegetation WBC count normalized, remains afebrile Change antibiotics to IV cefazolin-plan to complete 4 weeks of treatment post incision and drainage, mostly IV as per infectious disease. He will need an ultrasound-guided peripheral IV Appreciate ID and orthopedic consultations-plan for incision and drainage/washout on 01/11 Follow CBC, CMP, CRP, ESR, CK while on Dapto (2) Tenosynovitis of left foot: Plan: as above (3) Sepsis: Plan: as above, now resolved metabolic acidosis more likely from dehydration with hyperglycemia and now resolved (4) Diabetes mellitus: Plan: P/w glucose of 500 and mild acidosis with AG, had recently taken steroids for presumed gout HgbA1c 7.8%, previously known to be prediabetic Chuy delivered to patient by DM educator Plans to start Vincenzo outpatient w/ Dr Marcano, also for weight loss Continue BSG AC/HS, sliding scale insulin. Glucose now well controlled f/u PCP (5) Elevated uric acid in blood: Plan: Initial presentation thought to be gout due to acute onset without wound to foot. Uric acid elevated at 8.8 Steroids as outpt [facility] no improvement. Started colchicine here for several days- no improvement--> dc colchicine as this is a septic foot dcd HCTZ for concerns for causing gout (6) Hypertension: Plan: BPs quite high with hypertensive urgency on admission Now blood pressures continue to improve with starting metoprolol 25mg po bid and adding home amlodipine back on, continues on ARB Dcd HCTZ from home as can precipitate gout Steroids and stress, pain also elevating BP. Continue to monitor (7) Hyperlipidemia: Plan: held atorvastatin while on Dapto but can resume tomorrow now that daptomycin is discontinued (8) GERD (gastroesophageal reflux disease): Plan: No increased sx reported Continue pantoprazole 40mg PO BID (9) B12 deficiency: Plan: B12 265, low normal--> started B12 1000mcg PO daily Plan VTE Prophylaxis - Lovenox 40mg SQ daily Dispo-continued stay Admission and Anticipated Discharge Date Admission Date: January 07, 2024 Subjective Patient continues to have ongoing significant pain in the left foot. No other concerns. He is about to go to the operating room today for incision and drainage of the left foot. I I discussed his care with infectious disease Physical Exam Constitutional: WD/WN, vitals as above Respiratory: normal respiratory effort Skin: Significant erythema of entire left dorsal and lateral foot and ankle, tender to palpation, not spreading proximally up the leg Psychiatric: A+Ox3, euthymic affect Results & Data Results & Data Vital Signs (Past 12 Hours) Vital Signs Temp Pulse Resp BP Pulse Ox O2 Del Method 01/12/24 07:12 36.4 C L 79 16 145/83 H 98 Room Air Laboratory Results Wound culture reviewed-MSSA, pansensitive CBC, CMP, magnesium, ESR, CRP reviewed PG Care Time/CCT Total # of Minutes Spent Total Time Spent with Patient: Total time spent is greater than 50% in coordination of care (as documented) at patient's floor/unit and/or counseling patient: Coding Level of Care Code 35936 SUB INP/OBS CARE 2/35MIN Diagnoses Cellulitis of foot, left L03.116 Tenosynovitis of left foot M65.9 Sepsis A41.9 Diabetes mellitus E11.9 Elevated uric acid in blood E79.0 Hypertension I10 Hyperlipidemia E78.5 GERD (gastroesophageal reflux disease) K21.9 B12 deficiency E53.8
[2024-01-12] MEDS ORDERED: ONDANSETRON INJ 2 MG/ML 2 ML VIAL IV PRN (14:59)
[2024-01-12] MEDS ORDERED: ATROPINE SULFATE 0.1 MG/ML 10ML SYR IV PRN (14:59)
[2024-01-12] MEDS ORDERED: ePHEDrine sulfate 50 MG/ML AMP IV PRN (14:59)
[2024-01-12] MEDS ORDERED: ACETAMINOPHEN 1000 MG/100 ML IV IV ONE (15:17)
[2024-01-12] MEDS ORDERED: FAMOTIDINE/PF 20 MG/2 ML VIAL IV ONE (15:18)
[2024-01-12] MEDS ORDERED: METOCLOPRAMIDE HCL INJ 5 MG/ML 2 ML VIAL ONE (16:38)
[2024-01-12] MEDS ORDERED: KETOROLAC 30 MG/ML VIAL ONE (16:38)
[2024-01-12] MEDS: BUPIVACAINE 0.25% PF 30 ML VIAL ONE (17:50)
[2024-01-12] MEDS: LIDOCAINE 1%/EPINEPHRINE 1:100,000 20 ML VIAL ONE (17:51)
--- NOTE | 2024-01-12 18:28 | Post Operative Brief Note ---
Immediate Post Op Note v1 Date of Surgery January 12, 2024 Pre & Post Diagnosis Operation Date: 01/12/24 11:10 Pre-Op Diagnosis: (1) Septic arthritis of left ankle (2) Tenosynovitis of left foot Post-Op Diagnosis: (1) Septic arthritis of left ankle (2) Septic arthritis of left foot I identified the patient and participated in the time-out.: Yes Procedure Operation Date: 01/12/24 11:10 Actual Procedures p Left Foot and Ankle Incision and Drainage(Left) - Sha Santa MD Surgeon Sha Santa MD [employer] Nemo Oliva PA-C (No fellow avail) Estimated Blood Loss 50 Findings Consistent with Post-Op Diagnosis Fluids 1400 cc Specimens Deep Cx Left Tibiotalar joint Deep Cx Left Calcaneocuboid joint Deep Cx Left Talarnavicular joint Drains Hemovac Drain (10fr) Anesthesia Type General Complications none
--- NOTE | 2024-01-12 18:31 | Operative Report ---
Post Operative Report Pre & Post Diagnosis Operation Date: 01/12/24 11:10 Pre-Op Diagnosis: Septic arthritis of left foot and ankle: Tibiotalar, Calcaneocuboid, Talonavicular joints Left foot cellulitis Post-Op Diagnosis: Septic arthritis of left foot and ankle: Tibiotalar, Calcaneocuboid, Talonavicular joints Left foot cellulitis I identified the patient and participated in the time-out.: Yes Procedure Operation Date: 01/12/24 11:10 Actual Procedures p Left Foot and Ankle Incision and Drainage(Left) - Sha Santa MD Surgeon Sha Santa MD Avionics Manager Nemo Oliva PA-C (No fellow avail) Estimated Blood Loss 50 Findings See Below Swollen, cellulitic foot. Purulent drainage from Tibiotalar, Calcaneocuboid, and Talonavicular joints. Fluids 1400 cc Specimens Deep Cx Tibiotalar joint Deep Cx Calcaneocuboid joint Deep Cx Talonavicular joint Anesthesia Type General Complications none Indications The patient has had a swollen left foot with cellulitis that has not been responding to antibiotics, IR aspirated fluid that was + for Staph, and MRI findings of fluid in the Tibiotalar, Calcaneocuboid, and Talonavicular joints. The patient understands the risks of surgery, which include but are not limited to: bleeding, infection, re-operation, damage to nerves and arteries, continued pain and DVT. The patient understands all of these instructions and explanations, all of their questions have been satisfactorily addressed. The patient has elected to proceed with surgery and the informed consent was signed. Description of Procedure Nemo Oliva PA-C is assisting with positioning and closure due to fellow not available. Procedure The patient was taken to the Operating Room and placed in the supine position on the operating table. After general anesthetic was administered a multidisciplinary time-out was performed identifying my initials on the left limb as the correct and operative limb. Antibiotics were held until cultures were obtained and then 2 gram of intravenous Ancef were given. The right leg was prepped and draped in the usual Orthopaedic sterile fashion. The fibula, ankle joint line, and 5th metatarsal base were marked as was the planned incision, starting 5 cm proximal to the joint line and 2 cm medial to fibula directed across the ankle joint toward the 5th Metatarsal base. The skin edges were injected with a 50:50 mixture of 1% lidocaine with epi and 0.5 % Marcaine plain for a total of 10 cc. The skin was incised. Care was taken to protect and free up any branches of the Superficial peroneal nerve, which were protected through out the case. The EDC was identified and retracted medially. The Tibiotalar joint capsule was incised and purulent fluid was evacuated, after deep cultures were taken. The EDB was elevated off its origin from the calcaneus and retraced distally and medially. The Calcaneocuboid and Talonavicular joints were identified and the capsules incised. Again small amount of purulent appearing fluid was identified and deep cultures were obtained from each joint. The wound and the Tibiotalar, Calcaneocuboid, and Talonavicular joints were copiously irrigated with over 9 L normal saline. The articular cartilage was well appearing in each joint. A Hemovac drain was placed within the Tibiotalar joint and Talonavicular & Calcaneocuboid joints. Using 2-0 antibiotic impregnated 2-0 Vicryl suture the capsule of the Talonavicular and Talonavicular joints were re-approximated as well as repairing the EDB back to the calcaneus. The skin were closed with 3-0 & 2-0 Prolene. The wound was covered Xeroform, 4 x 4's, ABDs, sterile cast padding, and an ADDISON. The sponge and needle counts were correct. POST-OP: Patient will be admitted to hospitalist service and continued on their antibiotic regime and adjusted by infectious disease. TTWB until HVAC is removed, then patient may be WBAT. Continue pain control per primary service. I attest to the content of the Intraoperative Record and any orders documented therein. Any exceptions are noted below.
--- NOTE | 2024-01-12 18:35 | Operative Report ---
Post Operative Report Pre & Post Diagnosis Operation Date: 01/12/24 11:10 Pre-Op Diagnosis: (1) Septic arthritis of left ankle: (2) Tenosynovitis of left foot: Post-Op Diagnosis: (1) Septic arthritis of left ankle: (2) Tenosynovitis of left foot: I identified the patient and participated in the time-out.: Yes Procedure Operation Date: 01/12/24 11:10 Actual Procedures p Left Foot and Ankle Incision and Drainage(Left) - Sha Genaro Santa MD Surgeon Dr Santa Retail Team Leader Nemo Oliva PA-C (No fellow avail) Estimated Blood Loss 50 Findings Consistent with Post-Op Diagnosis Specimens wound cultures from left ankle tibiotalor joint and left foot calcaneocuboid joint and talar-navicular joint Drains hemovac drain Description of Procedure Pt was taken to operating room and properly positioned for procedure. Refer to anesthesia's note for anesthesia used. Pt was given pre-op antibiotics. Prepped and draped in sterile fashion. I was present during the entire case and assisted with positioning, instrumentation, closure and dressings. Please see surgeon's op report for further detail. Pt was awake and transferred to PACU in stable condition I attest to the content of the Intraoperative Record and any orders documented therein. Any exceptions are noted below.
--- NOTE | 2024-01-12 18:39 | Anesthesiology Progress Note ---
Date of Service January 12, 2024 Anesthesia Post Procedure Vital Signs Vital Signs: Temp Pulse Pulse Resp BP Pulse Ox O2 Del Method 01/12/24 14:37 36.9 C 87 16 155/81 H 97 Room Air 01/12/24 07:12 36.4 C L 79 16 145/83 H 98 Room Air 01/11/24 20:17 37.5 C 88 18 164/80 H 97 Room Air Pain Intensity Left Foot: Pain Intensity: 6 Transfer of Care Handoff Completed per policy Notes Mental Status: alert / awake / arousable and participated in evaluation Patient Amnestic to Procedure: Yes Nausea / Vomiting: adequately controlled Pain: adequately controlled Airway Patency, RR, SpO2: stable & adequate BP & HR: stable & adequate Hydration State: stable & adequate Anesthetic Complications: no major complications apparent and Pt Satisfied with anesthetic care
[2024-01-12] MEDS: fentaNYL citrate PF 100 MCG/2 ML VIAL IV PRN (18:45)
[2024-01-13 07:36] LABS: Basophils # (auto) 0.05 K/uL (0.00-0.20); Basophils % (auto) 0.5 %; Eosinophils # (auto) 0.26 K/uL (0.00-0.50); Eosinophils % (auto) 2.5 %; Hematocrit (blood only) 29.5 % (42.0-52.0); Hemoglobin 9.9 g/dl (14.0-18.0); Immature Granulocytes # (auto) 0.22 K/uL (0.01-0.20); Immature Granulocytes % (auto) 2.1 %; Lymphocytes # (auto) 1.61 K/uL (1.20-3.40); Lymphocytes % (auto) 15.6 %; Mean Corpuscular Hemoglobin 29.6 pg (25.0-34.0); Mean Corpuscular Hgb Conc 33.6 g/dL (32.0-36.0); Mean Corpuscular Volume 88.3 fL (80.0-100.0); Mean Platelet Volume 9.7 fL (9.4-12.4); Monocytes # (auto) 1.38 K/uL (0.11-0.59); Monocytes % (auto) 13.4 %; Neutrophils # (auto) 6.78 K/uL (1.40-6.50); Neutrophils % (auto) 65.9 %; Platelet Count 354 K/uL (130-400); RDW Coefficient of Variation 12.6 % (11.5-14.5); RDW Standard Deviation 40.9 fL (36.4-46.3); Red Blood Count 3.34 M/uL (4.70-6.10)
[2024-01-13 08:09] LABS: Albumin Globulin Ratio 0.9 (0.9-2); Albumin Level 3.4 gm/dl (3.4-5.0); BUN Creatinine Ratio 19.1 (10-20); Bilirubin,Total 0.3 mg/dl (0.2-1.0); C Reactive Protein 4.49 mg/dl (0-0.5); Creatinine Clr Calc Pharmacy 102.1 ml/min; Est GFR (African American) 105.4 ml/min; Est GFR (Non-African American) 90.9 ml/min; Magnesium 1.8 mg/dl (1.7-2.4); Potassium 4.1 mmol/L (3.5-5.1); Total Protein 7.4 gm/dl (6.0-8.3)
--- NOTE | 2024-01-13 08:25 | Orthopedic Progress Note ---
Date of Service January 13, 2024 Assessment & Plan (1) Septic arthritis of left ankle: Plan: POD #1 s/p I&D Left foot & ankle, doing as well as expected. resume diet. HVAC removed, can now be WBAT LLE. Dressing replaced 01/13/24, re-enforce / replace as needed. OOB to chair. Continue IV antibiotics per ID. Continue pain control. Continue to follow C&S DVT prophylaxis: TEDs 3 weeks, foot pumps while in hospital, ASA 81 mg BID for 3 weeks. PT/OT. D/C planning. Will continue to follow postoperatively. Present on Admission?: Yes (2) Tenosynovitis of left foot: Plan: see above. Present on Admission?: Yes Admission and Anticipated Discharge Date Admission Date: January 07, 2024 Subjective Left foot discomfort. Physical Exam Physical Exam: LLE: BCR < 2 sec. Sensation to light touch unchanged. Wiggling toes. Incision is clean, dry, intact. HVAC in place, scant bloody drainage. Results & Data Vital Signs (Past 12 Hours) Vital Signs Temp Pulse Resp BP Pulse Ox O2 Del Method 01/13/24 07:36 36.6 C 81 18 139/74 98 Room Air 01/13/24 04:08 36.6 C 74 18 126/76 97 Room Air 01/12/24 22:15 36.8 C 76 18 130/74 98 Room Air 01/12/24 21:15 36.4 C L 91 H 18 125/71 97 Room Air Laboratory Results 01/13/24 01/13/24 01/12/24 Range/Units 07:38 07:06 20:28 WBC 10.30 (4.8-10.8) K/ul RBC 3.34 L (4.70-6.10) M/uL Hgb 9.9 L (14.0-18.0) g/dl Hct 29.5 L (42.0-52.0) % MCV 88.3 (80.0-100.0) fL MCH 29.6 (25.0-34.0) pg MCHC 33.6 (32.0-36.0) g/dL RDW Std Deviation 40.9 (36.4-46.3) fL RDW Coeff of Erich 12.6 (11.5-14.5) % Plt Count 354 (130-400) K/uL MPV 9.7 (9.4-12.4) fL Immature Gran % (Auto) 2.1 % Neut % (Auto) 65.9 % Lymph % (Auto) 15.6 % [place] % (Auto) 13.4 % Eos % (Auto) 2.5 % Baso % (Auto) 0.5 % Neut # (Auto) 6.78 H (1.40-6.50) K/uL Lymph # (Auto) 1.61 (1.20-3.40) K/uL [place] # (Auto) 1.38 H (0.11-0.59) K/uL Eos # (Auto) 0.26 (0.00-0.50) K/uL Baso # (Auto) 0.05 (0.00-0.20) K/uL Immature Gran # (Auto) 0.22 H (0.01-0.20) K/uL ESR 69 H (0-20) mm/hr Sodium 132 L (136-145) mmol/L Potassium 4.1 (3.5-5.1) mmol/L Chloride 99 (98-107) mmol/L Carbon Dioxide 25 (21-32) mmol/L Anion Gap 8 (3-11) BUN 18 (6-23) mg/dl Creatinine 0.94 (0.6-1.4) mg/dl Est Cr Clr Drug Dosing 102.1 ml/min Est GFR ( Amer) 105.4 ml/min Est GFR (Non-Af Amer) 90.9 ml/min BUN/Creatinine Ratio 19.1 (10-20) Glucose 129 H (70-99(Fasting)) mg/dl POC Glucose 131 H 181 H (70-99) mg/dl Calcium 9.0 (8.6-10.3) mg/dl Magnesium 1.8 (1.7-2.4) mg/dl Total Bilirubin 0.3 (0.2-1.0) mg/dl AST 41 H (13-39) U/L ALT 41 (7-52) U/L Alkaline Phosphatase 117 H (34-104) U/L C-Reactive Protein 4.49 H (0-0.5) mg/dl Total Protein 7.4 (6.0-8.3) gm/dl Albumin 3.4 (3.4-5.0) gm/dl Globulin 4.0 (2.5-4.0) gm/dl Albumin/Globulin Ratio 0.9 (0.9-2) 01/12/24 01/12/24 Range/Units 18:34 12:09 WBC (4.8-10.8) K/ul RBC (4.70-6.10) M/uL Hgb (14.0-18.0) g/dl Hct (42.0-52.0) % MCV (80.0-100.0) fL MCH (25.0-34.0) pg MCHC (32.0-36.0) g/dL RDW Std Deviation (36.4-46.3) fL RDW Coeff of Erich (11.5-14.5) % Plt Count (130-400) K/uL MPV (9.4-12.4) fL Immature Gran % (Auto) % Neut % (Auto) % Lymph % (Auto) % [place] % (Auto) % Eos % (Auto) % Baso % (Auto) % Neut # (Auto) (1.40-6.50) K/uL Lymph # (Auto) (1.20-3.40) K/uL [place] # (Auto) (0.11-0.59) K/uL Eos # (Auto) (0.00-0.50) K/uL Baso # (Auto) (0.00-0.20) K/uL Immature Gran # (Auto) (0.01-0.20) K/uL ESR (0-20) mm/hr Sodium (136-145) mmol/L Potassium (3.5-5.1) mmol/L Chloride (98-107) mmol/L Carbon Dioxide (21-32) mmol/L Anion Gap (3-11) BUN (6-23) mg/dl Creatinine (0.6-1.4) mg/dl Est Cr Clr Drug Dosing ml/min Est GFR ( Amer) ml/min Est GFR (Non-Af Amer) ml/min BUN/Creatinine Ratio (10-20) Glucose (70-99(Fasting)) mg/dl POC Glucose 145 H 144 H (70-99) mg/dl Calcium (8.6-10.3) mg/dl Magnesium (1.7-2.4) mg/dl Total Bilirubin (0.2-1.0) mg/dl AST (13-39) U/L ALT (7-52) U/L Alkaline Phosphatase (34-104) U/L C-Reactive Protein (0-0.5) mg/dl Total Protein (6.0-8.3) gm/dl Albumin (3.4-5.0) gm/dl Globulin (2.5-4.0) gm/dl Albumin/Globulin Ratio (0.9-2)
--- NOTE | 2024-01-13 09:41 | Orthopedic Progress Note ---
Date of Service January 13, 2024 Assessment & Plan (1) Tenosynovitis of left foot: Plan: The patient was educated regarding today's findings. Conservative care measures were discussed. His dressing was not changed. Continue with ice and elevation. Continue with his IV antibiotics. Continue with oxycodone every 6-8 hours as needed. White count remains normal. He will be reassessed tomorrow. Anticipate need for PICC line for long-term antibiotics. Admission and Anticipated Discharge Date Admission Date: January 07, 2024 Subjective This 53 year old male is seen today in his room. He is awake and laying in bed. He complains of soreness in his left foot, but no samira pain. He denies any fevers or chills. No other complaints at this time. Physical Exam Physical Exam: General: Well-developed, well-nourished, middle-aged male, in no acute distress. Laying in bed. Alert and oriented. Conversive. Skin: Warm and dry with good turgor. There is a bandage on the left foot and ankle. No erythema on the medial aspect of the foot, however there is erythema present on the lateral aspect of the foot. The dressing was not removed. He has visible edema in his foot. Musculoskeletal: The patient has intact motor function of his knee, ankle, and toes. Neurologic: Gross sensation is intact across each of the digits of the left foot by soft touch. Results & Data Vital Signs (Past 12 Hours) Vital Signs Temp Pulse Resp BP Pulse Ox O2 Del Method 01/13/24 07:36 36.6 C 81 18 139/74 98 Room Air 01/13/24 04:08 36.6 C 74 18 126/76 97 Room Air 01/12/24 22:15 36.8 C 76 18 130/74 98 Room Air
--- NOTE | 2024-01-13 09:55 | Infectious Disease Progress Nt ---
Date of Service January 13, 2024 Assessment & Plan (1) Tenosynovitis of left foot: (2) Septic arthritis of left ankle: (3) Cellulitis of foot, left: (4) Gout of left ankle: Plan Eliezer Cunningham is a 53-year old man with history of lumbar spinal hardware and cervical spinal hardware, HTN, who presents to [facility] on 01/07/24 with 5 days of L foot pain and redness. He suspected that he was having a gout flare and on 01/02 self-administered IM methylprednisolone into his L calf and took a Medrol dose-kim. However his pain continued to worsen. While at [facility], his L foot erythema increased significantly. CT on 01/07 revealed small tibiotalar and talonavicular joint effusions and with L 5th metatarsal head fluid pocket c/f abscess s/p L ankle US aspiration on 01/09 thus far Cx + MSSA and with + monosodium urate crystals. 01/10 MRI L foot with talonavicular and calcaneocuboid joint effusions, extensive L foot edema with possible myositis vs. phlegmon of extensor muscles, and tenosynovitis of multiple extensor tendon sheaths. ID is consulted for L foot and ankle infection including septic arthritis, tenosynovitis, and myositis/SSTI. S/p I&D with ortho on 01/11 with purulence of the tibial talar joint, talar navicular joint, and calcaneal cuboid joints; Cx pending. Pt with radiographic evidence of L foot infection including possible septic arthritis, tenosynovitis, and myositis. A L ankle fluid pocket was aspirated on 01/09 with Cx + MSSA. No cell count/diff was sent due to insufficient fluid. S/p I&D with ortho on 01/11 with purulence of the tibial talar joint, talar navicular joint, and calcaneal cuboid joints; Cx pending. Infection is of unclear source. Pts L ankle fluid also + monosodium urate crystals and thus does appear to be having a concurrent gout flare. Without open wounds/cuts to suggest local spread. Considered hematogenous sources. Pt did inject IM methylpred into his L calf which could theoretically result in transient bacteremia seeding a susceptible joint (in the setting of ongoing gout flare and receiving steroids). Another possibility is that venipuncture while in the hospital led to transient MSSA bacteremia which seeded the joint, especially as his septic arthritis picture appeared to really blossom while inpatient. He also brushes his teeth with gum bleeding regularly, and shaves his chest, which are other potential causes of transient bacteremia. Would continue close monitoring for s/sx of other sites of infection (back pain, pain at other joints, fevers, chills, night sweats) if present then would pursue further workup for a deep-seated/endovascular source 01/06 BCx negative (though were charted as being obtained slightly after ceftriaxone was started). 01/10 TTE LVEF normal, no significant valvular pathology. No valvular vegetations identified. Pt is not currently systemically ill, and has been afebrile with normal WBC count. Would continue cefazolin to best target MSSA. Currently anticipate a 4-week course of abx after source control is obtained, likely mostly or all IV abx. Appreciate ortho following close monitoring to see whether pt may require return to OR. ID Problem List: 1.L ankle and foot infection with septic arthritis, tenosynovitis, myositis, and SSTI, s/p L ankle aspiration 01/09 with Cx + Staph spp. S/p I&D with ortho on 01/11 with purulence of the tibial talar joint, talar navicular joint, and calcaneal cuboid joints 2.L ankle gout flare, fluid + monosodium urate crystals Recommendations: - Continue cefazolin 2g IV q8h - Currently anticipate a 4-week course of abx after source control is obtained, likely mostly or all IV abx - Appreciate ortho following close monitoring to see whether pt may require return to OR - F/u 01/11 OR Cx - Weekly lab monitoring while on IV antibiotics: CBC w/ diff, CMP, ESR, CRP - Close monitoring for s/sx of other sites of infection (back pain, pain at other joints, fevers, chills, night sweats) if present then would pursue further workup for a deep-seated/endovascular source ID will continue to follow. Riddhi Cummings MD, [facility] direct line: [phone] Admission and Anticipated Discharge Date Admission Date: January 07, 2024 Subjective Subsequent visit was provided via telemedicine using two-way real-time interactive telecommunication between the patient and the telemedicine provider. For the duration of the visit, the provider was performing the assessment from a different facility than the patient. This includesuse of bluetooth stethoscope forauscultationperformed by the telepresenter that the telemedicine provider can hear if described in the physical exam. Radiologist Chief Of Breast Imaging contact information: Please call [facility] Call Center [phone]. (Phone Number For Physician Use Only) After establishing a telemedicine visit, patient was: Patient was verified with two unique identifiers, Patient/authorized rep acknowledged consent and understanding and Gave permission to continue telehealth session Time Spent with Patient: Subsequent => 35 min - Afebrile, WBC 10 - S/p I&D with ortho on 01/11. Had drains placed in OR but were removed by ortho this morning - Still with L foot pain. No pain elsewhere, no joint/back pain Physical Exam Physical Exam: Exam obtained with aid of in-person telepresenter. General: Well-appearing, no acute distress HEENT: Conjunctivae non-injected, sclerae anicteric, MMM, OP clear. Resp: Respirations nonlabored. Abd: Soft, nontender, nondistended. Ext: L foot with dressing in place. Drains removed this AM. Slight improved erythema of visible aspects of distal dorsal foot and toes. No effusions or tenderness at other joints. Skin: As above. No other rashes noted. Neuro: Alert & interactive. Grossly non-focal. Psych: Pleasant, appropriate. Results & Data Vital Signs (Past 12 Hours) Vital Signs Temp Pulse Resp BP Pulse Ox O2 Del Method 01/13/24 07:36 36.6 C 81 18 139/74 98 Room Air 01/13/24 04:08 36.6 C 74 18 126/76 97 Room Air 01/12/24 22:15 36.8 C 76 18 130/74 98 Room Air Diagnostic Findings Diagnostics: 01/11 OR note The Tibiotalar joint capsule was incised and purulent fluid was evacuated, after deep cultures were taken. The EDB was elevated off its origin from the calcaneus and retraced distally and medially. The Calcaneocuboid and Talonavicular joints were identified and the capsules incised. Again small amount of purulent appearing fluid was identified and deep cultures were obtained from each joint. The wound and the Tibiotalar, Calcaneocuboid, and Talonavicular joints were copiously irrigated with over 9 L normal saline. The articular cartilage was well appearing in each joint. A Hemovac drain was placed within the Tibiotalar joint and Talonavicular & Calcaneocuboid joints. Using 2-0 antibiotic impregnated 2-0 Vicryl suture the capsule of the Talonavicular and Talonavicular joints were re-approximated as well as repairing the EDB back to the calcaneus 01/10 TTE LVEF normal, no significant valvular pathology. No valvular vegetations identified. 01/10/25 L foot MRI 1. No evidence for acute osteomyelitis within the left midfoot or forefoot. 2. Small talonavicular and calcaneocuboid joint effusions. Sterility cannot be assessed by MRI. 3. Extensive left foot soft tissue edema, greater dorsally. This favors cellulitis. No well-defined fluid collection on unenhanced exam to suggest abscess. Small T2 hyperintense foci within the adjacent extensor musculature favors muscular edema or infectious myositis. Phlegmon could appear similar. 4. Mildly increased fluid within multiple extensor tendon sheaths. This suggests tenosynovitis, likely infectious. 01/08/24 Foot/ankle CT 1. Extensive soft tissue swelling of the left foot, greater dorsally. This involves the subcutaneous tissues and the extensor tendon/musculature. This favors cellulitis. No soft tissue gas. 2. 1.5 cm pocket of fluid within the subcutaneous tissues along the plantar aspect of the left fifth metatarsal head. This may simply represent edema. However, phlegmon could appear similar. No definite rim-enhancing fluid collection to suggest abscess at this time. 3. Small tibiotalar and talonavicular joint effusions with synovial enhancement. Sterility cannot be assessed by CT. Micro Summary: 01/11 OR specimens FNA (tibial talar joint): g/smoderate WBCs, no orgs; Cx pending Foot wound (3. talar navicular joint): g/smany WBCs, no orgs; Cx pending Left foot wound (2. calcaneal cuboid joint): g/sfew WBCs, no orgs; Cx pending 01/09 Left foot aspiration: Cx: few MSSA; g/s with moderate WBCs, no orgs synovial fluid crystals: monosodium urate c/f gout 01/06 BCx x2: NGTD 01/06 MRSA nares: neg Antibiotic Summary: cefazolin (01/11 present) prior daptomycin (01/07 01/10) ceftriaxone (01/06 01/07, 01/09-01/10)
[2024-01-13] MEDS: ASPIRIN 81 MG ECTAB PO SCH (10:28)
[2024-01-13] MEDS: HYDROmorphone INJ 0.5 MG/0.5 ML SYR IV PRN (10:29)
--- NOTE | 2024-01-13 15:30 | Hospitalist Progress Note ---
Date of Service January 13, 2024 Assessment & Plan (1) Septic arthritis of left ankle: Plan: P/w LEFT foot swelling and erythema that came on acutely and was quite painful. Initially thought to be gout and treated with steroids as outpatient without improvement Uric acid was elevated 8.8, CRP 3.79/ESR 79, procalcitonin 0.13 on admission. With leukocytosis, tachycardia on admission--> sepsis Started on ceftriaxone and Dapto given previous h/o MSSA,Serratia, and VRE CT foot/ankle --> no evidence for acute osteo or definitive abscess, no gas- Small tibiotalar and talonavicular joint effusions with synovial enhancement.1.5 cm pocket of fluid within the subcutaneous tissues along the plantar aspect of the left fifth metatarsal head. This may simply represent edema. However, phlegmon could appear similar. No definite rim-enhancing fluid collection to suggest abscess at this time. Ortho consulted, Dr Santa-IR consulted for aspiration fluid collection 01/09 --> wound cx w/ pansensitive MSSA MRI foot and ankle with infectious myositis and tenosynovitis in multiple places, no distinct abscess Initially started on colchicine for gout for several days which has now been discontinued, however there are some gout crystals in the fluid aspiration ESR peaked at 96 and now improving, CRP improving , Blood cultures from admission negative, WBC count normalized, remains afebrile ECHO no valvular vegetation S/p left foot washout 01/11 w/ Dr. Santa, confirmed septic arthritis of foot/ankle; intraop wound cxs growing Staph species, sensitivity pending-will follow Continue IV cefazolin x 4 weeks per infectious disease. He will need an u ltrasound-guided peripheral IV prior to discharge Follow CBC, CMP, CRP, ESR daily here then once weekly after discharge Close monitoring for s/sx of other sites of infection (back pain, pain at other joints, fevers, chills, night sweats) if present then would pursue further workup for a deep-seated/endovascular source Add on IV dilaudid for post-op pain, continue oxycodone prn, APAP prn (2) Tenosynovitis of left foot: Plan: as above (3) Sepsis: Plan: as above, now resolved metabolic acidosis more likely from dehydration with hyperglycemia and now resolved (4) Diabetes mellitus: Plan: P/w glucose of 500 and mild acidosis with AG, had recently taken steroids for presumed gout HgbA1c 7.8%, previously known to be prediabetic Chuy delivered to patient by DM educator Plans to start Vincenzo outpatient w/ Dr Marcano, also for weight loss Continue BSG AC/HS, sliding scale insulin. Glucose now well controlled f/u PCP (5) Elevated uric acid in blood: Plan: Initial presentation thought to be gout due to acute onset without wound to foot. 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 Started colchicine here for several days- no improvement--> dc colchicine as this is a septic foot dcd HCTZ for concerns for causing gout (6) Hypertension: Plan: BPs quite high with hypertensive urgency on admission Now blood pressures continue to improve with starting metoprolol 25mg po bid Continue amlodipine, ARB Dcd HCTZ from home as can precipitate gout Steroids and stress, pain also elevating BP. Continue to monitor (7) Hyperlipidemia: Plan: continue atorvastatin (8) GERD (gastroesophageal reflux disease): Plan: No increased sx reported Continue pantoprazole 40mg PO BID (9) B12 deficiency: Plan: B12 265, low normal--> started B12 1000mcg PO daily (10) Transaminitis: Plan: likely from sepsis or from abx, now improving follow CMP (11) Anemia: Plan: slight drop since surgery to 9.6 from 10.7 likely from inflammation follow CBC Plan VTE Prophylaxis - Lovenox 40mg SQ daily Dispo-continued stay for pain control, follow cultures, plan to dc to home with home IV antibiotics being arranged by CM Admission and Anticipated Discharge Date Admission Date: January 07, 2024 Subjective Having quite a bit of pain in foot today. Says he's having a bad day. Pain worse with trying to walk Otherwise no CP, SOB, nausea, diarrhea Physical Exam Constitutional: WD/WN, vitals as above Respiratory: normal respiratory effort Cardiovascular: RRR, no murmur, no edema Musculoskeletal: Left foot/ankle with dressing in place, ADDISON wrap not removed Psychiatric: A+Ox3, euthymic affect Results & Data Results & Data Vital Signs (Past 12 Hours) Vital Signs Temp Pulse Resp BP Pulse Ox O2 Del Method 01/13/24 15:00 37.1 C 94 H 16 156/93 H 97 Room Air 03/28/24 07:36 36.6 C 81 18 139/74 98 Room Air 01/13/24 04:08 36.6 C 74 18 126/76 97 Room Air Laboratory Results CBC, CMP, ESR, CRP reviewed Wound cxs reviewed PG Care Time/CCT Total # of Minutes Spent Total Time Spent with Patient: Total time spent is greater than 50% in coordination of care (as documented) at patient's floor/unit and/or counseling patient: Coding Level of Care Code 93527 SUB INP/OBS CARE 2/35MIN Diagnoses Septic arthritis of left ankle M00.9 Tenosynovitis of left foot M65.9 Sepsis A41.9 Diabetes mellitus E11.9 Elevated uric acid in blood E79.0 Hypertension I10 Hyperlipidemia E78.5 GERD (gastroesophageal reflux disease) K21.9 B12 deficiency E53.8 Transaminitis R74.01 Anemia D64.9
[2024-01-14 06:41] LABS: Basophils # (auto) 0.06 K/uL (0.00-0.20); Basophils % (auto) 0.6 %; Hematocrit (blood only) 29.2 % (42.0-52.0); Immature Granulocytes # (auto) 0.21 K/uL (0.01-0.20); Immature Granulocytes % (auto) 2.1 %; Lymphocytes # (auto) 1.93 K/uL (1.20-3.40); Lymphocytes % (auto) 19.1 %; Mean Corpuscular Hemoglobin 29.8 pg (25.0-34.0); Mean Corpuscular Hgb Conc 34.2 g/dL (32.0-36.0); Mean Corpuscular Volume 86.9 fL (80.0-100.0); Mean Platelet Volume 9.5 fL (9.4-12.4); Monocytes # (auto) 1.54 K/uL (0.11-0.59); Monocytes % (auto) 15.2 %; Neutrophils # (auto) 6.09 K/uL (1.40-6.50); Platelet Count 412 K/uL (130-400); RDW Coefficient of Variation 12.5 % (11.5-14.5); RDW Standard Deviation 39.9 fL (36.4-46.3); Red Blood Count 3.36 M/uL (4.70-6.10); White Blood Count 10.13 K/ul (4.8-10.8)
[2024-01-14 06:53] LABS: Albumin Globulin Ratio 0.9 (0.9-2); Albumin Level 3.5 gm/dl (3.4-5.0); BUN Creatinine Ratio 19.8 (10-20); Bilirubin,Total 0.3 mg/dl (0.2-1.0); C Reactive Protein 6.65 mg/dl (0-0.5); Calcium 9.5 mg/dl (8.6-10.3); Creatinine Clr Calc Pharmacy 111.5 ml/min; Est GFR (African American) 113.1 ml/min; Est GFR (Non-African American) 97.6 ml/min; Potassium 3.9 mmol/L (3.5-5.1); Total Protein 7.5 gm/dl (6.0-8.3)
--- NOTE | 2024-01-14 07:47 | Orthopedic Progress Note ---
Date of Service January 14, 2024 Assessment & Plan (1) Septic arthritis of left ankle: Plan: POD #2 s/p I&D Left foot & ankle, for MSSA, doing as well as expected. Resume diet. HVAC removed, 01/13/2024, WBAT LLE. Dressing replaced 01/14/24, re-enforce / replace as needed. OOB to chair. Continue IV antibiotics 4 weeks, then oral antibiotics per ID. Continue Abx min 8 weeks total. Continue pain control. Continue to follow weekly WBC, ESR, CRP DVT prophylaxis: TEDs 3 weeks, foot pumps while in hospital, ASA 81 mg BID for 3 weeks. PT/OT. D/C planning for home with IV Abx. Once discharged home, follow up Dr. Santa's office early next week. Will continue to follow postoperatively. (2) Tenosynovitis of left foot: Plan: see above. Admission and Anticipated Discharge Date Admission Date: January 07, 2024 Subjective Continued left foot pain Physical Exam Physical Exam: LLE: BCR < 2 sec. Sensation to light touch unchanged. Wiggling toes. Incision is clean and intact. Serosanguineous drainage on dressing and lightly from mid- portion of the incision. Redness of foot decreased in size and intensity. Swelling of foot present, but decreased. Results & Data Vital Signs (Past 12 Hours) Vital Signs Temp Pulse Resp BP Pulse Ox O2 Del Method 01/14/24 07:21 36.3 C L 77 18 142/80 H 96 Room Air 01/13/24 20:19 37.0 C 92 H 16 168/83 H 98 Room Air Laboratory Results 01/14/24 01/14/24 01/13/24 Range/Units 07:24 06:05 20:50 WBC 10.13 (4.8-10.8) K/ul RBC 3.36 L (4.70-6.10) M/uL Hgb 10.0 L (14.0-18.0) g/dl Hct 29.2 L (42.0-52.0) % MCV 86.9 (80.0-100.0) fL MCH 29.8 (25.0-34.0) pg MCHC 34.2 (32.0-36.0) g/dL RDW Std Deviation 39.9 (36.4-46.3) fL RDW Coeff of Erich 12.5 (11.5-14.5) % Plt Count 412 H (130-400) K/uL MPV 9.5 (9.4-12.4) fL Immature Gran % (Auto) 2.1 % Neut % (Auto) 60.0 % Lymph % (Auto) 19.1 % Fillmore % (Auto) 15.2 % Eos % (Auto) 3.0 % Baso % (Auto) 0.6 % Neut # (Auto) 6.09 (1.40-6.50) K/uL Lymph # (Auto) 1.93 (1.20-3.40) K/uL Fillmore # (Auto) 1.54 H (0.11-0.59) K/uL Eos # (Auto) 0.30 (0.00-0.50) K/uL Baso # (Auto) 0.06 (0.00-0.20) K/uL Immature Gran # (Auto) 0.21 H (0.01-0.20) K/uL ESR 71 H (0-20) mm/hr Sodium 131 L (136-145) mmol/L Potassium 3.9 (3.5-5.1) mmol/L Chloride 98 (98-107) mmol/L Carbon Dioxide 23 (21-32) mmol/L Anion Gap 10 (3-11) BUN 17 (6-23) mg/dl Creatinine 0.86 (0.6-1.4) mg/dl Est Cr Clr Drug Dosing 111.5 ml/min Est GFR ( Amer) 113.1 ml/min Est GFR (Non-Af Amer) 97.6 ml/min BUN/Creatinine Ratio 19.8 (10-20) Glucose 133 H (70-99(Fasting)) mg/dl POC Glucose 139 H 154 H (70-99) mg/dl Calcium 9.5 (8.6-10.3) mg/dl Magnesium (1.7-2.4) mg/dl Total Bilirubin 0.3 (0.2-1.0) mg/dl AST 27 (13-39) U/L ALT 30 (7-52) U/L Alkaline Phosphatase 110 H (34-104) U/L C-Reactive Protein 6.65 H (0-0.5) mg/dl Total Protein 7.5 (6.0-8.3) gm/dl Albumin 3.5 (3.4-5.0) gm/dl Globulin 4.0 (2.5-4.0) gm/dl Albumin/Globulin Ratio 0.9 (0.9-2) 01/13/24 01/13/24 01/13/24 Range/Units 16:41 11:37 07:38 WBC (4.8-10.8) K/ul RBC (4.70-6.10) M/uL Hgb (14.0-18.0) g/dl Hct (42.0-52.0) % MCV (80.0-100.0) fL MCH (25.0-34.0) pg MCHC (32.0-36.0) g/dL RDW Std Deviation (36.4-46.3) fL RDW Coeff of Erich (11.5-14.5) % Plt Count (130-400) K/uL MPV (9.4-12.4) fL Immature Gran % (Auto) % Neut % (Auto) % Lymph % (Auto) % Fillmore % (Auto) % Eos % (Auto) % Baso % (Auto) % Neut # (Auto) (1.40-6.50) K/uL Lymph # (Auto) (1.20-3.40) K/uL Fillmore # (Auto) (0.11-0.59) K/uL Eos # (Auto) (0.00-0.50) K/uL Baso # (Auto) (0.00-0.20) K/uL Immature Gran # (Auto) (0.01-0.20) K/uL ESR (0-20) mm/hr Sodium (136-145) mmol/L Potassium (3.5-5.1) mmol/L Chloride (98-107) mmol/L Carbon Dioxide (21-32) mmol/L Anion Gap (3-11) BUN (6-23) mg/dl Creatinine (0.6-1.4) mg/dl Est Cr Clr Drug Dosing ml/min Est GFR ( Amer) ml/min Est GFR (Non-Af Amer) ml/min BUN/Creatinine Ratio (10-20) Glucose (70-99(Fasting)) mg/dl POC Glucose 127 H 136 H 131 H (70-99) mg/dl Calcium (8.6-10.3) mg/dl Magnesium (1.7-2.4) mg/dl Total Bilirubin (0.2-1.0) mg/dl AST (13-39) U/L ALT (7-52) U/L Alkaline Phosphatase (34-104) U/L C-Reactive Protein (0-0.5) mg/dl Total Protein (6.0-8.3) gm/dl Albumin (3.4-5.0) gm/dl Globulin (2.5-4.0) gm/dl Albumin/Globulin Ratio (0.9-2) 01/13/24 Range/Units 07:06 WBC (4.8-10.8) K/ul RBC (4.70-6.10) M/uL Hgb (14.0-18.0) g/dl Hct (42.0-52.0) % MCV (80.0-100.0) fL MCH (25.0-34.0) pg MCHC (32.0-36.0) g/dL RDW Std Deviation (36.4-46.3) fL RDW Coeff of Erich (11.5-14.5) % Plt Count (130-400) K/uL MPV (9.4-12.4) fL Immature Gran % (Auto) % Neut % (Auto) % Lymph % (Auto) % Fill[place] % (Auto) % Eos % (Auto) % Baso % (Auto) % Neut # (Auto) (1.40-6.50) K/uL Lymph # (Auto) (1.20-3.40) K/uL Fillmore # (Auto) (0.11-0.59) K/uL Eos # (Auto) (0.00-0.50) K/uL Baso # (Auto) (0.00-0.20) K/uL Immature Gran # (Auto) (0.01-0.20) K/uL ESR (0-20) mm/hr Sodium 132 L (136-145) mmol/L Potassium 4.1 (3.5-5.1) mmol/L Chloride 99 (98-107) mmol/L Carbon Dioxide 25 (21-32) mmol/L Anion Gap 8 (3-11) BUN 18 (6-23) mg/dl Creatinine 0.94 (0.6-1.4) mg/dl Est Cr Clr Drug Dosing 102.1 ml/min Est GFR ( Amer) 105.4 ml/min Est GFR (Non-Af Amer) 90.9 ml/min BUN/Creatinine Ratio 19.1 (10-20) Glucose 129 H (70-99(Fasting)) mg/dl POC Glucose (70-99) mg/dl Calcium 9.0 (8.6-10.3) mg/dl Magnesium 1.8 (1.7-2.4) mg/dl Total Bilirubin 0.3 (0.2-1.0) mg/dl AST 41 H (13-39) U/L ALT 41 (7-52) U/L Alkaline Phosphatase 117 H (34-104) U/L C-Reactive Protein 4.49 H (0-0.5) mg/dl Total Protein 7.4 (6.0-8.3) gm/dl Albumin 3.4 (3.4-5.0) gm/dl Globulin 4.0 (2.5-4.0) gm/dl Albumin/Globulin Ratio 0.9 (0.9-2) Spec: [id number] Collected: 01/12/24- Received: 01/12/24-[address]: Christine Moser MD Copy To: Tone Hardy MD Source: Fine Needle Aspirate OV Order: Ordered: Aer/Tanna Cult/Sm Comments: TIBIAL TALAR JOINT Procedure Result Verified Site Gram Stain Final 01/13/24 Gram Stain Result Moderate WBCs Seen No Organisms Seen Aero/Tanna Cult Preliminary 01/14/24-728 Organism 1 Staphylococcus aureus Quantity Few Sens Sensitivities to Follow S aureus RX M.I.C. --- --------- Clindamycin S <=0.5 Daptomycin S 1 Erythromycin S <=0.5 Oxacillin S <=0.25 Tetracycline S <=4 Trimeth/Sulfa S <=0.5/9.5 Vancomycin S 2 S = SENSITIVE I = INTERMEDIATE R = RESISTANT Spec: [id number] Collected: 01/12/24-UNK Received: [address]: Sha Santa MD Copy To: Tone Hardy MD Source: Foot OV Order: Ordered: Aer/Tanna Cult/Sm Comments: Comment 3. Talar Navicular Joint Procedure Result Verified Site Gram Stain Final 01/13/24 Gram Stain Result Many WBCs Seen No Organisms Seen Aero/Tanna Cult Preliminary 01/14/24 Organism 1 Staphylococcus aureus Quantity Few Sens Sensitivities to Follow S aureus RX M.I.C. --- --------- Clindamycin S <=0.5 Daptomycin S <=0.5 Erythromycin S <=0.5 Oxacillin S <=0.25 Tetracycline S <=4 Trimeth/Sulfa S <=0.5/9.5 Vancomycin S 1 S = SENSITIVE I = INTERMEDIATE R = RESISTANT Spec: [id number] Collected: 01/12/24 Received: 01/12/[address]: Sha Santa MD Copy To: Tone Hardy MD Source: Foot,Left OV Order: Ordered: Aer/Tanna Cult/Sm Comments: Comment 2) Calcaneal Cuboid joint cx. Procedure Result Verified Site Gram Stain Final 01/13/24 Gram Stain Result Few WBCs Seen No Organisms Seen Aero/Tanna Cult Preliminary 01/13/24 No growth to date. Name: JOSE CRUZ CHEN : 1970 PAGE 1 Printed: 01/14/24 1450 END OF REPORT
[2024-01-14] MEDS: ACETAMINOPHEN 500 MG TAB PO SCH (08:53)
--- NOTE | 2024-01-14 16:45 | Discharge Summary ---
Date of Service January 14, 2024 Admission HPI Per Admitting Provider Parishnicolas Marisa is a 53 year old male (PA with [facility]) who presents to the ER with left foot swelling and erythema. Symptoms started on Wednesday 5 days ago in his ankle with pain. Progressed to erythema and swelling and he felt he had gout/pseudogout therefore had a depo-medrol injection in the office on Wednesday followed by a Medrol Dosepak. His symptoms continued to get worse therefore decided to come to the ER today. No fever or chills. Principal Diagnosis mssa septic arthritic Discharge Data Allergies Allergy/AdvReac Type Severity Reaction Status Date / Time No Known Allergies Allergy Unknown Verified 05/11/22 07:58 Consultations 01/07/24 09:22 ED Decision to Admit Stat 01/08/24 17:10 Consult Orthopedic Surgery Routine 01/11/24 11:58 Consult Infectious Diseases Routine Procedures Performed Operation Date: 01/12/24 11:10 Actual Procedures p Left Foot and Ankle Incision and Drainage(Left) - Sha Santa MD Ordered Studies 01/08/24 16:02 CT ankle LT w con Urgent CT foot LT w con Urgent 01/10/24 10:30 IR aspinj im jnt elb,wr,ank LT Routine 01/11/24 09:44 MRI Ankle [MR ankle LT wo con] Stat MRI Foot [MR foot LT w/o con] Stat Diabetes Follow up Diabetes Follow-up Needed for Newly Diagnosed Diabetes Hospital Course (1) Septic arthritis of left ankle: septic arthritis plus tenosinovitis, presenting with sepsis from the same, initially was treating for gout and did have steroids sepsis resolved , metabolic acidosis resolved, transaminitis resolved Started on ceftriaxone and Dapto given previous h/o MSSA,Serratia, and VRE, culture is MSSA and will be home on 4 weeks Cefazolin +/- orals afterward depending on orthos clinical course CT foot/ankle --> no evidence for acute osteo or definitive abscess, no gas- Small tibiotalar and talonavicular joint effusions with synovial enhancement.1.5 cm pocket of fluid within the subcutaneous tissues along the plantar aspect of the left fifth metatarsal head. This may simply represent edema. However, phlegmon could appear similar. No definite rim-enhancing fluid collection to suggest abscess at this time. Ortho consulted, Dr Santa-IR consulted for aspiration fluid collection 3/25 --> wound cx w/ pansensitive MSSA MRI foot and ankle with infectious myositis and tenosynovitis in multiple places, no distinct abscess , Blood cultures from admission negative, WBC count normalized, remains afebrile ECHO no valvular vegetation S/p left foot washout 01/11 w/ Dr. Santa, confirmed septic arthritis of foot/ankle; intraop wound cxs growing Staph species, certainly keep surveillance for satellite infection, TTE was negative for vegetations (2) Diabetes mellitus: P/w glucose of 500 and mild acidosis with AG, had recently taken steroids for presumed gout HgbA1c 7.8%, previously known to be prediabetic Chuy delivered to patient by DM educator juliette Loya outpatient oversight w/ Dr Marcano, also for weight loss (3) Elevated uric acid in blood: Initial presentation thought to be gout due to acute onset without wound to foot. 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 consider discussion of hydrochlorothiazide with pcp ( typically part of chronic hypertension regimen) (4) Anemia: slight drop since surgery to 9.6 from 10.7 stable Total Time Total Time Spent Total Time Spent (In Minutes): It required greater than 30 minutes to prepare this patient for discharge. Discharge Plan Discharge Items Patient Disposition: Home - Self-Care Reason For Visit: LEFT FOOT SWOLLEN Discharge Diagnosis: staph infection of left foot s/p I&D Activity: Per Instructions section Activity Comment: off work, home antibioitcs, elevated and ice foot Bathing: Keep incision dry Bathing Comment: May shower tomorrow Sexual Activity: When tolerated Exercise/Sports: Wait until after follow-up appointment Driving/Machine Use: Resume 3 days after discharge Weightbearing: Left weightbearing Weightbearing Comment: as tolerated Non-emergency contact: Primary Care Provider and Surgeon Call non-emergency contact if: your symptoms worsen Follow-up/Referrals: Medical Treatment Unit (MTU) [Outside] - 01/21/24 10:30 am Charly Marcano MD [Primary Care Provider] - 01/17/24 10:00 am (w/ Dr. Ennis ) Sha Santa MD [Physician] - Diet: Carb Consistent or DM2 Addtl Attending Provider Instructions: please rest and elevated you foot, this means you Kip! take tylenol 1000mg three times a day until there is a day when you have no pain at all then downshift to prn use use oxycodone for break thru pain discuss removal of hctz from combination bp med risk benefit with risk of gout Please continue to have a low carb diet and watch your calories as we are worried about type 2 diabetes, we are going to Rx Mounjaro for you to begin treating your diabetes at home complete home antibiotics as directed by Dr Santa Pending Studies at Discharge: No Stand-Alone Forms: My [facility], Pain - Opioid Pain Management, Smoking Cessation Medications and DC Order Prescriptions: New oxycodone 5 mg tablet 5 - 10 mg PO TID PRN (Reason: pain) Qty: 20 0RF cefazolin 2 gram recon soln 2 g IV Q8H 28 Days Qty: 25 0RF Continued tadalafil 5 mg tablet See Rx Instructions .ROUTE .COMPLEX Qty: 30 11RF Dose Instruction: TAKE 1 TABLET BY MOUTH ONCE DAILY Rx Instructions: TAKE 1 TABLET BY MOUTH ONCE DAILY pantoprazole [Protonix] 40 mg tablet,delayed release (DR/EC) 40 mg PO BID Qty: 180 3RF telmisartan-hydrochlorothiazid 80-25 mg tablet See Rx Instructions .ROUTE .COMPLEX Qty: 90 3RF Dose Instruction: TAKE 1 TABLET BY MOUTH EVERY DAY Rx Instructions: TAKE 1 TABLET BY MOUTH EVERY DAY dextroamphetamine-amphetamine 20 mg capsule,extended release 24hr 20 mg PO QAM Qty: 45 0RF Rx Instructions: 20 mg PO One capsule daily and PRN; albuterol sulfate 90 mcg/actuation Hfa Aerosol Inhaler 2 puff INHALATION Q6H PRN (Reason: Shortness Of Breath Or Wheezing) atorvastatin 40 mg tablet 40 mg PO QAM amlodipine 5 mg tablet 5 mg PO DAILY Mounjaro 2.5 mg/0.5 mL pen injector 2.5 mg subcut .COMPLEX Qty: 2 11RF Rx Instructions: 2.5 mg subcutaneously 2.5mg sq q week; Discontinued methylprednisolone [Medrol (Jorge L)] 4 mg tablets,dose pack 4 mg PO .COMPLEX Qty: 21 0RF Rx Instructions: 4 mg PO per jorge l; TAKE PER INSTRUCTIONS ON JORGE L Discharge Orders: Discharge Order (Routine); Ordered 01/14/24 Ordered By: Eze Toussaint/Other Patient Handouts: DVT Post Op Prevention, Type 2 Diabetes Admission Data Admit Date/Time: 01/07/24 10:20 Attending Provider: Eze Farah Admit Provider: Tone Hardy Primary Care Provider: Charly Marcano Other Providers: Latoya Paiz; Sha Santa; Tanvi Calloway; Gale Brewer; Ross Cantu; Precious Acharya; Shayy Griffith; Shaggy Mccarthy; Latoya Greco; Riddhi Cummings Other Interventions: Discharge Summary Assessment (RN) Last Done: 01/14/24 13:18 Coding Level of Care Code 16839 INP/OBS DISCH >30 MIN Diagnoses Septic arthritis of left ankle M00.9 Diabetes mellitus E11.9 Elevated uric acid in blood E79.0 Anemia D64.9
--- NOTE | 2024-01-14 17:04 | Infectious Disease Progress Nt ---
Date of Service January 14, 2024 Assessment & Plan (1) Tenosynovitis of left foot: (2) Septic arthritis of left ankle: (3) Cellulitis of foot, left: (4) Gout of left ankle: Plan Eliezer Cunningham is a 53-year old man with history of lumbar spinal hardware and cervical spinal hardware, HTN, who presents to [facility] on 01/07/24 with 5 days of L foot pain and redness. He suspected that he was having a gout flare and on 01/02 self-administered IM methylprednisolone into his L calf and took a Medrol dose-kim. However his pain continued to worsen. While at [facility], his L foot erythema increased significantly. CT on 01/07 revealed small tibiotalar and talonavicular joint effusions and with L 5th metatarsal head fluid pocket c/f abscess s/p L ankle US aspiration on 01/09 thus far Cx + MSSA and with + monosodium urate crystals. 01/10 MRI L foot with talonavicular and calcaneocuboid joint effusions, extensive L foot edema with possible myositis vs. phlegmon of extensor muscles, and tenosynovitis of multiple extensor tendon sheaths. ID is consulted for L foot and ankle infection including septic arthritis, tenosynovitis, and myositis/SSTI. S/p I&D with ortho on 01/11 with purulence of the tibial talar joint, talar navicular joint, and calcaneal cuboid joints; Cx + MSSA. Pt with radiographic evidence of L foot infection including possible septic arthritis, tenosynovitis, and myositis. A L ankle fluid pocket was aspirated on 01/09 with Cx + MSSA. No cell count/diff was sent due to insufficient fluid. S/p I&D with ortho on 01/11 with purulence of the tibial talar joint, talar navicular joint, and calcaneal cuboid joints; Cx also + MSSA. Infection is of unclear source. Pts L ankle fluid also + monosodium urate crystals and thus does appear to be having a concurrent gout flare. Without open wounds/cuts to suggest local spread. Considered hematogenous sources. Pt did i nject IM methylpred into his L calf which could theoretically result in transient bacteremia seeding a susceptible joint (in the setting of ongoing gout flare and receiving steroids). Another possibility is that venipuncture while in the hospital led to transient MSSA bacteremia which seeded the joint, especially as his septic arthritis picture appeared to really blossom while inpatient. He also brushes his teeth with gum bleeding regularly, and shaves his chest, which are other potential causes of transient bacteremia. Would continue close monitoring for s/sx of other sites of infection (back pain, pain at other joints, fevers, chills, night sweats) if present then would pursue further workup for a deep-seated/endovascular source 01/06 BCx negative (though were charted as being obtained slightly after ceftriaxone was started). 01/10 TTE LVEF normal, no significant valvular pathology. No valvular vegetations identified. Pt is not currently systemically ill, and has been afebrile with normal WBC count. Would continue cefazolin to best target MSSA. Per ortho, would favor prolonged course of therapy to 6+ weeks, which would be reasonable given the extent of infection and if any concern for a component of osteomyelitis. Will recommend a tentative 4-week course of IV abx and could potentially transition to PO afterwards. ID Problem List: 1.L ankle and foot infection with septic arthritis, tenosynovitis, myositis, and SSTI, s/p L ankle aspiration 01/09 with Cx + Staph spp. S/p I&D with ortho on 01/11 with purulence of the tibial talar joint, talar navicular joint, and calcaneal cuboid joints 2.L ankle gout flare, fluid + monosodium urate crystals Recommendations: - Continue cefazolin 2g IV q8h while inpatient, if will be discharging can transition to cefazolin 6g IV continuous infusion for OPAT via PICC ---- Recommend a tentative 6-week course of total antibiotics since OR (01/1102/22/24), with reevaluation of abx duration upon follow-up ---- If significant improvement after at least 4 weeks of IV abx, can consider changing to PO for the remainder of the course (e.g., cefadroxil 1000 mg PO BID, Bactrim, or linezolid) ---- Low threshold to extend therapy pending follow-up with ortho (and with ID clinic if able) ---- Weekly lab monitoring while on IV antibiotics: CBC w/ diff, CMP, ESR, CRP - F/u 3/27 OR Cx until finalized - Close monitoring for s/sx of other sites of infection (back pain, pain at other joints, fevers, chills, night sweats) if present then would pursue further workup for a deep-seated/endovascular source Plan discussed with hospitalist. Thank you for letting ID participate in the care of this patient. ID will sign off at this time. If questions, please contact [facility] at [phone]. Riddhi Cummings MD, MHS Infectious Diseases [facility] Connect ID Connect direct line: [phone] Admission and Anticipated Discharge Date Admission Date: January 07, 2024 Subjective Subsequent visit was provided via telemedicine using two-way real-time interactive telecommunication between the patient and the telemedicine provider. For the duration of the visit, the provider was performing the assessment from a different facility than the patient. This includesuse of bluetooth stethoscope forauscultationperformed by the telepresenter that the telemedicine provider can hear if described in the physical exam. [employer] contact information: Please call [facility] Connect Call Center . (Phone Number For Physician Use Only) After establishing a telemedicine visit, patient was: Patient was verified with two unique identifiers, Patient/authorized rep acknowledged consent and understanding and Gave permission to continue telehealth session Time Spent with Patient: Subsequent => 55 min - Afebrile, WBC 10 - Still with L foot pain. No pain elsewhere, no joint/back pain - Plan for discharge today Physical Exam Physical Exam: Exam obtained with aid of in-person telepresenter. General: Well-appearing, no acute distress HEENT: Conjunctivae non-injected, sclerae anicteric, MMM, OP clear. Resp: Respirations nonlabored. Abd: Soft, nontender, nondistended. Ext: L foot with dressing in place. Slight improved erythema of visible aspects of distal dorsal foot and toes. No effusions or tenderness at other joints. Skin: As above. No other rashes noted. Neuro: Alert & interactive. Grossly non-focal. Psych: Pleasant, appropriate. Results & Data Vital Signs (Past 12 Hours) Vital Signs Temp Pulse Pulse Resp BP BP Pulse Ox 01/14/24 13:18 36.3 C L 79 77 18 178/89 H 142/80 H 96 01/14/24 07:21 36.3 C L 77 18 142/80 H 96 O2 Del Method 01/14/24 13:18 01/14/24 07:21 Room Air Diagnostic Findings Diagnostics: 01/11 OR note The Tibiotalar joint capsule was incised and purulent fluid was evacuated, after deep cultures were taken. The EDB was elevated off its origin from the calcaneus and retraced distally and medially. The Calcaneocuboid and Talonavicular joints were identified and the capsules incised. Again small am ount of purulent appearing fluid was identified and deep cultures were obtained from each joint. The wound and the Tibiotalar, Calcaneocuboid, and Talonavicular joints were copiously irrigated with over 9 L normal saline. The articular cartilage was well appearing in each joint. A Hemovac drain was placed within the Tibiotalar joint and Talonavicular & Calcaneocuboid joints. Using 2-0 antibiotic impregnated 2-0 Vicryl suture the capsule of the Talonavicular and Talonavicular joints were re-approximated as well as repairing the EDB back to the calcaneus 01/10 TTE LVEF normal, no significant valvular pathology. No valvular vegetations identified. 01/10/25 L foot MRI 1. No evidence for acute osteomyelitis within the left midfoot or forefoot. 2. Small talonavicular and calcaneocuboid joint effusions. Sterility cannot be assessed by MRI. 3. Extensive left foot soft tissue edema, greater dorsally. This favors cellulitis. No well-defined fluid collection on unenhanced exam to suggest absc ess. Small T2 hyperintense foci within the adjacent extensor musculature favors muscular edema or infectious myositis. Phlegmon could appear similar. 4. Mildly increased fluid within multiple extensor tendon sheaths. This suggests tenosynovitis, likely infectious. 01/08/24 Foot/ankle CT 1. Extensive soft tissue swelling of the left foot, greater dorsally. This involves the subcutaneous tissues and the extensor tendon/musculature. This favors cellulitis. No soft tissue gas. 2. 1.5 cm pocket of fluid within the subcutaneous tissues along the plantar aspect of the left fifth metatarsal head. This may simply represent edema. However, phlegmon could appear similar. No definite rim-enhancing fluid collection to suggest abscess at this time. 3. Small tibiotalar and talonavicular joint effusions with synovial enhancement. Sterility cannot be assessed by CT. Micro Summary: 01/11 OR specimens FNA (tibial talar joint): g/smoderate WBCs, no orgs; Cx MSSA Foot wound (3. talar navicular joint): g/smany WBCs, no orgs; Cx MSSA Left foot wound (2. calcaneal cuboid joint): g/sfew WBCs, no orgs; Cx NGTD 01/09 Left foot aspiration: Cx: few MSSA; g/s with moderate WBCs, no orgs synovial fluid crystals: monosodium urate c/f gout 01/06 BCx x2: NGTD 01/06 MRSA nares: neg Antibiotic Summary: cefazolin (01/11 present) prior daptomycin (01/07 01/10) ceftriaxone (01/06 01/07, 01/09-01/10)
== END 2024-01-14 15:39 | disposition home or self-care (01) | DRG 854 ==
LOC: ED 06:23 → 3E 10:20 → SUATTDRO 10:20 → 3E 11:49